=== PATIENT | male | born 1950 | race Caucasian/White ===

== ENCOUNTER → 2016-09-30 | Outpatient (CLI) | payer OTHER ==
[~2016-09-30] MED LIST: ASPI-461 PO; CALC500C3 PO; CHOL100027 PO; CHOL20007 PO; CLOP1TAB5 PO; FRS/40 PO; GADOXETATE DISODIUM IV PRN; INSDGIPEN SC; INSU75IN2 SC; LISI-461 PO; LISI-729 PO; NTRGSL/4 SL; NTRGSL/4 UT; NVLGI/PEN SC; PRAV20TA PO; PRED10TA PO; PROP80CA7 PO; SPIR25TA89 PO
--- NOTE | 2016-09-30 10:51 | DIAGNOSTIC IMAGING REPORT ---
MRI LIVER COMBO CLINICAL HISTORY: Autoimmune hepatitis, cirrhosis. Colon cancer screening. TECHNIQUE: Imaging was performed prior to and following IV contrast injection. (10 cc intravenous Eovist) COMPARISON STUDY: No previous studies for comparison. FINDINGS: The liver serosal surface appears nodular, consistent with history of cirrhosis. No hepatic masses are visualized. There are perisplenic varices. There is mild splenomegaly (12 cm). This is likely secondary to portal hypertension. There are multiple gallstones present. There is no ductal dilatation. Multiple subcentimeter T2 bright pancreatic lesions are visualized consistent with multiple IPMNs. There is no pancreatic ductal dilatation. 12 month follow-up is recommended. There is no evidence of abdominal aortic dilatation. There are multiple bilateral renal cysts. The largest on the right measures 7.2 cm. The largest in the left measures 5.5 cm. No adrenal masses are visualized. There are no pathologically enlarged upper abdominal lymph nodes. IMPRESSION: 1. Cirrhotic liver morphology 2. No hepatic masses 3. Mild splenomegaly and perisplenic varices 4. Bilateral renal cysts 5. Cholelithiasis 6. Multiple subcentimeter pancreatic cystic lesions, the largest of which measures 6 mm. 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 12 month follow-up is recommended. Electronically signed by: Elgin Caballero M.D. 09/30/2016 10:49 AM Dictated Date/Time: 09/30/2016 10:27 AM
== END | disposition home or self-care (01) ==
LOC: C.MRI 08:46
PROVIDERS: ATTEND Internal Medicine Gastroenterology
DX: Z12.11 Encounter for screening for malignant neoplasm of colon (principal); K75.4 Autoimmune hepatitis; K74.60 Unspecified cirrhosis of liver; R16.1 Splenomegaly, not elsewhere classified; I86.8 Varicose veins of other specified sites; N28.1 Cyst of kidney, acquired; K86.2 Cyst of pancreas

== ENCOUNTER → 2016-10-09 | Day surgery (SDC) | payer OTHER ==
[2016-09-30 13:49] VITALS: Ht 175.3 cm; Wt 84.1 kg
[~2016-10-09] VITALS: Ht 175.3 cm; Wt 84.1 kg
[~2016-10-09] MED LIST changes: -CHOL100027 PO; -CLOP1TAB5 PO; -GADOXETATE DISODIUM IV PRN; -INSU75IN2 SC; +LIDOCAINE HCL 2% 2 ML VIAL (20MG/ML) ONE; -LISI-729 PO; -NTRGSL/4 SL; +PROPOFOL IV EMULSION 10 MG/ML 20 ML VIAL IV ONE; +SODIUM CHLORIDE 0.9% 500ML 500 ML IV ONE
--- NOTE | 2016-10-09 13:41 | Endo History and Physical ---
History & Physical Date of Service: Oct 09, 2016. Chief Complaint: Referring Physician: History of Present Illness AIH; for variceal screening and colon screening Past Surgical History Hx Cardiac Surgery: Yes (HEART CATH, STENT X1) Hx Internal Defibrillator: No Hx Pacemaker: No Hx Abdominal Surgery: No Hx of Implantable Prosthesis: No Hx Post-Op Nausea and Vomiting: No Hx Cancer Surgery: No Hx Thoracic Surgery: No Hx Orthopedic: Yes (RT ANKLE TUMOR REMOVAL (BENIGN)) Hx Urinary Tract Surgery: No Family History None Social History Smoking Status: Current Some Day Smoker Hx Substance Use: No Hx Alcohol Use: No Allergies Coded Allergies: No Known Allergies (Verified , 10/09/16) Current Medications Reported Home Medications Medications Dose Route/Sig Max Daily Dose Days Date Category Dose Instructions Nitrostat (Nitroglycerin) 0.4 Mg Tab 0.4 Mg UT PRN PRN 09/30/16 Reported Vitamin D3 (Cholecalciferol) 2,000 Unit Tab 1 Tab PO QAM 09/30/16 Reported Tums (Calcium Carbonate) 500 Mg Chew 2 Tabs PO QAM 09/30/16 Reported Aspirin 81 Mg Tab 1 Tab PO QAM 09/30/16 Reported Lantus Solostar (Insulin Glargine) 100 Unit/Ml Inj 27 Units SC HS 09/30/16 Reported Novolog Flexpen (Insulin Aspart) 100 Units/Ml Inj Units SC UD 09/30/16 Reported 17 UNITS AM 20 UNITS LUNCH 29 UNITS SUPPER Lasix (Furosemide) 40 Mg Tab 40 Mg PO QAM 09/30/16 Reported Aldactone (Spironolactone) 25 Mg Tab 25 Mg PO QAM 09/30/16 Reported Pravachol (Pravastatin Sodium) 20 Mg Tab 20 Mg PO QAM 09/30/16 Reported Zestril (Lisinopril) 10 Mg Tab 10 Mg PO QAM 09/30/16 Reported Inderal La (Propranolol Hcl) 80 Mg Cap 80 Mg PO QAM 11/26/12 Reported Prednisone 10 Mg Tab 10 Mg PO QAM 07/15/10 Reported Vital Signs Weight (Kilograms): 84.09 Height (Feet): 5 Height (Inches): 9 Date Time Temp Pulse Resp B/P Pulse Ox O2 Delivery O2 Flow Rate FiO2 10/09/16 13:33 36.9 54 16 178/73 99 Room Air Physical Exam AAO x3 Nl s1s2 Lungs CTA Abd soft NT/ND + BS - CCe Assessment and Plan EGd/colon today
--- NOTE | 2016-10-09 14:43 | GI REPORT ---
Procedure Date: 10/09/2016 1:44 PM Procedure: Upper GI endoscopy Indications: Esophageal varices, Follow-up of esophageal varices, Abnormal CT of the GI tract Medicines: Propofol per Anesthesia Complications: No immediate complications. Estimated blood loss: None. Estimated Blood Loss: Estimated blood loss: none. Procedure: Pre-Anesthesia Assessment: - Prior to the procedure, a History and Physical was performed, and patient medications and allergies were reviewed. The patient's tolerance of previous anesthesia was also reviewed. The risks and benefits of the procedure and the sedation options and risks were discussed with the patient. All questions were answered, and informed consent was obtained. Prior Anticoagulants: The patient has taken no previous anticoagulant or antiplatelet agents. ASA Grade Assessment: III - A patient with severe systemic disease. After reviewing the risks and benefits, the patient was deemed in satisfactory condition to undergo the procedure. After obtaining informed consent, the endoscope was passed under direct vision. Throughout the procedure, the patient's blood pressure, pulse, and oxygen saturations were monitored continuously. The scope was introduced through the mouth, and advanced to the third part of duodenum. The upper GI endoscopy was accomplished without difficulty. The patient tolerated the procedure well. Findings: Grade I varices were found in the lower third of the esophagus. They were 3 mm in largest diameter. The entire examined stomach was normal. The examined duodenum was normal. The cardia and gastric fundus were normal on retroflexion. Impression: - Grade I esophageal varices. - Normal stomach. - Normal examined duodenum. - No specimens collected. Recommendation: - Discharge patient to home (ambulatory). - Resume previous diet. - Return to GI clinic as previously scheduled. - Perform a colonoscopy today. MD Frank Iraheta MD 10/09/2016 2:43:35 PM This report has been signed electronically. Note Initiated On: 10/09/2016 1:44 PM I attest to the content of the Intraoperative Record and orders documented therein, exceptions below
--- NOTE | 2016-10-09 14:58 | Discharge Instructions ---
Endoscopy Patient Instructions Date / Procedure(s) Performed Oct 09, 2016. Colonoscopy, EGD Allergy Information Coded Allergies: No Known Allergies (Verified , 10/09/16) Discharge Date / Findings Oct 09, 2016. mild esophageal varices colon polyp Medication Instructions Stopped Medication(s): Patient was told not to take his aldactone, lasix, and insulin. Patient did not take anything at all this am. Restart Stopped Medication(s): Reported Home Medications Medications Dose Route/Sig Max Daily Dose Days Date Category Dose Instructions Nitrostat (Nitroglycerin) 0.4 Mg Tab 0.4 Mg UT PRN PRN 09/30/16 Reported Vitamin D3 (Cholecalciferol) 2,000 Unit Tab 1 Tab PO QAM 09/30/16 Reported Tums (Calcium Carbonate) 500 Mg Chew 2 Tabs PO QAM 09/30/16 Reported Aspirin 81 Mg Tab 1 Tab PO QAM 09/30/16 Reported Lantus Solostar (Insulin Glargine) 100 Unit/Ml Inj 27 Units SC HS 09/30/16 Reported Novolog Flexpen (Insulin Aspart) 100 Units/Ml Inj Units SC UD 09/30/16 Reported 17 UNITS AM 20 UNITS LUNCH 29 UNITS SUPPER Lasix (Furosemide) 40 Mg Tab 40 Mg PO QAM 09/30/16 Reported Aldactone (Spironolactone) 25 Mg Tab 25 Mg PO QAM 09/30/16 Reported Pravachol (Pravastatin Sodium) 20 Mg Tab 20 Mg PO QAM 09/30/16 Reported Zestril (Lisinopril) 10 Mg Tab 10 Mg PO QAM 09/30/16 Reported Inderal La (Propranolol Hcl) 80 Mg Cap 80 Mg PO QAM 11/26/12 Reported Prednisone 10 Mg Tab 10 Mg PO QAM 07/15/10 Reported Reported Home Medications Medications Dose Route/Sig Max Daily Dose Days Date Category Dose Instructions Nitrostat (Nitroglycerin) 0.4 Mg Tab 0.4 Mg UT PRN PRN 09/30/16 Reported Vitamin D3 (Cholecalciferol) 2,000 Unit Tab 1 Tab PO QAM 09/30/16 Reported Tums (Calcium Carbonate) 500 Mg Chew 2 Tabs PO QAM 09/30/16 Reported Aspirin 81 Mg Tab 1 Tab PO QAM 09/30/16 Reported Lantus Solostar (Insulin Glargine) 100 Unit/Ml Inj 27 Units SC HS 09/30/16 Reported Novolog Flexpen (Insulin Aspart) 100 Units/Ml Inj Units SC UD 09/30/16 Reported 17 UNITS AM 20 UNITS LUNCH 29 UNITS SUPPER Lasix (Furosemide) 40 Mg Tab 40 Mg PO QAM 09/30/16 Reported Aldactone (Spironolactone) 25 Mg Tab 25 Mg PO QAM 09/30/16 Reported Pravachol (Pravastatin Sodium) 20 Mg Tab 20 Mg PO QAM 09/30/16 Reported Zestril (Lisinopril) 10 Mg Tab 10 Mg PO QAM 09/30/16 Reported Inderal La (Propranolol Hcl) 80 Mg Cap 80 Mg PO QAM 11/26/12 Reported Prednisone 10 Mg Tab 10 Mg PO QAM 07/15/10 Reported Provider Instructions Activity Restrictions - No exercising or heavy lifting for 24 hours. - Do not drink alcohol the day of the procedure. - Do not drive a car or operate machinery until the day after the procedure. - Do not make any important decisions or sign important papers in 24 hours after the procedure. Following Day: - Return to full activity which may include returning to work/school. Diet Start your diet with liquids and light foods (jello, soup, juice, toast). Then eat your usual diet if not nauseated. Treatment For Common After Affects For mild abdominal pain, bloating, or excessive gas: - Rest - Eat lightly - Lie on right side Follow-Up Information Follow-up with Dr. Dariel Moscoso as scheduled Anesthesia Information What You Should Know You have had a procedure that required some medicine to reduce anxiety and discomfort. This treatment is called moderate sedation. After receiving the treatment, you may be sleepy, but you will be able to breathe on your own. The effects of the treatment may last for several hours. Follow these instructions along with Activity/Diet recommendations noted above: * Do NOT do anything where dizziness or clumsiness would be dangerous. * Rest quietly at home today, then you can be up and about tomorrow. * Have a responsible person stay with you the rest of today. * You may have had an I.V. today. If so, you may take the dressing off later today. Recommendations Call your doctor if: * Trouble breathing * Continuous vomiting for more than 24 hours * Temperature above 101 degrees * Severe abdominal pain or bloating * Pain not relieved by pain medicine ordered * There is increased drainage or redness from any incision * A large amount of rectal bleeding greater than 2-3 tablespoons. (If you had a polyp/s removed or have hemorrhoids, a small amount of blood - from the rectum is to be expected.) * You have any unanswered questions or concerns. IN THE EVENT OF A SERIOUS EMERGENCY, GO TO THE NEAREST EMERGENCY ROOM Your discharge instructions were prepared by provider Frank Sanders. Patient Instructions Signature Page Carlos A Julien Patient (or Guardian) Signature/Date: I have read and understand the instructions given to me by my caregivers. Caregiver/RN/Doctor Signature/Date: The above-named patient and/or guardian has received patient instructions on this date. + Original Patient Signature Page (only) stays with chart. Please make copy for patient.
--- NOTE | 2016-10-09 15:02 | Anesthesiology Progress Note ---
Anesthesia Post Op Note Date & Time Oct 09, 2016 at 15:02 Vital Signs Pain Intensity: 0 Vital Signs Past 12 Hours Date Time Temp Pulse Resp B/P Pulse Ox O2 Delivery O2 Flow Rate FiO2 10/09/16 14:53 66 20 160/74 98 Room Air 10/09/16 14:38 77 20 109/67 98 Room Air 10/09/16 13:33 36.9 54 16 178/73 99 Room Air Notes Mental Status: alert / awake / arousable, participated in evaluation Pt Amnestic to Procedure: Yes Nausea / Vomiting: adequately controlled Pain: adequately controlled Airway Patency, RR, SpO2: stable & adequate BP & HR: stable & adequate Hydration State: stable & adequate Anesthetic Complications: no major complications apparent
[2016-10-09 15:08] VITALS: BP 159/70; PULSE 52; O2SAT 99
== END | disposition home or self-care (01) ==
LOC: C.GI 13:07
PROVIDERS: ATTEND Internal Medicine Gastroenterology
DX: Z12.11 Encounter for screening for malignant neoplasm of colon (principal); K62.0 Anal polyp; K64.8 Other hemorrhoids; I85.00 Esophageal varices without bleeding; R93.3 Abnormal findings on diagnostic imaging of other parts of digestive tract; E11.9 Type 2 diabetes mellitus without complications; I25.2 Old myocardial infarction; I25.10 Atherosclerotic heart disease of native coronary artery without angina pectoris; I10 Essential (primary) hypertension; F17.200 Nicotine dependence, unspecified, uncomplicated; Z98.890 Other specified postprocedural states; Z79.4 Long term (current) use of insulin; Z68.27 Body mass index [BMI] 27.0-27.9, adult

== ENCOUNTER → 2016-10-14 | Outpatient (CLI) | payer OTHER ==
[~2016-10-14] MED LIST changes: -LIDOCAINE HCL 2% 2 ML VIAL (20MG/ML) ONE; -PROPOFOL IV EMULSION 10 MG/ML 20 ML VIAL IV ONE; -SODIUM CHLORIDE 0.9% 500ML 500 ML IV ONE
[2016-10-14 10:13] LABS: HEMATOCRIT 27.8 % (42-52); MEAN CELL VOLUME 88.5 fL (80-100); MEAN CORPUSCULAR HEMOGLOBIN 31.2 pg (25-34); MEAN CORPUSCULAR HGB CONC 35.3 g/dl (32-36); RED BLOOD COUNT 3.14 M/uL (4.7-6.1); WHITE BLOOD COUNT 7.83 K/uL (4.8-10.8)
[2016-10-14 10:16] LABS: MANUAL MICROSCOPIC REQUIRED? NO; REVIEW REQ? NO; URINE APPEARANCE CLEAR (CLEAR); URINE BILIRUBIN NEG (NEG); URINE COLOR YELLOW; URINE NITRITE NEG (NEG); URINE SPECIFIC GRAVITY 1.016 (1.000-1.030); UROBILINOGEN NEG (NEG); ZZUR CULT IF INDIC CLEAN CATCH NO
[2016-10-14 10:35] LABS: URINE TOTAL PROTEIN 148.9 mg/dl (0-11.9)
[2016-10-14 10:40] LABS: BASO % 0.5 %; BASO ABS # 0.04 K/uL (0-0.2); BLOOD UREA NITROGEN 34 mg/dl (7-18); BUN/CREATININE RATIO 21.5 (10-20); CALCIUM 8.1 mg/dl (8.5-10.1); CARBON DIOXIDE 25 mmol/L (21-32); CHLORIDE 113 mmol/L (98-107); COMPLETE YES; EOS % 3.6 %; GLUCOSE 114 mg/dl (70-99); IG% 0.4 %; LYMPH % 21.8 %; LYMPH ABS # 1.71 K/uL (1.2-3.4); MAGNESIUM 2.3 mg/dl (1.8-2.4); MEAN PLATELET VOLUME 9.9 fL (7.4-10.4); MONO % 10.3 %; NEUT % 63.4 %; PHOSPHORUS 3.9 mg/dl (2.5-4.9); PLATELET COUNT 92 K/uL (130-400); POTASSIUM 4.4 mmol/L (3.5-5.1); SODIUM 147 mmol/L (136-145)
[2016-10-14 10:48] LABS: URINE PROTIEN/CREAT RATIO 1.2 (0-0.2)
--- NOTE | 2017-01-05 07:53 | CODING QUERY MEDICAL NECESSITY ---
SUPPORTING DIAGNOSIS NEEDED Dr. Dwyer, A supporting diagnosis is required for the test/procedure performed on this patient in order for us to be reimbursed by the patient's insurance. Please provide a supporting diagnosis for the following test/procedure listed below next to the test name along with your signature. *If there is no additional diagnosis for this patient that would support the following test/procedure please document that below next to the test/procedure. Test(s)/Procedure(s) that require a supporting diagnosis: * ([id number]) VITAMIN D ASSAY DIAGNOSIS: DATE OF SERVICE: 10/14/16 Provider Signature: Date: Thank you Maynor Carmichael [facility] Information Management Once completed, please kindly fax back to [phone] For questions please call [phone]
== END | disposition home or self-care (01) ==
LOC: C.LAB1850 09:28
PROVIDERS: ATTEND Internal Medicine Nephrology
DX: N18.2 Chronic kidney disease, stage 2 (mild) (principal); D64.9 Anemia, unspecified; E55.9 Vitamin D deficiency, unspecified

== ENCOUNTER → 2016-11-18 | Outpatient (CLI) | payer OTHER ==
--- NOTE | 2016-11-18 14:34 | DIAGNOSTIC IMAGING REPORT ---
TESTICULAR ULTRASOUND HISTORY: Testicular pain Q55.29 Testicular [id number] COMPARISON: None. FINDINGS: Right testis: Maximum linear dimension 4.2 cm. Normal vascular calcification Left testis: 4.6 cm maximum dimension. Normal vascular flow. Left-sided hydrocele. IMPRESSION: Left-sided hydrocele. Normal testis. Electronically signed by: Darin Rios M.D. 11/18/2016 2:32 PM Dictated Date/Time: 11/18/2016 2:31 PM
== END | disposition home or self-care (01) ==
LOC: C.ULTR 13:51
PROVIDERS: ATTEND Internal Medicine
DX: Q55.29 Other congenital malformations of testis and scrotum (principal)

== ENCOUNTER → 2016-12-12 | Outpatient (CLI) | payer OTHER ==
[2016-12-12 10:10] LABS: HEMATOCRIT 27.5 % (42-52); MEAN CELL VOLUME 89.9 fL (80-100); MEAN CORPUSCULAR HGB CONC 34.5 g/dl (32-36); RED BLOOD COUNT 3.06 M/uL (4.7-6.1); WHITE BLOOD COUNT 7.59 K/uL (4.8-10.8)
[2016-12-12 10:20] LABS: URINE APPEARANCE CLEAR (CLEAR); URINE BILIRUBIN NEG (NEG); URINE COLOR YELLOW; URINE NITRITE NEG (NEG); URINE SPECIFIC GRAVITY 1.016 (1.000-1.030); UROBILINOGEN NEG (NEG); ZZUR CULT IF INDIC CLEAN CATCH NO
[2016-12-12 10:26] LABS: MANUAL MICROSCOPIC REQUIRED? NO; REVIEW REQ? NO
[2016-12-12 10:33] LABS: BASO % 0.7 %; BASO ABS # 0.05 K/uL (0-0.2); COMPLETE YES; IG% 0.5 %; LYMPH % 23.3 %; LYMPH ABS # 1.77 K/uL (1.2-3.4); MEAN PLATELET VOLUME 10.6 fL (7.4-10.4); MONO % 11.3 %; NEUT % 60.2 %; PLATELET COUNT 92 K/uL (130-400); PLT ESTIMATE DECREASED
[2016-12-12 10:51] LABS: BLOOD UREA NITROGEN 56 mg/dl (7-18); BUN/CREATININE RATIO 31.3 (10-20); CALCIUM 8.1 mg/dl (8.5-10.1); CARBON DIOXIDE 26 mmol/L (21-32); CHLORIDE 115 mmol/L (98-107); GLUCOSE 138 mg/dl (70-99); MAGNESIUM 2.8 mg/dl (1.8-2.4); POTASSIUM 4.8 mmol/L (3.5-5.1); SODIUM 145 mmol/L (136-145)
[2016-12-12 10:57] LABS: FERRITIN 579.7 ng/ml (8.0-388.0); PHOSPHORUS 3.7 mg/dl (2.5-4.9); TOTAL IRON BINDING CAPACITY 227 mcg/dl (250-450)
[2016-12-12 11:11] LABS: URINE TOTAL PROTEIN 85.2 mg/dl (0-11.9)
[2016-12-16 06:26] LABS: ALBUMIN 3.1 G/DL (3.8-4.8); ALBUMIN % 78.26 %; ALPHA-2-GLOBULIN % 4.81 %; BETA GLOBULIN % 8.08 %; CREATININE UR 89 MG/DL (20-370); GAMMA GLOBULIN % 7.95 %; TOTAL PROTEIN 5.7 G/DL (6.2-8.3)
== END | disposition home or self-care (01) ==
LOC: C.LAB1850 09:15
PROVIDERS: ATTEND Internal Medicine Nephrology
DX: N18.2 Chronic kidney disease, stage 2 (mild) (principal)

== ENCOUNTER → 2017-02-24 | Outpatient (CLI) | payer OTHER ==
[2017-02-24 12:12] LABS: HEMATOCRIT 26.3 % (42-52); MEAN CELL VOLUME 92.9 fL (80-100); MEAN CORPUSCULAR HEMOGLOBIN 32.2 pg (25-34); MEAN CORPUSCULAR HGB CONC 34.6 g/dl (32-36); RED BLOOD COUNT 2.83 M/uL (4.7-6.1); WHITE BLOOD COUNT 6.97 K/uL (4.8-10.8)
[2017-02-24 12:19] LABS: BASO % 0.4 %; BASO ABS # 0.03 K/uL (0-0.2); EOS % 2.6 %; IG% 0.9 %; LYMPH % 23.5 %; LYMPH ABS # 1.64 K/uL (1.2-3.4); MEAN PLATELET VOLUME 10.2 fL (7.4-10.4); MONO % 10.2 %; NEUT % 62.4 %; PLATELET COUNT 91 K/uL (130-400)
[2017-02-24 12:27] LABS: INR 1.2 (0.9-1.1); PROTHROMBIN TIME (PATIENT) 12.7 SECONDS (9.0-12.0)
[2017-02-24 12:29] LABS: URINE APPEARANCE CLEAR (CLEAR); URINE BILIRUBIN NEG (NEG); URINE COLOR YELLOW; URINE EPITHELIAL CELL AUTO 0-5 /lpf (0-5); URINE NITRITE NEG (NEG); UROBILINOGEN NEG (NEG); ZZUR CULT IF INDIC CLEAN CATCH NO
[2017-02-24 12:38] LABS: ESTIMATED AVERAGE GLUCOSE 117 mg/dl; HA1C FLAG Normal (Normal)
[2017-02-24 12:40] LABS: MANUAL MICROSCOPIC REQUIRED? NO; REVIEW REQ? NO
[2017-02-24 12:45] LABS: URINE PROTIEN/CREAT RATIO 0.5 (0-0.2); URINE TOTAL PROTEIN 44.6 mg/dl (0-11.9)
[2017-02-24 13:13] LABS: COMPLETE YES; HYPERSEGMENTED POLYS 1+
[2017-02-24 14:20] LABS: ALT/SGPT 25 U/L (12-78); AST/SGOT 11 U/L (15-37); BLOOD UREA NITROGEN 59 mg/dl (7-18); BUN/CREATININE RATIO 26.6 (10-20); CALCIUM 9.3 mg/dl (8.5-10.1); CARBON DIOXIDE 22 mmol/L (21-32); CHLORIDE 112 mmol/L (98-107); CHOLESTEROL 126 mg/dl (0-200); GLUCOSE 118 mg/dl (70-99); MAGNESIUM 2.3 mg/dl (1.8-2.4); PHOSPHORUS 4.3 mg/dl (2.5-4.9); POTASSIUM 5.1 mmol/L (3.5-5.1); SODIUM 141 mmol/L (136-145); TRIGLYCERIDES 119 mg/dl (0-150); VERY LOW DENSITY LIPOPROT CALC 24 mg/dl
[2017-02-24 14:30] LABS: ALB/GLOB RATIO 0.9 (0.9-2); ALKALINE PHOSPHATASE 29 U/L (45-117); CHOLESTEROL/HDL RATIO 3.3; FERRITIN 494.6 ng/ml (8.0-388.0); HDL CHOLESTEROL 38 mg/dl; LDL CHOLESTEROL CALCULATED 64 mg/dl; TOTAL IRON BINDING CAPACITY 233 mcg/dl (250-450)
[2017-02-25 16:22] LABS: GAMMA GLOBULIN 0.9 G/DL (0.8-1.7); TOTAL PROTEIN 5.6 G/DL (6.2-8.3)
== END | disposition home or self-care (01) ==
LOC: C.LAB1850 09:41
PROVIDERS: ATTEND Internal Medicine Nephrology
DX: K74.60 Unspecified cirrhosis of liver (principal); E78.5 Hyperlipidemia, unspecified; I85.00 Esophageal varices without bleeding; M35.9 Systemic involvement of connective tissue, unspecified; D64.9 Anemia, unspecified; K75.4 Autoimmune hepatitis; N18.2 Chronic kidney disease, stage 2 (mild); E11.9 Type 2 diabetes mellitus without complications; N40.0 Benign prostatic hyperplasia without lower urinary tract symptoms

== ENCOUNTER → 2017-03-18 | Outpatient (CLI) | payer OTHER ==
[2017-03-20 14:02] LABS: FREE KAPPA 52.7 MG/L (3.3-19.4); FREE KAPPA/LAMBDA RATIO 2.15 (0.26-1.65); FREE LAMBDA 24.5 MG/L (5.7-26.3)
[2017-03-23 11:30] LABS: ALBUMIN % 73.92 %; ALPHA-2-GLOBULIN % 5.55 %; BETA GLOBULIN % 8.56 %; CREATININE UR 96 MG/DL (20-370); GAMMA GLOBULIN % 8.31 %
== END | disposition home or self-care (01) ==
LOC: C.LAB1850 12:47
PROVIDERS: ATTEND Internal Medicine Nephrology
DX: R80.9 Proteinuria, unspecified (principal); D89.2 Hypergammaglobulinemia, unspecified

== ENCOUNTER → 2017-03-27 | Outpatient (CLI) | payer OTHER ==
[2017-03-27 12:53] LABS: BLOOD UREA NITROGEN 50 mg/dl (7-18); BUN/CREATININE RATIO 31.5 (10-20); CALCIUM 8.7 mg/dl (8.5-10.1); CARBON DIOXIDE 23 mmol/L (21-32); CHLORIDE 116 mmol/L (98-107); GLUCOSE 95 mg/dl (70-99); MAGNESIUM 2.8 mg/dl (1.8-2.4); PHOSPHORUS 3.5 mg/dl (2.5-4.9); POTASSIUM 5.2 mmol/L (3.5-5.1); SODIUM 146 mmol/L (136-145)
== END | disposition home or self-care (01) ==
LOC: C.LAB1850 09:43
PROVIDERS: ATTEND Internal Medicine Nephrology
DX: N28.9 Disorder of kidney and ureter, unspecified (principal)

== ENCOUNTER → 2017-04-07 | Outpatient (CLI) | payer OTHER ==
[~2017-04-07] MED LIST changes: +GADAVIST IV PRN
--- NOTE | 2017-04-07 11:50 | DIAGNOSTIC IMAGING REPORT ---
MRI ABDOMEN COMBO CLINICAL HISTORY: AUTOIMMUNE HEPATITIS PANCREAS ASSESS PANCREATIC CYST. TECHNIQUE: Imaging was performed prior to and following IV contrast injection. (8 cc intravenous Gadavist) COMPARISON STUDY: Liver MRI 09/30/2016. FINDINGS: The liver serosal surface appears nodular, consistent with history of cirrhosis. No hepatic masses are visualized. There are perisplenic varices. The spleen remains top normal in size (12 cm). There are multiple gallstones present. There is no ductal dilatation. Multiple subcentimeter T2 bright pancreatic lesions are visualized consistent with multiple IPMNs. The largest in the body of the pancreas measures 6 mm. No enhancing lesions identified. There is no pancreatic ductal dilatation. 12 month follow-up is recommended. There is no evidence of abdominal aortic dilatation. There are multiple bilateral renal cysts. The largest on the right measures 7.2 cm. The largest in the left measures 5.5 cm. There is a 1.8 cm T1 hyperintense, T2 intermediate intensity nonenhancing lesion within the interpolar region of the left kidney. Therefore, this is consistent with a proteinaceous/hemorrhagic cyst. No adrenal masses are visualized. There are no pathologically enlarged upper abdominal lymph nodes. IMPRESSION: 1. Cirrhotic liver morphology 2. No hepatic masses 3. The spleen remains top normal in size measuring 12 cm. 4. Bilateral renal cysts, unchanged. 5. Cholelithiasis 6. Multiple subcentimeter pancreatic cystic lesions, the largest of which measures 6 mm. 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 Electronically signed by: Raffi Payne M.D. 04/07/2017 11:49 AM Dictated Date/Time: 04/07/2017 11:39 AM
== END | disposition home or self-care (01) ==
LOC: C.MRI 09:34
PROVIDERS: ATTEND Internal Medicine Gastroenterology
DX: K75.4 Autoimmune hepatitis (principal); N28.1 Cyst of kidney, acquired; K80.20 Calculus of gallbladder without cholecystitis without obstruction; K86.9 Disease of pancreas, unspecified

== ENCOUNTER → 2017-04-29 | Outpatient (CLI) | payer OTHER ==
[~2017-04-29] MED LIST changes: -GADAVIST IV PRN
[2017-04-29 10:33] LABS: BLOOD UREA NITROGEN 50 mg/dl (7-18); BUN/CREATININE RATIO 26.5 (10-20); CALCIUM 8.9 mg/dl (8.5-10.1); CARBON DIOXIDE 26 mmol/L (21-32); CHLORIDE 111 mmol/L (98-107); GLUCOSE 86 mg/dl (70-99); PHOSPHORUS 4.4 mg/dl (2.5-4.9); POTASSIUM 4.2 mmol/L (3.5-5.1); SODIUM 144 mmol/L (136-145)
== END | disposition home or self-care (01) ==
LOC: C.LAB1850 09:23
PROVIDERS: ATTEND Internal Medicine Nephrology
DX: N28.9 Disorder of kidney and ureter, unspecified (principal)

== ENCOUNTER → 2017-07-10 | Outpatient (CLI) | payer OTHER ==
[2017-07-10 10:57] LABS: BLOOD UREA NITROGEN 42 mg/dl (7-18); BUN/CREATININE RATIO 24.2 (10-20); CALCIUM 8.1 mg/dl (8.5-10.1); CARBON DIOXIDE 23 mmol/L (21-32); CHLORIDE 113 mmol/L (98-107); CREATININE 1.75 mg/dl (0.60-1.40); GLUCOSE 94 mg/dl (70-99); PHOSPHORUS 3.5 mg/dl (2.5-4.9); POTASSIUM 4.2 mmol/L (3.5-5.1); SODIUM 144 mmol/L (136-145)
[2017-07-10 11:26] LABS: ESTIMATED AVERAGE GLUCOSE 114 mg/dl; HA1C FLAG Normal (Normal)
== END | disposition home or self-care (01) ==
LOC: C.LAB1850 09:22
PROVIDERS: ATTEND Physician Assistant
DX: E11.9 Type 2 diabetes mellitus without complications (principal); N28.9 Disorder of kidney and ureter, unspecified

== ENCOUNTER → 2017-07-30 | Outpatient (CLI) | payer OTHER ==
[2017-07-30 12:18] LABS: BLOOD UREA NITROGEN 51 mg/dl (7-18); BUN/CREATININE RATIO 28.8 (10-20); CALCIUM 8.3 mg/dl (8.5-10.1); CARBON DIOXIDE 23 mmol/L (21-32); CHLORIDE 112 mmol/L (98-107); CREATININE 1.76 mg/dl (0.60-1.40); GLUCOSE 144 mg/dl (70-99); MAGNESIUM 2.6 mg/dl (1.8-2.4); PHOSPHORUS 3.4 mg/dl (2.5-4.9); POTASSIUM 4.7 mmol/L (3.5-5.1); SODIUM 143 mmol/L (136-145)
== END | disposition home or self-care (01) ==
LOC: C.LAB1850 10:15
PROVIDERS: ATTEND Internal Medicine Nephrology
DX: N28.9 Disorder of kidney and ureter, unspecified (principal)

== ENCOUNTER → 2017-09-10 | Outpatient (CLI) | payer OTHER ==
[2017-09-10 12:22] LABS: BASO % 0.5 %; BASO ABS # 0.04 K/uL (0-0.2); EOS % 3.5 %; EOS ABS # 0.28 K/uL (0-0.5); HEMATOCRIT 26.5 % (42-52); HEMOGLOBIN 8.9 g/dL (14.0-18.0); IG# 0.04 K/uL (0.00-0.02); LYMPH % 16.6 %; LYMPH ABS # 1.34 K/uL (1.2-3.4); MEAN CORPUSCULAR HEMOGLOBIN 30.9 pg (25-34); MEAN CORPUSCULAR HGB CONC 33.6 g/dl (32-36); MEAN PLATELET VOLUME 10.5 fL (7.4-10.4); MONO % 10.7 %; MONO ABS # 0.86 K/uL (0.11-0.59); NEUT % 68.2 %; NEUT ABS # 5.51 K/uL (1.4-6.5); PLATELET COUNT 105 K/uL (130-400); RED CELL DISTRIBUTION WIDTH CV 14.1 % (11.5-14.5); RED CELL DISTRIBUTION WIDTH SD 46.5 fL (36.4-46.3); WHITE BLOOD COUNT 8.07 K/uL (4.8-10.8)
[2017-09-10 12:38] LABS: INR 1.3 (0.9-1.1); PTT PATIENT 27.5 SECONDS (21.0-31.0)
[2017-09-10 13:03] LABS: BLOOD UREA NITROGEN 54 mg/dl (7-18); CALCIUM 8.4 mg/dl (8.5-10.1); CARBON DIOXIDE 24 mmol/L (21-32); CREATININE 1.88 mg/dl (0.60-1.40); GLUCOSE 118 mg/dl (70-99); POTASSIUM 4.6 mmol/L (3.5-5.1); SODIUM 143 mmol/L (136-145)
== END | disposition home or self-care (01) ==
LOC: C.LAB1850 11:27
PROVIDERS: ATTEND Physician Assistant Medical
DX: I20.8 Other forms of angina pectoris (principal)

== ENCOUNTER → 2017-10-06 | Day surgery (SDC) | payer OTHER ==
[~2017-10-06] VITALS: Ht 175.3 cm; Wt 84.0 kg
[~2017-10-06] MED LIST changes: +ASPIRIN 81 MG CHEW ONE; +FENTANYL CITRATE INJ 50 MCG/1 ML 2 ML VIAL ONE; +HEPARIN SOD (PORCINE) 1000 UNIT/ML 10 ML VIAL ONE; +HMLI7525 SC; +ISOS30TA3 PO; +MIDAZOLAM HCL 1 MG/ML 2ML VIAL ONE; +NITROGLYCERIN/D5W 100MCG/ML 20ML SYR ONE; +NiCARDipine HCL INJ 2.5 MG/ML 10 ML AMP ONE
[2017-10-06 07:19] VITALS: BP 168/80; PULSE 97; TEMP 36.8; O2SAT 95; Ht 175.3 cm; Wt 84.0 kg
--- NOTE | 2017-10-06 08:40 | History & Physical Bridge Note ---
H&P Re-Evaluation Bridge Note: I have examined the patient, reviewed the History & Physical and in the interval since the performance of the History & Physical I have noted the following changes of clinical significance: No changes noted
--- NOTE | 2017-10-06 08:40 | Pre Sedation Assessment ---
Pre Sedation Assessment General Date of Sedation: Oct 06, 2017. Vital Signs Past 12 Hours Date Time Temp Pulse Resp B/P (MAP) Pulse Ox O2 Delivery O2 Flow Rate FiO2 10/06/17 07:19 36.8 97 20 168/80 (109) 95 Room Air Review Cardiovascular: regular rate, rhythm, no edema Lungs: chest non-tender, lungs clear Pre-Sedation Airway Assessment Smoking Status: Never Smoker Hx of Sleep Apnea: No Hx of difficult intubation: No Short Thick Neck: No Thyro-mental Distance: > 3 Finger Breadths Oral Cavity: WNL Mallampati Classification: Class III ASA Classification: Class III NPO Status Date of Last Intake of Fluids: Oct 05, 2017 Date of Last Intake of Solids: Oct 05, 2017 Procedure Planning Contraindications for Sedation: None Current Medications Reviewed: Yes Notes The planned sedation has been discussed with the patient. Informed Consent was obtained. I have identified the patient, determined the appropriateness of sedation and have assessed the patient immediately prior to the procedure. All medicine(s) and interventions are by my order.
--- NOTE | 2017-10-06 09:28 | Post Sedation Assessment ---
Post Sedation Assessment General Date of Sedation Oct 06, 2017. Vital Signs: Vital Signs Past 12 Hours Date Time Temp Pulse Resp B/P (MAP) Pulse Ox O2 Delivery O2 Flow Rate FiO2 10/06/17 09:15 68 16 155/80 (105) 98 Room Air 10/06/17 07:19 36.8 97 20 168/80 (109) 95 Room Air Post Procedure Recovery Score Activity: (2) Moves 4 extremities * Respiration: (2) Deep breath/cough Circulation: (2) +/-20% PreAnes Value Consciousness: (2) Fully Awake Oxygen Saturation: (2) > 92% On Room Air Post Anesthesia Score: 10 Discharge Sedation Level of Care: Fast Track Phase II Post Sedation Plan On clinical assessment, the patient appears to have tolerated the sedation without complications. Patient is recovering as anticipated. Patient will continue to be monitored by nursing and may be discharged when sedation discharge criteria are met per below protocol. Upon Completions of procedure and additional 15 minutes continue every 5 minute vital signs and the P.A.R. score; then discharge to a Phase I or Fast Track to Phase II per the following guidelines: * Discharge Patient to appropriate Phase II area if PAR is 8 or greater or return to pre- procedure baseline. The post - procedure orders will be as directed. * If PAR score is less than 8 or not return to pre-procedure baseline then patient will follow Phase I monitoring till PAR is reached for Phase II. The Phase I may be done in procedure room or may call to secure a Phase I area. * If naloxone or flumazenil are used for reversal, hold in Phase I for an additional 60 -120 minutes before discharge to Phase II. Please call the Sedation Physician to re-evaluate and complete post-note for discharge to Phase II area. Do NOT discharge from procedure sedation or Phase 1 until post- sedation evaluation note is complete by procedure /sedation MD Sedation Discharge Instructions to be given to the patient at discharge to home.
--- NOTE | 2017-10-06 09:44 | Cardiac Catheterization ---
Procedure Note Procedure Date Oct 06, 2017. Pre-Procedure Diagnosis Angina AUC Score 7 Post-Procedure Diagnosis Severe CAD, Normal Intracardiac Pressures Procedure(s) Performed Coronary Angiography, Left Heart Cath Data Integrity Consultant Seamus Cylinder Press Operator(s) Bobbyt Estimated Blood Loss 10 Medication(s) Fentanyl, Heparin, Nitroglycerin, Versed, Lidocaine 1% Summary of Findings Indication: Angina, known coronary artery disease with prior stent to diagonal Access: 6Fr slender right radial artery Catheters: Parkman Findings: LM - Luminal irregularities LAD - Moderately calcified, 50% focal mid stenosis; diffuse 80-90% distal disease; 2nd diagonal with patent proximal stent with 40% in-stent restenosis. Circumflex - 30-40% ostial stenosis, mid, distal and moderate caliber L-PLB with luminal irregularities; Very small OM2, OM3 with 95% ostial lesions. RCA - Large, calcified, dominant, 50% proximal stenosis, mid to distal luminal irregularities. 70% stenosis in small R-PLB2 LVEDP - 15 Arterial Closure: TR band Summary: 1. Multi-vessel coronary artery disease - Severe distal and small vessel coronary artery disease - Distal LAD with diffuse 80-90% disease - 95% ostial stenosis very small OM2, OM3 - 70% small R-PLB2 - Moderate nonobstructive disease - 50% proximal RCA - 50% mid LAD - 40% ostial circumflex 2. Normal intracardiac filling pressure Recommendations: - No high risk lesions identified. As patient having minimal symptoms on 1 antianginal, with risk factors for bleeding recommend optimizing medical management first - If were to develop refractory life-limiting symptoms, can consider multiple stents to diffuse distal LAD disease +/- FFR assessment of moderate disease. - Continued ASCVD risk factor modification - Follow-up with Cardiology in 3-4 weeks for titration of antianginal therapy. Hemodynamics Rest Ao: 142/54/94 Final Ao: 137/55/88 LV: 138/15 Recommendations Medical therapy and/or Counseling Radiation Exposure (mGy) 803 Contrast (mls) 70 Visi Fluids (cc crystalloids) 7 NSS Drains none Anesthesia moderate Procedural Complication(s) None Disposition Medical Doctor Nuclear Medicine Holding/Recovery ACC Data Cardiac Status Clinical evaluation leading to the procedure CAD Presntation: Stable angina Anginal Classification: CCS II Heart Failure: No, NYHA Class: CCS I Cardiogenic Shock w/in 24Hrs: No Cardiac Arrest w/in 24Hrs: No Imaging studies past 6 months: No Stress studies past 6 months: No Closure Device Percutaneous Entry Location: Radial Closure Device: Radial Band Recommendations: Medical therapy and/or Counseling Intraprocedure Events Significant Dissection: No Perforation: No
--- NOTE | 2017-10-06 12:26 | Discharge Instructions ---
Discharge Instructions Procedure Procedure Date: Oct 06, 2017. Reason for Visit: Cad *Dr Way*. Discharge Discharge Date: Oct 06, 2017. Discharge Diagnosis: Coronary artery disease, Stable Angina Last Recorded Wt (Kilograms): 84 Anesthesia Post Anesthesia Instructions: If you have had General Anesthesia or IV Sedation: * Do not drive today. * Resume driving when surgeon permits. * Do not make important decisions or sign legal documents today. * Call surgeon for: 1. Temperature elevations greater than 101 degrees F. 2. Uncontrollable pain. 3. Excessive bleeding. 4. Persistent nausea and vomiting. 5. Medication intolerance (nausea, vomiting or rash). * For nausea and vomiting use only clear liquids such as: tea, soda, bouillon until nausea subsides, then gradually increase diet as tolerated. * If you have any concerns or questions, call your surgeon's office. If physician is unavailable and it is an emergency, call 911 or go to the nearest emergency room. Instructions Activity Recommendations: limitations as noted below Recommended Home Diet: resume previous diet Allergies: Coded Allergies: No Known Allergies (Verified , 10/09/16) Follow Up Additional Instructions: ACTIVITY RECOMMENDATIONS: Excess manipulation of the wrist should be avoided for the next 24-48 hours. * No lifting over 2 pounds (approximately a 1/2 gallon of milk) with the utilized arm for 24 hours. * No strenuous activity such as bowling or tennis for 3 days. * Keep the site of the procedure covered with a bandage for 24 hours. *You may shower the day after the procedure. Do not take a tub bath or submerge the puncture site in water for the next 3 days. *Do not operate any motorized equipment for 3 days. SPECIAL CARE INSTRUCTIONS: The site may be slightly bruised and sore following your procedure. Should any of the following occur, contact the Dr. who performed your procedure. 1. Redness/inflammation, swelling, chills, or fever, or colored drainage at procedure site within 3-7 days after your procedure. 2. Coldness, discoloration, ongoing numbness, severe pain, or swelling. Expect mild tingling of hand and tenderness at the puncture site for up to three days. If this persists beyond three days, or other symptoms develop, notify the Dr. who performed your procedure. BLEEDING: If the procedure site on your wrist begins to bleed, do not panic 1. Place 1 or 2 fingers firmly just slightly above the insertion site to stop the bleeding. You may be able to feel your pulse as you hold pressure. 2. Lift your finger after 5 minutes to see if the bleeding has stopped. 3. Once the bleeding has stopped, gently wipe the wrist area clean with a bandage. * If the bleeding from your wrist does not stop after 10 minutes, or if there is a large amount of bleeding or spurting, call 911 (do not drive yourself to the hospital). SKIN IRRITATION: * You may experience some redness and/or swelling in the area where radiation was administered. If any skin irritation occurs, please contact your family physician. FOLLOW UP VISIT: Keep any scheduled doctor appointments. Follow-up with: Dr. Way' office in 3-4 weeks. Fernando Kilgore Recommendations: Call your doctor if: * Temperature above 101 degrees * Pain not relieved by pain medicine ordered * There is increased drainage or redness from any incision * You have any unanswered questions or concerns. Your Doctors Instructions noted above were prepared by provider Wei Way. Patient Signature Section: Patient Instructions Signature Page Carlos A Julien Patient (or Guardian) Signature/Date: I have read and understand the instructions given to me by my caregivers. Caregiver/RN/Doctor Signature/Date: The above-named patient and/or guardian has received patient instructions on this date. + Original Patient Signature Page (only) stays with chart. Please make copy for patient.
[2017-10-06 12:30] VITALS: BP 144/62; PULSE 64; O2SAT 95
== END | disposition home or self-care (01) ==
LOC: C.CATH 07:07
PROVIDERS: ATTEND Internal Medicine Interventional Cardiology
DX: I25.119 Atherosclerotic heart disease of native coronary artery with unspecified angina pectoris (principal)

== ENCOUNTER → 2017-10-28 | Outpatient (CLI) | payer OTHER ==
[~2017-10-28] MED LIST changes: -ASPIRIN 81 MG CHEW ONE; -FENTANYL CITRATE INJ 50 MCG/1 ML 2 ML VIAL ONE; -HEPARIN SOD (PORCINE) 1000 UNIT/ML 10 ML VIAL ONE; -MIDAZOLAM HCL 1 MG/ML 2ML VIAL ONE; -NITROGLYCERIN/D5W 100MCG/ML 20ML SYR ONE; -NiCARDipine HCL INJ 2.5 MG/ML 10 ML AMP ONE; -SPIR25TA89 PO
[2017-10-28 10:37] LABS: HEMOGLOBIN 8.2 g/dL (14.0-18.0); MEAN CELL VOLUME 90.6 fL (80-100); MEAN CORPUSCULAR HEMOGLOBIN 30.9 pg (25-34); MEAN CORPUSCULAR HGB CONC 34.2 g/dl (32-36); RED CELL DISTRIBUTION WIDTH CV 14.5 % (11.5-14.5); RED CELL DISTRIBUTION WIDTH SD 47.7 fL (36.4-46.3)
[2017-10-28 10:52] LABS: MEAN PLATELET VOLUME 10.2 fL (7.4-10.4); PLATELET COUNT 94 K/uL (130-400)
[2017-10-28 11:01] LABS: BASO % 0.6 %; BASO ABS # 0.04 K/uL (0-0.2); EOS % 3.4 %; EOS ABS # 0.23 K/uL (0-0.5); IG# 0.02 K/uL (0.00-0.02); LYMPH % 22.8 %; LYMPH ABS # 1.53 K/uL (1.2-3.4); MONO % 10.7 %; MONO ABS # 0.72 K/uL (0.11-0.59); NEUT % 62.2 %; NEUT ABS # 4.16 K/uL (1.4-6.5)
[2017-10-28 11:03] LABS: CALCIUM 8.7 mg/dl (8.5-10.1)
[2017-10-28 11:11] LABS: ALBUMIN 2.8 gm/dl (3.4-5.0); TOTAL PROTEIN 5.9 gm/dl (6.4-8.2)
== END | disposition home or self-care (01) ==
LOC: C.LAB1850 09:36
PROVIDERS: ATTEND Internal Medicine Nephrology
DX: N18.3 Chronic kidney disease, stage 3 (moderate) (principal); K75.4 Autoimmune hepatitis; K74.60 Unspecified cirrhosis of liver; M85.80 Other specified disorders of bone density and structure, unspecified site

== ENCOUNTER → 2017-10-29 | Outpatient (CLI) | payer OTHER | END | disposition home or self-care (01) | LOC: C.MAMM 12:30 | PROVIDERS: ATTEND Internal Medicine Endocrinology, Diabetes & Metabolism | DX: M85.852 Other specified disorders of bone density and structure, left thigh (principal); M85.851 Other specified disorders of bone density and structure, right thigh; Z79.52 Long term (current) use of systemic steroids ==

== ENCOUNTER → 2017-11-23 | Outpatient (CLI) | payer OTHER ==
[~2017-11-23] MED LIST changes: -ISOS30TA3 PO
[2017-11-23 09:32] LABS: BASO % 0.4 %; BASO ABS # 0.04 K/uL (0-0.2); EOS % 3.2 %; EOS ABS # 0.29 K/uL (0-0.5); HEMATOCRIT 26.3 % (42-52); HEMOGLOBIN 9.1 g/dL (14.0-18.0); IG# 0.04 K/uL (0.00-0.02); LYMPH % 18.2 %; LYMPH ABS # 1.64 K/uL (1.2-3.4); MEAN CELL VOLUME 89.5 fL (80-100); MEAN CORPUSCULAR HGB CONC 34.6 g/dl (32-36); MEAN PLATELET VOLUME 10.7 fL (7.4-10.4); MONO % 10.6 %; MONO ABS # 0.96 K/uL (0.11-0.59); NEUT % 67.2 %; NEUT ABS # 6.06 K/uL (1.4-6.5); PLATELET COUNT 120 K/uL (130-400); RED CELL DISTRIBUTION WIDTH CV 14.1 % (11.5-14.5); WHITE BLOOD COUNT 9.03 K/uL (4.8-10.8)
[2017-11-23 09:58] LABS: HEMOGLOBIN A1C 5.9 % (4.5-5.6)
[2017-11-23 10:01] LABS: ALBUMIN 2.9 gm/dl (3.4-5.0); ALKALINE PHOSPHATASE 35 U/L (45-117); AST/SGOT 15 U/L (15-37); BLOOD UREA NITROGEN 56 mg/dl (7-18); CALCIUM 8.7 mg/dl (8.5-10.1); CARBON DIOXIDE 27 mmol/L (21-32); CREATININE 2.16 mg/dl (0.60-1.40); GLUCOSE 197 mg/dl (70-99); PHOSPHORUS 3.6 mg/dl (2.5-4.9); SODIUM 140 mmol/L (136-145); TOTAL PROTEIN 6.2 gm/dl (6.4-8.2)
[2017-11-23 10:04] LABS: ALT/SGPT 23 U/L (12-78)
== END | disposition home or self-care (01) ==
LOC: C.LAB1850 08:20
PROVIDERS: ATTEND Internal Medicine Nephrology
DX: N18.3 Chronic kidney disease, stage 3 (moderate) (principal); E11.21 Type 2 diabetes mellitus with diabetic nephropathy; D64.9 Anemia, unspecified

== ENCOUNTER → 2018-03-25 | Outpatient (CLI) | payer OTHER ==
[~2018-03-25] MED LIST changes: +PROP80CA29 PO; -PROP80CA7 PO
[2018-03-25 12:08] LABS: HEMATOCRIT 24.9 % (42-52); HEMOGLOBIN 8.3 g/dL (14.0-18.0); MEAN CELL VOLUME 93.6 fL (80-100); MEAN CORPUSCULAR HEMOGLOBIN 31.2 pg (25-34); MEAN CORPUSCULAR HGB CONC 33.3 g/dl (32-36); RED CELL DISTRIBUTION WIDTH CV 14.2 % (11.5-14.5); RED CELL DISTRIBUTION WIDTH SD 48.3 fL (36.4-46.3); WHITE BLOOD COUNT 7.95 K/uL (4.8-10.8)
[2018-03-25 12:23] LABS: ALBUMIN 2.8 gm/dl (3.4-5.0); ALKALINE PHOSPHATASE 38 U/L (45-117); ALT/SGPT 27 U/L (12-78); AST/SGOT 19 U/L (15-37); BLOOD UREA NITROGEN 57 mg/dl (7-18); CALCIUM 8.8 mg/dl (8.5-10.1); CARBON DIOXIDE 28 mmol/L (21-32); CREATININE 2.06 mg/dl (0.60-1.40); GLUCOSE 58 mg/dl (70-99); PHOSPHORUS 4.2 mg/dl (2.5-4.9); POTASSIUM 4.2 mmol/L (3.5-5.1); SODIUM 144 mmol/L (136-145)
[2018-03-25 12:27] LABS: HEMOGLOBIN A1C 5.5 % (4.5-5.6)
[2018-03-25 12:40] LABS: MEAN PLATELET VOLUME 10.3 fL (7.4-10.4); PLATELET COUNT 89 K/uL (130-400)
== END | disposition home or self-care (01) ==
LOC: C.LAB1850 09:44
PROVIDERS: ATTEND Internal Medicine Nephrology
DX: N18.3 Chronic kidney disease, stage 3 (moderate) (principal); E55.9 Vitamin D deficiency, unspecified; M85.80 Other specified disorders of bone density and structure, unspecified site; E11.65 Type 2 diabetes mellitus with hyperglycemia; K75.4 Autoimmune hepatitis

== ENCOUNTER 2020-01-25 02:58 | Inpatient (IN) ==
[2020-01-25 03:33] LABS: Basophils # (auto) 0.01 K/uL (0-0.2); Basophils % (auto) 0.1 %; Eosinophils # (auto) 0.07 K/uL (0-0.5); Eosinophils % (auto) 0.9 %; Hematocrit (blood only) 30.1 % (42-52); Hemoglobin 10.2 g/dL (14.0-18.0); Immature Granulocytes # (auto) 0.03 K/uL (0.00-0.02); Immature Granulocytes % (auto) 0.4 %; Lymphocytes # (auto) 0.67 K/uL (1.2-3.4); Lymphocytes % (auto) 8.2 %; Mean Corpuscular Hemoglobin 31.3 pg (25-34); Mean Corpuscular Hgb Conc 33.9 g/dL (32-36); Mean Corpuscular Volume 92.3 fL (80-100); Mean Platelet Volume 10.5 fL (7.4-10.4); Monocytes # (auto) 1.28 K/uL (0.11-0.59); Monocytes % (auto) 15.6 %; Neutrophils # (auto) 6.16 K/uL (1.4-6.5); Neutrophils % (auto) 74.8 %; Platelet Count 101 K/uL (130-400); RDW Coefficient of Variation 16.4 % (11.5-14.5); RDW Standard Deviation 54.8 fL (36.4-46.3); Red Blood Count 3.26 M/uL (4.7-6.1); White Blood Count 8.22 K/uL (4.8-10.8)
--- NOTE | 2020-01-25 03:52 | Emergency Department Note ---
Impression & Plan Hypercalcemia, Hypoglycemia, Hypothermia ED Provider Note NAME: JALIL ORTEGA AGE: 69 SEX: M ARRIVES VIA: Ambulance INFORMANT: Patient ED PROVIDER(S): Kiara Mccormack DO CHIEF COMPLAINT: Hypoglycemia PLAN: Disposition: The patient will be admitted to the hospital by the [facility] hospitalist service Condition: Fair MEDICAL DECISION MAKING: This is a 69-year-old male patient with a history of diabetes who presents the emergency department after falling from bed with an episode of hypoglycemia. Ac cording to EMS, the patient had been feeling weak throughout the day and had some episodes of liquid stool. The family had noticed increased tremors. The patient's family had found him on the floor in a confused state. EMS noted that his blood sugar was 42. An IV lock was initiated and he received D10. Blood sugar elevated to 129. The patient was found to be hypothermic here in the emergency department and a bear hugger was applied. He was found to be significantly hypercalcemic which would account for some of the EKG changes that were noted and possibly the tremors that were noted by the family. Triage Nursing notes reviewed and agree them. Additional history obtained from EMS Prior medical records reviewed Vital Signs: reviewed and remarkable for no significant abnormalities Differential diagnosis: Hypoglycemia, insulin overdose, dehydration, viral illness, hypothermia, hypercalcemia, hypokalemia ER treatment provided: IV normal saline hydration Bear hugger therapy Diagnostics interpreted by me: ECG: Sinus bradycardia at a rate of 43. There is j wave noted concerning for hypothermia or hypercalcemia Cardiac Monitoring: Sinus bradycardia at a rate of 47 with obvious J wave Laboratory studies: See below Imaging studies: Chest x-ray: Moderate rotation with no obvious pulmonary opacities or infiltrates as per my interpretation HPI: 69/M arrives for evaluation of hypoglycemia. This is a 69-year-old male patient who presents to the emergency department by EMS after an episode of hypoglycemia. The patient was found on the floor by his minimally responsive with a BSG of 42. EMS was called and they gave the patient D10. The patient explains that he had been asleep and woke up feeling nauseated. He was reaching for a flowerpot so that he could vomit and fell from the bed. ROS: See above HPI for pertinent positives & negatives. A total of 10 systems reviewed and were otherwise negative. PAST MEDICAL HISTORY:See Below PAST SURGICAL HISTORY:See Below FAMILY HISTORY:See Below SOCIAL HISTORY:See Below HOME MEDICATIONS:See Below ALLERGIES:See Below VITALS:See Below PHYSICAL EXAMINATION: [HEENT: Head - normocephalic and atraumatic Pupils are equal, round, and reactive to light. Extraocular eye muscles are intact, and sclera are anicteric. Nose - moist nasal mucosa without discharge. Mouth - moist buccal mucosa. Oropharynx is nonerythematous and there is no tonsillar exudate or edema noted. Neck: Supple; no JVD, nuchal rigidity, cervical lymphadenopathy, or auscultated bruits. Heart: Regular rate and rhythm. There is a normal S1 and S2 with no murmurs, clicks, or gallops appreciated. Lungs: Clear to auscultation bilaterally with no wheezes, rales, or rhonchi. Abdomen: Soft, completely nontender, protuberant with good bowel sounds. There are no palpable pulsatile masses or hepatosplenomegaly. There is no guarding, rigidity, or rebound noted. Extremities: No evidence of cyanosis, clubbing, or edema. There are easily palpable peripheral pulses. Skin: Pale, warm and dry with good turgor and no rashes. ED COURSE: Times/Reassessments: 0305: The patient was evaluated in room A2. A complete history and physical was performed. Previous electronic medical records were reviewed. An order was placed for continuous cardiac monitoring. The patient was in a sinus bradycardia at a rate of 47. A BSG was obtained and was found to be 129. A twelve-lead EKG was obtained. The patient was somewhat hypotensive at times and was bolused with normal saline solution. 0400: The patient was reevaluated at this time. A bear hugger had been applied. Patient's blood pressure remains somewhat low. The patient's nurse was inadvertently stuck with a needle and therefore he became a source patient for a needlestick work-up. We did perform rapid HIV testing and hepatitis testing on this patient because of the staff needlestick. I discussed the case with Dr. Morton and he will evaluate the patient for further management. Kiara Mccormack DO Past Med/Surg History Medical History (Updated 01/25/20 @ 06:55 by Kiara Mccormack DO) Anemia (Chronic) Aortic valve sclerosis (Acute) Autoimmune hepatitis (Chronic) Background diabetic retinopathy associated with type 2 diabetes mellitus (Acute) BPH (benign prostatic hyperplasia) (Acute) Cancer (Inactive) BCC (FOREHEAD) Chronic back pain (Chronic) STANDING AND WALKING, PAIN MANAGEMENT Chronic kidney disease, stage 3 (Acute) Cirrhosis (Chronic) 1/4 OF LIVER Coronary artery disease (Chronic) Diabetic nephropathy associated with type 2 diabetes mellitus (Acute) Diabetic peripheral neuropathy associated with type 2 diabetes mellitus (Acute) Dysesthesia (Acute) Dyslipidemia (Acute) Esophageal varices (Chronic) NEVER BANDED R/T AUTOIMMUNNE HEPATITIS Hyperparathyroidism (Acute) IDDM (insulin dependent diabetes mellitus) (Chronic) TYPE 2 Kidney stones (Inactive) NO SURGERY [facility] current use of systemic steroids (Acute) Lumbar back pain with radiculopathy affecting left lower extremity (Chronic) Myocardial Infarction (Resolved 10/2012) OCTOBER 2012 Denies having any angina symptoms or having to use NTG since stent placement Osteopenia (Acute) Portal hypertension (Chronic) Spinal stenosis (Chronic) LUMBAR Vitamin D deficiency (Inactive) Surgical History (Updated 12/23/19 @ 10:50 by Nola Islas MA) History of ankle surgery History of cardiac cath (Resolved) X1 STENT (2012) History of colonoscopy (Resolved) History of esophagogastroduodenoscopy (EGD) (Resolved) Hx of heart artery stent (Resolved) Status post angioplasty (Inactive) Family History (Updated 12/23/19 @ 10:51 by Nola Islas MA) Mother Family history of diabetes mellitus Myocardial infarction Spleen cancer Hypertension Father Myocardial infarction Grandfather (Paternal) Myocardial infarction Brother Melanoma Denies family history of Colon cancer Ovarian cancer Prostate cancer Breast cancer Social History (Updated 12/23/19 @ 10:52 by Nola Islas MA) Preferred Language: Samoan Communication Ability: Effective Visual Impairment: No Limitations Paid Intern Required: No Beliefs That Will Affect Care: None marital status: Current Living Situation: Spouse and Family current occupational status: retired Feels Safe at Home: Yes Smoking Status: Former smoker Tobacco Type: pipe ; Second Hand Exposure: Yes ( A CHILD) ; Hx Alcohol Use: No Hx Substance Use: No Seatbelt Use: always Allergies Allergies Allergy/AdvReac Type Severity Reaction Status Date / Time No Known Drug Allergies Allergy Unknown Verified 01/25/20 03:58 Home Meds Home Medications Medication Instructions Recorded Confirmed epoetin jose l 2,000 unit/mL 1 unit SUBCUT Q21D PRN ml 10/26/18 01/25/20 injection solution nitroglycerin 0.4 mg sublingual 0.4 mg SL Q5M PRN 10/26/18 01/25/20 tablet blood sugar diagnostic #10 ea 03/25/19 11/01/19 lancets 33 gauge #100 ea 03/25/19 11/01/19 cholecalciferol (vitamin D3) 25 1,000 units PO DAILY 04/05/19 01/25/20 mcg (1,000 unit) tablet calcium carbonate 200 mg calcium 500 mg PO DAILY tab 07/12/19 01/25/20 (500 mg) chewable tablet insulin lispro protamine-lispro 105 units SQ .COMPLEX ml 11/01/19 01/25/20 100 unit/mL (50-50) subcutaneous pen Previous Rx's Medication Instructions Recorded lisinopril 10 mg tablet 10 mg PO QAM #90 tab 02/15/19 prednisone 10 mg tablet 10 mg PO QAM #90 tab 02/15/19 pen needle, diabetic 31 gauge x #300 ea 04/15/1911/13" pravastatin 20 mg tablet 20 mg PO DAILY #90 tab 06/29/19 furosemide 40 mg tablet 40 mg PO .COMPLEX #270 tab 08/25/19 propranolol 80 mg tablet 80 mg PO QAM #90 tab 10/21/19 calcitriol 0.5 mcg capsule 0.5 mcg PO DAILY #90 cap 11/15/19 Contour Next Meter #1 ea NS 12/09/19 Contour Next Test Strips #400 ea NS 12/09/19 Results & Data (ED) Vital Signs Vital Signs - 24 hr 01/25/20 03:13 01/25/20 03:29 01/25/20 03:30 Temperature 35.2 C L Temperature Source Rectal Pulse Rate 47 L 48 L Pulse Rate from SpO2 Sensor 47 L Respiratory Rate 16 16 Respiratory Depth Normal Blood Pressure 106/60 94/53 L Blood Pressure Mean 75 58 Pulse Oximetry 94 91 93 Oxygen Delivery Method Room Air Room Air Sepsis Recent Fever Within 48 Hours No Sepsis Action Taken by Nursing No Action Required 01/25/20 04:00 01/25/20 04:30 01/25/20 05:00 Temperature Temperature Source Pulse Rate 52 L 41 L 50 L Pulse Rate from SpO2 Sensor 51 L 43 L 49 L Respiratory Rate 16 11 L 12 Respiratory Depth Blood Pressure 94/56 L 90/53 L 104/62 Blood Pressure Mean 62 63 74 Pulse Oximetry 94 95 99 Oxygen Delivery Method Sepsis Recent Fever Within 48 Hours Sepsis Action Taken by Nursing Laboratory Data Result diagrams: 01/25/20 03:15 01/25/20 03:15 Lab Results 01/25/20 01/25/20 01/25/20 Range/Units 03:02 03:15 03:15 WBC 8.22 (4.8-10.8) K/uL RBC 3.26 L (4.7-6.1) M/uL Hgb 10.2 L (14.0-18.0) g/dL Hct 30.1 L (42-52) % MCV 92.3 (80-100) fL MCH 31.3 (25-34) pg MCHC 33.9 (32-36) g/dL RDW Std Deviation 54.8 H (36.4-46.3) fL RDW Coeff of Sony 16.4 H (11.5-14.5) % Plt Count 101 L (130-400) K/uL MPV 10.5 H (7.4-10.4) fL Immature Gran % (Auto) 0.4 % Neut % (Auto) 74.8 % Lymph % (Auto) 8.2 % Simpson % (Auto) 15.6 % Eos % (Auto) 0.9 % Baso % (Auto) 0.1 % Immature Gran # (Auto) 0.03 H (0.00-0.02) K/uL Neut # (Auto) 6.16 (1.4-6.5) K/uL Lymph # (Auto) 0.67 L (1.2-3.4) K/uL Simpson # (Auto) 1.28 H (0.11-0.59) K/uL Eos # (Auto) 0.07 (0-0.5) K/uL Baso # (Auto) 0.01 (0-0.2) K/uL Sodium 141 (136-145) mmol/L Potassium 4.7 (3.5-5.1) mmol/L Chloride 110 H (98-107) mmol/L Carbon Dioxide 24 (21-32) mmol/L Anion Gap 7.0 (3-11) BUN 97 H (7-18) mg/dl Creatinine 3.44 H (0.6-1.4) mg/dl Est Cr Clr Drug Dosing 19.3 ml/min Est GFR ( Amer) 19.8 Est GFR (Non-Af Amer) 17.0 BUN/Creatinine Ratio 28.3 H (10-20) Glucose 117 H (70-99) mg/dl POC Glucose 129 H (70-99) mg/dl Calcium 13.5 H* (8.5-10.1) mg/dl Ionized Calcium (1.12-1.32) mmol/L Magnesium 2.6 H (1.8-2.4) mg/dl Total Bilirubin 1.3 H (0.2-1) mg/dl AST 20 (15-37) U/L ALT 25 (12-78) U/L Alkaline Phosphatase 39 L (45-117) U/L Troponin I 0.027 (0-0.045) ng/ml Total Protein 6.2 L (6.4-8.2) gm/dl Albumin 3.0 L (3.4-5.0) gm/dl Globulin 3.2 (2.5-4.0) gm/dl Albumin/Globulin Ratio 0.9 (0.9-2) TSH 0.962 (0.300-4.500) uIu/ml Hep Bs Antigen (Neg) Hep Bs Antibody Hep Bs Antibody, Quant (>or=10mIU/mL Immune) mIU/mL Hepatitis C Antibody (Neg) HIV 1&2 Ab/P24 Ag 4thGn (Neg) 01/25/20 01/25/20 01/25/20 Range/Units 03:15 03:15 04:35 WBC (4.8-10.8) K/uL RBC (4.7-6.1) M/uL Hgb (14.0-18.0) g/dL Hct (42-52) % MCV (80-100) fL MCH (25-34) pg MCHC (32-36) g/dL RDW Std Deviation (36.4-46.3) fL RDW Coeff of Sony (11.5-14.5) % Plt Count (130-400) K/uL MPV (7.4-10.4) fL Immature Gran % (Auto) % Neut % (Auto) % Lymph % (Auto) % Simpson % (Auto) % Eos % (Auto) % Baso % (Auto) % Immature Gran # (Auto) (0.00-0.02) K/uL Neut # (Auto) (1.4-6.5) K/uL Lymph # (Auto) (1.2-3.4) K/uL Simpson # (Auto) (0.11-0.59) K/uL Eos # (Auto) (0-0.5) K/uL Baso # (Auto) (0-0.2) K/uL Sodium (136-145) mmol/L Potassium (3.5-5.1) mmol/L Chloride (98-107) mmol/L Carbon Dioxide (21-32) mmol/L Anion Gap (3-11) BUN (7-18) mg/dl Creatinine (0.6-1.4) mg/dl Est Cr Clr Drug Dosing ml/min Est GFR ( Amer) Est GFR (Non-Af Amer) BUN/Creatinine Ratio (10-20) Glucose (70-99) mg/dl POC Glucose 88 (70-99) mg/dl Calcium (8.5-10.1) mg/dl Ionized Calcium (1.12-1.32) mmol/L Magnesium (1.8-2.4) mg/dl Total Bilirubin (0.2-1) mg/dl AST (15-37) U/L ALT (12-78) U/L Alkaline Phosphatase (45-117) U/L Troponin I (0-0.045) ng/ml Total Protein (6.4-8.2) gm/dl Albumin (3.4-5.0) gm/dl Globulin (2.5-4.0) gm/dl Albumin/Globulin Ratio (0.9-2) TSH (0.300-4.500) uIu/ml Hep Bs Antigen Neg (Neg) Hep Bs Antibody Immune Hep Bs Antibody, Quant > 1000.00 (>or=10mIU/mL Immune) mIU/mL Hepatitis C Antibody Neg (Neg) HIV 1&2 Ab/P24 Ag 4thGn Neg (Neg) 01/25/20 Range/Units 04:49 WBC (4.8-10.8) K/uL RBC (4.7-6.1) M/uL Hgb (14.0-18.0) g/dL Hct (42-52) % MCV (80-100) fL MCH (25-34) pg MCHC (32-36) g/dL RDW Std Deviation (36.4-46.3) fL RDW Coeff of Sony (11.5-14.5) % Plt Count (130-400) K/uL MPV (7.4-10.4) fL Immature Gran % (Auto) % Neut % (Auto) % Lymph % (Auto) % Simpson % (Auto) % Eos % (Auto) % Baso % (Auto) % Immature Gran # (Auto) (0.00-0.02) K/uL Neut # (Auto) (1.4-6.5) K/uL Lymph # (Auto) (1.2-3.4) K/uL Simpson # (Auto) (0.11-0.59) K/uL Eos # (Auto) (0-0.5) K/uL Baso # (Auto) (0-0.2) K/uL Sodium (136-145) mmol/L Potassium (3.5-5.1) mmol/L Chloride (98-107) mmol/L Carbon Dioxide (21-32) mmol/L Anion Gap (3-11) BUN (7-18) mg/dl Creatinine (0.6-1.4) mg/dl Est Cr Clr Drug Dosing ml/min Est GFR ( Amer) Est GFR (Non-Af Amer) BUN/Creatinine Ratio (10-20) Glucose (70-99) mg/dl POC Glucose (70-99) mg/dl Calcium (8.5-10.1) mg/dl Ionized Calcium 1.96 H* (1.12-1.32) mmol/L Magnesium (1.8-2.4) mg/dl Total Bilirubin (0.2-1) mg/dl AST (15-37) U/L ALT (12-78) U/L Alkaline Phosphatase (45-117) U/L Troponin I (0-0.045) ng/ml Total Protein (6.4-8.2) gm/dl Albumin (3.4-5.0) gm/dl Globulin (2.5-4.0) gm/dl Albumin/Globulin Ratio (0.9-2) TSH (0.300-4.500) uIu/ml Hep Bs Antigen (Neg) Hep Bs Antibody Hep Bs Antibody, Quant (>or=10mIU/mL Immune) mIU/mL Hepatitis C Antibody (Neg) HIV 1&2 Ab/P24 Ag 4thGn (Neg) Administered Medications Dextrose/Sodium Chloride (D5w And Nss) 1,000 mls @ 125 mls/hr IV .Q8H TENA Stop: 01/25/20 21:44 Last Admin: 01/25/20 06:05 Dose: 125 mls/hr Documented by: [id number] Discontinued Medications Sodium Chloride (Nss) 500 mls @ 999 mls/hr IV .Q31M ONE Stop: 01/25/20 04:40 Last Infusion: 01/25/20 05:11 Dose: 0 mls/hr Documented by: [id number] Admin: 01/25/20 04:25 Dose: 999 mls/hr Documented by: [id number] Sodium Chloride (Nss) 500 mls @ 125 mls/hr IV .Q4H TENA Stop: 02/24/20 04:14 Last Infusion: 01/25/20 06:06 Dose: 0 mls/hr Documented by: [id number] Admin: 01/25/20 04:25 Dose: 125 mls/hr Documented by: [id number] Pamidronate Disodium 60 mg/ (Sodium Chloride) 1,020 mls @ 0 mls/hr IV .Q0M STA Stop: 01/25/20 05:29 Last Admin: 01/25/20 06:05 Dose: 250 mls/hr Documented by: [id number] Discharge Plan Visit Data Chief Complaint: Hypoglycemia Stated Complaint: HYPOGLYCEMIA/ILL Other Complaint: Illness ED Provider: Kiara Mccormack Discharge Problem: Hypercalcemia, Hypoglycemia, Hypothermia Discharge Instructions Interventions: ED Discharge Assessment Last Done: 01/25/20 06:20 Discharge Problem: Hypothermia Qualifiers: Encounter type: initial encounter Qualified Code(s): T68.XXXA - Hypothermia, initial encounter
[2020-01-25 03:56] LABS: Albumin Globulin Ratio 0.9 (0.9-2); BUN Creatinine Ratio 28.3 (10-20); Bilirubin,Total 1.3 mg/dl (0.2-1); Calcium 13.5 mg/dl (8.5-10.1); Creatinine Clr Calc Pharmacy 19.3 ml/min; Est GFR (African American) 19.8; Globulin 3.2 gm/dl (2.5-4.0); Magnesium 2.6 mg/dl (1.8-2.4); Potassium 4.7 mmol/L (3.5-5.1); Thyroid Stimulating Hormone 0.962 uIu/ml (0.300-4.500); Total Protein 6.2 gm/dl (6.4-8.2); Troponin I 0.027 ng/ml (0-0.045)
[2020-01-25] MEDS ORDERED: SODIUM CHLORIDE 0.9% 500 ML IV ONE (04:10)
[2020-01-25] MEDS ORDERED: SODIUM CHLORIDE 0.9% 500 ML IV SCH (04:15)
[2020-01-25] MEDS ORDERED: PAMIDRONATE DISODIUM 60 MG in SODIUM CHLORIDE 0.9% 1000ML 1,000 ML IV STA (05:28)
[2020-01-25] MEDS ORDERED: PHARMACY GLYCEMIC MGMT CONSULT STA (05:28)
--- NOTE | 2020-01-25 05:30 | History & Physical Report ---
Date of Service January 25, 2020 Assessment & Plan (1) Hypercalcemia: Patient is a 69 year old male with PMHx DM2, Autoimmune hepatitis, Hyperparathyroidism, CKD stage III, HLD, CAD, VA s/p stent 2012, who presents with chief complaint of hypoglycemia, found to have hypercalcemia 13.5. Hypercalcemia -Likely secondary to patients hx of hyperparathyroidism -Pamidronate 60mg IV DM2 with Hypoglycemia -Patient received D10 from EMS -Hypoglycemia improved upon arrival to ED to 117 -Patient still having slight dips of hypoglycemia, will add dextrose to fluids -D5W NSS 125ml/hr -Glycemic Consult Bradycardia -J waves noted on EKG, likely secondary to hypercalcemia in addition to hypothermia -Admit to telemetry -hold BB Hypothermia -Thaddeus hugger to increase body temperature APOLLO on chronic CKD Stage III -Cr 3.44 -Fluid hydration w/ D5w NSS 125ml/hr -Hold Lisinopril and Lasix Dyslipidemia -Continue home pravastatin Autoimmune Hepatitis -Continue Prednisone 10mg qAM Dispo: PCU/Telemetry FEN: DM2 Diet, D52 NSS 125ml/hr DVT: None ordered Code: Full (2) Hypoglycemia: (3) Hyperparathyroidism: (4) Chronic kidney disease, stage 3: (5) Dyslipidemia: (6) Coronary artery disease: (7) Autoimmune hepatitis: (8) IDDM (insulin dependent diabetes mellitus): (9) Hypothermia: History of Present Illness Chief Complaint: Hypoglycemia Primary Care Provider: Dariel Moscoso MD Patient is a 69 year old male with PMHx DM2, Autoimmune hepatitis, H yperparathyroidism, CKD stage III, HLD, CAD, VA s/p stent 2012, who presents with chief complaint of hypoglycemia. Patient notes that he was feeling nauseous around 1AM when he attempted to grab a vase beside his bed in order to vomit. Upon reaching, however, patient notes that he "slid out of bed" and feels he passed out as the next thing he remembers is his and her son helping him back into bed prior to EMS arriving. He was found to be hypoglycemic with BSG 42 and was given D10. Patient notes that he had fallen on his buttocks earlier in the day as well, but that it was secondary to missing a step and not because he was feeling dizzy or near-syncopal. Currently patient notes that he still has some dizziness if he moves too quickly, some SIDDIQUI, and generalized weakness. He also noted having diarrhea earlier in the day. He denies any chest pain, SOB, headache, abdominal pain, nausea. Allergies Allergy/AdvReac Type Severity Reaction Status Date / Time No Known Drug Allergies Allergy Unknown Verified 01/25/20 03:58 Home Medications Home Medications Medication Instructions Recorded Confirmed Type epoetin jose l 2,000 unit/mL 1 unit SUBCUT Q21D PRN ml 10/26/18 01/25/20 History injection solution nitroglycerin 0.4 mg sublingual 0.4 mg SL Q5M PRN 10/26/18 01/25/20 History tablet lisinopril 10 mg tablet 10 mg PO QAM #90 tab 02/15/19 01/25/20 Rx prednisone 10 mg tablet 10 mg PO QAM #90 tab 02/15/19 01/25/20 Rx blood sugar diagnostic #10 ea 03/25/19 11/01/19 History lancets 33 gauge #100 ea 03/25/19 11/01/19 History cholecalciferol (vitamin D3) 25 1,000 units PO DAILY 04/05/19 01/25/20 History mcg (1,000 unit) tablet pen needle, diabetic 31 gauge x #300 ea 04/15/19 01/25/20 Rx 3/" pravastatin 20 mg tablet 20 mg PO DAILY #90 tab 06/29/19 01/25/20 Rx calcium carbonate 200 mg calcium 500 mg PO DAILY tab 07/12/19 01/25/20 History (500 mg) chewable tablet furosemide 40 mg tablet 40 mg PO .COMPLEX #270 tab 08/25/19 01/25/20 Rx propranolol 80 mg tablet 80 mg PO QAM #90 tab 10/21/19 01/25/20 Rx insulin lispro protamine-lispro 105 units SQ .COMPLEX ml 11/01/19 01/25/20 History 100 unit/mL (50-50) subcutaneous pen calcitriol 0.5 mcg capsule 0.5 mcg PO DAILY #90 cap 11/15/19 01/25/20 Rx Contour Next Meter #1 ea NS 12/09/19 Rx Contour Next Test Strips #400 ea NS 12/09/19 Rx Past Med/Surg History Medical History (Updated 01/25/20 @ 14:28 by Matt Trevino MD) Anemia (Chronic) Aortic valve sclerosis (Acute) Autoimmune hepatitis (Chronic) Background diabetic retinopathy associated with type 2 diabetes mellitus (Acute) BPH (benign prostatic hyperplasia) (Acute) Cancer (Inactive) BCC (FOREHEAD) Chronic back pain (Chronic) STANDING AND WALKING, PAIN MANAGEMENT Chronic kidney disease, stage 3 (Acute) Cirrhosis (Chronic) 1/4 OF LIVER Coronary artery disease (Chronic) Diabetic nephropathy associated with type 2 diabetes mellitus (Acute) Diabetic peripheral neuropathy associated with type 2 diabetes mellitus (Acute) Dysesthesia (Acute) Dyslipidemia (Acute) Esophageal varices (Chronic) NEVER BANDED R/T AUTOIMMUNNE HEPATITIS Hyperparathyroidism (Acute) IDDM (insulin dependent diabetes mellitus) (Chronic) TYPE 2 Kidney stones (Inactive) 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 terminal 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 current use of systemic steroids (Acute) Lumbar back pain with radiculopathy affecting left lower extremity (Chronic) Myocardial Infarction (Resolved 10/2012) OCTOBER 2012 Denies having any angina symptoms or having to use NTG since stent placement Osteopenia (Acute) Portal hypertension (Chronic) Spinal stenosis (Chronic) LUMBAR Vitamin D deficiency (Inactive) Surgical History (Updated 12/23/19 @ 10:50 by Nola Islas MA) History of ankle surgery History of cardiac cath (Resolved) X1 STENT (2013) History of colonoscopy (Resolved) History of esophagogastroduodenoscopy (EGD) (Resolved) Hx of heart artery stent (Resolved) Status post angioplasty (Inactive) Family History (Updated 12/23/19 @ 10:51 by Nola Islas MA) Mother Family history of diabetes mellitus Myocardial infarction Spleen cancer Hypertension Father Myocardial infarction Grandfather (Paternal) Myocardial infarction Brother Melanoma Denies family history of Colon cancer Ovarian cancer Prostate cancer Breast cancer Social History (Updated 12/23/19 @ 10:52 by Nola Islas MA) Preferred Language: [place] Communication Ability: Effective Visual Impairment: No Limitations Rag Sorter Required: No Beliefs That Will Affect Care: None marital status: Current Living Situation: Spouse current occupational status: retired Feels Safe at Home: Yes Smoking Status: Current every day smoker Tobacco Type: pipe ; Second Hand Exposure: No ; Hx Alcohol Use: No Hx Substance Use: No Seatbelt Use: always Review of Systems Constitutional: + fatigue and + weakness; no fever and no chills Eyes: no worsening vision Ear, Nose, Mouth, Throat: + dizziness Respiratory: + dyspnea on exertion; no cough and no dyspnea Cardiovascular: + dyspnea on exertion; no chest pain, no chest pain with activity, no radiating jaw, neck or arm pain, no dyspnea and no palpitations Gastrointestinal: + diarrhea/loose stools; no abdominal pain, no nausea, no vomiting and no constipation Genitourinary: no dysuria Musculoskeletal: + back pain Integumentary: no rash Neurologic: + falls Physical Exam Constitutional: well developed, well nourished and cooperative; no acute distress Eyes: PERRL, conjunctivae normal, anicteric sclerae ENMT: external ear and nose normal, oropharynx normal Neck: trachea midline, no thyromegaly Respiratory: normal respiratory effort, lungs clear to auscultation Cardiovascular: Rate/Rhythm: + bradycardic Heart Sounds: no murmur Vessels: no JVD Gastrointestinal (Abdomen): normal bowel sounds, soft, nontender, no hepatosplenomegaly Musculoskeletal: no cyanosis or clubbing, extremities motor strength 5/5 Skin: no rashes, warm and dry Neurologic: PERRL, EOMI, accommodation nl, no face palsy, no dysarthria Psychiatric: A+Ox3, euthymic affect Results & Data Results & Data ([facility]) Vital Signs (Past 12 Hours) Vital Signs Temp Pulse Resp BP Pulse Ox 01/25/20 05:00 50 L 12 104/62 99 01/25/20 04:30 41 L 11 L 90/53 L 95 01/25/20 04:00 52 L 16 94/56 L 94 01/25/20 03:30 48 L 16 94/53 L 93 01/25/20 03:29 91 01/25/20 03:13 35.2 C L 47 L 16 106/60 94 Supervising Physician Co-Signing Physician Notes Attending addendum: I have physically seen this patient, have supervised the medical residents activities, and agree with the H&P unless as otherwise noted. Assessment and Plan: Hypercalcemia/history of hyperparathyroidism- Calcium level 13.5 upon admission. Give pamidronate 60 mg IV x1 now. IV fluids. Diabetes mellitus with hypoglycemia upon admission- Blood sugar reported to be in the mid 40s. Place on D5 NSS at 125 mL's per hour Bradycardia- J waves on EKG Correct hypercalcemia with IV pamidronate and IV fluids. Hypothermia to be corrected with bear hugger. Remainder of orders and notations as noted PG Care Time/CCT Total # of Minutes Spent Total Time Spent with Patient: Total time spent is greater than 50% in coordination of care (as documented) at patient's floor/unit and/or counseling patient: Coding Level of Care Code 40568 Initial Inpt Care Lvl 3 Diagnoses Hypercalcemia E83.52 Hypoglycemia E16.2 Hyperparathyroidism E21.3 Chronic kidney disease, stage 3 N18.3 Dyslipidemia E78.5 Coronary artery disease I25.10 Autoimmune hepatitis K75.4 IDDM (insulin dependent diabetes mellitus) E11.9; Z79.4 Hypothermia T68.XXXA Resident Activity Tracking Resident Involvement: Resident Care Provided Care Provided: Adult Hospital Medicine
[2020-01-25] MEDS: D5W AND NSS 1,000 ML IV SCH ×2 (06:05→13:45)
[2020-01-25] MEDS ORDERED: SODIUM CHLORIDE 0.9% 1000ML 1,000 ML IV SCH (06:46)
[2020-01-25] MEDS ORDERED: GLUCOSE 10 TABS/TUBE PO PRN (06:46)
[2020-01-25] MEDS ORDERED: DEXTROSE 50% 50 ML SYRINGE IV PRN (06:46)
[2020-01-25] MEDS ORDERED: CARBOHYDRATES FOR HYPOGLYCEMIA PO PRN (06:46)
[2020-01-25] MEDS ORDERED: NITROGLYCERIN SL 0.4 MG/TAB TAB SL PRN (06:46)
[2020-01-25] MEDS ORDERED: GLUCOSE 40% GEL 15 GM TUBE PO PRN (06:46)
[2020-01-25] MEDS ORDERED: [UNRECOGNIZED DRUG - OTHER] SQ SCH (06:46)
[2020-01-25] MEDS ORDERED: GLUCAGON FOR INJ 1 MG VIAL SQ PRN (06:46)
--- NOTE | 2020-01-25 07:26 | XRay Report ---
XR chest 1V portable CLINICAL HISTORY: weakness dyspnea COMPARISON STUDY: 11/26/2012 FINDINGS: Moderate cardiomegaly. Diaphragms are smooth. Lungs are considered generally clear. Subtle interstitial prominence left lung base. IMPRESSION: 1. Mild/moderate cardiac enlargement. 2. Subtle interstitial prominence left lung base. ACT 112: Negative or not required by law. The above report was generated using voice recognition software. It may contain grammatical, syntax or spelling errors. Electronically signed by: Darin Rios M.D. 01/25/2020 7:25 AM
[2020-01-25] MEDS ORDERED: PNEUMOCOCCAL ADMINISTRATION CHARGE ONE (07:32)
[2020-01-25] MEDS ORDERED: PNEUMOCOCCAL POLYSACCHARIDES 25 MCG/0.5 ML VIAL/SYR IM ONE (07:32)
[2020-01-25] MEDS ORDERED: CHOLECALCIFEROL 1,000 UNITS 25 MCG TAB PO SCH (09:00)
[2020-01-25] MEDS ORDERED: CALCITRIOL 0.25 MCG CAPSULE PO SCH (09:00)
[2020-01-25] MEDS ORDERED: FUROSEMIDE 40 MG TAB PO SCH ×2 (09:00→17:00)
[2020-01-25] MEDS ORDERED: lisinopriL 10 MG TAB PO SCH (09:00)
[2020-01-25 09:23] LABS: Appearance Urine Clear (Clear); Bacteria Urine Automated Negative (Negative); Bilirubin Urine Negative (Negative); Blood Urine Trace (Negative); Color Urine Yellow; Glucose Urine UA Trace (Negative); Ketones Urine Negative (Negative); Leukocyte Esterase Urine Negative (Negative); Nitrite Urine Negative (Negative); Protein Urine 1+ (Negative); RBC Urine Automated 0-4 /hpf (0-4); Specific Gravity Urine 1.013 (1.000-1.030); Urobilinogen Urine Negative (Negative); WBC Urine Automated 0 /hpf (0-5)
[2020-01-25] MEDS: predniSONE 10 MG TABLET PO SCH (09:32)
[2020-01-25] MEDS: PRAVASTATIN SOD 20 MG TAB PO SCH (09:32)
[2020-01-25] MEDS ORDERED: PHARMACY GLYCEMIC MGMT CONSULT PRN (10:59)
[2020-01-25] MEDS: INSULIN ASPART 100 UNITS/ML 3 ML PEN SC SCH ×3 (12:47→21:20)
--- NOTE | 2020-01-25 14:24 | Hospitalist Progress Note ---
Date of Service January 25, 2020 Assessment & Plan (1) Hypercalcemia: Likely from medications (calcium, calcitriol, and vitamin D). - Holding all of those medications - IV fluids - PTH & vitamin D pending - Trend (2) Hypoglycemia: Due to insulin. Patient uses large doses of insulin (50 units BID or even 50 units in the AM and 60+ with dinner). Blood sugars swing widely from 80 to >500 per patient. - Holding home insulin 50-50 - Diabetic pharmacist following (3) Myocardial Infarction: Prior CAD. No chest pain. - Continue home ACEi, statin - Hold beta-trea for some initial bradycardia - Hold Lasix for kidney injury (4) Autoimmune hepatitis: With cirrhosis. - Continue prednisone (5) Chronic kidney disease, stage 3: Baseline Cr ~2.3 - 2.6. - Acute kidney injury on CKD -> Cr up to 3.65 on admission. Down slightly after IV fluids (6) DVT prophylaxis: SCDs - Low DVT risk per admission calculator Admission and Anticipated Discharge Date Admission Date: January 25, 2020 Subjective Feels great today. No abdominal pain. Feels well. No pain. He has a good appetite. Reports no fevers/chills, chest pain, shortness of breath, abdominal pain, nausea, or vomiting. Physical Exam Constitutional: WD/WN, vitals as above Eyes: EOM intact bilaterally; no conjunctival abnormality ENMT: external ear and nose normal, oropharynx normal Neck: trachea midline, no thyromegaly normal visual inspection Respiratory: normal respiratory effort, lungs clear to auscultation no respiratory distress Cardiovascular: RRR, no murmur, no edema Gastrointestinal (Abdomen): Inspection/Auscultation: abdomen normal to inspection; abdomen not distended Musculoskeletal: no cyanosis or clubbing, extremities motor strength 5/5 Skin: no rashes, warm and dry Neurologic: moves all extremities and awake Psychiatric: Orientation: alert, oriented to person and cooperative Results & Data Results & Data ([facility]) Vital Signs (Past 12 Hours) Vital Signs Temp Pulse Pulse Pulse Resp BP BP 01/25/20 11:56 36.5 C 65 20 131/68 01/25/20 07:56 59 L 01/25/20 06:48 36.4 C L 100 H 20 149/76 H 01/25/20 06:41 36.3 C L 59 L 18 149/76 H 01/25/20 06:00 47 L 12 103/55 L 01/25/20 05:40 34.7 C L 01/25/20 05:31 51 L 16 118/60 01/25/20 05:00 50 L 12 104/62 01/25/20 04:30 41 L 11 L 90/53 L 01/25/20 04:00 52 L 16 94/56 L 01/25/20 03:30 48 L 16 94/53 L 01/25/20 03:29 01/25/20 03:13 35.2 C L 47 L 16 106/60 Pulse Ox 01/25/20 11:56 100 01/25/20 07:56 01/25/20 06:48 95 01/25/20 06:41 95 01/25/20 06:00 96 01/25/20 05:40 01/25/20 05:31 99 01/25/20 05:00 99 01/25/20 04:30 95 01/25/20 04:00 94 01/25/20 03:30 93 01/25/20 03:29 91 01/25/20 03:13 94 PG Care Time/CCT Total # of Minutes Spent Total Time Spent with Patient: Total time spent is greater than 50% in coordination of care (as documented) at patient's floor/unit and/or counseling patient: Coding Level of Care Code 89130 Subseq Hosp Care Lvl 3 Diagnoses Hypercalcemia E83.52 Hypoglycemia E16.2 Myocardial Infarction I21.9 Autoimmune hepatitis K75.4 Chronic kidney disease, stage 3 N18.3 DVT prophylaxis Z29.9
--- NOTE | 2020-01-25 14:24 | Electrocardiogram Report ---
Test Reason : Blood Pressure : / mmHG Vent. Rate : 043 BPM Atrial Rate : 043 BPM P-R Int : 198 ms QRS Dur : 146 ms QT Int : 400 ms P-R-T Axes : 074 057 123 degrees QTc Int : 338 ms Marked sinus bradycardia with occasional Premature atrial complexes Non-specific intra-ventricular conduction block Abnormal ECG When compared with ECG of 30-NOV-2012 06:22, Significant changes have occurred Confirmed by Dariel Hobbs ([id number]) on 01/25/2020 2:24:03 PM Referred By: REFERRED SELF Confirmed By:Dariel Hobbs
--- NOTE | 2020-01-25 14:53 | Pharmacy Report ---
Glycemic Control Consultation - Date of Service January 25, 2020 - Scope Scope: Glycemic Pharmacist consulted for glycemic control and to write orders per [facility] inpatient glycemic control protocol. - Objective Weight: 73.2 kg Accuchecks BSG (last 24hrs): 01/25/20 01/25/20 01/25/20 03:02 03:15 04:35 Glucose 117 H POC Glucose 129 H 88 01/25/20 01/25/20 01/25/20 05:33 06:24 07:23 Glucose POC Glucose 70 80 133 H 01/25/20 01/25/20 12:35 12:35 Glucose POC Glucose 338 H* 384 H* Laboratory Data (last 24hrs): 01/25/20 03:15 Potassium 4.7 Carbon Dioxide 24 Anion Gap 7.0 Creatinine 3.44 H Est Cr Clr Drug Dosing 19.3 - Recent Pertinent Medications Outpatient Anti-diabetic Regimen: * Humalog Mix 50/50 - 50 units SQ with breakfast and dinner * A1c = 6.9% on 11/14/2019 Risk Factors for Insulin Resistance: * Steroids: Prednisone 10 mg PO Daily * IVF: D5NS @ 125 mL/hr * Diet: T2DM - Assessment & Plan Assessment & Plan: ASSESSMENT: * 69 yo M admitted secondary to a hypoglycemic event at home * Patient was feeling nauseous around 1 AM and when he went to get out of bed he believes he passed out. Upon EMS arrival, patient's BSG was 42 mg/dL and he was given D10. Also reports another fall earlier in that day but it wasn't related to dizziness. * Given patient's age and comorbidities, would recommend a goal A1c < 8%. Patient is on Prednisone 10 mg daily chronically for autoimmune hepatitis. * Upon admission, patient's BSG was 129 mg/dL but then dropped again to [id number]. At this time, patient was started on D5NS at 125 mL/hr. * Started patient on Novolog with very loose parameters to prevent hypoglycemia. Lunchtime BSG was taken in the middle of a meal and read 338 with a repeat of 384 mg/dL. Instructed RN to cover for carbs only with this meal and recheck BSG in 2 hours. Fluids were also changed to LR at 80 mL/hr at this time. * Will start patient on a weight based Lantus scale based on weight and stress of 1, 2 and 3 for the time being given his hypoglycemia. Will also increase CF/CR if 2 hour repeat BSG is elevated. * Repeat BSG 312 mg/dL this afternoon. Will give 20 units of Lantus now and add scale for this evening. Will tighten CF/CR to 30/10. PLAN FOR INPATIENT GLYCEMIC CONTROL: * Basal insulin * Lantus 20 units x 1 this afternoon * Lantus per scale SQ HS * 0 units for BSG < 140 mg/dL * 5 units for BSG 140-180 mg/dL * 10 units for BSG > 180 mg/dL * Bolus insulin * NovoLog per scale ACHS or Q6hrs while NPO * Goal Range: Low 120 mg/dL - High 160 mg/dL * Correction Factor: 30 mg/dL/unit * Nutritional / Prandial insulin per carb ratio of 1 unit per 10 grams CHO consumed * Please note that the plan above was derived based on current level of insulin resistance and hospital stress. These recommendations are appropriate for inpatient admission only. Plan of care upon discharge will need to be reassessed to avoid potential outpatient hypo/hyperglycemia. Thank you.
[2020-01-25 15:03] LABS: BUN Creatinine Ratio 30.7 (10-20); Calcium 11.8 mg/dl (8.5-10.1); Est GFR (African American) 23.1; Potassium 4.5 mmol/L (3.5-5.1)
[2020-01-25 15:15] LABS: Beta-Hydroxybutyrate 0.89 mg/dl (0.2-2.81)
[2020-01-25] MEDS ORDERED: INSULIN GLARGINE SOLOSTAR 100 UNITS/ML 3 ML PEN SC ONE (15:30)
[2020-01-25] MEDS: LACTATED RINGER'S 1,000 ML IV SCH (16:06)
[2020-01-25] MEDS ORDERED: HYDROCORTISONE ACETATE 25 MG SUPP PR PRN (16:58)
[2020-01-25] MEDS ORDERED: COUGH DROP (SUGAR FREE) LOZ 24 LOZ/1 BOX BUCCAL PRN (17:01)
[2020-01-25] MEDS ORDERED: INSULIN GLARGINE SOLOSTAR 100 UNITS/ML 3 ML PEN SC SCH (21:00)
[2020-01-26] MEDS: INSULIN ASPART 100 UNITS/ML 3 ML PEN SC SCH ×4 (00:07→12:39)
--- NOTE | 2020-01-26 01:34 | Billing Data ---
Date of Service January 26, 2020 Coding Level of Care Code 41125 Initial Inpt Care Lvl 3
[2020-01-26] MEDS: LACTATED RINGER'S 1,000 ML IV SCH (04:07)
[2020-01-26 07:01] LABS: Hematocrit (blood only) 23.3 % (42-52); Hemoglobin 7.7 g/dL (14.0-18.0); RDW Coefficient of Variation 16.5 % (11.5-14.5); RDW Standard Deviation 56.9 fL (36.4-46.3); Red Blood Count 2.48 M/uL (4.7-6.1)
[2020-01-26 07:34] LABS: Albumin Level 2.2 gm/dl (3.4-5.0); Calcium 11.5 mg/dl (8.5-10.1); Creatinine Clr Calc Pharmacy 24.4 ml/min; Est GFR (African American) 26.2; Est GFR (Non-African American) 22.6; Magnesium 2.1 mg/dl (1.8-2.4); Potassium 4.3 mmol/L (3.5-5.1)
[2020-01-26 07:40] LABS: Basophils # (auto) 0.02 K/uL (0-0.2); Basophils % (auto) 0.4 %; Eosinophils # (auto) 0.17 K/uL (0-0.5); Eosinophils % (auto) 3.5 %; Immature Granulocytes # (auto) 0.02 K/uL (0.00-0.02); Immature Granulocytes % (auto) 0.4 %; Lymphocytes # (auto) 0.98 K/uL (1.2-3.4); Lymphocytes % (auto) 20.4 %; Monocytes # (auto) 0.62 K/uL (0.11-0.59); Monocytes % (auto) 12.9 %; Neutrophils # (auto) 2.99 K/uL (1.4-6.5); Neutrophils % (auto) 62.4 %; Ovalocytes 1+; Platelet Count 65 K/uL (130-400); Platelet Estimate Decreased (Normal)
[2020-01-26 07:42] LABS: Bilirubin,Total 0.8 mg/dl (0.2-1); Globulin 2.2 gm/dl (2.5-4.0); Phosphorus 3.5 mg/dl (2.5-4.9); Total Protein 4.4 gm/dl (6.4-8.2)
[2020-01-26] MEDS: predniSONE 10 MG TABLET PO SCH (08:11)
[2020-01-26] MEDS: PRAVASTATIN SOD 20 MG TAB PO SCH (08:11)
[2020-01-26 12:29] LABS: Hematocrit (blood only) 23.6 % (42-52); Hemoglobin 8.1 g/dL (14.0-18.0); Mean Corpuscular Hemoglobin 32.3 pg (25-34); RDW Coefficient of Variation 16.5 % (11.5-14.5); Red Blood Count 2.51 M/uL (4.7-6.1); White Blood Count 4.88 K/uL (4.8-10.8)
[2020-01-26 12:42] LABS: Basophils # (auto) 0.02 K/uL (0-0.2); Basophils % (auto) 0.4 %; Eosinophils # (auto) 0.13 K/uL (0-0.5); Eosinophils % (auto) 2.7 %; Immature Granulocytes # (auto) 0.01 K/uL (0.00-0.02); Immature Granulocytes % (auto) 0.2 %; Lymphocytes # (auto) 0.53 K/uL (1.2-3.4); Lymphocytes % (auto) 10.9 %; Mean Corpuscular Hgb Conc 34.3 g/dL (32-36); Mean Platelet Volume 9.4 fL (7.4-10.4); Monocytes # (auto) 0.49 K/uL (0.11-0.59); Neutrophils % (auto) 75.8 %; Platelet Count 57 K/uL (130-400)
--- NOTE | 2020-01-26 13:00 | Pharmacy Report ---
Pharmacy Glycemic Short Note 2 - Date of Service January 26, 2020 - Glycemic Short BSG Results (Last 24 hours): 01/25/20 01/25/20 01/25/20 13:46 15:09 15:09 Glucose 330 H* POC Glucose 312 H* 327 H* 01/25/20 01/25/20 01/26/20 16:42 20:11 00:00 Glucose POC Glucose 259 H 265 H 264 H 01/26/20 01/26/20 01/26/20 04:05 06:17 07:09 Glucose 99 POC Glucose 143 H 97 01/26/20 11:28 Glucose POC Glucose 147 H OUTPATIENT ANTIDIABETIC REGIMEN: Humalog Mix 50/50 - 50 units SQ with breakfast and dinner * A1c = 6.9% on 11/14/2019 ASSESSMENT: * Patient received total 49 units of insulin yesterday: 30 units of basal and 19 units of bolus. * Fasting and post-prandial BSGs are good this morning. * He continues on Prednisone 10 mg daily. * Will order Lantus on a scale at HS today. PLAN FOR INPATIENT GLYCEMIC CONTROL: * Hold outpatient oral diabetes medications * Basal insulin * Lantus HS on scale as follows: - 0 units for BSG less than 120 mg/dl - 15 units for BSG 120-180 mg/dl - 20 units for BSG above 180 mg/dl * Bolus insulin * NovoLog per scale ACHS or Q6hrs while NPO * Goal Range: Low 120 mg/dL - High 160 mg/dL * Correction Factor: 30 mg/dL/unit * Nutritional / Prandial insulin per carb ratio of 1 unit per 10 grams CHO consumed PLAN FOR DISCHARGE: * HbA1c = 6.9% * Patient follows with outpatient Endocrinology. * On discharge, recommend continue Humalog mix 50/50 but reduce the dose by 50% to start off (25 units with breakfast and dinner) with close follow up by outpatient Forensic Dna Analyst.
--- NOTE | 2020-01-26 17:30 | Discharge Summary ---
Date of Service January 26, 2020 Admission HPI Per Admitting Provider Patient is a 69 year old male with PMHx DM2, Autoimmune hepatitis, Hyperparathyroidism, CKD stage III, HLD, CAD, AR s/p stent 2012, who presents with chief complaint of hypoglycemia. Patient notes that he was feeling nauseous around 1AM when he attempted to grab a vase beside his bed in order to vomit. Upon reaching, however, patient notes that he "slid out of bed" and feels he passed out as the next thing he remembers is his and her son helping him back into bed prior to EMS arriving. He was found to be hypoglycemic with BSG 42 and was given D10. Patient notes that he had fallen on his buttocks earlier in the day as well, but that it was secondary to missing a step and not because he was feeling dizzy or near-syncopal. Currently patient notes that he still has some dizziness if he moves too quickly, some SIDDIQUI, and generalized weakness. He also noted having diarrhea earlier in the day. He denies any chest pain, SOB, headache, abdominal pain, nausea. Principal Diagnosis Hypoglycemia Hypercalcemia Anemia Thrombocytopenia Discharge Exam Constitutional WD/WN, vitals as above Eyes EOM intact bilaterally; no conjunctival abnormality ENMT external ear and nose normal, oropharynx normal Neck trachea midline, no thyromegaly normal visual inspection Respiratory normal respiratory effort, lungs clear to auscultation no respiratory distress Cardiovascular RRR, no murmur, no edema Gastrointestinal (Abdomen) Inspection/Auscultation: abdomen normal to inspection; abdomen not distended Musculoskeletal no cyanosis or clubbing, extremities motor strength 5/5 Skin no rashes, warm and dry Neurologic moves all extremities and awake Psychiatric Orientation: alert, oriented to person and cooperative Discharge Data Allergies Allergy/AdvReac Type Severity Reaction Status Date / Time No Known Drug Allergies Allergy Unknown Verified 01/25/20 03:58 Consultations 01/25/20 04:37 ED Decision to Admit Stat Hospital Course (1) Anemia: Baseline hgb is 9.5-10. - On 01/25, he had an acute drop to 7.7. He had had some bright red blood per rectum yesterday that was ascribed to hemorrhoids and an anal fissure. Denied other hematochezia. He did note an episode of darker stool ~1 week ago, but none recently. - Repeat in the afternoon revealed hgb of 8.1, so stable. My biggest concern is a GI bleed. 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 Hgb was stable on repeat, and vital signs remained stable. I asked him to see a GI doctor in the hospital, but he declined this. He also declined a visual exam of his anus to see if there was ongoing bleeding. I did counsellors him that I would like him to stay in the hospital another night for further work-up. He declined this, saying he felt "great" and wanted to go home. I did tell him he risked further bleeding or even . I do think he was capable of making his own medical decisions. He was not encephalopathic (no slurring of speech, no delayed responses). He has good recall of his health care and was able to give reasons for wanting to go home (mainly cost). I also spoke with his about my concerns on the phone, but she was amenable to him going home also. He will follow up with his PCP, GI, and endocrinology. (2) Hypercalcemia: Likely from medications (calcium, calcitriol, and vitamin D). - PTH was 30 (low-normal) -> Would think this should be more suppressed in the setting of hypercalcemia. 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 - Vitamin D was 30 as well; low. - Stopped all 3 medications on discharge. On discharge, calcium was down to 11.5; corrected to 12.9. Still high, but improving. Will need close follow up with Dr. Dwyer for adjustment as needed. (3) Hypoglycemia: Due to insulin. Patient uses large doses of insulin (50 units BID or even 50 units in the AM and 60+ with dinner). Blood sugars swing widely from 80 to >500 per patient. - Diabetic pharmacist following: - Recommended lowering insulin to at most 40 units BID which I counseled the patient. Alerted Anson Ryan of patient's discharge who will see him in the clinic this week. (4) Myocardial Infarction: Prior CAD. No chest pain. - Continue home ACEi, statin - Held beta-trae for some initial bradycardia - Held Lasix for kidney injury - Restarted both on discharge. (5) Autoimmune hepatitis: With cirrhosis. - Continue prednisone (6) Chronic kidney disease, stage 3: Baseline Cr ~2.3 - 2.6. - Acute kidney injury on CKD -> Cr up to 3.65 on admission. Down to 2.7 on discharge. (7) DVT prophylaxis: SCDs - Low DVT risk per admission calculator Total Time Total Time Spent Total Time Spent (In Minutes): 40 Total Time Includes: Examination of the Patient, Discharge Planning, Medication Reconciliation and Communication With Other Providers Discharge Plan Discharge Items Patient Disposition: Home - Self-Care Reason For Visit: HYPOGLYCEMIA, HYPERCALCEMIA Discharge Diagnosis: Low blood sugar and high calcium Activity: Resume your previous activity Non-emergency contact: Primary Care Provider and [employer] Call non-emergency contact if: your symptoms worsen and your temperature is above 101 Follow-up/Referrals: Dariel Moscoso MD [Primary Care Provider] - Seng Maza MD [Physician] - (Please see the Endocrinology Office this week or early next week to follow up on your insulin regimen.) Freddy Heller [Physician] - (Please see Dr. Heller or any other GI provider as soon as you are able to check out your hemoglobin level.) Diet: Carb Consistent or DM2 and Heart Healthy Addtl Attending Provider Instructions: You were admitted to the hospital after a fall at home. We found several issues and have tried our best to improve them. 1) Your blood sugar was low. It sounds like your sugars go up and down at home (lows in the 80s and highs over 400). We are lowering your insulin slightly to try to prevent the lows which can be fatal. We would like you to move from 50 units and 50 units (what you said you were on) to 40 units in the morning and 40 units in the evening. Please call Dr. Godwin & Anson Ryan's office with your sugars by this Thursday. 2) Your calcium was high coming to the hospital. This was likely caused by your medications. We are stopping 3 medications for you and recommend holding them until your calcium is rechecked by your doctors. 3) Your red blood cells and platelets dropped significantly the day of discharge. I am worried about possible GI bleeding; however, after a lengthy discussion, you did not want to see a GI doctor in the hospital. I do believe this is of great importance that you get this done as soon as possible. You have varices from your liver issues, and these can potentially bleed and be life threatening. Of the 3, the third issue is of the greatest danger in the short-term. I really would like you to see Dr. Moscoso and a GI doctor as soon as you are able. Please come back to the hospital with any further bleeding, any lightheadedness, any dizziness, or other concerning symptoms. Pending Studies at Discharge: No Stand-Alone Forms: My [facility], Smoking Cessation Medications and DC Order Prescriptions: Continued epoetin jose l [Procrit] 2,000 unit/mL solution 1 unit subcut Q21D PRN (Reason: ANEMIA) RF: 0 nitroglycerin [Nitrostat] 0.4 mg tablet, sublingual 0.4 mg SL Q5M PRN (Reason: Chest Pain) RF: 0 lisinopril 10 mg tablet 10 mg PO QAM Qty: 90 RF: 3 prednisone 10 mg tablet 10 mg PO QAM Qty: 90 RF: 3 (DME) pen needle, diabetic [BD Ultra-Fine Mini Pen Needle] 31 gauge x 3/16" needle See Dose Instructions .ROUTE .MEDSUPPLY Qty: 300 RF: 3 pravastatin [Pravachol] 20 mg tablet 20 mg PO DAILY Qty: 90 RF: 3 furosemide 40 mg tablet 40 mg PO .COMPLEX Qty: 270 RF: 3 propranolol 80 mg tablet 80 mg PO QAM Qty: 90 RF: 3 (DME) blood sugar diagnostic [Contour Next Test Strips] Strip See Rx Instructions .ROUTE .MEDSUPPLY Qty: 400 RF: 3 (DME) blood-glucose meter [Contour Next Meter] Misc See Rx Instructions .ROUTE .MEDSUPPLY Qty: 1 RF: 0 (DME) lancets [OneTouch Delica Plus Lancet] 33 gauge misc See Dose Instructions .ROUTE .MEDSUPPLY Qty: 100 RF: 0 (DME) OneTouch Ultra Blue Test Strip strip See Dose Instructions .ROUTE .MEDSUPPLY Qty: 10 RF: 0 Humalog Mix 50-50 KwikPen 100 unit/mL (50-50) insulin pen 105 units SQ .COMPLEX RF: 0 Discontinued calcitriol 0.5 mcg capsule 0.5 mcg PO DAILY Qty: 90 RF: 3 cholecalciferol (vitamin D3) 1,000 unit (25 mcg) tablet 1,000 units PO DAILY RF: 0 calcium carbonate [Tums] 200 mg calcium (500 mg) tablet,chewable 500 mg PO DAILY RF: 0 Discharge Orders: Discharge Order (Routine); Ordered 01/26/20 Ordered By: Matt Trevino Admission Data Admit Date/Time: 01/25/20 05:28 Attending Provider: Matt Trevino Admit Provider: Milton Nair Primary Care Provider: Dariel Moscoso Other Providers: Matt Trevino Other DC Date/Time DO NOT enter until pt leaves facility: 01/26/20 17:35 Coding Level of Care Code D/C Day Management >30 mins Diagnoses Anemia D64.9 Hypercalcemia E83.52 Hypoglycemia E16.2 Myocardial Infarction I21.9 Autoimmune hepatitis K75.4 Chronic kidney disease, stage 3 N18.3 DVT prophylaxis Z29.9
[2020-01-26] MEDS ORDERED: INSULIN GLARGINE SOLOSTAR 100 UNITS/ML 3 ML PEN SC SCH (21:00)
== END 2020-01-26 17:35 | disposition home or self-care (01) | DRG 641 ==
LOC: ED 02:58 → SUATTDRO 05:28 → 2S 05:28

== ENCOUNTER 2021-05-02 02:03 | Inpatient (IN) ==
[2021-05-02 03:09] LABS: Hematocrit (blood only) 31.4 % (42-52); Hemoglobin 10.4 g/dL (14.0-18.0); Red Blood Count 3.36 M/uL (4.7-6.1); White Blood Count 7.96 K/uL (4.8-10.8)
[2021-05-02 03:10] LABS: Basophils # (auto) 0.03 K/uL (0-0.2); Basophils % (auto) 0.4 %; Eosinophils # (auto) 0.06 K/uL (0-0.5); Eosinophils % (auto) 0.8 %; Immature Granulocytes # (auto) 0.03 K/uL (0.00-0.02); Immature Granulocytes % (auto) 0.4 %; Lymphocytes # (auto) 1.07 K/uL (1.2-3.4); Lymphocytes % (auto) 13.4 %; Mean Corpuscular Hgb Conc 33.1 g/dL (32-36); Mean Corpuscular Volume 93.5 fL (80-100); Mean Platelet Volume 11.2 fL (7.4-10.4); Monocytes % (auto) 11.3 %; Neutrophils # (auto) 5.87 K/uL (1.4-6.5); Neutrophils % (auto) 73.7 %; Platelet Count 111 K/uL (130-400); RDW Coefficient of Variation 15.6 % (11.5-14.5); RDW Standard Deviation 53.9 fL (36.4-46.3)
[2021-05-02 03:14] LABS: Alanine Aminotransferase 27 U/L (12-78); Albumin Globulin Ratio 0.9 (0.9-2); Albumin Level 2.9 gm/dl (3.4-5.0); Alkaline Phosphatase 56 U/L (45-117); Aspartate Aminotransferase 22 U/L (15-37); BUN Creatinine Ratio 37.6 (10-20); Bilirubin,Total 1.2 mg/dl (0.2-1); Blood Urea Nitrogen 80 mg/dl (7-18); Calcium 9.6 mg/dl (8.5-10.1); Carbon Dioxide 25 mmol/L (21-32); Chloride 111 mmol/L (98-107); Est GFR (African American) 34.8 ml/min; Globulin 3.4 gm/dl (2.5-4.0); Glucose 297 mg/dl (70-99); Magnesium 2.1 mg/dl (1.8-2.4); NT Pro B Type Natriuretic Pept 6697 pg/ml (0-900); Potassium 4.1 mmol/L (3.5-5.1); Sodium 142 mmol/L (136-145); Thyroid Stimulating Hormone 0.959 uIu/ml (0.300-4.500); Total Protein 6.3 gm/dl (6.4-8.2)
[2021-05-02 03:15] LABS: Troponin I 0.183 ng/ml (0-0.045)
--- NOTE | 2021-05-02 03:52 | Emergency Department Note ---
History of Present Illness General Chief complaint: Chest Pain Stated complaint: CHEST PAIN Time Seen by Provider: 05/02/21 02:59 Source: patient Mode of arrival: EMS Limitations: no limitations History of Present Illness Provider complaint: chest pain Onset (ago): day(s) Location: chest Radiation: non-radiation Current Pain Intensity: 2 Quality: + dull Relieved By: + none Exacerbated By: + movement Associated symptoms: + denies other symptoms Treatments prior to arrival: none This is a 71-year-old male presents emergency department complaining of chest pain. Patient describes it as a pressure or heaviness to the central and left- sided chest. States pressure is nonradiating. He states he first felt the pressure earlier around bedtime between 1030 and 11 PM last night and took one of his nitro tablets. He states pain did improve and he laid down, however upon getting back up later, the pain worsened so he took another nitro and due to concern called 911. Patient states he does have a history of a prior ND back in 2012 and has 1 stent. Patient states he does not follow with cardiology routinely. Patient does not use any antiplatelet or anticoagulation therapy, although states he has been told that his blood is thin due to a prior history of autoimmune hepatitis. Patient does take prednisone daily for this. Patient denies any recent cough or URI symptoms. Patient states he had had some episodes of heaviness several days ago, however then was symptom-free over the last 2 days until recurred tonight. He states in the prior days he had noticed the pain with movement and exertion. He denies any accompanying shortness of breath, nausea, sweating, lightheaded/dizziness. No recent change in bowel or bladder function. No recent change in medications. He states he does follow with Dr. Dwyer, nephrology regarding his kidney problems and lower extremity swelling. He feels the swelling is unchanged tonight. Pt seen during a time of high acuity and national emergency pandemic while wearing PPE. Home Medications Medication Instructions Recorded Confirmed Type nitroglycerin 0.4 mg sublingual 0.4 mg SL Q5M PRN 10/26/18 05/02/21 History tablet (Nitrostat) pen needle, diabetic 31 gauge x #300 ea 04/15/19 04/15/21 Rx 3/16" (BD Ultra-Fine Mini Pen Needle) Contour Next Meter (blood-glucose #1 ea NS 12/09/19 04/15/21 Rx meter) glucagon HCl 1 mg solution for 1 mg SQ Q20M PRN #3 ea 02/14/20 05/02/21 Rx injection (Glucagon (HCl) Emergency Kit) ferrous sulfate 325 mg (65 mg 325 mg PO DAILY 03/30/20 05/02/21 History iron) tablet epoetin jose l 2,000 unit/mL 4,000 units SUBCUT Q21D PRN ml 04/10/20 05/02/21 History injection solution (Procrit) cholecalciferol (vitamin D3) 50 50 mcg PO DAILY #90 cap 08/14/20 05/02/21 Rx mcg (2,000 unit) capsule insulin NPH isoph U-100 human 100 See Rx Instructions SUBCUT 01/17/21 05/02/21 Rx unit/mL (3 mL) subcutaneous pen .COMPLEX #4 box (Novolin N Flexpen) Contour Next Test Strips (blood #400 ea NS 02/20/21 04/15/21 Rx sugar diagnostic) prednisone 10 mg tablet 10 mg PO QAM #90 tab 03/14/21 05/02/21 Rx propranolol 80 mg tablet 80 mg PO QAM #90 tab 03/14/21 05/02/21 Rx insulin aspart U-100 100 unit/mL See Rx Instructions SUBCUT 03/29/21 05/02/21 Rx (3 mL) subcutaneous pen (Novolog .COMPLEX #15 ml Flexpen U-100 Insulin aspart) lancets (Microlet Lancet) #400 ea 03/29/21 04/15/21 Rx calcitriol 0.25 mcg capsule 0.25 mcg PO .COMPLEX #10 cap 04/15/21 05/02/21 Rx furosemide 40 mg tablet 80 mg PO BID #360 tab 04/15/21 05/02/21 Rx pravastatin 20 mg tablet 20 mg PO DAILY 05/02/21 05/02/21 History Allergies Allergy/AdvReac Type Severity Reaction Status Date / Time No Known Allergies Allergy Verified 05/02/21 03:01 Past Med/Surg History Medical History (Updated 05/03/21 @ 06:45 by Damaris Ray DO) Anemia Aortic valve sclerosis Autoimmune hepatitis Background diabetic retinopathy associated with type 2 diabetes mellitus BPH (benign prostatic hyperplasia) Cancer BCC (FOREHEAD) Chronic back pain STANDING AND WALKING, PAIN MANAGEMENT Chronic kidney disease, stage 3 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 Coronary artery disease Diabetic nephropathy associated with type 2 diabetes mellitus Diabetic peripheral neuropathy associated with type 2 diabetes mellitus Dysesthesia Dyslipidemia Esophageal varices NEVER BANDED R/T AUTOIMMUNNE HEPATITIS Hyperparathyroidism IDDM (insulin dependent diabetes mellitus) TYPE 2 Kidney stones NO SURGERY FPC current use of systemic steroids Lumbar back pain with radiculopathy affecting left lower extremity Myocardial Infarction (10/2012) OCTOBER 2012 Denies having any angina symptoms or having to use NTG since stent placement Osteopenia Portal hypertension Spinal stenosis LUMBAR Vitamin D deficiency Surgical History History of ankle surgery History of cardiac cath X1 STENT (2012) History of colonoscopy History of esophagogastroduodenoscopy (EGD) Hx of heart artery stent Status post angioplasty Family History Mother Family history of diabetes mellitus Myocardial infarction Spleen cancer Hypertension Father Myocardial infarction Grandfather (Paternal) Myocardial infarction Brother Melanoma Denies family history of Colon cancer Ovarian cancer Prostate cancer Breast cancer Social History Smoking Status: Current some day smoker Tobacco Type: Pipe Second Hand Exposure: No; Do You Dip or Chew Tobacco: No; Tobacco Cessation Education Requested by Patient: No Hx Alcohol Use: No Hx Substance Use: No Preferred Language: Frisian Communication Ability: Effective Visual Impairment: No Limitations Hearing Ability: Normal 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: No Beliefs That Will Affect Care: None marital status: Current Living Situation: Spouse current occupational status: retired Other Information That Helps Us Care for You: No Feels Safe at Home: Yes Safety Concerns: Feels Safe At This Time Seatbelt Use: always Assistive Devices: Glasses Review of Systems A total of 10 systems reviewed and were otherwise negative All systems reviewed & are unremarkable except as noted in HPI & below Physical Exam Vital Signs Vital Signs - 24 hr 05/02/21 04:20 05/02/21 06:37 Pulse Rate [Left] 71 66 Respiratory Rate 14 16 Respiratory Effort / Characteristics Non-Labored Respiratory Depth Normal Blood Pressure [Left Arm] 159/72 H 157/80 H Blood Pressure Mean [Left Arm] 101 105 Pulse Oximetry 93 93 Oxygen Delivery Method Room Air Room Air GENERAL: alert, well appearing, well nourished, no distress, non-toxic EYE EXAM: normal conjunctiva, PERRL and EOM's grossly intact OROPHARYNX: no exudate, no erythema, lips, buccal mucosa, and tongue normal and mucous membranes are moist NECK: supple, no nuchal rigidity, no adenopathy, non-tender LUNGS: Clear to auscultation. Normal chest wall mechanics, no w/r/r HEART: no murmurs, S1 normal and S2 normal, no reproducible chest pain ABDOMEN: abdomen soft, non-tender, normo-active bowel sounds, no masses, no rebound or guarding. BACK: Back is symmetrical on inspection and there is no deformity, no midline tenderness, no CVA tenderness. SKIN: no rashes and no bruising UPPER EXTREMITIES: upper extremities are grossly normal. FROM, nml pulses b/l. LOWER EXTREMITIES: 3+ b/l pitting edema. FROM, nml pulses b/l. NEURO EXAM: Normal sensorium, cranial nerves II-XII grossly intact, normal speech, no gross weakness of arms, no gross weakness of legs. Gross sensation intact. Course Administered Medications Aspirin (Aspirin 81 Mg Ectab) 81 mg PO QAM [facility] Stop: 06/01/21 08:59 Last Admin: 05/02/21 09:53 Dose: 81 mg Documented by: [id number] Ferrous Sulfate (Ferrous Sulfate 325 Mg Tab) 325 mg PO DAILY [facility] Stop: 06/01/21 08:59 Last Admin: 05/02/21 09:53 Dose: 325 mg Documented by: [id number] Methylprednisolone 100 mg/ (Syringe) 1.6 mls @ 1.5 mls/min IV Q8H [facility] Stop: 06/01/21 13:59 Last Admin: 05/03/21 04:52 Dose: 1.5 mls/min Documented by: [id number] Admin: 05/02/21 20:54 Dose: 1.5 mls/min Documented by: [id number] Admin: 05/02/21 14:16 Dose: 1.5 mls/min Documented by: [id number] Heparin Sodium/Dextrose (Heparin Sodium/Dextrose) 25,000 units in 500 mls @ 26 mls/hr IV .[id number] [facility]; Protocol Stop: 06/01/21 18:44 Last Admin: 05/03/21 01:29 Dose: 1,300 units/hr, 26 mls/hr Documented by: [id number] Cosigned by: [id number] Sodium Chloride (Nss 1000ml) 1,000 mls @ 80 mls/hr IV .[id number] [facility] Stop: 05/03/21 07:29 Last Admin: 05/02/21 19:13 Dose: 80 mls/hr Documented by: [id number] Insulin Aspart (Insulin Aspart 100 Units/Ml 3 Ml Pen) 0 units SC ACHS [facility]; Protocol Stop: 06/01/21 08:34 Last Admin: 05/02/21 20:57 Dose: 4 units Documented by: [id number] Cosigned by: [id number] Admin: 05/02/21 17:47 Dose: Not Given Documented by: [id number] Cosigned by: [id number] Admin: 05/02/21 12:21 Dose: 12 units Documented by: [id number] Cosigned by: [id number] Admin: 05/02/21 09:53 Dose: 10 units Documented by: [id number] Cosigned by: [id number] Insulin Aspart (Insulin Aspart 100 Units/Ml 3 Ml Pen) 0 units SC 0000,0400 [facility]; Protocol Stop: 06/02/21 00:00 Last Admin: 05/03/21 04:31 Dose: 1 units Documented by: [id number] Cosigned by: [id number] Admin: 05/03/21 00:25 Dose: Not Given Documented by: [id number] Cosigned by: [id number] Insulin Human NPH (Insulin Human Nph) [facility] [place] Stop: 06/01/21 08:39 Last Admin: 05/02/21 18:19 Dose: Not Given Documented by: [id number] Admin: 05/02/21 09:53 Dose: 40 units Documented by: [id number] Cosigned by: [id number] Miscellaneous (Carbohydrates For Hypoglycemia ) 15 - 30 gm PO UD PRN PRN Reason: Hypoglycemia Protocol Stop: 06/01/21 07:57 Last Admin: 05/02/21 17:52 Dose: 30 gm Documented by: [id number] Admin: 05/02/21 17:30 Dose: 30 gm Documented by: [id number] Propranolol HCl (Propranolol Hcl 80 Mg Tab) 80 [facility] [place] [place]: 06/01/21 08:59 Last Admin: 05/02/21 09:52 Dose: 80 mg Documented by: [id number] Discontinued Medications Clopidogrel Bisulfate (Clopidogrel Bisulfate 75 Mg Tab) 75 mg PO NOW ONE Stop: 05/02/21 09:47 Last Admin: 05/02/21 10:28 Dose: 75 mg Documented by: [id number] Fentanyl Citrate (Fentanyl Citrate 100 Mcg/2 Ml Vial) Confirm Administered Dose 100 mcg .ROUTE .STK-MED ONE Stop: 05/02/21 16:06 Last Increment: 05/02/21 17:14 Dose: 25 mcg Documented by: [id number] Furosemide (Furosemide 40 Mg/4 Ml Vial) 40 mg IV NOW STA Stop: 05/02/21 05:25 Last Admin: 05/02/21 05:35 Dose: 40 mg Documented by: [id number] Heparin Sodium (Porcine) (Heparin Sod 5,000 Unit/0.5 Ml Vial) 5,000 units SQ Q12 [facility] Stop: 06/01/21 08:59 Last Admin: 05/02/21 09:53 Dose: 5,000 units Documented by: [id number] Heparin Sodium (Porcine) (Heparin (Porcine) 1000 Unit/Ml 10 Ml (Insemination Worker Use Only)) Confirm Administered Dose 10,000 units .ROUTE .STK-MED ONE Stop: 05/02/21 16:05 Last Admin: 05/02/21 17:14 Dose: 10,000 units Documented by: [id number] Heparin Sodium/Dextrose (Heparin Iv Adult Wt-Based Standard *No* Bolus Protocol) 1 ea IV Q1H [facility]; Protocol Stop: 06/01/21 18:19 Last Admin: 05/02/21 18:37 Dose: 1 ea Documented by: [id number] Heparin Sodium/Dextrose (Heparin 40244 Unit/500 Ml D5w) Confirm Administered Dose 25,000 units IV .STK-MED ONE Stop: 05/02/21 18:58 Last Admin: 05/02/21 20:53 Dose: Not Given Documented by: [id number] Insulin Human NPH (Insulin Human Nph) 15 units SC NOW ONE; Protocol Stop: 05/02/21 21:31 Last Admin: 05/02/21 21:37 Dose: 15 units Documented by: [id number] Cosigned by: [id number] Isosorbide Mononitrate (Isosorbide [place] Extended Rel 30 Mg Tabcr) 30 mg PO NOW ONE Stop: 05/02/21 19:01 Last Admin: 05/02/21 20:54 Dose: 30 mg Documented by: [id number] Lisinopril (Lisinopril 10 Mg Tab) 10 mg PO QAM [facility] Stop: 06/01/21 08:59 Last Admin: 05/02/21 09:52 Dose: Not Given Documented by: [id number] Methylprednisolone (Methylprednisolone 125 Mg/2 Ml Vial) 100 mg IV Q8H [facility] Stop: 05/04/21 05:29 Last Admin: 05/02/21 05:35 Dose: 100 mg Documented by: [id number] Midazolam HCl (Midazolam Hcl 1 Mg/Ml 2ml Vial) Confirm Administered Dose 2 mg .ROUTE .STK-MED ONE Stop: 05/02/21 16:05 Last Admin: 05/02/21 17:14 Dose: 1 mg Documented by: [id number] Nicardipine HCl (Nicardipine Hcl Inj 2.5 Mg/Ml 10 Ml Amp) Confirm Administered Dose 25 mg .ROUTE .STK-MED [facility] Stop: 05/02/21 15:51 Last Admin: 05/02/21 16:13 Dose: 25 mg Documented by: [id number] Nitroglycerin/Dextrose (Nitroglycerin/D5w 100mcg/Ml 20ml Syr) Confirm Administered Dose 2,000 mcg .ROUTE .STK-MED ONE Stop: 05/02/21 15:51 Last Admin: 05/02/21 16:13 Dose: 2,000 mcg Documented by: [id number] Pravastatin Sodium (Pravastatin Sod 20 Mg Tab) 20 mg PO DAILY [facility] Stop: 06/01/21 08:59 Last Admin: 05/02/21 09:53 Dose: 20 mg Documented by: [id number] Medical Decision Making Differential Diagnosis Differential diagnoses includes but is not limited to acute coronary syndrome, myocardial infarction, pericarditis, pulmonary embolus, aortic dissection, pneumonia, pneumothorax, musculoskeletal, shingles, esophageal. Medical Records Attestation: I reviewed the patient's medical records. Home Medications Current Medication List: was personally reviewed by me Laboratory Data Attestation: I reviewed the patient's lab results. Result diagrams: 05/02/21 01:20 05/02/21 01:20 Lab Results 05/02/21 05/02/21 05/02/21 Range/Units 01:20 01:20 01:20 WBC 7.96 (4.8-10.8) K/uL RBC 3.36 L (4.7-6.1) M/uL Hgb 10.4 L (14.0-18.0) g/dL Hct 31.4 L (42-52) % MCV 93.5 (80-100) fL MCH 31.0 (25-34) pg MCHC 33.1 (32-36) g/dL RDW Std Deviation 53.9 H (36.4-46.3) fL RDW Coeff of Sony 15.6 H (11.5-14.5) % Plt Count 111 L (130-400) K/uL MPV 11.2 H (7.4-10.4) fL Immature Gran % (Auto) 0.4 % Neut % (Auto) 73.7 % Lymph % (Auto) 13.4 % [place] % (Auto) 11.3 % Eos % (Auto) 0.8 % Baso % (Auto) 0.4 % Neut # (Auto) 5.87 (1.4-6.5) K/uL Lymph # (Auto) 1.07 L (1.2-3.4) K/uL [place] # (Auto) 0.90 H (0.11-0.59) K/uL Eos # (Auto) 0.06 (0-0.5) K/uL Baso # (Auto) 0.03 (0-0.2) K/uL Immature Gran # (Auto) 0.03 H (0.00-0.02) K/uL PT 13.5 H (9.0-12.0) Seconds INR 1.4 H (0.9-1.1) Sodium 142 (136-145) mmol/L Potassium 4.1 (3.5-5.1) mmol/L Chloride 111 H (98-107) mmol/L Carbon Dioxide 25 (21-32) mmol/L Anion Gap 6.0 (3-11) BUN 80 H (7-18) mg/dl Creatinine 2.13 H (0.6-1.4) mg/dl Est Cr Clr Drug Dosing Not Reportable Est GFR ( Amer) 34.8 ml/min Est GFR (Non-Af Amer) 30.0 ml/min BUN/Creatinine Ratio 37.6 H (10-20) Glucose 297 H (70-99) mg/dl Calcium 9.6 (8.5-10.1) mg/dl Magnesium 2.1 (1.8-2.4) mg/dl Total Bilirubin 1.2 H (0.2-1) mg/dl AST 22 (15-37) U/L ALT 27 (12-78) U/L Alkaline Phosphatase 56 (45-117) U/L Troponin I 0.183 H* (0-0.045) ng/ml NT-Pro-B Natriuret Pep 6697 H (0-900) pg/ml Total Protein 6.3 L (6.4-8.2) gm/dl Albumin 2.9 L (3.4-5.0) gm/dl Globulin 3.4 (2.5-4.0) gm/dl Albumin/Globulin Ratio 0.9 (0.9-2) TSH 0.959 (0.300-4.500) uIu/ml COVID-19 Eval Order SARS-CoV-2 (PCR) (Negative) 05/02/21 05/02/21 Range/Units 04:16 04:16 WBC (4.8-10.8) K/uL RBC (4.7-6.1) M/uL Hgb (14.0-18.0) g/dL Hct (42-52) % MCV (80-100) fL MCH (25-34) pg MCHC (32-36) g/dL RDW Std Deviation (36.4-46.3) fL RDW Coeff of Sony (11.5-14.5) % Plt Count (130-400) K/uL MPV (7.4-10.4) fL Immature Gran % (Auto) % Neut % (Auto) % Lymph % (Auto) % [place] % (Auto) % Eos % (Auto) % Baso % (Auto) % Neut # (Auto) (1.4-6.5) K/uL Lymph # (Auto) (1.2-3.4) K/uL [place] # (Auto) (0.11-0.59) K/uL Eos # (Auto) (0-0.5) K/uL Baso # (Auto) (0-0.2) K/uL Immature Gran # (Auto) (0.00-0.02) K/uL PT (9.0-12.0) Seconds INR (0.9-1.1) Sodium (136-145) mmol/L Potassium (3.5-5.1) mmol/L Chloride (98-107) mmol/L Carbon Dioxide (21-32) mmol/L Anion Gap (3-11) BUN (7-18) mg/dl Creatinine (0.6-1.4) mg/dl Est Cr Clr Drug Dosing Est GFR ( Amer) ml/min Est GFR (Non-Af Amer) ml/min BUN/Creatinine Ratio (10-20) Glucose (70-99) mg/dl Calcium (8.5-10.1) mg/dl Magnesium (1.8-2.4) mg/dl Total Bilirubin (0.2-1) mg/dl AST (15-37) U/L ALT (12-78) U/L Alkaline Phosphatase (45-117) U/L Troponin I (0-0.045) ng/ml NT-Pro-B Natriuret Pep (0-900) pg/ml Total Protein (6.4-8.2) gm/dl Albumin (3.4-5.0) gm/dl Globulin (2.5-4.0) gm/dl Albumin/Globulin Ratio (0.9-2) TSH (0.300-4.500) uIu/ml COVID-19 Eval Order Covid19 at [facility] SARS-CoV-2 (PCR) NEGATIVE (Negative) Imaging Data My Impression: X-ray: I interpreted the following studies. Chest: A single view study of the chest was reviewed and was negative for focal infiltrate, effusion, pulmonary edema, or wide mediastinum. CM noted. ECG Data Attestation: I personally reviewed and interpreted this ECG as follows: Indication: + chest pain Rate (beats per minute): 73 Rhythm: + normal sinus ECG Intervals/blocks: + Normal QRS and + Normal QT ECG [place]: + Normal ECG ST segments: + ST depression (V4-6) Comparison ECG Date: from (01/25/2020) Change: no significant change MDM Narrative This is a 71-year-old male presents emergency department complaining of chest pain similar to prior episode which resulted in ND in 2012. Patient seen and evaluated emergency room, EKG abnormal but no significant change compared to prior. Labs sent and showed an elevated troponin. Patient does have history of chronic kidney disease which appears stable compared to prior, however no prior history of chronically elevated troponins. H&H stable patient does have a history of anemia. 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 Patient had taken aspirin and nitro at home, additional Nitropaste was applied here and patient was pain-free and subsequent recheck. Due to significant risk, prior history, and elevated troponin this evening in the setting of complaints of chest pain, case discussed with hospitalist for additional evaluation and management. Patient made aware of all results, verbalized understanding, and was in agreement with plan. An order was placed for continuous cardiac monitoring. The monitor shows a rate of _60_ with _normal sinus__ rhythm. Impression & Plan Chest pain, Anemia, Elevated troponin, Elevated brain natriuretic peptide (BNP) level, CKD (chronic kidney disease), Hyperglycemia Discharge Plan Visit Data Chief Complaint: Chest Pain Stated Complaint: CHEST PAIN ED Provider: Damaris Ray Discharge Problem: Chest pain, Anemia, Elevated troponin, Elevated brain natriuretic peptide (BNP) level, CKD (chronic kidney disease), Hyperglycemia Patient Disposition: Admitted As Inpatient Condition: Good Discharge Instructions Interventions: ED Discharge Assessment Last Done: 05/02/21 06:40 Discharge Problem: Chest pain Qualifiers: Chest pain type: unspecified Qualified Code(s): R07.9 - Chest pain, unspecified Anemia Qualifiers: Anemia type: unspecified type Qualified Code(s): D64.9 - Anemia, unspecified CKD (chronic kidney disease) Qualifiers: Chronic kidney disease stage: unspecified stage Qualified Code(s): N18.9 - Chronic kidney disease, unspecified
[2021-05-02 04:43] LABS: INR 1.4 (0.9-1.1); Prothrombin Time 13.5 Seconds (9.0-12.0)
--- NOTE | 2021-05-02 05:04 | History & Physical Report ---
Date of Service May 02, 2021 Assessment & Plan (1) Elevated troponin: Plan: Patient is a pleasant 71 mitra old male with PMHx Autoimmune Hepatitis with liver cirrhosis, portal vein hypertension, esophageal varices, CKD III, DM2, Hx NSTEMI with stent x1, BPH, who presents with 1 week history of worsening chest pain that significantly worsened overnight while at rest requiring 2 sublingual nitro to relieve. Elevated troponin -Patient with classical signs of chest pain and SOB -EKG with mild ST changes, though consistent with prior EKGs -Relieved by SL nitro x2 at home and nitro paste in the ED -Received 4 81mg ASA en-route, will continue 81mg QD -troponin elevated at 0.183, will repeat 6 hour trop and if continuing to rise consider starting heparin gtt -Repeat EKGs with pain -Lipid panel pending -Continue pravastatin - consider increasing to high dose pending results of lipid panel -Continue Lisinopril 10mg QD -Cardiology consulted for possible cath Shortness of Breath -With elevated BNP 6897, 2+ LE pitting edema, and crackles on lung exam concerning for CHF -Echo in AM -?cardiac ischemic event leading to current s/s of CHF -Hold home lasix -Will give 40mg IV lasix now to for diuresis Autoimmune Hepatitis and Liver Cirrhosis -MELD score 18 points with 3-4% 90 day mortality -Hold home prednisone -Stress dose steroids Methylprednisolone 100mg q8h x2 days -Continue home propranolol CKD III -Cr 2.13 on admission, Base ~2-2.5 -Monitor for worsening while diuresing DMII -SSI and basal bolus -Will consult pharmacy for assistance while stress dosing steroids Dispo: Med/Surg Telemetry for continued cardiac monitoring, possible cardiac cath FEN: NPO DVT: heparin sq, consider heparin gtt Code: Full (2) Arteriosclerotic cardiovascular disease (ASCVD): (3) History of non-ST elevation myocardial infarction (NSTEMI): (4) BPH (benign prostatic hyperplasia): (5) Chronic kidney disease, stage 3: (6) Dyslipidemia: (7) Portal hypertension: (8) Esophageal varices: (9) Cirrhosis: (10) Autoimmune hepatitis: History of Present Illness Chief Complaint: chest pain Primary Care Provider: Dariel Moscoso MD Patient is a pleasant 71 mitra old male with PMHx Autoimmune Hepatitis with liver cirrhosis, portal vein hypertension, esophageal varices, CKD III, DM2, Hx NSTEMI with stent x1, BPH, who presents with 1 week history of worsening chest pain that significantly worsened overnight while at rest requiring 2 sublingual nitro to relieve. Patient notes that for the past 1 week he has been noticing L sided chest pressure with exertion with associated SOB. He notes that last night around 8PM he was watching TV when he had sudden onset crushing L sided chest pain that felt similar to his previous heart attack in 2012 at which point he took 2 SL nitro and called 911. On arrival, EMS provided him with 4 81mg baby ASA to chew. In the ED patient was given an inch of nitro paste and is currently chest pain free. Patient notes that associated with his recent chest pain has been worsening SOB. He denies any nausea, diaphoresis, fever, chills, abdominal pain, diarrhea, hematuria, cough. He notes that he has not regularly taken ASA for over 1 year now as he was told to discontinue it "because my blood is thinner due to my liver disease." He cannot recall who he was told this by whether it was his PCP or his flitch hanger. He notes that he gilbert stake prednisone 10mg daily for his autoimmune hepatitis that has been ongoing since 1994. He was on the transplant list until 2014 when he was taken off as his symptoms had not progressed. Med Hx: Autoimmune Hepatitis with liver cirrhosis, portal vein hypertension, esophageal varices, CKD III, DM2, Hx NSTEMI with stent x1, BPH Surg Hx: Cardiac stent 2012, multiple EGD and Colonoscopies Soc Hx: Denies tobacco, alcohol, illicit drug use Allergies Allergy/AdvReac Type Severity Reaction Status Date / Time No Known Allergies Allergy Verified 05/02/21 03:01 Home Medications Medication Instructions Recorded Confirmed Type nitroglycerin 0.4 mg sublingual 0.4 mg SL Q5M PRN 10/26/18 05/02/21 History tablet (Nitrostat) pen needle, diabetic 31 gauge x #300 ea 04/15/19 04/15/21 Rx 11/13" (BD Ultra-Fine Mini Pen Needle) Contour Next Meter (blood-glucose #1 ea NS 12/09/19 04/15/21 Rx meter) glucagon HCl 1 mg solution for 1 mg SQ Q20M PRN #3 ea 02/14/20 05/02/21 Rx injection (Glucagon (HCl) Emergency Kit) ferrous sulfate 325 mg (65 mg 325 mg PO DAILY 03/30/20 05/02/21 History iron) tablet epoetin jose l 2,000 unit/mL 4,000 units SUBCUT Q21D PRN ml 04/10/20 05/02/21 History injection solution (Procrit) cholecalciferol (vitamin D3) 50 50 mcg PO DAILY #90 cap 08/14/20 05/02/21 Rx mcg (2,000 unit) capsule insulin NPH isoph U-100 human 100 See Rx Instructions SUBCUT 01/17/21 05/02/21 Rx unit/mL (3 mL) subcutaneous pen .COMPLEX #4 box (Novolin N Flexpen) Contour Next Test Strips (blood #400 ea NS 02/20/21 04/15/21 Rx sugar diagnostic) prednisone 10 mg tablet 10 mg PO QAM #90 tab 03/14/21 05/02/21 Rx propranolol 80 mg tablet 80 mg PO QAM #90 tab 03/14/21 05/02/21 Rx insulin aspart U-100 100 unit/mL See Rx Instructions SUBCUT 03/29/21 05/02/21 Rx (3 mL) subcutaneous pen (Novolog .COMPLEX #15 ml Flexpen U-100 Insulin aspart) lancets (Microlet Lancet) #400 ea 03/29/21 04/15/21 Rx calcitriol 0.25 mcg capsule 0.25 mcg PO .COMPLEX #10 cap 04/15/21 05/02/21 Rx furosemide 40 mg tablet 80 mg PO BID #360 tab 04/15/21 05/02/21 Rx pravastatin 20 mg tablet 20 mg PO DAILY 05/02/21 05/02/21 History Past Med/Surg History Medical History (Updated 05/02/21 @ 18:[address] MD) Anemia Aortic valve sclerosis Autoimmune hepatitis Background diabetic retinopathy associated with type 2 diabetes mellitus BPH (benign prostatic hyperplasia) Cancer BCC ([facility]) Chronic back pain STANDING AND WALKING, PAIN MANAGEMENT Chronic kidney disease, stage 3 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 Coronary artery disease Diabetic nephropathy associated with type 2 diabetes mellitus Diabetic peripheral neuropathy associated with type 2 diabetes mellitus Dysesthesia Dyslipidemia Esophageal varices NEVER BANDED R/T AUTOIMMUNNE HEPATITIS Hyperparathyroidism IDDM (insulin dependent diabetes mellitus) TYPE 2 Kidney stones 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 current use of systemic steroids Lumbar back pain with radiculopathy affecting left lower extremity Myocardial Infarction (10/2012) OCTOBER 2012 Denies having any angina symptoms or having to use NTG since stent placement Osteopenia Portal hypertension Spinal stenosis LUMBAR Vitamin D deficiency Surgical History History of ankle surgery History of cardiac cath X1 STENT (2012) History of colonoscopy History of esophagogastroduodenoscopy (EGD) Hx of heart artery stent Status post angioplasty Family History Mother Family history of diabetes mellitus Myocardial infarction Spleen cancer Hypertension Father Myocardial infarction Grandfather (Paternal) Myocardial infarction Brother Melanoma Denies family history of Colon cancer Ovarian cancer Prostate cancer Breast cancer Social History Smoking Status: Current some day smoker Tobacco Type: Pipe Second Hand Exposure: No; Do You Dip or Chew Tobacco: No; Tobacco Cessation Education Requested by Patient: No Hx Alcohol Use: No Hx Substance Use: No Preferred Language: Mauritanian Communication Ability: Effective Visual Impairment: No Limitations Hearing Ability: Normal 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: No Beliefs That Will Affect Care: None marital status: Current Living Situation: Spouse current occupational status: retired Other Information That Helps Us Care for You: No Feels Safe at Home: Yes Safety Concerns: Feels Safe At This Time Seatbelt Use: always Assistive Devices: Cane and Walker Review of Systems Review of Systems: All systems reviewed & are unremarkable except as noted in Subjective Physical Exam Constitutional: well developed, well nourished and cooperative; no acute distress Eyes: PERRL, conjunctivae normal, anicteric sclerae ENMT: external ear and nose normal, oropharynx normal Neck: trachea midline, no thyromegaly Respiratory: normal respiratory effort; no cough Auscultation: + crackles (b/l at bases ) and + rales; + lungs not clear to auscultation, no diminished lung sounds and no wheezes Cardiovascular: Rate/Rhythm: regular rate and regular rhythm Heart Sounds: normal S1 and normal S2; no murmur and no cardiac rub Vessels: no JVD Extremities: + edema (2+ pitting edema to the knee ); no calf tenderness Gastrointestinal (Abdomen): Inspection/Auscultation: abdomen normal to inspection and normal bowel sounds; abdomen not distended Percussion/Palpation: abdomen soft; abdomen nontender, no guarding and abdomen not rigid Musculoskeletal: no cyanosis or clubbing, extremities motor strength 5/5 Head/Neck/Chest: normocephalic and head atraumatic Skin: no rashes, warm and dry Psychiatric: A+Ox3, euthymic affect Results & Data Results & Data ([place]) Vital Signs (Past 12 Hours) Vital Signs Pulse Resp BP Pulse Ox 05/02/21 04:20 71 14 159/72 H 93 Supervising Physician Co-Signing Physician Notes Attending addendum: I have physically seen this patient, have supervised the medical residents activities, and agree with the H&P unless as otherwise noted. Assessment and Plan: Elevated troponin/CAD/hypertension/history of IL- The patient will be admitted to telemetry for serial cardiac enzymes, serial EKG's, cardiac rhythm monitoring and a 2-D echocardiogram with Dopplers. Troponin 0.183 upon admission Asymptomatic at this time Continue aspirin 81 mg daily, propranolol 80 mg daily Hold oral furosemide 80 mg twice daily, and placed on furosemide 40 mg IV twice daily Consult cardiology Diabetes mellitus- Placed on Accu-Cheks before meals and at bedtime NovoLog coverage per scale Pharmacy has been consulted Autoimmune hepatitis/liver cirrhosis- Meld score [address] on stress dose hydrocortisone 100 mg IV every 8 hours Remaining orders and notations as noted Resident Activity Tracking Resident Involvement: Resident Care Provided Care Provided: Adult Hospital Medicine
[2021-05-02] MEDS ORDERED: FUROSEMIDE 40 MG/4 ML VIAL IV STA (05:24)
[2021-05-02] MEDS ORDERED: methylPREDNISolone 125 MG/2 ML VIAL IV SCH (05:30)
[2021-05-02] MEDS ORDERED: DEXTROSE 50% 50 ML SYRINGE IV PRN (07:58)
[2021-05-02] MEDS ORDERED: GLUCOSE 40% GEL 15 GM TUBE PO PRN (07:58)
[2021-05-02] MEDS ORDERED: NITROGLYCERIN SL 0.4 MG/TAB TAB SL PRN ×2 (07:58→17:38)
[2021-05-02] MEDS ORDERED: GLUCOSE 10 TABS/TUBE PO PRN (07:58)
[2021-05-02] MEDS ORDERED: PHARMACY GLYCEMIC MGMT CONSULT PRN (07:58)
[2021-05-02] MEDS ORDERED: GLUCAGON FOR INJ 1 MG VIAL SQ PRN (07:58)
--- NOTE | 2021-05-02 08:08 | XRay Report ---
SINGLE VIEW CHEST CLINICAL HISTORY: Dyspnea. FINDINGS: 2 AP, portable, upright chest radiographs are compared to study dated 01/25/2020. The heart is enlarged noting atherosclerotic calcification of the thoracic aorta. There is mild pulmonary vascu lar congestion. Emphysema and chronic interstitial thickening is similar to previous. Scarring/atelec tasis is noted at the lung bases. No superimposed airspace consolidation or large pleural effusion is identified. No pneumothorax is seen. The skeletal structures are osteopenic. The bony thorax is cameron sly intact. IMPRESSION: 1. Cardiomegaly with mild pulmonary vascular congestion. 2. Emphysema. 3. No airspace consolidation or large pleural effusion is identified. ACT 112: Negative or not required by law. Electronically signed by: Roscoe Kamara M.D. 05/02/2021 8:07 AM
[2021-05-02] MEDS ORDERED: HEPARIN SOD 5,000 UNIT/0.5 ML VIAL SQ SCH (09:00)
[2021-05-02] MEDS ORDERED: lisinopril 10 MG TAB PO SCH (09:00)
[2021-05-02] MEDS ORDERED: PRAVASTATIN SOD 20 MG TAB PO SCH (09:00)
--- NOTE | 2021-05-02 09:04 | Pharmacy Report ---
Pharmacy Glycemic Short Note 2 - Date of Service May 02, 2021 - Glycemic Short BSG Results (Last 24 hours): 05/02/21 01:20 Glucose 297 H OUTPATIENT ANTIDIABETIC REGIMEN: * Novolin-N 28 units with breakfast, 17 units with dinner, up to 60 units/day * Novolog 18 units with breakfast, 26 units with dinner * A1c 6.8% 03/19/21 ASSESSMENT: * 71 year old male admitted for elevated troponin, SOB, started on high dose steroids, IV Methylprednisolone 100mg Q8H * Type 2 diabetic, well controlled on basal bolus insulin at home, will use same insulins as at home and stress doses for steroids * Titrate doses to goal BSG and back down as steroids taper PLAN FOR INPATIENT GLYCEMIC CONTROL: * Basal insulin * NPH 40 units SQ BID with meals * Bolus insulin * NovoLog per scale ACHS or Q6hrs while NPO * Goal Range: Low 110 mg/dL - High 140 mg/dL * Correction Factor: 10 mg/dL/unit * Nutritional / Prandial insulin per carb ratio of 1 unit per 3 grams CHO consumed PLAN FOR DISCHARGE: * to be determined
[2021-05-02 09:23] LABS: Troponin I 9.32 ng/ml (0-0.045)
[2021-05-02] MEDS ORDERED: CLOPIDOGREL BISULFATE 75 MG TAB PO ONE (09:46)
[2021-05-02] MEDS ORDERED: MoRPHine SULFATE 2 MG/ML CARP IV PRN (09:51)
[2021-05-02] MEDS: PROPRANOLOL HCL 80 MG TAB PO SCH (09:52)
[2021-05-02] MEDS: FERROUS SULFATE 325 MG TAB PO SCH (09:53)
[2021-05-02] MEDS: INSULIN HUMAN NPH SC SCH ×2 (09:53→18:19)
[2021-05-02] MEDS: INSULIN ASPART 100 UNITS/ML 3 ML PEN SC SCH ×4 (09:53→20:57)
[2021-05-02] MEDS: ASPIRIN 81 MG ECTAB PO SCH (09:53)
[2021-05-02] MEDS ORDERED: PATIENT'S HEIGHT AND/OR WEIGHT NEEDED SCH (10:00)
[2021-05-02] MEDS ORDERED: Nursing to Pharmacy Communication SCH (10:45)
--- NOTE | 2021-05-02 12:49 | XCELERA ---
[id number] [id number]
--- NOTE | 2021-05-02 13:14 | Internal Med Progress Note ---
Date of Service May 02, 2021 Assessment & Plan (1) NSTEMI (non-ST elevated myocardial infarction): Plan: Carlos A Julien is a 71 year old man who was admitted for chest pain, found to have NSTEMI. (1) NSTEMI - troponin I 0.183 on admission increased to 9.329 -- 15.100 - EKG with mild ST changes, though consistent with prior EKGs - taken to cath today, showed severe multivessel disease (Heavily calcified 80% left main extending into ostial LAD/circumflex, 60% mid LAD, severe diffuse distal LAD disease up to 95%, 60% proximal circumflex, 50 to 60% proximal RCA, 70% calcified mid RCA with acute thrombus) - Echo with LVEF 55-60% with akinetic apical segments, mild mitral regurgitation, more prominent apical wall motion compared with prior study on 11/30/12 - lipid panel at goal - continue continue 81 ms ASA QD, plavix 75mg, Propanolol 80 PO QAM, Lisinopril 10 mg PO QAM, Lipitor 80 mg PO QAM - after discussing with Dr. Way, discussed transfer to [facility] [place] possible [facility]. [facility] provider (Dr. Crain) is reviewing imaging and cath report, if they feel intervention can be done, Mr. Julien will pursue transfer. If no intervention is recommended, continue with medical management. - if chest pain reoccurs while at our facility, recommend start heparin drip (2) Elevated troponin I - secondary to NSTEMI, as above - troponin I 0.183 on admission, increased to 9.329 in the AM and 15.100 in the PM - trend trop until peak (3) SOB - resolved - associated LE pitting edema, elevated BNP 6897, crackles on lungs, suggest CHF exacerbation vs. associated chest pain, elevated troponin suggest secondary to NJ - Chest XRAY suggests mild pulmonary vascular congestion and emphysema (4) L arm pain - likely secondary to NJ - pt improved from pain to mild tingles - continue to monitor (5) Emphysema on chest XRay - consider spirometry test if respiratory symptoms persist/worsen (6) Autoimmune hepatitis - MELD score 18 - hold home prednisone - continue on IV methyprednisolone 100 mg (7) CKD III - Cr 2.13 on admission - continue 40mg IV lasix for diuresis - Monitor for worsening (8) DMII - glucose on admission 297 - hold home insulin - continue Insulin Aspart and Insulin Human Nph Dispo: PCU FEN: NPO DVT: heparin sq Code: Full Admission and Anticipated Discharge Date Admission Date: May 02, 2021 Supervising Physician Co-Signing Physician Notes I personally examined the patient and verified all santillan points of history and exam, discussed case, and agree with decision making with Tawanda ENGLE. Seen post cath. Discussed with Dr. Way. Patient without any further angina. Considering options. Discussed possible plans for care. Vitals noted, in general he is pleasant no distress. HEENT normocephalic atraumatic mucous membranes moist. Breathing unlabored no accessory muscle use good effort. Skin shows no rashes no pallor or icterus. Neuro without focal deficits. NSTEMI, HFpEFappears to be stabilizing. For now med managementnitrates, beta- trae, and aspirin/Plavix, cannot use SANDY/ARB due to CKD, statin. CKD 3IV fluids due to dye load, given HFpEFsigned out to night cover age/discussed with patient to watch for any signs of volume overload. Basic metabolic panel in the morning. Greatly appreciate cardiology input. Otherwise as above. Subjective Patient was seen at bedside this morning. No acute events overnight. Patient states he feels much better -- "totally normal, like I could go home". He still feels tingles in his left arm, but it is better than earlier when it hurt really badly. He does not have chest pain, SOB, dyspnea, cough, or abdominal pain. Review of Systems Constitutional: (-) weight change, fever, chills, night sweats, fatigue, malaise Eyes: (-) eye pain, swelling, vision Respiratory: (-) cough, dyspnea, wheezing Cardiovascular: Additional Comments: (+) Edema (-) chest pain, SOB, orthopnea, claudication Gastrointestinal: (+) urinary frequency (-) hematuria, urgency, hesitency Musculoskeletal: (-) arthralgia, myalgias Neurologic: (+) pins and needle in L arm (-) Psychiatric: (-) anxiety, depression, insomnia Physical Exam Eyes: Conjunctiva is clear. Sclera nonicteric. Respiratory: Crackles in mid-lower lobes bilaterally. Cardiovascular: 2/6 crescendo decrescendo systolic murmur. Normal rate and rhythm. Pitting edema up to mid calf. Mild hepatojugular reflex. No JVD was appreciated. Gastrointestinal (Abdomen): No palpation or rebound tenderness. No guarding. Normal bowel sounds. Skin: Ecchymoses from knuckle to elbow bilaterally. Stasis dermatitis bilateral lower legs. Neurologic: Numbness on lateral aspect of L proximal upper limb. CN II-XII intact. Reflexes intact. Muscle strength L hand 3/4; otherwise, muscle strength 5/5 bilaterally. Results & Data ([facility]) Vital Signs (Past 12 Hours) Vital Signs Temp Pulse Pulse Resp BP BP Pulse Ox 05/02/21 11:42 36.5 C 57 L 18 176/77 H 97 05/02/21 09:30 36.6 C 64 18 177/97 H 96 05/02/21 09:28 63 05/02/21 06:37 66 16 157/80 H 93 05/02/21 04:20 71 14 159/72 H 93
[2021-05-02] MEDS: methylPREDNISolone 100 MG in SYRINGE 0 ML IV SCH ×2 (14:16→20:54)
[2021-05-02] MEDS ORDERED: niCARdipine HCL INJ 2.5 MG/ML 10 ML AMP ONE (15:50)
[2021-05-02] MEDS ORDERED: NITROGLYCERIN/D5W 100MCG/ML 20ML SYR ONE (15:50)
[2021-05-02] MEDS ORDERED: MIDAZOLAM HCL 1 MG/ML 2ML VIAL ONE (16:04)
[2021-05-02] MEDS ORDERED: HEPARIN (PORCINE) 1000 UNIT/ML 10 ML (CATH LAB USE ONLY) ONE (16:04)
[2021-05-02] MEDS ORDERED: fentaNYL citrate 100 MCG/2 ML VIAL ONE (16:05)
--- NOTE | 2021-05-02 17:21 | Post Anesthesia Assessment ---
Date of Service May 02, 2021 Post Sedation Assessment Vital Signs Temp Pulse Pulse Resp BP BP Pulse Ox 05/02/21 15:15 61 16 178/81 H 99 05/02/21 14:54 51 L 05/02/21 11:42 97.7 F 57 L 18 176/77 H 97 05/02/21 09:30 97.9 F 64 18 177/97 H 96 05/02/21 09:28 63 05/02/21 06:37 66 16 157/80 H 93 05/02/21 04:20 71 14 159/72 H 93 Recovery Score Activity: Moves 4 extremities Respiration: Deep Breath/Cough Circulation: +/-20% PreAnes Value Consciousness: Fully Awake Oxygen Saturation: O2 needed for >90% Discharge Sedation Level of Care: Fast Track Phase II Post Sedation Plan On clinical assessment, the patient appears to have tolerated the sedation without complications. Patient is recovering as anticipated. Patient will continue to be monitored by nursing and may be discharged when sedation discharge criteria are met per below protocol. Upon Completions of procedure up to 15 minutes continue every 5 minute vital signs and the P.A.R. score; then discharge to a Phase I or Fast Track to Phase II per the following guidelines: * Discharge Patient to appropriate Phase II area if PAR is 8 or greater or return to pre- procedure baseline. The post - procedure orders will be as directed. * If PAR score is less than 8 or not return to pre-procedure baseline then patient will follow Phase I monitoring till PAR is reached for Phase II. The Phase I may be done in procedure room or may call to secure a Phase I area. * If naloxone or flumazenil are used for reversal, hold in Phase I for continued monitoring from when last reversal dose was given for a minimum of 60 minutes or longer pending the nurse and/or physician discretion of patient condition before discharge to Phase II. Please call the Sedation Physician to re-evaluate and complete post-note for discharge to Phase II area. Do NOT discharge from procedure sedation or Phase 1 until post- sedation evaluation note is complete by procedure /sedation MD Sedation Discharge Instructions to be given to the patient at discharge to home.
--- NOTE | 2021-05-02 17:21 | Pre Anesthesia Assessment ---
Date of Service May 02, 2021 Pre Sedation Assessment Vital Signs Temp Pulse Pulse Resp BP BP Pulse Ox 05/02/21 15:15 61 16 178/81 H 99 05/02/21 14:54 51 L 05/02/21 11:42 97.7 F 57 L 18 176/77 H 97 05/02/21 09:30 97.9 F 64 18 177/97 H 96 05/02/21 09:28 63 05/02/21 06:37 66 16 157/80 H 93 05/02/21 04:20 71 14 159/72 H 93 Cardiovascular RRR, no murmur, no edema Respiratory normal respiratory effort, lungs clear to auscultation Pre-Sedation Airway Assessment Smoking Status: Current some day smoker Hx Sleep Apnea: No Hx Difficult Intubation: No Short, Thick Neck: No Thyromental Distance: > or= 3.5 Finger Breadths Oral Cavity: + WNL Mallampati Class: IV ASA: ASA3 NPO Status Date of Last Intake of Fluids: 05/01/21 Time of Last Intake of Fluids: 19:30 Date of Last Intake of Solid Food: 05/01/21 Time of Last Intake of Solid Foods: 19:30 Procedure Planning Contraindications for Sedation: none Current Medications Reviewed: Yes Notes The planned sedation has been discussed with the patient. Informed Consent was obtained. I have identified the patient, determined the appropriateness of sedation and have assessed the patient immediately prior to the procedure. All medicine(s) and interventions are by my order.
[2021-05-02] MEDS: CARBOHYDRATES FOR HYPOGLYCEMIA PO PRN ×2 (17:30→17:52)
[2021-05-02] MEDS ORDERED: NON-FORMULARY MEDICATION (Glucagon Hcl [Glucagon (Hcl) Emergency Kit] 1 mg recon soln) SQ PRN (17:38)
[2021-05-02] MEDS ORDERED: EPOETIN ALFA 2000 UNIT/ML SQ PRN (17:38)
[2021-05-02] MEDS ORDERED: INSULIN ASPART 100 UNITS/ML 3 ML PEN SQ SCH (17:38)
[2021-05-02] MEDS ORDERED: NON-FORMULARY MEDICATION (Insulin Nph Isoph U-100 Human [Novolin N Flexpen] 100 unit/mL (3 SQ SCH (17:38)
--- NOTE | 2021-05-02 17:58 | Cardiac Catheterization ---
[facility] Data: Skin Care Instructor Cardiac Status Clinical evaluation leading to the procedure CAD Presenation: Non STEMI Anginal Classification: CCS IV Heart Failure: No Cardiogenic Shock within 24 Hours: No Cardiac Arrest within 24 Hours: No Imaging Studies Past 6 Months: Yes Stress Studies Past 6 Months: No Diagnostic Physicians Name: Vitaly Way MD Closure Device Percutaneous Entry Location: Radial Closure Device: Radial Band Recommendations: Medical Therapy and/or Counseling, PCI without planned CABG and CABG Intraprocedure Events Significant Disection: No Perforation: No Cardiac Cath Procedure Full Procedure Date May 02, 2021 Pre-Procedure Diagnosis Pre-Procedure Diagnosis: Non STEMI AUC Score AUC Score: 8 Post-Procedure Diagnosis Post-Procedure Diagnosis: Severe CAD and Normal Intracardiac Pressures Procedure(s) Performed Procedure(s) Performed: Coronary Angiography, Left Heart Cath and IVUS Lip And Gate Builder Vitaly Way MD Parking Garage Manager(s) James Estimated Blood Loss Estimated Blood Loss: 10 Medication(s) Medication(s): Fentanyl, Heparin, Lidocaine 1%, Nicardipine, Nitroglycerin and Versed Summary of Findings Indication: High risk NSTEMI. History of coronary artery disease with prior PCI to diagonal and known severe distal LAD disease. Access: 6 Fr right radial Catheters: [place], JR4 guide Findings: LM -heavily calcified, 80% distal stenosis extending into ostial LAD/circumflex LAD -heavily calcified, 60% mid segment stenosis, distal LAD with diffuse up to 95% disease. Medium D2 50% ostial patent proximal stent with mild ISR. Circumflex -calcified, medium caliber, 60% proximal, mild diffuse mid segment disease. Left PLB without significant disease RCA -dominant, large caliber, calcified, LUPILLO-3 flow. 50 to 60% proximal RCA, 70% mid RCA with acute thrombus. Mild disease distal RCA/R-PAV. Small PDA, PLB's with luminal irregularities. LVEDP -9 Further evaluation of mid RCA with IVUS. RCA cannulated with JR4 guide. BMW crossed across mid RCA lesion. Crowder IVUS catheter placed to mid RCA. Evidence of thrombus on heavily calcified circumferential disease unable to pass catheter across mid RCA stenosis and procedure aborted. Arterial Closure: TR band Summary: 1. Severe multivessel coronary artery disease -Heavily calcified 80% left main extending into ostial LAD/circumflex 60% mid LAD, severe diffuse distal LAD disease up to 95% 60% proximal circumflex 50 to 60% proximal RCA, 70% calcified mid RCA with acute thrombus 2. Normal intracardiac filling pressure Recommendations: Referral to tertiary center for consideration of high risk revascularization options. Hemodynamics Rest Ao:: 122/73/97 Final Ao: 161/69/105 LV: 9 Recommendations Recommendations: Medical Therapy and/or Counseling, PCI without planned CABG and CABG Specimens Specimens: None Radiation Exposure (mGy) 975 Contrast (mls) 35 Fluids (cc crystalloids) Fluids (cc crystalloids): 63 Drains Drains: None Anesthesia Moderate [id number] Procedural Complication(s) None Disposition PCU I attest to the content of the Intraoperative Record and any orders documented therein. Any exceptions are noted below. [facility] Card Cath Procedure Codes Cardiac Catheterization Procedure 1: Cardiovascular Cath Procedures: 29230 Coronaries and LHC (+/-LV) Therapeutic Services & Ancillary Proc Procedure 1: Cardiovascular Tx and Anc Procedures: 37877 IV Ultrasound (Coronary or Graft) Moderate Sedation Procedure 1: Sedation/Anesthesia: 42011 Mod Sedation by the same physician;Init15 Min Child Age 5 & Up Procedure 2: Sedation/Anesthesia: 92935 Mod Sedation by the same physician; Ea [id number] Minutes PG Care Time/CCT Total # of Minutes Spent Total Time Spent with Patient: Total time spent is greater than 50% in coordination of care (as documented) at patient's floor/unit and/or counseling patient:
[2021-05-02] MEDS ORDERED: Heparin IV Adult Wt-Based Standard *NO* Bolus Protocol IV SCH (18:20)
--- NOTE | 2021-05-02 18:20 | Cardiology Consultation ---
Date of Consultation May 02, 2021 Assessment & Plan (1) NSTEMI (non-ST elevated myocardial infarction): 2. History of chronic CAD post prior PCI to [place] 3. Type 2 diabetes 4. Cirrhosis/autoimmune hepatitis on chronic prednisone 5. Stage IV CKD 6. Stable mild anemia/thrombocytopenia Presentation consistent with high risk NSTEMI. Multiple comorbidities complicating cardiac catheterization and possible PCI but favor early invasive evaluation. Discussed risk, benefits, alternatives and is willing to proceed. Plan for cardiac catheterization via right radial artery later this afternoon. In the interim continue aspirin, statin, heparin infusion. Further recommendations pending findings. History of Present Illness Attending Physician: Milton Nair MD History of Present Illness Mr. Julien is a 71-year-old man seen on the telemetry unit for further management of NSTEMI. Patient has a history of coronary artery disease post PCI to [place] in 2012. Last cardiac catheterization in 2017 at which time found to have severe distal LAD disease which was managed medically. Last echo with preserved LV function and apical wall motion abnormality. Other medical issues include autoimmune hepatitis with cirrhosis on chronic prednisone. Previously evaluated for transplant. Off transplant list since 2014 due to stable hepatic function. Type 2 diabetes complicated by stage IV CKD, baseline creatinine around 2.2. Patient endorses mild exertional symptoms for the last month or so. Over the last several days has had several episodes of rest chest pain with tingling radiating down his left arm. The night of admission symptoms lasting for more than an hour. Symptoms reminiscent of what he had at the time of his diagonal OR. ECG without dynamic ST changes. Troponin initially 0.18, next 9.3, next 15.1. Has remained chest pain-free and stable overnight. Repeat echocardiogram today showed preserved LV function with more prominent apical LAD wall motion normality. No significant valvular dysfunction. Allergies Allergy/AdvReac Type Severity Reaction Status Date / Time No Known Allergies Allergy Verified 05/02/21 03:01 Home Medications Medication Instructions Recorded Confirmed Type nitroglycerin 0.4 mg sublingual 0.4 mg SL Q5M PRN 10/26/18 05/02/21 History tablet (Nitrostat) pen needle, diabetic 31 gauge x #300 ea 04/15/19 04/15/21 Rx 3/16" (BD Ultra-Fine Mini Pen Needle) Contour Next Meter (blood-glucose #1 ea NS 12/09/19 04/15/21 Rx meter) glucagon HCl 1 mg solution for 1 mg SQ Q20M PRN #3 ea 02/14/20 05/02/21 Rx injection (Glucagon (HCl) Emergency Kit) ferrous sulfate 325 mg (65 mg 325 mg PO DAILY 03/30/20 05/02/21 History iron) tablet epoetin jose l 2,000 unit/mL 4,000 units SUBCUT Q21D PRN ml 04/10/20 05/02/21 History injection solution (Procrit) cholecalciferol (vitamin D3) 50 50 mcg PO DAILY #90 cap 08/14/20 05/02/21 Rx mcg (2,000 unit) capsule insulin NPH isoph U-100 human 100 See Rx Instructions SUBCUT 01/17/21 05/02/21 Rx unit/mL (3 mL) subcutaneous pen .COMPLEX #4 box (Novolin N Flexpen) Contour Next Test Strips (blood #400 ea NS 02/20/21 04/15/21 Rx sugar diagnostic) prednisone 10 mg tablet 10 mg PO QAM #90 tab 03/14/21 05/02/21 Rx propranolol 80 mg tablet 80 mg PO QAM #90 tab 03/14/21 05/02/21 Rx insulin aspart U-100 100 unit/mL See Rx Instructions SUBCUT 03/29/21 05/02/21 Rx (3 mL) subcutaneous pen (Novolog .COMPLEX #15 ml Flexpen U-100 Insulin aspart) lancets (Microlet Lancet) #400 ea 03/29/21 04/15/21 Rx calcitriol 0.25 mcg capsule 0.25 mcg PO .COMPLEX #10 cap 04/15/21 05/02/21 Rx furosemide 40 mg tablet 80 mg PO BID #360 tab 04/15/21 05/02/21 Rx pravastatin 20 mg tablet 20 mg PO DAILY 05/02/21 05/02/21 History Patient History Medical History (Updated 05/02/21 @ 18:[address] MD) Anemia Aortic valve sclerosis Autoimmune hepatitis Background diabetic retinopathy associated with type 2 diabetes mellitus BPH (benign prostatic hyperplasia) Cancer BCC ([facility]) Chronic back pain STANDING AND WALKING, PAIN MANAGEMENT Chronic kidney disease, stage 3 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 Coronary artery disease Diabetic nephropathy associated with type 2 diabetes mellitus Diabetic peripheral neuropathy associated with type 2 diabetes mellitus Dysesthesia Dyslipidemia Esophageal varices NEVER BANDED R/T AUTOIMMUNNE HEPATITIS Hyperparathyroidism IDDM (insulin dependent diabetes mellitus) TYPE 2 Kidney stones NO SURGERY longterm current use of systemic steroids Lumbar back pain with radiculopathy affecting left lower extremity Myocardial Infarction (10/2012) OCTOBER 2012 Denies having any angina symptoms or having to use NTG since stent placement Osteopenia Portal hypertension Spinal stenosis LUMBAR Vitamin D deficiency Surgical History History of ankle surgery History of cardiac cath X1 STENT (2012) History of colonoscopy History of esophagogastroduodenoscopy (EGD) Hx of heart artery stent Status post angioplasty Family History Mother Family history of diabetes mellitus Myocardial infarction Spleen cancer Hypertension Father Myocardial infarction Grandfather (Paternal) Myocardial infarction Brother Melanoma Denies family history of Colon cancer Ovarian cancer Prostate cancer Breast cancer Social History Smoking Status: Current some day smoker Tobacco Type: Pipe Second Hand Exposure: No; Do You Dip or Chew Tobacco: No; Tobacco Cessation Education Requested by Patient: No Hx Alcohol Use: No Hx Substance Use: No Preferred Language: Tongan Communication Ability: Effective Visual Impairment: No Limitations Hearing Ability: Normal Audience Coordinator Required: No Beliefs That Will Affect Care: None marital status: Current Living Situation: Spouse current occupational status: retired Other Information That Helps Us Care for You: No Feels Safe at Home: Yes Safety Concerns: Feels Safe At This Time Seatbelt Use: always Assistive Devices: Cane and Walker Review of Systems Review of Systems: All systems reviewed & are unremarkable except as noted in HPI & below Physical Exam Physical Exam: General: Comfortable HEENT: Sclerae anicteric, Mask in place Lungs: Clear to auscultation bilaterally, no crackles or wheezes Cardiac: Regular rate and rhythm, 2 out of 6 systolic ejection murmur right upper sternal border Vascular: 2+ radial, DP pulses. Abdomen: Soft, nontender Extremities: Well perfused, 1-2 lower extremity edema with chronic venous stasis changes Neuro: Nonfocal Skin: Diffuse ecchymosis Psych: Alert orient x3, normal affect and mood Results & Data ([facility]) Vital Signs (Past 12 Hours) Vital Signs Temp Pulse Pulse Resp BP BP Pulse Ox 05/02/21 15:15 61 16 178/81 H 99 05/02/21 14:54 51 L 05/02/21 11:42 97.7 F 57 L 18 176/77 H 97 05/02/21 09:30 97.9 F 64 18 177/97 H 96 05/02/21 09:28 63 05/02/21 06:37 66 16 157/80 H 93 PG Care Time/CCT Total # of Minutes Spent Total Time Spent with Patient: Total time spent is greater than 50% in coordination of care (as documented) at patient's floor/unit and/or counseling patient: Coding Level of Care Code 25219 Initial Inpt Care Lvl 3 Diagnoses NSTEMI (non-ST elevated myocardial infarction) I21.4
[2021-05-02] MEDS ORDERED: HEPARIN 25000 UNIT/500 ML D5W IV ONE (18:57)
[2021-05-02] MEDS ORDERED: ISOSORBIDE MONO EXTENDED REL 30 MG TABCR PO ONE (19:00)
[2021-05-02] MEDS ORDERED: SODIUM CHLORIDE 0.9% 1000ML 1,000 ML IV SCH (19:00)
--- NOTE | 2021-05-02 19:17 | Billing Data ---
Date of Service May 02, 2021 Coding Level of Care Code 05086 Initial Inpt Care Lvl 3
[2021-05-02 19:57] LABS: Partial Thromboplastin Ratio > 5.3
[2021-05-02 19:58] LABS: Partial Thromboplastin Time > 139.0 Seconds (21.0-31.0)
[2021-05-02 21:13] LABS: Partial Thromboplastin Ratio > 5.3
[2021-05-02 21:14] LABS: Partial Thromboplastin Time > 139.0 Seconds (21.0-31.0)
[2021-05-02] MEDS ORDERED: INSULIN HUMAN NPH SC ONE (21:30)
[2021-05-02 22:08] LABS: Partial Thromboplastin Ratio > 5.3
[2021-05-02 22:09] LABS: Partial Thromboplastin Time > 139.0 Seconds (21.0-31.0)
[2021-05-02 23:05] LABS: Partial Thromboplastin Ratio 4.9
[2021-05-02 23:17] LABS: Partial Thromboplastin Time 129.9 Seconds (21.0-31.0)
[2021-05-02 23:56] LABS: Partial Thromboplastin Ratio 3.1
[2021-05-03 00:03] LABS: Partial Thromboplastin Time 82.7 Seconds (21.0-31.0)
[2021-05-03] MEDS: INSULIN ASPART 100 UNITS/ML 3 ML PEN SC SCH ×6 (00:25→21:04)
[2021-05-03 00:58] LABS: Partial Thromboplastin Ratio 2.4
[2021-05-03 01:08] LABS: Partial Thromboplastin Time 62.8 Seconds (21.0-31.0)
[2021-05-03] MEDS: HEPARIN SODIUM/DEXTROSE 25,000 UNITS/500 ML BAG IV SCH (01:29)
[2021-05-03] MEDS: methylPREDNISolone 100 MG in SYRINGE 0 ML IV SCH ×3 (04:52→21:05)
--- NOTE | 2021-05-03 06:01 | Electrocardiogram Report ---
Test Reason : Blood Pressure : / mmHG Vent. Rate : 073 BPM Atrial Rate : 073 BPM P-R Int : 198 ms QRS Dur : 110 ms QT Int : 410 ms P-R-T Axes : 041 040 079 degrees QTc Int : 451 ms Normal sinus rhythm Incomplete left bundle block ST depression, consider subendocardial injury Abnormal ECG When compared with ECG of 25-JAN-2020 03:14, Premature atrial complexes are no longer Present Vent. rate has increased BY 30 BPM Incomplete left bundle block has replaced Non-specific intra-ventricular conduction block Confirmed by Yannick Osborne ([id number]) on 05/03/2021 6:00:51 AM Referred By: REFERRED SELF Confirmed By:Yannick Osborne
[2021-05-03] MEDS: CLOPIDOGREL BISULFATE 75 MG TAB PO SCH (07:58)
[2021-05-03] MEDS: CHOLECALCIFEROL 1,000 UNITS 25 MCG TAB PO SCH (07:59)
[2021-05-03] MEDS: PROPRANOLOL HCL 80 MG TAB PO SCH (07:59)
[2021-05-03] MEDS: CALCITRIOL 0.25 MCG CAPSULE PO SCH (07:59)
[2021-05-03] MEDS: FERROUS SULFATE 325 MG TAB PO SCH (07:59)
[2021-05-03] MEDS: ATORVASTATIN 40 MG TAB PO SCH (07:59)
[2021-05-03] MEDS: ASPIRIN 81 MG ECTAB PO SCH (07:59)
[2021-05-03] MEDS ORDERED: INSULIN HUMAN NPH SC STA (08:33)
[2021-05-03 08:41] LABS: Estimated Average Glucose 120 mg/dl; Hemoglobin A1C 5.8 % (4.5-5.6)
[2021-05-03 09:34] LABS: Partial Thromboplastin Ratio > 5.3
[2021-05-03 09:38] LABS: Partial Thromboplastin Time > 139.0 Seconds (21.0-31.0)
[2021-05-03] MEDS: ISOSORBIDE MONO EXTENDED REL 30 MG TABCR PO SCH (09:42)
--- NOTE | 2021-05-03 10:19 | Hospitalist Progress Note ---
Date of Service May 03, 2021 Assessment & Plan (1) NSTEMI (non-ST elevated myocardial infarction): Plan: Carlos A Julien is a 71 year-old male who present with chest pain, found to be STEMI associated with multivessel calcification, as appreciated on cath. (1) NSTEMI - troponin I 0.183 on admission, peaked to 15.11, now 11.500. - continue 81 ms ASA QD, plavix 75mg, Propanolol 80 PO QAM, Lisinopril 10 mg PO QAM, Lipitor 80 mg PO QAM. - continue nitroglycerin as needed for chest pain. - cardiology (Dr. Way) started IV Heparin last night; APTT at goal (62.8). - [facility] [place] on if they feel intervention can be done is still pending . - otherwise, will continue medical management. - monitor for angina, SOB, and n/v, - if no symptoms tomorrow upon ambulation, consider discharge. (2) Autoimmune hepatitis - IV solumedrol in substitution for home prednisone therapy. - complicates bleeding risk for CABG as he has a baseline bleeding risk due to hepatic disease. (3) Elevated troponin I - secondary to NSTEMI as above. - troponin I 0.183 on admission, increased to 9.320 in the AM, peaked to 15.11 in the PM, decreased to 11.500 by EOD. - if chest pain reoccurs, repeat trop. (4) DMII - continue insulin regiment as recommended by pharmacy (5) CKDIII - monitor Admission and Anticipated Discharge Date Admission Date: May 02, 2021 Supervising Physician Co-Signing Physician Notes I personally examined the patient and verified all santillan points of history and exam, discussed case, and agree with decision making with Tawanda Ramirez MS2. no chest pain, hasn't been moving much though. wonders about if rae can do any interventions, but we also have an extensive discussion on meds and lifestyle, collateral circulation, etc. answered all questions to the best of my ability. also has not been vaccinated for covid - had questions, worried about being rushed, worried about side effects - extensive discussion about this as well. Vitals noted, in general he is pleasant no distress. HEENT normocephalic atraumatic mucous membranes moist. Breathing unlabored no accessory muscle use good effort. Skin shows no rashes no pallor or icterus. Neuro without focal deficits. NSTEMI, acute HFpEF now resolved. For now med managementnitrates, beta- trae, and aspirin/Plavix, cannot use SANDY/ARB due to CKD, statin. increase activity. for cardiac rehab CKD 3check BMP immunocompromised status - extensive discussion on covid vax, answered all questions, explained vaccine development and approval process, strongly recd he get it - he is now more in favor Greatly appreciate cardiology input. Otherwise as above. time in ~220, time out ~315p ~50+ mins face to face Subjective No acute events overnight. Pt was seen at bedside today. He had a mild cough and a sinus headache. He otherwise had no new/other symptoms -- notably no chest pain, SOB, abdominal pain. Pt was made aware of possibility of CABG vs medical management. At this time, he is more inclined to continue the medical management due to having been told in the past that he should avoid having surgery because of his hypocoagulable state secondary to his autoimmune hepatitis. We are still waiting Rae to give us their input -- will have another discussion with pt about options and his is aware of this. Pt has no other complaints at this time. Physical Exam Respiratory: Mild crackles in lower lobes -- improved compared to yesterday. Cardiovascular: Crescendo-decrescendo systolic murmur 3/6, Normal Rate & Rhythm. LE pitting edema; R improved, L unchanged compared to yesterday. Normal radial and pedal pulses. Gastrointestinal (Abdomen): Tenderness to deep palpation in ULQ and LLQ. Neurologic: CN II-XII intact. Reflex intact. Results & Data Results & Data ([facility]) Vital Signs (Past 12 Hours) Vital Signs Temp Pulse Pulse Resp BP Pulse Ox 05/03/21 08:07 65 16 145/73 H 98 05/03/21 07:54 36.6 C 05/03/21 03:19 36.3 C L 62 12 136/67 98 05/02/21 23:00 36.6 C 56 L 18 142/65 H 99
[2021-05-03 11:50] LABS: Partial Thromboplastin Ratio > 5.3
[2021-05-03 11:51] LABS: Partial Thromboplastin Time > 139.0 Seconds (21.0-31.0)
[2021-05-03 13:26] LABS: Partial Thromboplastin Ratio > 5.3
[2021-05-03 13:34] LABS: Partial Thromboplastin Time > 139.0 Seconds (21.0-31.0)
[2021-05-03 15:02] LABS: Partial Thromboplastin Ratio 3.6
[2021-05-03 15:18] LABS: Partial Thromboplastin Time 94.8 Seconds (21.0-31.0)
--- NOTE | 2021-05-03 15:23 | Pharmacy Report ---
Pharmacy Glycemic Short Note 2 - Date of Service May 03, 2021 - Glycemic Short BSG Results (Last 24 hours): 05/02/21 05/02/21 05/02/21 17:33 17:35 17:42 POC Glucose 40 L* 42 L* 42 L* 05/02/21 05/02/21 05/02/21 17:44 18:04 20:55 POC Glucose 41 L* 77 207 H 05/03/21 05/03/21 05/03/21 00:21 04:28 07:07 POC Glucose 133 H 145 H 149 H 05/03/21 11:14 POC Glucose 240 H OUTPATIENT ANTIDIABETIC REGIMEN: * Novolin-N 28 units with breakfast, 17 units with dinner, up to 60 units/day * Novolog 18 units with breakfast, 26 units with dinner * A1c 6.8% 03/19/21 ASSESSMENT: 05/03: * Patient unfortunately did have a low with dinner yesterday, likely due to NPO status. As a result received on 15 units at night rather than 40 units. Will resume planned regimen of 40 units BIDM with a slightly looser Novolog scale. Patient is eating, however intake is on the lower side. Patient remains on IV SM 100 q8 05/02 * 71 year old male admitted for elevated troponin, SOB, started on high dose steroids, IV Methylprednisolone 100mg Q8H * Type 2 diabetic, well controlled on basal bolus insulin at home, will use same insulins as at home and stress doses for steroids * Titrate doses to goal BSG and back down as steroids taper PLAN FOR INPATIENT GLYCEMIC CONTROL: * Basal insulin * NPH 40 units SQ BID with meals * Bolus insulin * NovoLog per scale ACHS or Q6hrs while NPO and overnight checks * Goal Range: Low 110 mg/dL - High 140 mg/dL * Correction Factor: 12 mg/dL/unit * Nutritional / Prandial insulin per carb ratio of 1 unit per 4 grams CHO consumed PLAN FOR DISCHARGE: * to be determined
--- NOTE | 2021-05-03 17:03 | Billing Data ---
Date of Service May 03, 2021 Coding Level of Care Code 81284 Prolonged Care (int'l)
--- NOTE | 2021-05-03 17:03 | Billing Data ---
Date of Service May 03, 2021 Coding Level of Care Code 68436 Subseq Hosp Care Lvl 3
[2021-05-03] MEDS: INSULIN HUMAN NPH SC SCH (17:12)
[2021-05-03 17:54] LABS: BUN Creatinine Ratio 37.1 (10-20); Calcium 8.6 mg/dl (8.5-10.1); Creatinine Clr Calc Pharmacy 25.3 ml/min; Est GFR (Non-African American) 24.1 ml/min; Potassium 4.2 mmol/L (3.5-5.1)
--- NOTE | 2021-05-03 18:30 | Cardiology Progress Note ---
Date of Service May 03, 2021 Assessment & Plan (1) NSTEMI (non-ST elevated myocardial infarction): (2) Coronary artery disease: (3) Dyslipidemia: (4) CKD (chronic kidney disease): Plan: ASSESSMENT/PLAN: 1. NSTEMI: Severe multivessel CAD including left main disease. Patient was wishing to stay hospitalized here rather than transferred to [facility] [place] [place] for CT surgery or high-risk PCI evaluation. Dr. Way has coordinated images being sent to [facility] [place] [place] and awaiting word to see if he is a candidate for revascularization given his diffuse multivessel CAD and other comorbidities (CKD, cirrhosis/autoimmune hepatitis). Continue aspirin 81 mg daily. Continue Plavix 75 mg daily for 1 year. Continue beta-trae and high-intensity statin therapy. Continue nitrate therapy. Not on SANDY-inhibitor due to CKD. Continue heparin drip for a total of 48 hours. 2. CAD: Multivessel CAD as above. Continue medical therapy. Heart rate was mostly 50s yesterday but above 60 today. Could consider further titrating beta- trae for aggressive medical therapy with underlying CAD. Continue other medications as above. 3. Dyslipidemia: Continue high-intensity statin therapy. 4. CKD: Continue to monitor renal function. 5. Disposition: Patient care communicated with Dr. Milan of the primary hospitalist service via telephone. Dr. Donohue will be covering cardiology call for the next several days. Patient care and plan were discussed with him and he will continue to follow along. Admission and Anticipated Discharge Date Admission Date: May 02, 2021 Subjective Patient was seen earlier this afternoon. He has not had any further chest discomfort. He denies shortness of breath, syncope, near-syncope, palpitations, or bleeding. He has not had any issues from his right radial cath site. He admits that he has not gotten out of bed today so is not sure how he would feel with exertion. Review of systems: As above. Physical Exam Physical Exam: Gen.: No acute distress. Alert and oriented. HEENT: Anicteric sclera. Neck: No JVD. Cardiac: Regular. Normal S1-S2. 1/6 systolic murmur. No rubs or gallops. Pulmonary: Clear to auscultation bilaterally without wheezes, rales, or rhonchi. Abdomen: Soft, nontender, nondistended, with normoactive bowel sounds. No bruits noted. Extremities: 2+ radial pulses bilaterally. Right radial cath site is clean, dry, and intact without erythema or discharge. 2+ posterior tibialis pulses bilaterally. Trace bilateral lower extremity edema. No cyanosis. Psychiatric: Affect appears appropriate. Results & Data ([facility]) Vital Signs (Past 12 Hours) Vital Signs Temp Pulse Pulse Pulse Resp BP BP 05/03/21 16:00 37 C 100 H 18 144/64 H 05/03/21 13:24 63 14 139/75 05/03/21 08:07 65 16 145/73 H 05/03/21 08:00 62 05/03/21 07:54 36.6 C Pulse Ox 05/03/21 16:00 05/03/21 13:24 97 05/03/21 08:07 98 05/03/21 08:00 05/03/21 07:54 Intake & Output 05/01/21 05/02/21 05/03/21 05/04/21 06:59 06:59 06:59 06:59 Intake Total 1498.433 / 1498.433 Output Total 1150 / 1150 200 / 200 Balance -1150 / -1150 1298.433 / 1298.433 Weight 169 lb 12.095 oz Laboratory Results Laboratory Results - last 24 hr 05/02/21 05/02/21 05/02/21 19:17 20:28 20:55 APTT > 139.0 H* > 139.0 H* PTT Ratio > 5.3 > 5.3 Sodium Potassium Chloride Carbon Dioxide Anion Gap BUN Creatinine Est Cr Clr Drug Dosing Est GFR ( Amer) Est GFR (Non-Af Amer) BUN/Creatinine Ratio Glucose POC Glucose 207 H Estimat Average Glucose Hemoglobin A1c Calcium Troponin I 05/02/21 05/02/21 05/02/21 21:29 21:29 22:26 APTT > 139.0 H* 129.9 H* PTT Ratio > 5.3 4.9 Sodium Potassium Chloride Carbon Dioxide Anion Gap BUN Creatinine Est Cr Clr Drug Dosing Est GFR ( Amer) Est GFR (Non-Af Amer) BUN/Creatinine Ratio Glucose POC Glucose Estimat Average Glucose Hemoglobin A1c Calcium Troponin I 11.500 H* 05/02/21 05/03/21 05/03/21 23:26 00:21 00:24 APTT 82.7 H* 62.8 H* PTT Ratio 3.1 2.4 Sodium Potassium Chloride Carbon Dioxide Anion Gap BUN Creatinine Est Cr Clr Drug Dosing Est GFR ( Amer) Est GFR (Non-Af Amer) BUN/Creatinine Ratio Glucose POC Glucose 133 H Estimat Average Glucose Hemoglobin A1c Calcium Troponin I 05/03/21 05/03/21 05/03/21 04:28 07:07 07:32 APTT PTT Ratio Sodium Potassium Chloride Carbon Dioxide Anion Gap BUN Creatinine Est Cr Clr Drug Dosing Est GFR ( Amer) Est GFR (Non-Af Amer) BUN/Creatinine Ratio Glucose POC Glucose 145 H 149 H Estimat Average Glucose 120 Hemoglobin A1c 5.8 H Calcium Troponin I 05/03/21 05/03/21 05/03/21 07:32 08:36 11:14 APTT Cancelled > 139.0 H* PTT Ratio Cancelled > 5.3 Sodium Potassium Chloride Carbon Dioxide Anion Gap BUN Creatinine Est Cr Clr Drug Dosing Est GFR ( Amer) Est GFR (Non-Af Amer) BUN/Creatinine Ratio Glucose POC Glucose 240 H Estimat Average Glucose Hemoglobin A1c Calcium Troponin I 05/03/21 05/03/21 05/03/21 11:15 12:45 14:13 APTT > 139.0 H* > 139.0 H* 94.8 H* PTT Ratio > 5.3 > 5.3 3.6 Sodium Potassium Chloride Carbon Dioxide Anion Gap BUN Creatinine Est Cr Clr Drug Dosing Est GFR ( Amer) Est GFR (Non-Af Amer) BUN/Creatinine Ratio Glucose POC Glucose Estimat Average Glucose Hemoglobin A1c Calcium Troponin I 05/03/21 05/03/21 14:18 16:01 APTT PTT Ratio Sodium 141 Potassium 4.2 Chloride 111 H Carbon Dioxide 21 Anion Gap 10.0 BUN 95 H Creatinine 2.55 H D Est Cr Clr Drug Dosing 25.3 Est GFR ( Amer) 28.0 Est GFR (Non-Af Amer) 24.1 BUN/Creatinine Ratio 37.1 H Glucose 202 H POC Glucose 208 H Estimat Average Glucose Hemoglobin A1c Calcium 8.6 Troponin I Diagnostic Findings Telemetry personally reviewed: Sinus rhythm. No arrhythmia. Echo 05/02/2021: Normal LV size and systolic function. EF 55-60%. Akinetic apex. Mild MR. Cardiac catheterization 05/02/2021: 1. Severe multivessel coronary artery disease -Heavily calcified 80% left main extending into ostial LAD/circumflex 60% mid LAD, severe diffuse distal LAD disease up to 95% 60% proximal circumflex 50 to 60% proximal RCA, 70% calcified mid RCA with acute thrombus 2. Normal intracardiac filling pressure Medications Administered Current Inpatient Medications Aspirin (Aspirin 81 Mg Ectab) 81 mg PO QAM [facility] Stop: 06/01/21 08:59 Last Admin: 05/03/21 07:59 Dose: 81 mg Documented by: Atorvastatin Calcium ([facility]vastatin 40 Mg Tab) [facility] [place] Stop: 06/02/21 08:59 Last Admin: 05/03/21 07:59 Dose: 80 mg Documented by: Calcitriol (Calcitriol 0.25 Mcg Capsule) 0.25 mcg PO MoFr@0900 [facility] Stop: 06/02/21 08:59 Last Admin: 05/03/21 07:59 Dose: 0.25 mcg Documented by: Clopidogrel Bisulfate (Clopidogrel Bisulfate 75 Mg Tab) [facility] [place] Stop: 06/02/21 08:59 Last Admin: 05/03/21 07:58 Dose: 75 mg Documented by: Dextrose (Dextrose 50% 50 Ml Syringe) 25 - 50 ml IV UD PRN; Protocol PRN Reason: Hypoglycemia Protocol Stop: 06/01/21 07:57 Ferrous Sulfate (Ferrous Sulfate 325 Mg Tab) 325 mg PO DAILY [facility] Stop: 06/01/21 08:59 Last Admin: 05/03/21 07:59 Dose: 325 mg Documented by: Glucagon (Glucagon For Inj 1 Mg Vial) 1 mg SQ UD PRN; Protocol PRN Reason: Hypoglycemia Protocol Stop: 06/01/21 07:57 Glucose (Glucose 10 Tabs/Tube) 4 - 8 tabs PO UD PRN; Protocol PRN Reason: Hypoglycemia Protocol Stop: 06/01/21 07:57 Glucose (Glucose 40% Gel 15 Gm Tube) 15 - 30 gm PO UD PRN; Protocol PRN Reason: Hypoglycemia Protocol Stop: 06/01/21 07:57 Methylprednisolone 100 mg/ (Syringe) 1.6 mls @ 1.5 mls/min IV Q8H [facility] Stop: 06/01/21 13:59 Last Admin: 05/03/21 13:57 Dose: 1.5 mls/min Documented by: Heparin Sodium/Dextrose (Heparin Sodium/Dextrose) 25,000 units in 500 mls @ 19 mls/hr IV .Q24H [facility]; Protocol Stop: 06/01/21 18:44 Last Titration: 05/03/21 15:17 Dose: 950 units/hr, 19 mls/hr Documented by: Insulin Aspart (Insulin Aspart 100 Units/Ml 3 Ml Pen) 0 units SC ACHS [facility]; Pro tocol Stop: 06/01/21 08:34 Last Admin: 05/03/21 17:12 Dose: 24 units Documented by: Insulin Human NPH (Insulin Human Nph) 40 units SC BIDM [facility]; Protocol Stop: 06/02/21 16:59 Last Admin: 05/03/21 17:12 Dose: 40 units Documented by: Isosorbide Mononitrate (Isosorbide [place] Extended Rel 30 Mg Tabcr) 30 mg PO QAM [facility] Stop: 06/02/21 08:59 Last Admin: 05/03/21 09:42 Dose: 30 mg Documented by: Miscellaneous (Carbohydrates For Hypoglycemia ) 15 - 30 gm PO UD PRN PRN Reason: Hypoglycemia Protocol Stop: 06/01/21 07:57 Last Admin: 05/02/21 17:52 Dose: 30 gm Documented by: Miscellaneous Information (Pharmacy Glycemic Mgmt Consult) 1 ea N/A UD PRN; Protocol PRN Reason: Consult Stop: 06/01/21 07:57 Morphine Sulfate (Morphine Sulfate 2 Mg/Ml Carp) 1 mg IV Q4 PRN PRN Reason: Pain Stop: 05/16/21 09:50 Nitroglycerin (Nitroglycerin Sl 0.4 Mg/Tab Tab) 0.4 mg SL Q5M PRN PRN Reason: Chest Pain Stop: 06/01/21 17:37 Propranolol HCl (Propranolol Hcl 80 Mg Tab) 80 mg PO QAM [facility] Stop: 06/01/21 08:59 Last Admin: 05/03/21 07:59 Dose: 80 mg Documented by: Vitamin D (Cholecalciferol 1,000 Units 25 Mcg Tab) 2,000 units PO DAILY [facility] Stop: 06/02/21 08:59 Last Admin: 05/03/21 07:59 Dose: 2,000 units Documented by: PG Care Time/CCT Total # of Minutes Spent Total Time Spent with Patient: Total time spent is greater than 50% in coordination of care (as documented) at patient's floor/unit and/or counseling patient: Coding Level of Care Code 72885 Subseq Hosp Care Lvl 3 Diagnoses NSTEMI (non-ST elevated myocardial infarction) I21.4 Coronary artery disease I25.10 Dyslipidemia E78.5 CKD (chronic kidney disease) N18.9 Chronic kidney disease stage: unspecified stage (1) CKD (chronic kidney disease) Chronic kidney disease stage: unspecified stage Qualified Code(s): N18.9 - Chronic kidney disease, unspecified
[2021-05-03 22:05] LABS: Partial Thromboplastin Ratio > 5.3
[2021-05-03 22:52] LABS: Partial Thromboplastin Time > 139.0 Seconds (21.0-31.0)
[2021-05-04] MEDS: INSULIN ASPART 100 UNITS/ML 3 ML PEN SC SCH ×6 (00:10→21:09)
[2021-05-04 01:13] LABS: Partial Thromboplastin Ratio 2.7
[2021-05-04 01:14] LABS: Partial Thromboplastin Time 71.7 Seconds (21.0-31.0)
[2021-05-04 05:52] LABS: Hematocrit (blood only) 24.3 % (42-52); Hemoglobin 8.1 g/dL (14.0-18.0); Mean Corpuscular Hemoglobin 31.3 pg (25-34); Mean Corpuscular Hgb Conc 33.3 g/dL (32-36); Mean Corpuscular Volume 93.8 fL (80-100); RDW Coefficient of Variation 15.4 % (11.5-14.5); RDW Standard Deviation 52.1 fL (36.4-46.3); Red Blood Count 2.59 M/uL (4.7-6.1); White Blood Count 8.57 K/uL (4.8-10.8)
[2021-05-04] MEDS: CARBOHYDRATES FOR HYPOGLYCEMIA PO PRN (05:57)
[2021-05-04] MEDS: methylPREDNISolone 100 MG in SYRINGE 0 ML IV SCH (06:04)
[2021-05-04 06:06] LABS: Mean Platelet Volume 11.1 fL (7.4-10.4); Platelet Count 96 K/uL (130-400)
[2021-05-04 06:10] LABS: BUN Creatinine Ratio 40.4 (10-20); Calcium 8.1 mg/dl (8.5-10.1); Creatinine Clr Calc Pharmacy 24.7 ml/min; Est GFR (African American) 27.1 ml/min; Est GFR (Non-African American) 23.4 ml/min; Potassium 4.1 mmol/L (3.5-5.1)
[2021-05-04 06:21] LABS: Immature Granulocytes # (auto) 0.01 K/uL (0.00-0.02); Immature Granulocytes % (auto) 0.1 %; Lymphocytes # (auto) 0.46 K/uL (1.2-3.4); Lymphocytes % (auto) 5.4 %; Monocytes # (auto) 0.43 K/uL (0.11-0.59); Neutrophils # (auto) 7.67 K/uL (1.4-6.5); Neutrophils % (auto) 89.5 %; Tear Drop Cells 1+
[2021-05-04 07:58] LABS: Partial Thromboplastin Ratio 3.5
[2021-05-04 07:59] LABS: Partial Thromboplastin Time 91.7 Seconds (21.0-31.0)
[2021-05-04] MEDS: CHOLECALCIFEROL 1,000 UNITS 25 MCG TAB PO SCH (08:20)
[2021-05-04] MEDS: ASPIRIN 81 MG ECTAB PO SCH (08:20)
[2021-05-04] MEDS: PROPRANOLOL HCL 80 MG TAB PO SCH (08:21)
[2021-05-04] MEDS: ATORVASTATIN 40 MG TAB PO SCH (08:22)
[2021-05-04] MEDS: ISOSORBIDE MONO EXTENDED REL 30 MG TABCR PO SCH ×2 (08:22→20:14)
[2021-05-04] MEDS: FERROUS SULFATE 325 MG TAB PO SCH (08:22)
[2021-05-04] MEDS: CLOPIDOGREL BISULFATE 75 MG TAB PO SCH (08:23)
[2021-05-04] MEDS ORDERED: INSULIN HUMAN NPH SC SCH ×2 (08:30→16:30)
--- NOTE | 2021-05-04 08:43 | Hospitalist Progress Note ---
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 Patient states he does not want a CABG due to his high bleed risk, from an FM standpoint we agree that this patient would likely not recover well from a major operation due to his poor physical conditioning -currently medical management on aspirin, plavix, propanolol, lipitor, isosorbide mononitrate 2.) CAD Heavily calcified 80% left main extending into ostial LAD/circumflex 60% mid LAD, severe diffuse distal LAD disease up to 95% 60% proximal circumflex 50 to 60% proximal RCA, 70% calcified mid RCA with acute thrombus -management as stated above 3.) Autoimmune hepatitis -continue steroid management 4.) CKDIII -hold SANDY inhibitor 5.) DM2 -continue management with Novolog, Novolin 6.) Physical Deconditioning -Discussed with patient his physical deconditioning makes him a risk if he goes home directly as he is originally able to get off his bed by himself at home and now requires 2 nurses to assist. PT has been ordered. Advised patient to try to increase his activity in the hospital to avoid further deconditioning. Discussed possible need for rehab after hospitalization to recover physical conditioning. -patient states he understands there is a risk if he goes home in his current state, states his is at home to help occasionally, states he was able to move around by himself before hospitalization. Patient agreed to try PT tomorrow to evaluate his current status. FENa: heart healthy DM diet Code Status: full DVT PPX: heparin PT/OT: PT ordered will be seen tomorrow Case Management: [] Dispo: home Darlene Schumacher Do PGY 1, FCM (2) Coronary artery disease: (3) Autoimmune hepatitis: (4) Chronic kidney disease, stage 3: (5) IDDM (insulin dependent diabetes mellitus): (6) Physical deconditioning: Admission and Anticipated Discharge Date Admission Date: May 02, 2021 Supervising Physician Co-Signing Physician Notes I personally examined the patient and verified all santillan points of history and exam, discussed case, and agree with decision making withDr Schumacher. No chest pain getting out of bed, however nursing noted that it took 2 people to get him up. He notes he is very weak at home but not this week. That said, he still really wants to go home. discussed planning. Vitals noted, in general he is pleasant no distress. HEENT normocephalic atraumatic mucous membranes moist. Breathing unlabored no accessory muscle use good effort. Skin shows no rashes no pallor or icterus. Neuro without focal deficits. NSTEMI, acute HFpEF now resolved. For now med managementnitrates, beta- trae, and aspirin/Plavix, cannot use SANDY/ARB due to CKD, statin. increase activity. for cardiac rehab. reassuring that he's had no angina with activity, although he has had very little activity. CKD 3creatinine up a little from baseline after cast, did give 1 L of fluid, but given HFpEF, would hesitate to give more fluid, given that creatinine seems to have peaked. Will follow into tomorrow. immunocompromised status -05/03 had extensive discussion on covid vax, answered all questions, explained vaccine development and approval process, strongly recd he get it - he is now more in favor Weakness/deconditioningtrying to discussed realistic safety planning at home and ensuring he has enough support. This was a little bit difficult because he was having a hard time grasping the reality of being at home weaker than he is, he is aware that he is weaker than normal, but with relating how he gets around at home normally as his reassurance that he would be okay, oddly not able to connect his being weaker now with probably having a harder time functioning at home right now. May need to discuss with his . Greatly appreciate cardiology input. Otherwise as above. Subjective 71yo Male w/PMH autoimmune hepatitis,liver cirrhosis, CKD III, DM2, CHF here for chest pain secondary to NSTEMI. He was seen at bedside doing well, denies SOB chest pain palpitations dizziness, has some complaint of occasional chronic diarrhea in his pants when he can't reach the toilet in time. Patient states he has not gotten out of bed in 2 days and feels weaker than before, states at home he used a walker and electric scooter due to Hx b/l leg neuropathy, has occasional falls at home where he crawls up the stairs with his hands in order to right himself. Patient states usually helps at home but goes to work during the day, has assistive devices at home such as elevated beds and toilet seats to make moving around easier. Patient states he would like to be home by to attend a friend gathering, he states he has not gotten his COVID vaccination yet. Patient has expressed he does not want a CABG for his heart disease, he believes his risk of bleeding is high due to his chronic conditions. Patient states he does not smoke, drink alcohol, has well controlled lipids at home but has occasional spikes of 400 in his blood sugar, has a family history of heart disease father of [place] at 48. Patient required 2 nurses to assist movement from bed to chair. Review of Systems Review of Systems: Negative fever chills Negative headache dizziness Negative chest pain palpitations SOB Negative nausea vomitting diarrhea constipation Negative numbness tingling rash swelling Physical Exam Constitutional: well developed, cooperative and comfortable Respiratory: normal respiratory effort; no cough Auscultation: lungs clear to auscultation bilaterally Cardiovascular: Rate/Rhythm: regular rate and regular rhythm Heart Sounds: normal S1 and normal S2; no gallop, no murmur and no cardiac rub Musculoskeletal: Chronic bruising noted on b/l arms due to difficulty clotting, no swelling or rash noted on b/l LE Results & Data Results & Data ([facility]) Vital Signs (Past 12 Hours) Vital Signs Temp Pulse Pulse Resp BP Pulse Ox 05/04/21 07:36 37.9 C H 68 17 149/73 H 100 05/04/21 06:30 64 12 165/81 H 99 05/04/21 03:50 36.5 C 65 16 156/77 H 96 05/04/21 02:30 58 L 17 142/65 H 98 05/04/21 00:07 36.7 C 05/03/21 22:51 67 19 140/68 97 Laboratory Results 05/04/21 05/04/21 05/04/21 Range/Units 16:03 14:57 11:14 WBC (4.8-10.8) K/uL RBC (4.7-6.1) M/uL Hgb (14.0-18.0) g/dL Hct (42-52) % MCV (80-100) fL MCH (25-34) pg MCHC (32-36) g/dL RDW Std Deviation (36.4-46.3) fL RDW Coeff of Sony (11.5-14.5) % Plt Count (130-400) K/uL MPV (7.4-10.4) fL Immature Gran % (Auto) % Neut % (Auto) % Lymph % (Auto) % [place] % (Auto) % Eos % (Auto) % Baso % (Auto) % Neut # (Auto) (1.4-6.5) K/uL Lymph # (Auto) (1.2-3.4) K/uL [place] # (Auto) (0.11-0.59) K/uL Eos # (Auto) (0-0.5) K/uL Baso # (Auto) (0-0.2) K/uL Immature Gran # (Auto) (0.00-0.02) K/uL Hypersegmented Neuts Tear Drop Cells APTT 51.0 H* (21.0-31.0) Seconds PTT Ratio 1.9 Sodium (136-145) mmol/L Potassium (3.5-5.1) mmol/L Chloride (98-107) mmol/L Carbon Dioxide (21-32) mmol/L Anion Gap (3-11) BUN (7-18) mg/dl Creatinine (0.6-1.4) mg/dl Est Cr Clr Drug Dosing ml/min Est GFR ( Amer) ml/min Est GFR (Non-Af Amer) ml/min BUN/Creatinine Ratio (10-20) Glucose (70-99) mg/dl POC Glucose 125 H 188 H (70-99) mg/dl Calcium (8.5-10.1) mg/dl 05/04/21 05/04/21 05/04/21 Range/Units 08:20 07:17 06:11 WBC (4.8-10.8) K/uL RBC (4.7-6.1) M/uL Hgb (14.0-18.0) g/dL Hct (42-52) % MCV (80-100) fL MCH (25-34) pg MCHC (32-36) g/dL RDW Std Deviation (36.4-46.3) fL RDW Coeff of Sony (11.5-14.5) % Plt Count (130-400) K/uL MPV (7.4-10.4) fL Immature Gran % (Auto) % Neut % (Auto) % Lymph % (Auto) % [place] % (Auto) % Eos % (Auto) % Baso % (Auto) % Neut # (Auto) (1.4-6.5) K/uL Lymph # (Auto) (1.2-3.4) K/uL [place] # (Auto) (0.11-0.59) K/uL Eos # (Auto) (0-0.5) K/uL Baso # (Auto) (0-0.2) K/uL Immature Gran # (Auto) (0.00-0.02) K/uL Hypersegmented Neuts Tear Drop Cells APTT 91.7 H* (21.0-31.0) Seconds PTT Ratio 3.5 Sodium (136-145) mmol/L Potassium (3.5-5.1) mmol/L Chloride (98-107) mmol/L Carbon Dioxide (21-32) mmol/L Anion Gap (3-11) BUN (7-18) mg/dl Creatinine (0.6-1.4) mg/dl Est Cr Clr Drug Dosing ml/min Est GFR ( Amer) ml/min Est GFR (Non-Af Amer) ml/min BUN/Creatinine Ratio (10-20) Glucose (70-99) mg/dl POC Glucose 239 H 87 (70-99) mg/dl Calcium (8.5-10.1) mg/dl 05/04/21 05/04/21 05/04/21 Range/Units 05:44 05:34 05:34 WBC 8.57 (4.8-10.8) K/uL RBC 2.59 L (4.7-6.1) M/uL Hgb 8.1 L (14.0-18.0) g/dL Hct 24.3 L (42-52) % MCV 93.8 (80-100) fL MCH 31.3 (25-34) pg MCHC 33.3 (32-36) g/dL RDW Std Deviation 52.1 H (36.4-46.3) fL RDW Coeff of Sony 15.4 H (11.5-14.5) % Plt Count 96 L (130-400) K/uL MPV 11.1 H (7.4-10.4) fL Immature Gran % (Auto) 0.1 % Neut % (Auto) 89.5 % Lymph % (Auto) 5.4 % [place] % (Auto) 5.0 % Eos % (Auto) 0.0 % Baso % (Auto) 0.0 % Neut # (Auto) 7.67 H (1.4-6.5) K/uL Lymph # (Auto) 0.46 L (1.2-3.4) K/uL [place] # (Auto) 0.43 (0.11-0.59) K/uL Eos # (Auto) 0.00 (0-0.5) K/uL Baso # (Auto) 0.00 (0-0.2) K/uL Immature Gran # (Auto) 0.01 (0.00-0.02) K/uL Hypersegmented Neuts 1+ Tear Drop Cells 1+ APTT (21.0-31.0) Seconds PTT Ratio Sodium 145 (136-145) mmol/L Potassium 4.1 (3.5-5.1) mmol/L Chloride 114 H (98-107) mmol/L Carbon Dioxide 23 (21-32) mmol/L Anion Gap 8.0 (3-11) BUN 106 H (7-18) mg/dl Creatinine 2.62 H (0.6-1.4) mg/dl Est Cr Clr Drug Dosing 24.7 ml/min Est GFR ( Amer) 27.1 ml/min Est GFR (Non-Af Amer) 23.4 ml/min BUN/Creatinine Ratio 40.4 H (10-20) Glucose 47 L* (70-99) mg/dl POC Glucose 55 L* (70-99) mg/dl Calcium 8.1 L (8.5-10.1) mg/dl 05/04/21 05/04/21 05/03/21 Range/Units 03:48 00:41 23:58 WBC (4.8-10.8) K/uL RBC (4.7-6.1) M/uL Hgb (14.0-18.0) g/dL Hct (42-52) % MCV (80-100) fL MCH (25-34) pg MCHC (32-36) g/dL RDW Std Deviation (36.4-46.3) fL RDW Coeff of Sony (11.5-14.5) % Plt Count (130-400) K/uL MPV (7.4-10.4) fL Immature Gran % (Auto) % Neut % (Auto) % Lymph % (Auto) % [place] % (Auto) % Eos % (Auto) % Baso % (Auto) % Neut # (Auto) (1.4-6.5) K/uL Lymph # (Auto) (1.2-3.4) K/uL [place] # (Auto) (0.11-0.59) K/uL Eos # (Auto) (0-0.5) K/uL Baso # (Auto) (0-0.2) K/uL Immature Gran # (Auto) (0.00-0.02) K/uL Hypersegmented Neuts Tear Drop Cells APTT 71.7 H* (21.0-31.0) Seconds PTT Ratio 2.7 Sodium (136-145) mmol/L Potassium (3.5-5.1) mmol/L Chloride (98-107) mmol/L Carbon Dioxide (21-32) mmol/L Anion Gap (3-11) BUN (7-18) mg/dl Creatinine (0.6-1.4) mg/dl Est Cr Clr Drug Dosing ml/min Est GFR ( Amer) ml/min Est GFR (Non-Af Amer) ml/min BUN/Creatinine Ratio (10-20) Glucose (70-99) mg/dl POC Glucose 82 173 H (70-99) mg/dl Calcium (8.5-10.1) mg/dl 05/03/21 05/03/21 05/03/21 Range/Units 22:53 21:22 20:33 WBC (4.8-10.8) K/uL RBC (4.7-6.1) M/uL Hgb (14.0-18.0) g/dL Hct (42-52) % MCV (80-100) fL MCH (25-34) pg MCHC (32-36) g/dL RDW Std Deviation (36.4-46.3) fL RDW Coeff of Sony (11.5-14.5) % Plt Count (130-400) K/uL MPV (7.4-10.4) fL Immature Gran % (Auto) % Neut % (Auto) % Lymph % (Auto) % [place] % (Auto) % Eos % (Auto) % Baso % (Auto) % Neut # (Auto) (1.4-6.5) K/uL Lymph # (Auto) (1.2-3.4) K/uL [place] # (Auto) (0.11-0.59) K/uL Eos # (Auto) (0-0.5) K/uL Baso # (Auto) (0-0.2) K/uL Immature Gran # (Auto) (0.00-0.02) K/uL Hypersegmented Neuts Tear Drop Cells APTT > 139.0 H* (21.0-31.0) Seconds PTT Ratio > 5.3 Sodium (136-145) mmol/L Potassium (3.5-5.1) mmol/L Chloride (98-107) mmol/L Carbon Dioxide (21-32) mmol/L Anion Gap (3-11) BUN (7-18) mg/dl Creatinine (0.6-1.4) mg/dl Est Cr Clr Drug Dosing ml/min Est GFR ( Amer) ml/min Est GFR (Non-Af Amer) ml/min BUN/Creatinine Ratio (10-20) Glucose (70-99) mg/dl POC Glucose 214 H 292 H (70-99) mg/dl Calcium (8.5-10.1) mg/dl 05/03/21 Range/Units 14:18 WBC (4.8-10.8) K/uL RBC (4.7-6.1) M/uL Hgb (14.0-18.0) g/dL Hct (42-52) % MCV (80-100) fL MCH (25-34) pg MCHC (32-36) g/dL RDW Std Deviation (36.4-46.3) fL RDW Coeff of Sony (11.5-14.5) % Plt Count (130-400) K/uL MPV (7.4-10.4) fL Immature Gran % (Auto) % Neut % (Auto) % Lymph % (Auto) % [place] % (Auto) % Eos % (Auto) % Baso % (Auto) % Neut # (Auto) (1.4-6.5) K/uL Lymph # (Auto) (1.2-3.4) K/uL [place] # (Auto) (0.11-0.59) K/uL Eos # (Auto) (0-0.5) K/uL Baso # (Auto) (0-0.2) K/uL Immature Gran # (Auto) (0.00-0.02) K/uL Hypersegmented Neuts Tear Drop Cells APTT (21.0-31.0) Seconds PTT Ratio Sodium 141 (136-145) mmol/L Potassium 4.2 (3.5-5.1) mmol/L Chloride 111 H (98-107) mmol/L Carbon Dioxide 21 (21-32) mmol/L Anion Gap 10.0 (3-11) BUN 95 H (7-18) mg/dl Creatinine 2.55 H D (0.6-1.4) mg/dl Est Cr Clr Drug Dosing 25.3 ml/min Est GFR ( Amer) 28.0 ml/min Est GFR (Non-Af Amer) 24.1 ml/min BUN/Creatinine Ratio 37.1 H (10-20) Glucose 202 H (70-99) mg/dl POC Glucose (70-99) mg/dl Calcium 8.6 (8.5-10.1) mg/dl Diagnostic Findings Impressions Chest X-Ray 05/02/21 02:59 SINGLE VIEW CHEST CLINICAL HISTORY: Dyspnea. FINDINGS: 2 AP, portable, upright chest radiographs are compared to study dated 01/25/2020. The heart is enlarged noting atherosclerotic calcification of the thoracic aorta. There is mild pulmonary vascular congestion. Emphysema and chronic interstitial thickening is similar to previous. Scarring/atelectasis is noted at the lung bases. No superimposed airspace consolidation or large pleural effusion is identified. No pneumothorax is seen. The skeletal structures are osteopenic. The bony thorax is grossly intact. IMPRESSION: 1. Cardiomegaly with mild pulmonary vascular congestion. 2. Emphysema. 3. No airspace consolidation or large pleural effusion is identified. ACT 112: Negative or not required by law. Electronically signed by: Roscoe Kamara M.D. 05/02/2021 8:07 AM Medications Administered Current Inpatient Medications Aspirin (Aspirin 81 Mg Ectab) 81 mg PO QAM [facility] Stop: 06/01/21 08:59 Last Admin: 05/04/21 08:20 Dose: 81 mg Documented by: Atorvastatin Calcium (Atorvastatin 40 Mg Tab) 80 mg PO QAM [facility] Stop: 06/02/21 08:59 Last Admin: 05/04/21 08:22 Dose: 80 mg Documented by: Calcitriol (Calcitriol 0.25 Mcg Capsule) 0.25 mcg PO MoFr@0900 [facility] Stop: 06/02/21 08:59 Last Admin: 05/03/21 07:59 Dose: 0.25 mcg Documented by: Clopidogrel Bisulfate (Clopidogrel Bisulfate 75 Mg Tab) [facility] [place] Stop: 06/02/21 08:59 Last Admin: 05/04/21 08:23 Dose: 75 mg Documented by: Dextrose (Dextrose 50% 50 Ml Syringe) 25 - 50 ml IV UD PRN; Protocol PRN Reason: Hypoglycemia Protocol Stop: 06/01/21 07:57 Ferrous Sulfate (Ferrous Sulfate 325 Mg Tab) 325 mg PO DAILY [facility] Stop: 06/01/21 08:59 Last Admin: 05/04/21 08:22 Dose: 325 mg Documented by: Glucagon (Glucagon For Inj 1 Mg Vial) 1 mg SQ UD PRN; Protocol PRN Reason: Hypoglycemia Protocol Stop: 06/01/21 07:57 Glucose (Glucose 10 Tabs/Tube) 4 - 8 tabs PO UD PRN; Protocol PRN Reason: Hypoglycemia Protocol Stop: 06/01/21 07:57 Glucose (Glucose 40% Gel 15 Gm Tube) 15 - 30 gm PO UD PRN; Protocol PRN Reason: Hypoglycemia Protocol Stop: 06/01/21 07:57 Heparin Sodium/Dextrose (Heparin Sodium/Dextrose) 25,000 units in 500 mls @ 9 mls/hr IV .Q24H [facility]; Protocol Stop: 06/01/21 18:44 Last Titration: 05/04/21 09:11 Dose: 450 units/hr, 9 mls/hr Documented by: Insulin Aspart (Insulin Aspart 100 Units/Ml 3 Ml Pen) 0 units SC ACHS [facility]; Protocol Stop: 06/01/21 08:34 Last Admin: 05/04/21 11:38 Dose: 13 units Documented by: Insulin Human NPH (Insulin Human Nph) 17 units SC QDD TENA; Protocol Stop: 05/04/21 16:31 Isosorbide Mononitrate (Isosorbide [place] Extended Rel 30 Mg Tabcr) 30 mg PO BID [facility] Stop: 06/03/21 20:59 Miscellaneous (Carbohydrates For Hypoglycemia ) 15 - 30 gm PO UD PRN PRN Reason: Hypoglycemia Protocol Stop: 06/01/21 07:57 Last Admin: 05/04/21 05:57 Dose: 30 gm Documented by: Miscellaneous Information (Pharmacy Glycemic Mgmt Consult) 1 ea N/A UD PRN; Protocol PRN Reason: Consult Stop: 06/01/21 07:57 Morphine Sulfate (Morphine Sulfate 2 Mg/Ml Carp) 1 mg IV Q4 PRN PRN Reason: Pain Stop: 05/16/21 09:50 Nitroglycerin (Nitroglycerin Sl 0.4 Mg/Tab Tab) 0.4 mg SL Q5M PRN PRN Reason: Chest Pain Stop: 06/01/21 17:37 Prednisone (Prednisone 10 Mg Tablet) 10 mg PO DAILY TENA Stop: 06/03/21 08:59 Last Admin: 05/04/21 11:35 Dose: 10 mg Documented by: Propranolol HCl (Propranolol Hcl 80 Mg Tab) 80 mg PO QAM TENA Stop: 06/01/21 08:59 Last Admin: 05/04/21 08:21 Dose: 80 mg Documented by: Vitamin D (Cholecalciferol 1,000 Units 25 Mcg Tab) 2,000 units PO DAILY TENA Stop: 06/02/21 08:59 Last Admin: 05/04/21 08:20 Dose: 2,000 units Documented by: Resident Activity Tracking Resident Involvement: Resident Care Provided Care Provided: Adult Hospital Medicine
[2021-05-04] MEDS: predniSONE 10 MG TABLET PO SCH (11:35)
--- NOTE | 2021-05-04 13:52 | Pharmacy Report ---
Pharmacy Glycemic Short Note 2 - Date of Service May 04, 2021 - Glycemic Short BSG Results (Last 24 hours): 05/03/21 05/03/21 05/03/21 14:18 16:01 20:33 Glucose 202 H POC Glucose 208 H 292 H 05/03/21 05/03/21 05/04/21 22:53 23:58 03:48 Glucose POC Glucose 214 H 173 H 82 05/04/21 05/04/21 05/04/21 05:34 05:44 06:11 Glucose 47 L* POC Glucose 55 L* 87 05/04/21 05/04/21 08:20 11:14 Glucose POC Glucose 239 H 188 H OUTPATIENT ANTIDIABETIC REGIMEN: * Novolin-N 28 units with breakfast, 17 units with dinner, up to 60 units/day * Novolog 18 units with breakfast, 26 units with dinner * A1c 6.8% 03/19/21 ASSESSMENT: 05/04/21 * Patient's BSGs yesterday were [phone] mg/dL and overnight were 173-82 mg/dL. Patient did have a low this morning at 55 * Reduced AM NPH to 30 units which is closer to home dose. Solu-Medrol d/c'ed and home dose of prednisone 10 mg daily started. * Reduce PM NPH to home dose of 17 units. Loosen CF/CR since IV steroids cut. 05/03: * Patient unfortunately did have a low with dinner yesterday, likely due to NPO status. As a result received on 15 units at night rather than 40 units. Will resume planned regimen of 40 units BIDM with a slightly looser Novolog scale. Patient is eating, however intake is on the lower side. Patient remains on IV SM 100 q8 05/02 * 71 year old male admitted for elevated troponin, SOB, started on high dose steroids, IV Methylprednisolone 100mg Q8H * Type 2 diabetic, well controlled on basal bolus insulin at home, will use same insulins as at home and stress doses for steroids * Titrate doses to goal BSG and back down as steroids taper PLAN FOR INPATIENT GLYCEMIC CONTROL: * Basal insulin * NPH 30 units SQ qAM plus 17 units qPM * Bolus insulin * NovoLog per scale ACHS or Q6hrs while NPO and overnight checks * Goal Range: Low 110 mg/dL - High 140 mg/dL * Correction Factor: 15 mg/dL/unit * Nutritional / Prandial insulin per carb ratio of 1 unit per 5 grams CHO consumed PLAN FOR DISCHARGE: * HbA1C below goal range (currently is 6.8% and goal would be < 7%). * Okay to continue home regimen as long as patient does not have any hypoglycemia.
[2021-05-04 15:25] LABS: Partial Thromboplastin Ratio 1.9
--- NOTE | 2021-05-04 15:49 | Cardiology Progress Note ---
Date of Service May 04, 2021 Assessment & Plan (1) NSTEMI (non-ST elevated myocardial infarction): (2) Coronary artery disease: (3) Dyslipidemia: (4) CKD (chronic kidney disease): Plan: ASSESSMENT/PLAN: 1. NSTEMI: Severe multivessel CAD including left main disease. No recurrent symptoms. However, does have severe disease and has been affectively bedbound. Will continue heparin until this evening around 8:00 p.m.. At that point could be discontinued. He will continue on dual anti-platelet therapy, isosorbide mononitrate and beta blockade. This regimen could be intensified based on his symptoms. His mobility is significantly limited and hopefully with a low workload of activity he will not have recurrent angina. It is unclear if he is a candidate for any form of revascularization. Not only is his anatomy unfavorable in this regard, but he does have a slight coagulopathy and renal dysfunction. 2. CAD: Multivessel CAD as above. Continue medical therapy. Depending on the patient's clinical course we may need to make additional contacts at a tertiary care center to see if there are any options for revascularization. 3. Dyslipidemia: Continue high-intensity statin therapy. 4. CKD: Stable. Continue to monitor renal function. 5. Anemia: Hemoglobin down to 8.1 today. Given his recent myocardial infarction I think he is a good candidate for a blood transfusion. Admission and Anticipated Discharge Date Admission Date: May 02, 2021 Subjective This morning the patient stated that he had the beginnings" of his chest pains when moving around in bed. He did not actually have his symptoms of chest discomfort that prompted his admission. He has been bed-bound not up in a chair. He denies breathing difficulty. He had some bleeding at the left antecubital fossa from an IV that is now removed. No discomfort at the right wrist access site. Physical Exam Physical Exam: Gen.: No acute distress. Alert and oriented. HEENT: Anicteric sclera. Neck: No JVD. Cardiac: Regular. Normal S1-S2. I patient crescendo systolic murmur. Pulmonary: Clear to auscultation bilaterally without wheezes, rales, or rhonchi. Extremities: 2+ radial pulses bilaterally. Right radial cath site is clean, dry, and intact without erythema or discharge. 2+ posterior tibialis pulses bilaterally. Trace bilateral lower extremity edema. No cyanosis. Psychiatric: Affect appears appropriate. Skin: Multiple ecchymoses. Results & Data ([facility]) Vital Signs (Past 12 Hours) Vital Signs Temp Pulse Pulse Resp BP Pulse Ox 05/04/21 15:17 36.5 C 63 15 157/75 H 98 05/04/21 11:38 36.5 C 61 17 151/76 H 97 05/04/21 07:36 37.9 C H 68 17 149/73 H 100 05/04/21 06:30 64 12 165/81 H 99 05/04/21 03:50 36.5 C 65 16 156/77 H 96 Laboratory Results Abnormal Lab Results 05/03/21 05/03/21 05/03/21 14:18 16:01 20:33 WBC RBC Hgb Hct MCV MCH MCHC RDW Std Deviation RDW Coeff of Sony Plt Count MPV Immature Gran % (Auto) Neut % (Auto) Lymph % (Auto) [place] % (Auto) Eos % (Auto) Baso % (Auto) Neut # (Auto) Lymph # (Auto) [place] # (Auto) Eos # (Auto) Baso # (Auto) Immature Gran # (Auto) Hypersegmented Neuts Tear Drop Cells APTT PTT Ratio Sodium 141 Potassium 4.2 Chloride 111 H Carbon Dioxide 21 Anion Gap 10.0 BUN 95 H Creatinine 2.55 H D Est Cr Clr Drug Dosing 25.3 Est GFR ( Amer) 28.0 Est GFR (Non-Af Amer) 24.1 BUN/Creatinine Ratio 37.1 H Glucose 202 H POC Glucose 208 H 292 H Calcium 8.6 05/03/21 05/03/21 05/03/21 21:22 22:53 23:58 WBC RBC Hgb Hct MCV MCH MCHC RDW Std Deviation RDW Coeff of Sony Plt Count MPV Immature Gran % (Auto) Neut % (Auto) Lymph % (Auto) [place] % (Auto) Eos % (Auto) Baso % (Auto) Neut # (Auto) Lymph # (Auto) [place] # (Auto) Eos # (Auto) Baso # (Auto) Immature Gran # (Auto) Hypersegmented Neuts Tear Drop Cells APTT > 139.0 H* PTT Ratio > 5.3 Sodium Potassium Chloride Carbon Dioxide Anion Gap BUN Creatinine Est Cr Clr Drug Dosing Est GFR ( Amer) Est GFR (Non-Af Amer) BUN/Creatinine Ratio Glucose POC Glucose 214 H 173 H Calcium 05/04/21 05/04/21 05/04/21 00:41 03:48 05:34 WBC 8.57 RBC 2.59 L Hgb 8.1 L Hct 24.3 L MCV 93.8 MCH 31.3 MCHC 33.3 RDW Std Deviation 52.1 H RDW Coeff of Sony 15.4 H Plt Count 96 L MPV 11.1 H Immature Gran % (Auto) 0.1 Neut % (Auto) 89.5 Lymph % (Auto) 5.4 [place] % (Auto) 5.0 Eos % (Auto) 0.0 Baso % (Auto) 0.0 Neut # (Auto) 7.67 H Lymph # (Auto) 0.46 L [place] # (Auto) 0.43 Eos # (Auto) 0.00 Baso # (Auto) 0.00 Immature Gran # (Auto) 0.01 Hypersegmented Neuts 1+ Tear Drop Cells 1+ APTT 71.7 H* PTT Ratio 2.7 Sodium Potassium Chloride Carbon Dioxide Anion Gap BUN Creatinine Est Cr Clr Drug Dosing Est GFR ( Amer) Est GFR (Non-Af Amer) BUN/Creatinine Ratio Glucose POC Glucose 82 Calcium 05/04/21 05/04/21 05/04/21 05:34 05:44 06:11 WBC RBC Hgb Hct MCV MCH MCHC RDW Std Deviation RDW Coeff of [place]oy Plt Count MPV Immature Gran % (Auto) Neut % (Auto) Lymph % (Auto) [place] % (Auto) Eos % (Auto) Baso % (Auto) Neut # (Auto) Lymph # (Auto) [place] # (Auto) Eos # (Auto) Baso # (Auto) Immature Gran # (Auto) Hypersegmented Neuts Tear Drop Cells APTT PTT Ratio Sodium 145 Potassium 4.1 Chloride 114 H Carbon Dioxide 23 Anion Gap 8.0 BUN 106 H Creatinine 2.62 H Est Cr Clr Drug Dosing 24.7 Est GFR ( Amer) 27.1 Est GFR (Non-Af Amer) 23.4 BUN/Creatinine Ratio 40.4 H Glucose 47 L* POC Glucose 55 L* 87 Calcium 8.1 L 05/04/21 05/04/21 05/04/21 07:17 08:20 11:14 WBC RBC Hgb Hct MCV MCH MCHC RDW Std Deviation RDW Coeff of Sony Plt Count MPV Immature Gran % (Auto) Neut % (Auto) Lymph % (Auto) [place] % (Auto) Eos % (Auto) Baso % (Auto) Neut # (Auto) Lymph # (Auto) [place] # (Auto) Eos # (Auto) Baso # (Auto) Immature Gran # (Auto) Hypersegmented Neuts Tear Drop Cells APTT 91.7 H* PTT Ratio 3.5 Sodium Potassium Chloride Carbon Dioxide Anion Gap BUN Creatinine Est Cr Clr Drug Dosing Est GFR ( Amer) Est GFR (Non-Af Amer) BUN/Creatinine Ratio Glucose POC Glucose 239 H 188 H Calcium 05/04/21 14:57 WBC RBC Hgb Hct MCV MCH MCHC RDW Std Deviation RDW Coeff of Sony Plt Count MPV Immature Gran % (Auto) Neut % (Auto) Lymph % (Auto) [place] % (Auto) Eos % (Auto) Baso % (Auto) Neut # (Auto) Lymph # (Auto) [place] # (Auto) Eos # (Auto) Baso # (Auto) Immature Gran # (Auto) Hypersegmented Neuts Tear Drop Cells APTT 51.0 H* PTT Ratio 1.9 Sodium Potassium Chloride Carbon Dioxide Anion Gap BUN Creatinine Est Cr Clr Drug Dosing Est GFR ( Amer) Est GFR (Non-Af Amer) BUN/Creatinine Ratio Glucose POC Glucose Calcium PG Care Time/CCT Total # of Minutes Spent Total Time Spent with Patient: Total time spent is greater than 50% in coordination of care (as documented) at patient's floor/unit and/or counseling patient: Coding Level of Care Code 73265 Subseq Hosp Care Lvl 3 Diagnoses NSTEMI (non-ST elevated myocardial infarction) I21.4 Coronary artery disease I25.10 Dyslipidemia E78.5 CKD (chronic kidney disease) N18.9 Chronic kidney disease stage: unspecified stage (1) CKD (chronic kidney disease) Chronic kidney disease stage: unspecified stage Qualified Code(s): N18.9 - Chronic kidney disease, unspecified
--- NOTE | 2021-05-04 18:11 | Billing Data ---
Date of Service May 04, 2021 Coding Level of Care Code 71302 Subseq Hosp Care Lvl 3
[2021-05-04] MEDS: HEPARIN SODIUM/DEXTROSE 25,000 UNITS/500 ML BAG IV SCH ×2 (19:31→20:21)
[2021-05-04] MEDS: INSULIN HUMAN NPH SC SCH (19:32)
[2021-05-05 05:56] LABS: Hematocrit (blood only) 23.1 % (42-52); Hemoglobin 7.8 g/dL (14.0-18.0); Mean Corpuscular Hemoglobin 31.3 pg (25-34); Mean Corpuscular Hgb Conc 33.8 g/dL (32-36); Mean Corpuscular Volume 92.8 fL (80-100); RDW Coefficient of Variation 15.3 % (11.5-14.5); RDW Standard Deviation 52.6 fL (36.4-46.3); Red Blood Count 2.49 M/uL (4.7-6.1); White Blood Count 8.06 K/uL (4.8-10.8)
[2021-05-05 06:33] LABS: Mean Platelet Volume 10.8 fL (7.4-10.4); Platelet Count 84 K/uL (130-400)
[2021-05-05 06:44] LABS: BUN Creatinine Ratio 41.8 (10-20); Calcium 7.6 mg/dl (8.5-10.1); Creatinine Clr Calc Pharmacy 25.2 ml/min; Est GFR (African American) 25.3 ml/min; Est GFR (Non-African American) 21.8 ml/min; Potassium 4.2 mmol/L (3.5-5.1)
[2021-05-05 06:47] LABS: Immature Granulocytes # (auto) 0.03 K/uL (0.00-0.02); Immature Granulocytes % (auto) 0.4 %; Lymphocytes # (auto) 0.44 K/uL (1.2-3.4); Lymphocytes % (auto) 5.5 %; Monocytes # (auto) 0.93 K/uL (0.11-0.59); Monocytes % (auto) 11.5 %; Neutrophils # (auto) 6.66 K/uL (1.4-6.5); Neutrophils % (auto) 82.6 %; Ovalocytes 1+; Tear Drop Cells 1+
--- NOTE | 2021-05-05 07:30 | Hospitalist Progress Note ---
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 05/02 found severe multivessel CAD, recommended stop SANDY inhibitor continue medical management start heparin for 48hr - d/c'd this morning -[facility] contacted to see if patient was a candidate for revascularization, cardiology states limited options for intervention at this point -Patient states he does not want a CABG due to his high bleed risk, from an FM standpoint we agree that this patient would likely not recover well from a major operation due to his poor physical conditioning -currently medical management on aspirin, plavix, propanolol, lipitor, isosorbide mononitrate -patient had episode chest discomfort last night that resolved on its own, EKG showed ST depression in anterior leads T wave inversion inferior and anterolateral leads, repeat trops no dramatic spike, Hbg 7.8 -will continue to monitor 2.) Anemia -morning Hbg 7.8 -cardiology recommended blood transfusion in the face of angina, extensive CAD and recent NSTEMI, we ordered blood transfusion -monitor CBC 3.) CAD Heavily calcified 80% left main extending into ostial LAD/circumflex 60% mid LAD, severe diffuse distal LAD disease up to 95% 60% proximal circumflex 50 to 60% proximal RCA, 70% calcified mid RCA with acute thrombus -management as stated above 4.) Physical Deconditioning -05/04 Discussed with patient his physical deconditioning makes him a risk if he goes home directly as he is originally able to get off his bed by himself at home and now requires 2 nurses to assist. PT has been ordered. Advised patient to try to increase his activity in the hospital to avoid further deconditioning. Discussed possible need for rehab after hospitalization to recover physical conditioning. Patient states he understands there is a risk if he goes home in his current state, states his is at home to help occasionally, states he was able to move around by himself before hospitalization. Patient agreed to try PT tomorrow to evaluate his current status. -05/05 Patient did not do well on PT, recommended inpatient rehab, patient discussed need for inpt rehab with family and thinks it might be a good idea 5.) Autoimmune hepatitis -continue steroid management 6.) CKDIII -hold SANDY inhibitor 7.) DM2 -continue management with Novolog Novolin 8.) Constipation -patient states he hasn't had BM in 3 days, given 51mg miralax FENa: heart healthy DM diet Code Status: full DVT PPX: none PT/OT: PT ordered, recommend inpt rehab Case Management: [] Dispo: pending Darlene Schumacher Do PGY 1, FCM (2) Coronary artery disease: (3) Autoimmune hepatitis: (4) Chronic kidney disease, stage 3: (5) IDDM (insulin dependent diabetes mellitus): (6) Physical deconditioning: Admission and Anticipated Discharge Date Admission Date: May 02, 2021 Supervising Physician Co-Signing Physician Notes I personally examined the patient and verified all [place] points of history and exam, discussed case, and agree with decision making withDr Schumacehr. Still very weak, still requiring multiple people to assist. His children have talked to them, now he is more willing to go to rehab. Cardiology input appreciated. Patient does note that even though he was not able to get up and around on his own, even with his exertion of trying, he noted no angina. Vitals noted, in general he is pleasant no distress. HEENT normocephalic atraumatic mucous membranes moist. Breathing unlabored no accessory muscle use good effort. Skin shows no rashes no pallor or icterus. Neuro without focal deficits. NSTEMI, acute HFpEF now resolved. For now med managementnitrates, beta- trae, and aspirin/Plavix, cannot use SANDY/ARB due to CKD, statin. Fortunately showing no angina with activityand while his activity has been minimal, earlier his exertion seem high as he was trying to get up, sit seems somewhat reassuring as far as how he may do with med management. After he is home from physical rehab, would likely benefit from cardiac rehab. Cardiology recommended blood given his poor flow, as well as his anemia. This seems reasonablewe will transfuse and follow. For now, given he clinically appears euvolemic and his creatinine is still rising a little, we will refrain from preemptive Lasix, but have a low threshold to dose if he at all appears overloaded. CKD 3creatinine is up a little from baseline after cath, did give fluid, continued to observe, blood as recommended by cardiology for his coronary disease may also be helpful for his CKD. immunocompromised status -05/03 had extensive discussion on covid vax, answered all questions, explained vaccine development and approval process, strongly recd he get it - he is now more in favor, would recommend reminding patient of this at discharge. Weakness/deconditioningfor rehab Greatly appreciate cardiology input. Otherwise as above. Subjective 71yo Male w/PMH autoimmune hepatitis,liver cirrhosis, CKD III, DM2, CHF here for chest pain secondary to NSTEMI. Last night patient complained of chest discomfort that resolved on its own, EKG demonstrated ST depression anterior leads, T wave inversion in inferior and anterolateral leads, no elevated troponin. He was seen at bedside laying down.He states that he feels chest discomfort when moving to use his urinal. Patient is aware he is physically weaker than he was on admission, currently very concerned he will from [place] due to his family history mother and father both of [place], so he is afraid to move too much. Patient is nervous, aware there are limited options outside medical management to treat his arteries, began tearing up. Physical therapy stated concern for depression. Per nurse patient did not tolerate physical therapy well, patient discussed with family the necessity of inpatient rehab. Review of Systems Review of Systems: Positive chest discomfort Negative fever chills Negative headache dizziness Negative palpitations SOB Negative nausea vomitting diarrhea constipation Negative numbness tingling rash swelling Physical Exam Constitutional: well developed and cooperative Respiratory: normal respiratory effort; no cough Auscultation: lungs clear to auscultation bilaterally Cardiovascular: Rate/Rhythm: regular rate and regular rhythm Heart Sounds: normal S1 and normal S2; no gallop, no murmur and no cardiac rub Musculoskeletal: Chronic bruising noted on b/l arms due to difficulty clotting, no swelling or rash noted on b/l LE Results & Data Results & Data ([facility]) Vital Signs (Past 12 Hours) Vital Signs Temp Pulse Pulse Resp BP Pulse Ox 05/05/21 02:40 36.6 C 72 20 154/83 H 100 05/04/21 23:37 36.7 C 70 16 150/74 H 99 05/04/21 23:29 67 05/04/21 20:23 36.6 C 84 24 182/89 H 96 Laboratory Results 05/05/21 05/05/21 05/05/21 Range/Units 11:14 09:04 07:29 WBC (4.8-10.8) K/uL RBC (4.7-6.1) M/uL Hgb (14.0-18.0) g/dL Hct (42-52) % MCV (80-100) fL MCH (25-34) pg MCHC (32-36) g/dL RDW Std Deviation (36.4-46.3) fL RDW Coeff of Sony (11.5-14.5) % Plt Count (130-400) K/uL MPV (7.4-10.4) fL Immature Gran % (Auto) % Neut % (Auto) % Lymph % (Auto) % [place] % (Auto) % Eos % (Auto) % Baso % (Auto) % Neut # (Auto) (1.4-6.5) K/uL Lymph # (Auto) (1.2-3.4) K/uL [place] # (Auto) (0.11-0.59) K/uL Eos # (Auto) (0-0.5) K/uL Baso # (Auto) (0-0.2) K/uL Immature Gran # (Auto) (0.00-0.02) K/uL Tear Drop Cells Ovalocytes Sodium (136-145) mmol/L Potassium (3.5-5.1) mmol/L Chloride (98-107) mmol/L Carbon Dioxide (21-32) mmol/L Anion Gap (3-11) BUN (7-18) mg/dl Creatinine (0.6-1.4) mg/dl Est Cr Clr Drug Dosing ml/min Est GFR ( Amer) ml/min Est GFR (Non-Af Amer) ml/min BUN/Creatinine Ratio (10-20) Glucose (70-99) mg/dl POC Glucose 100 H 76 (70-99) mg/dl Calcium (8.5-10.1) mg/dl Troponin I 2.900 H* (0-0.045) ng/ml Blood Type Blood Type Recheck Antibody Screen Crossmatch 05/05/21 05/05/21 05/05/21 Range/Units 07:20 05:34 05:05 WBC (4.8-10.8) K/uL RBC (4.7-6.1) M/uL Hgb (14.0-18.0) g/dL Hct (42-52) % MCV (80-100) fL MCH (25-34) pg MCHC (32-36) g/dL RDW Std Deviation (36.4-46.3) fL RDW Coeff of Sony (11.5-14.5) % Plt Count (130-400) K/uL MPV (7.4-10.4) fL Immature Gran % (Auto) % Neut % (Auto) % Lymph % (Auto) % [place] % (Auto) % Eos % (Auto) % Baso % (Auto) % Neut # (Auto) (1.4-6.5) K/uL Lymph # (Auto) (1.2-3.4) K/uL [place] # (Auto) (0.11-0.59) K/uL Eos # (Auto) (0-0.5) K/uL Baso # (Auto) (0-0.2) K/uL Immature Gran # (Auto) (0.00-0.02) K/uL Tear Drop Cells Ovalocytes Sodium 143 (136-145) mmol/L Potassium 4.2 (3.5-5.1) mmol/L Chloride 112 H (98-107) mmol/L Carbon Dioxide 21 (21-32) mmol/L Anion Gap 10.0 (3-11) BUN 116 H (7-18) mg/dl Creatinine 2.77 H (0.6-1.4) mg/dl Est Cr Clr Drug Dosing 25.2 ml/min Est GFR ( Amer) 25.3 ml/min Est GFR (Non-Af Amer) 21.8 ml/min BUN/Creatinine Ratio 41.8 H (10-20) Glucose 68 L (70-99) mg/dl POC Glucose (70-99) mg/dl Calcium 7.6 L (8.5-10.1) mg/dl Troponin I (0-0.045) ng/ml Blood Type A Positive Blood Type Recheck A Positive Antibody Screen NEGATIVE Crossmatch See Detail 05/05/21 05/04/21 Range/Units 05:05 20:41 WBC 8.06 (4.8-10.8) K/uL RBC 2.49 L (4.7-6.1) M/uL Hgb 7.8 L (14.0-18.0) g/dL Hct 23.1 L (42-52) % MCV 92.8 (80-100) fL MCH 31.3 (25-34) pg MCHC 33.8 (32-36) g/dL RDW Std Deviation 52.6 H (36.4-46.3) fL RDW Coeff of Sony 15.3 H (11.5-14.5) % Plt Count 84 L (130-400) K/uL MPV 10.8 H (7.4-10.4) fL Immature Gran % (Auto) 0.4 % Neut % (Auto) 82.6 % Lymph % (Auto) 5.5 % [place] % (Auto) 11.5 % Eos % (Auto) 0.0 % Baso % (Auto) 0.0 % Neut # (Auto) 6.66 H (1.4-6.5) K/uL Lymph # (Auto) 0.44 L (1.2-3.4) K/uL [place] # (Auto) 0.93 H (0.11-0.59) K/uL Eos # (Auto) 0.00 (0-0.5) K/uL Baso # (Auto) 0.00 (0-0.2) K/uL Immature Gran # (Auto) 0.03 H (0.00-0.02) K/uL Tear Drop Cells 1+ Ovalocytes 1+ Sodium (136-145) mmol/L Potassium (3.5-5.1) mmol/L Chloride (98-107) mmol/L Carbon Dioxide (21-32) mmol/L Anion Gap (3-11) BUN (7-18) mg/dl Creatinine (0.6-1.4) mg/dl Est Cr Clr Drug Dosing ml/min Est GFR ( Amer) ml/min Est GFR (Non-Af Amer) ml/min BUN/Creatinine Ratio (10-20) Glucose (70-99) mg/dl POC Glucose 161 H (70-99) mg/dl Calcium (8.5-10.1) mg/dl Troponin I (0-0.045) ng/ml Blood Type Blood Type Recheck Antibody Screen Crossmatch Diagnostic Findings Impressions Chest X-Ray 05/02/21 02:59 SINGLE VIEW CHEST CLINICAL HISTORY: Dyspnea. FINDINGS: 2 AP, portable, upright chest radiographs are compared to study dated 01/25/2020. The heart is enlarged noting atherosclerotic calcification of the thoracic aorta. There is mild pulmonary vascular congestion. Emphysema and chronic interstitial thickening is similar to previous. Scarring/atelectasis is noted at the lung bases. No superimposed airspace consolidation or large pleural effusion is identified. No pneumothorax is seen. The skeletal structures are osteopenic. The bony thorax is grossly intact. IMPRESSION: 1. Cardiomegaly with mild pulmonary vascular congestion. 2. Emphysema. 3. No airspace consolidation or large pleural effusion is identified. ACT 112: Negative or not required by law. Electronically signed by: Roscoe Kamara M.D. 05/02/2021 8:07 AM Medications Administered Current Inpatient Medications Amlodipine Besylate (Amlodipine Besylate 5 Mg Tab) 2.5 mg PO BID [facility] Stop: 06/04/21 10:14 Last Admin: 05/05/21 11:41 Dose: 2.5 mg Documented by: Aspirin (Aspirin 81 Mg Ectab) 81 mg PO QAM [facility] Stop: 06/01/21 08:59 Last Admin: 05/05/21 07:51 Dose: 81 mg Documented by: Atorvastatin Calcium (Atorvastatin 40 Mg Tab) 80 mg PO QAM [facility] Stop: 06/02/21 08:59 Last Admin: 05/05/21 07:53 Dose: 80 mg Documented by: Calcitriol (Calcitriol 0.25 Mcg Capsule) 0.25 mcg PO MoFr@0900 [facility] Stop: 06/02/21 08:59 Last Admin: 05/03/21 07:59 Dose: 0.25 mcg Documented by: Clopidogrel Bisulfate (Clopidogrel Bisulfate 75 Mg Tab) 75 mg PO QAM [facility] Stop: 06/02/21 08:59 Last Admin: 05/05/21 07:52 Dose: 75 mg Documented by: Dextrose (Dextrose 50% 50 Ml Syringe) 25 - 50 ml IV UD PRN; Protocol PRN Reason: Hypoglycemia Protocol Stop: 06/01/21 07:57 Ferrous Sulfate (Ferrous Sulfate 325 Mg Tab) 325 mg PO DAILY TENA Stop: 06/01/21 08:59 Last Admin: 05/05/21 07:51 Dose: 325 mg Documented by: Glucagon (Glucagon For Inj 1 Mg Vial) 1 mg SQ UD PRN; Protocol PRN Reason: Hypoglycemia Protocol Stop: 06/01/21 07:57 Glucose (Glucose 10 Tabs/Tube) 4 - 8 tabs PO UD PRN; Protocol PRN Reason: Hypoglycemia Protocol Stop: 06/01/21 07:57 Glucose (Glucose 40% Gel 15 Gm Tube) 15 - 30 gm PO UD PRN; Protocol PRN Reason: Hypoglycemia Protocol Stop: 06/01/21 07:57 Sodium Chloride (Nss) 250 mls @ 15 mls/hr IV .[id number] PRN PRN Reason: For Transfusion Stop: 05/05/21 22:32 Insulin Aspart (Insulin Aspart 100 Units/Ml 3 Ml Pen) 0 units SC ACHS TENA; Protocol Stop: 06/01/21 08:34 Last Admin: 05/05/21 12:40 Dose: 4 units Documented by: Insulin Human NPH (Insulin Human Nph) 10 units SC QDD TENA Stop: 06/04/21 16:29 Insulin Human NPH (Insulin Human Nph) 20 units SC QDB TENA Stop: 06/05/21 07:29 Isosorbide Mononitrate (Isosorbide [place] Extended Rel 60 Mg Tabcr) 60 mg PO BID [facility] Stop: 06/04/21 20:59 Miscellaneous (Carbohydrates For Hypoglycemia ) 15 - 30 gm PO UD PRN PRN Reason: Hypoglycemia Protocol Stop: 06/01/21 07:57 Last Admin: 05/04/21 05:57 Dose: 30 gm Documented by: Miscellaneous Information (Pharmacy Glycemic Mgmt Consult) 1 ea N/A UD PRN; Protocol PRN Reason: Consult Stop: 06/01/21 07:57 Morphine Sulfate (Morphine Sulfate 2 Mg/Ml Carp) 1 mg IV Q4 PRN PRN Reason: Pain Stop: 05/16/21 09:50 Nitroglycerin (Nitroglycerin Sl 0.4 Mg/Tab Tab) 0.4 mg SL Q5M PRN PRN Reason: Chest Pain Stop: 06/01/21 17:37 Prednisone (Prednisone 10 Mg Tablet) 10 mg PO DAILY [facility] Stop: 06/03/21 08:59 Last Admin: 05/05/21 07:50 Dose: 10 mg Documented by: Propranolol HCl (Propranolol Hcl 80 Mg Tab) 80 mg PO QAM TENA Stop: 06/01/21 08:59 Last Admin: 05/05/21 07:50 Dose: 80 mg Documented by: Vitamin D (Cholecalciferol 1,000 Units 25 Mcg Tab) 2,000 units PO DAILY TENA Stop: 06/02/21 08:59 Last Admin: 05/05/21 07:52 Dose: 2,000 units Documented by: Resident Activity Tracking Resident Involvement: Resident Care Provided Care Provided: Adult Hospital Medicine
--- NOTE | 2021-05-05 07:31 | Electrocardiogram Report ---
Test Reason : Blood Pressure : / mmHG Vent. Rate : 075 BPM Atrial Rate : 075 BPM P-R Int : 198 ms QRS Dur : 100 ms QT Int : 388 ms P-R-T Axes : 044 044 208 degrees QTc Int : 433 ms Normal sinus rhythm Abnormal ECG When compared with ECG of 02-MAY-2021 02:22, ST now depressed in Anterior leads T wave inversion now evident in Inferior leads T wave inversion more evident in Anterolateral leads Confirmed by Vitaly Donohue ([id number]) on 05/05/2021 7:31:18 AM Referred By: REFERRED SELF Confirmed By:Luis Donohue
[2021-05-05] MEDS: INSULIN ASPART 100 UNITS/ML 3 ML PEN SC SCH ×5 (07:48→20:52)
[2021-05-05] MEDS: predniSONE 10 MG TABLET PO SCH (07:50)
[2021-05-05] MEDS: PROPRANOLOL HCL 80 MG TAB PO SCH (07:50)
[2021-05-05] MEDS: ISOSORBIDE MONO EXTENDED REL 30 MG TABCR PO SCH (07:51)
[2021-05-05] MEDS: ASPIRIN 81 MG ECTAB PO SCH (07:51)
[2021-05-05] MEDS: FERROUS SULFATE 325 MG TAB PO SCH (07:51)
[2021-05-05] MEDS: CHOLECALCIFEROL 1,000 UNITS 25 MCG TAB PO SCH (07:52)
[2021-05-05] MEDS: CLOPIDOGREL BISULFATE 75 MG TAB PO SCH (07:52)
[2021-05-05] MEDS: ATORVASTATIN 40 MG TAB PO SCH (07:53)
[2021-05-05] MEDS ORDERED: INSULIN HUMAN NPH SC ONE (08:30)
[2021-05-05] MEDS ORDERED: LACTATED RINGER'S 500 ML IV SCH (08:30)
--- NOTE | 2021-05-05 09:49 | Pharmacy Report ---
Pharmacy Glycemic Short Note 2 - Date of Service May 05, 2021 - Glycemic Short BSG Results (Last 24 hours): 05/04/21 05/04/21 05/04/21 11:14 16:03 20:41 Glucose POC Glucose 188 H 125 H 161 H 05/05/21 05/05/21 05:05 07:29 Glucose 68 L POC Glucose 76 OUTPATIENT ANTIDIABETIC REGIMEN: * Novolin-N 28 units with breakfast, 17 units with dinner, up to 60 units/day * Novolog 18 units with breakfast, 26 units with dinner * A1c 6.8% 03/19/21 ASSESSMENT: 05/05/21 * Patient's BSGs yesterday were [phone] mg/dL. Patient received 67 units of insulin with 47 units of basal and 20 units of bolus. Was basal heavy due to increase in NPH with steroids. * Solu-Medrol 100 mg IV q8 is now cut (last dose yesterday morning) and patient on home dose of 10 mg prednisone daily. * Patient's Fasting today was 76 mg/dL. * Decrease total daily dose of NPH by 30% to 30 units. Give 66% in morning and 33% in evening. * Loosened Novolog at dinner yesterday. Continue for now. CR may need to be tightened. 05/04/21 * Patient's BSGs yesterday were [phone] mg/dL and overnight were 173-82 mg/dL. Patient did have a low this morning at 55 * Reduced AM NPH to 30 units which is closer to home dose. Solu-Medrol d/c'ed and home dose of prednisone 10 mg daily started. * Reduce PM NPH to home dose of 17 units. Loosen CF/CR since IV steroids cut. 05/03: * Patient unfortunately did have a low with dinner yesterday, likely due to NPO status. As a result received on 15 units at night rather than 40 units. Will resume planned regimen of 40 units BIDM with a slightly looser Novolog scale. Patient is eating, however intake is on the lower side. Patient remains on IV SM 100 q8 05/02 * 71 year old male admitted for elevated troponin, SOB, started on high dose steroids, IV Methylprednisolone 100mg Q8H * Type 2 diabetic, well controlled on basal bolus insulin at home, will use same insulins as at home and stress doses for steroids * Titrate doses to goal BSG and back down as steroids taper PLAN FOR INPATIENT GLYCEMIC CONTROL: * Basal insulin * NPH 20 units SQ qAM plus 10 units qPM * Bolus insulin * NovoLog per scale ACHS or Q6hrs while NPO and overnight checks * Goal Range: Low 110 mg/dL - High 140 mg/dL * Correction Factor: 15 mg/dL/unit * Nutritional / Prandial insulin per carb ratio of 1 unit per 5 grams CHO consumed PLAN FOR DISCHARGE: * HbA1C below goal range (currently is 6.8% and goal would be < 7%). * Okay to continue home regimen as long as patient does not have any hypoglycemi a.
--- NOTE | 2021-05-05 10:07 | Cardiology Progress Note ---
Date of Service May 05, 2021 Assessment & Plan (1) NSTEMI (non-ST elevated myocardial infarction): (2) Coronary artery disease: (3) Dyslipidemia: (4) CKD (chronic kidney disease): Plan: ASSESSMENT/PLAN: 1. NSTEMI: Severe multivessel CAD including left main disease. Unclear if there are any options for intervention at this point. He continues to have some symptoms reminiscent of his presenting angina albeit very minor and mild. I will intensify his antianginal regimen. We will continue dual anti-platelet therapy. Heparin discontinued. 2. CAD: Multivessel CAD as above. Continue medical therapy. Depending on the patient's clinical course we may need to make additional contacts at a tertiary care center to see if there are any options for revascularization. 3. Dyslipidemia: Continue high-intensity statin therapy. 4. CKD: Renal function declined slightly in the past couple of days. Perhaps some gentle hydration would improve his kidney function. Unfortunately, this also puts him at high risk for complication with any percutaneous intervention. 5. Anemia: Hemoglobin down to 7.8 today. Given his recent myocardial infarction I think he is a good candidate for a blood transfusion. I mentioned this to the patient today. He was somewhat surprised that he could require a blood transfusion as he felt this was only for emergencies. However, given his severe coronary disease and anginal symptoms I think this would be a recom mended intervention. Admission and Anticipated Discharge Date Admission Date: May 02, 2021 Subjective This morning the patient did complain of some chest pressure in the left precordium with movements in bed. This symptom appeared to be very mild but was reminiscent of his symptoms leading up to admission. According to the nurse that was very difficult to get him up to a chair yesterday. He required 2 people to get him out of bed in 3 people to get him back in bed. The patient states that his legs are very weak in his arms are also weak. He is unable to transfer currently. He did not report breathing trouble. Review of Systems Review of Systems: Per HPI Physical Exam Physical Exam: Gen.: No acute distress. Alert and oriented. HEENT: Anicteric sclera. Neck: No JVD. Cardiac: Regular. Normal S1-S2. I patient crescendo systolic murmur. Pulmonary: Clear to auscultation bilaterally without wheezes, rales, or rhonchi. Chest: Pain not reproducible with palpation. Extremities: 2+ radial pulses bilaterally. Right radial cath site is clean, dry, and intact without erythema or discharge. 2+ posterior tibialis pulses bilaterally. Trace bilateral lower extremity edema. No cyanosis. Psychiatric: Affect appears appropriate. Skin: Multiple ecchymoses. Results & Data ([facility]) Vital Signs (Past 12 Hours) Vital Signs Temp Pulse Pulse Pulse Resp BP Pulse Ox 05/05/21 08:58 53 L 05/05/21 07:47 36.6 C 65 18 161/78 H 98 05/05/21 02:40 36.6 C 72 20 154/83 H 100 05/04/21 23:37 36.7 C 70 16 150/74 H 99 05/04/21 23:29 67 Laboratory Results Abnormal Lab Results 05/04/21 05/04/21 05/04/21 11:14 14:57 16:03 WBC RBC Hgb Hct MCV MCH MCHC RDW Std Deviation RDW Coeff of Sony Plt Count MPV Immature Gran % (Auto) Neut % (Auto) Lymph % (Auto) [place] % (Auto) Eos % (Auto) Baso % (Auto) Neut # (Auto) Lymph # (Auto) [place] # (Auto) Eos # (Auto) Baso # (Auto) Immature Gran # (Auto) Tear Drop Cells Ovalocytes APTT 51.0 H* PTT Ratio 1.9 Sodium Potassium Chloride Carbon Dioxide Anion Gap BUN Creatinine Est Cr Clr Drug Dosing Est GFR ( Amer) Est GFR (Non-Af Amer) BUN/Creatinine Ratio Glucose POC Glucose 188 H 125 H Calcium Troponin I Blood Type Antibody Screen 05/04/21 05/05/21 05/05/21 20:41 05:05 05:05 WBC 8.06 RBC 2.49 L Hgb 7.8 L Hct 23.1 L MCV 92.8 MCH 31.3 MCHC 33.8 RDW Std Deviation 52.6 H RDW Coeff of Sony 15.3 H Plt Count 84 L MPV 10.8 H Immature Gran % (Auto) 0.4 Neut % (Auto) 82.6 Lymph % (Auto) 5.5 [place] % (Auto) 11.5 Eos % (Auto) 0.0 Baso % (Auto) 0.0 Neut # (Auto) 6.66 H Lymph # (Auto) 0.44 L [place] # (Auto) 0.93 H Eos # (Auto) 0.00 Baso # (Auto) 0.00 Immature Gran # (Auto) 0.03 H Tear Drop Cells 1+ Ovalocytes 1+ APTT PTT Ratio Sodium 143 Potassium 4.2 Chloride 112 H Carbon Dioxide 21 Anion Gap 10.0 BUN 116 H Creatinine 2.77 H Est Cr Clr Drug Dosing 25.2 Est GFR ( Amer) 25.3 Est GFR (Non-Af Amer) 21.8 BUN/Creatinine Ratio 41.8 H Glucose 68 L POC Glucose 161 H Calcium 7.6 L Troponin I Blood Type Antibody Screen 05/05/21 05/05/21 05/05/21 07:20 07:29 09:04 WBC RBC Hgb Hct MCV MCH MCHC RDW Std Deviation RDW Coeff of Sony Plt Count MPV Immature Gran % (Auto) Neut % (Auto) Lymph % (Auto) [place] % (Auto) Eos % (Auto) Baso % (Auto) Neut # (Auto) Lymph # (Auto) [place] # (Auto) Eos # (Auto) Baso # (Auto) Immature Gran # (Auto) Tear Drop Cells Ovalocytes APTT PTT Ratio Sodium Potassium Chloride Carbon Dioxide Anion Gap BUN Creatinine Est Cr Clr Drug Dosing Est GFR ( Amer) Est GFR (Non-Af Amer) BUN/Creatinine Ratio Glucose POC Glucose 76 Calcium Troponin I 2.900 H* Blood Type A Positive Antibody Screen NEGATIVE PG Care Time/CCT Total # of Minutes Spent Total Time Spent with Patient: Total time spent is greater than 50% in coordi nation of care (as documented) at patient's floor/unit and/or counseling patient: Coding Level of Care Code 57351 Subseq Hosp Care Lvl 2 Diagnoses NSTEMI (non-ST elevated myocardial infarction) I21.4 Coronary artery disease I25.10 Dyslipidemia E78.5 CKD (chronic kidney disease) N18.9 Chronic kidney disease stage: unspecified stage (1) CKD (chronic kidney disease) Chronic kidney disease stage: unspecified stage Qualified Code(s): N18.9 - Chronic kidney disease, unspecified
[2021-05-05] MEDS: amLODIPine BESYLATE 5 MG TAB PO SCH ×2 (11:41→20:38)
[2021-05-05] MEDS ORDERED: SODIUM CHLORIDE 0.9% 250 ML IV PRN (12:31)
[2021-05-05] MEDS ORDERED: INSULIN HUMAN NPH SC SCH (16:30)
[2021-05-05] MEDS: POLYETHYLENE (MIRALAX) 17 GM PACK PO STA ×2 (16:30→17:35)
[2021-05-05] MEDS: CARBOHYDRATES FOR HYPOGLYCEMIA PO PRN (16:35)
--- NOTE | 2021-05-05 18:09 | Billing Data ---
Date of Service May 05, 2021 Coding Level of Care Code 04376 Subseq Hosp Care Lvl 3
[2021-05-05] MEDS: ISOSORBIDE MONO EXTENDED REL 60 MG TABCR PO SCH (20:39)
[2021-05-06 06:16] LABS: Hematocrit (blood only) 29.4 % (42-52); Mean Corpuscular Hemoglobin 30.7 pg (25-34); Mean Corpuscular Volume 90.2 fL (80-100); RDW Coefficient of Variation 16.6 % (11.5-14.5); RDW Standard Deviation 54.9 fL (36.4-46.3); Red Blood Count 3.26 M/uL (4.7-6.1); White Blood Count 7.66 K/uL (4.8-10.8)
[2021-05-06 06:26] LABS: INR 1.5 (0.9-1.1); Prothrombin Time 14.6 Seconds (9.0-12.0)
[2021-05-06 06:50] LABS: Mean Platelet Volume 10.5 fL (7.4-10.4); Platelet Count 65 K/uL (130-400)
[2021-05-06 07:02] LABS: BUN Creatinine Ratio 44.5 (10-20); Calcium 7.6 mg/dl (8.5-10.1); Est GFR (African American) 27.6 ml/min; Est GFR (Non-African American) 23.8 ml/min; Potassium 3.9 mmol/L (3.5-5.1)
[2021-05-06] MEDS ORDERED: INSULIN HUMAN NPH SC SCH (07:30)
[2021-05-06] MEDS: INSULIN ASPART 100 UNITS/ML 3 ML PEN SC SCH ×4 (08:15→20:06)
[2021-05-06] MEDS: predniSONE 10 MG TABLET PO SCH (08:17)
[2021-05-06] MEDS: PROPRANOLOL HCL 80 MG TAB PO SCH (08:17)
[2021-05-06] MEDS: ISOSORBIDE MONO EXTENDED REL 60 MG TABCR PO SCH ×2 (08:17→20:08)
[2021-05-06] MEDS: CALCITRIOL 0.25 MCG CAPSULE PO SCH (08:18)
[2021-05-06] MEDS: ASPIRIN 81 MG ECTAB PO SCH (08:18)
[2021-05-06] MEDS: FERROUS SULFATE 325 MG TAB PO SCH (08:18)
[2021-05-06] MEDS: CHOLECALCIFEROL 1,000 UNITS 25 MCG TAB PO SCH (08:18)
[2021-05-06] MEDS: ATORVASTATIN 40 MG TAB PO SCH (08:18)
[2021-05-06] MEDS: amLODIPine BESYLATE 5 MG TAB PO SCH ×2 (08:18→20:07)
[2021-05-06] MEDS: CLOPIDOGREL BISULFATE 75 MG TAB PO SCH (08:18)
--- NOTE | 2021-05-06 08:57 | Hospitalist Progress Note ---
Date of Service May 06, 2021 Assessment & Plan (1) NSTEMI (non-ST elevated myocardial infarction): Plan: 1.) NSTEMI with elevated Troponins -[facility] contacted regarding revascularization options. CABG not likely; will continue to manage medically * Norvasc 2.5 mg bid * Plavix 75 mg qAM * Propranolol 80 mg qAM * Imdur 60 mg bid * Lipitor 20 mg qAM 2.) Anemia -improving -received 2 units of blood yesterday; morning Hgb 10, up from 7.8 yesterday -Feosol 325 mg PO q daily -continue to trend CBC 3.) CAD Heavily calcified 80% left main extending into ostial LAD/circumflex 60% mid LAD, severe diffuse distal LAD disease up to 95% 60% proximal circumflex 50 to 60% proximal RCA, 70% calcified mid RCA with acute thrombus -see #1 4.) Physical Deconditioning -spoke w/ social work today; awaiting placement with inpatient rehab facility; already discussed w/ pt who is amenable -will f/u tomorrow 5.) Autoimmune hepatitis -continue steroid management 6.) CKDIII -hold SANDY inhibitor 7.) DM2 -continue management with Novolog, Novolin 8.) Constipation -resolved: per nurse, had large BM overnight -Miralax dc'd 05/05 (2) Coronary artery disease: (3) Autoimmune hepatitis: (4) Chronic kidney disease, stage 3: (5) IDDM (insulin dependent diabetes mellitus): (6) Physical deconditioning: Admission and Anticipated Discharge Date Admission Date: May 02, 2021 Supervising Physician Co-Signing Physician Notes I also saw the patient for santillan portions of the history and physical examination. I agree with impression plan as noted in the resident documentation. Patient has no new complaints today. He does complain of generalized weakness and is willing to go to inpatient rehabilitation with eventual goal of returning home. Exam 168/80, 64, 18, 36.8, 97% on room air Alert and oriented. No acute distress. HEENT unremarkable. Mucous membranes are pink and moist. Heart regular, 2/6 systolic ejection murmur heard best at the right sternal border. Lungs are clear, respirations are nonlabored. Data Hemoglobin 10, platelet count 65,000. This is down slightly from 84,000 yesterday. BUN 115, creatinine 2.58 Assessment and Plan NSTEMI, acute HFpEF now resolved Data severe multivessel, left main disease, thought to be nonoperable, medical management Continue nitrates, beta-trae, aspirin/Plavix, statin. SANDY inhibitor contraindicated due to CKD. Anemia Status post transfusion 2 units packed red blood cells yesterday Iron daily Monitor CBC Autoimmune hepatitis Thrombocytopenia, chronic and mild auto anticoagulation as a result Additional diagnoses per resident documentation Subjective 71yo Male w/PMH autoimmune hepatitis, liver cirrhosis, CKD III, DM2, CHF here for chest pain secondary to NSTEMI. Today, he was seen laying down at bedside. He denies SOB or chest pain at rest or with exertion. He does report general weakness when attempting to get out of bed (no weakness at rest) and a sinus headache. Otherwise he has no complaints. Review of Systems Review of Systems: All systems reviewed & are unremarkable except as noted in HPI & below Physical Exam Constitutional: WD/WN, vitals as above + physical limitations and comfortable Eyes: PERRL, conjunctivae normal, anicteric sclerae Respiratory: normal respiratory effort, lungs clear to auscultation Cardiovascular: Heart Sounds: + murmur (systolic, loudest on the right at 2nd ICS) Gastrointestinal (Abdomen): Inspection/Auscultation: + abdomen distended and normal bowel sounds Skin: + rash, + wound and + ecchymosis Neurologic: moves all extremities and awake Results & Data Results & Data ([facility]) Vital Signs (Past 12 Hours) Vital Signs Temp Pulse Pulse Pulse Resp BP BP 05/06/21 08:04 36.8 C 70 18 174/84 H 05/06/21 07:13 66 05/06/21 02:47 36.8 C 64 16 169/79 H 05/05/21 23:34 67 05/05/21 23:23 36.7 C 69 24 05/05/21 21:40 36.8 C 72 16 173/82 H 05/05/21 21:11 36.8 C 70 16 175/82 H BP Pulse Ox 05/06/21 08:04 97 05/06/21 07:13 05/06/21 02:47 96 05/05/21 23:34 05/05/21 23:23 164/77 H 97 05/05/21 21:40 71 L 05/05/21 21:11 95 Resident Activity Tracking Resident Involvement: Resident Care Provided Care Provided: Adult [facility] Medicine
--- NOTE | 2021-05-06 10:14 | Pharmacy Report ---
Pharmacy Glycemic Short Note 2 - Date of Service May 06, 2021 - Glycemic Short BSG Results (Last 24 hours): 05/05/21 05/05/21 05/05/21 11:14 16:17 16:17 Glucose POC Glucose 100 H 62 L* 58 L* 05/05/21 05/06/21 05/06/21 20:14 05:38 07:09 Glucose 67 L POC Glucose 168 H 79 OUTPATIENT ANTIDIABETIC REGIMEN: * Novolin-N 28 units with breakfast, 17 units with dinner, up to 60 units/day * Novolog 18 units with breakfast, 26 units with dinner * A1c 6.8% 03/19/21 ASSESSMENT: 05/06/21: * Carlos A received 26 units of insulin yesterday (20 units of basal and 6 units of bolus) * Majority of BSGs were below goal despite recent decrease in both basal and bolus insulin * Fasting BSG of 79 mg/dL is below goal. Will further decrease NPH today. RN requested NPH be held until lunch. * Post prandial BSGs are also on the lower end of goal. Correction factor and carb ratio were loosened last evening. Will continue this for now. 05/05/21 * Patient's BSGs yesterday were [phone] mg/dL. Patient received 67 units of insulin with 47 units of basal and 20 units of bolus. Was basal heavy due to increase in NPH with steroids. * Solu-Medrol 100 mg IV q8 is now cut (last dose yesterday morning) and patient on home dose of 10 mg prednisone daily. * Patient's Fasting today was 76 mg/dL. * Decrease total daily dose of NPH by 30% to 30 units. Give 66% in morning and 33% in evening. * Loosened Novolog at dinner yesterday. Continue for now. CR may need to be tightened. 05/04/21 * Patient's BSGs yesterday were [phone] mg/dL and overnight were 173-82 mg/dL. Patient did have a low this morning at 55 * Reduced AM NPH to 30 units which is closer to home dose. Solu-Medrol d/c'ed and home dose of prednisone 10 mg daily started. * Reduce PM NPH to home dose of 17 units. Loosen CF/CR since IV steroids cut. 05/03: * Patient unfortunately did have a low with dinner yesterday, likely due to NPO status. As a result received on 15 units at night rather than 40 units. Will resume planned regimen of 40 units BIDM with a slightly looser Novolog scale. Patient is eating, however intake is on the lower side. Patient remains on IV SM 100 q8 PLAN FOR INPATIENT GLYCEMIC CONTROL: * Basal insulin * NPH 10 units SQ with lunch * NPH 0-7 units SQ @ 1830 (7 units for BSG > 120 mg/dL) * Bolus insulin * NovoLog per scale ACHS or Q6hrs while NPO and overnight checks * Goal Range: Low 110 mg/dL - High 140 mg/dL * Correction Factor: 20 mg/dL/unit * Nutritional / Prandial insulin per carb ratio of 1 unit per 8 grams CHO consumed PLAN FOR DISCHARGE: * HbA1C below goal range (currently is 6.8% and goal would be < 7%). * Okay to continue home regimen as long as patient does not have any hypoglycemia.
[2021-05-06] MEDS ORDERED: INSULIN HUMAN NPH SC ONE ×2 (10:15→12:00)
--- NOTE | 2021-05-06 11:34 | Cardiology Progress Note ---
Date of Service May 06, 2021 Assessment & Plan (1) NSTEMI (non-ST elevated myocardial infarction): Plan: Severe multivessel/left main disease, apparently impending discussion with [facility] regarding potential revascularization options (if any), medical management in the interim. Fortunately, no angina overnight or today. Would continue to optimize hemodynamics, given persistent hypertension could increase amlodipine from 2.5 mg twice daily to 5 mg twice daily (but monitor for worsening lower extremity edema). Continue isosorbide mononitrate 60 mg daily. Continue propranolol at current dose, heart rate well controlled. Continue dual antiplatelet therapy. Off heparin but appears mildly auto anticoagulated (INR 1.5 today). (2) Coronary artery disease: Plan: As above. (3) CKD (chronic kidney disease): Plan: Renal function impaired but stable. (4) Anemia: Plan: Hemoglobin improved overnight. Admission and Anticipated Discharge Date Admission Date: May 02, 2021 Subjective Patient notes he slept poorly due to a headache and positional left shoulder discomfort, but he denies any recurrence of chest pain. He feels very weak and has a great deal of difficulty getting out of bed, it took multiple people to get him from bed to chair yesterday and he has been bedridden so far today. He denies any dyspnea, palpitations, lightheadedness, or any other symptoms currently. Just feels weak. Telemetry overnight showed sinus rhythm in the 60-70 bpm range. No dysrhythmias. Physical Exam Physical Exam: Patient lying flat, appears comfortable. Mildly hypertensive. Pulse 70 bpm and regular. Skin: Extensive ecchymoses both arms, no generalized lesions. HEENT: unremarkable. Neck: no JVD or carotid bruits. Lungs: clear. Cardiac: regular rhythm, 2/6 systolic ejection murmur right upper sternal border, intact aortic closure sound. No diastolic murmur. Abdomen: benign. Extremities: Trace pretibial edema, pulses intact. Neurologic: normal affect and conversation, nonfocal. Results & Data ([facility]) Laboratory Results Troponin yesterday had dropped to 2.9 (from peak of 15,1). Hemoglobin up to 10 (from 7.8 yesterday) INR today 1.5. Normal electrolytes, BUN 115, creatinine 2.58. PG Care Time/CCT Total # of Minutes Spent Total Time Spent with Patient: Total time spent is greater than 50% in coordination of care (as documented) at patient's floor/unit and/or counseling patient: Coding Level of Care Code 98187 Subseq Hosp Care Lvl 3 Diagnoses NSTEMI (non-ST elevated myocardial infarction) I21.4 Coronary artery disease I25.10 CKD (chronic kidney disease) N18.9 Chronic kidney disease stage: unspecified stage Anemia D64.9 Anemia type: unspecified type (1) CKD (chronic kidney disease) Chronic kidney disease stage: unspecified stage Qualified Code(s): N18.9 - Chronic kidney disease, unspecified (2) Anemia Anemia type: unspecified type Qualified Code(s): D64.9 - Anemia, unspecified
[2021-05-06] MEDS: INSULIN HUMAN NPH SC SCH (17:05)
[2021-05-07] MEDS ORDERED: INSULIN HUMAN NPH SC SCH ×2 (07:30→16:30)
[2021-05-07] MEDS: INSULIN ASPART 100 UNITS/ML 3 ML PEN SC SCH ×4 (08:12→20:08)
[2021-05-07] MEDS: CLOPIDOGREL BISULFATE 75 MG TAB PO SCH (08:19)
[2021-05-07] MEDS: FERROUS SULFATE 325 MG TAB PO SCH (08:19)
[2021-05-07] MEDS: PROPRANOLOL HCL 80 MG TAB PO SCH ×2 (08:19→20:06)
[2021-05-07] MEDS: ISOSORBIDE MONO EXTENDED REL 60 MG TABCR PO SCH ×2 (08:19→20:06)
[2021-05-07] MEDS: predniSONE 10 MG TABLET PO SCH (08:19)
[2021-05-07] MEDS: ATORVASTATIN 40 MG TAB PO SCH (08:20)
[2021-05-07] MEDS: ASPIRIN 81 MG ECTAB PO SCH (08:20)
[2021-05-07] MEDS: CHOLECALCIFEROL 1,000 UNITS 25 MCG TAB PO SCH (08:20)
[2021-05-07] MEDS: amLODIPine BESYLATE 5 MG TAB PO SCH ×2 (08:21→20:05)
[2021-05-07] MEDS: INSULIN HUMAN NPH SC SCH ×2 (08:22→16:52)
--- NOTE | 2021-05-07 12:59 | Cardiology Progress Note ---
Date of Service May 07, 2021 Assessment & Plan (1) NSTEMI (non-ST elevated myocardial infarction): Plan: 2. Multivessel coronary artery diseasesevere left main, LAD, mid RCA 3. Type 2 diabetes 4. Cirrhosis/autoimmune hepatitis on chronic prednisone 5. Stage IV CKD 6. Anemia/thrombocytopenia/coagulopathy Activity has been limited but has not had any recurrent chest pain over the last 24 hours+. Blood pressure still above goal. Renal function stable. Hemoglobin stable posttransfusion No signs of heart failure on exam. Patient unlikely to be a surgical candidate and would be extremely high risk for any complex PCI. Would continue to escalate antianginal therapy. Increase Imdur to 120 mg twice daily Increase propanolol to 80 mg twice daily Continue current amlodipine Continue aspirin, clopidogrel Trial of up out of bed today. Revisit interventional options only if recurrent anginal symptoms. Admission and Anticipated Discharge Date Admission Date: May 02, 2021 Subjective Denies any chest pain for the last 24 hours plus. Reports a "queasy feeling." Has not gotten out of bed in the last 24 hours. He is tearful today discussing his current situation. Telemetry reviewedno events. Review of Systems Review of Systems: All systems reviewed & are unremarkable except as noted in HPI & below Physical Exam Physical Exam: General: Comfortable HEENT: Sclerae anicteric, Mask in place Lungs: Clear to auscultation bilaterally, no crackles or wheezes Cardiac: Regular rate and rhythm, 2 out of 6 systolic ejection murmur right upper sternal border Vascular: 2+ radial, DP pulses. Abdomen: Soft, nontender Extremities: Well perfused, 1+ lower extremity edema with chronic venous stasis changes Neuro: Nonfocal Skin: Diffuse ecchymosis Psych: Alert orient x3, normal affect and mood Results & Data ([facility]) Vital Signs (Past 12 Hours) Vital Signs Temp Pulse Pulse Resp BP BP Pulse Ox 05/07/21 11:24 98.6 F 68 18 168/77 H 97 05/07/21 07:57 98.1 F 68 18 167/77 H 97 05/07/21 04:04 98.4 F 72 20 158/79 H 98 05/07/21 04:03 61 PG Care Time/CCT Total # of Minutes Spent Total Time Spent with Patient: Total time spent is greater than 50% in coordination of care (as documented) at patient's floor/unit and/or counseling patient: Coding Level of Care Code 02738 Subseq Hosp Care Lvl 3 Diagnoses NSTEMI (non-ST elevated myocardial infarction) I21.4
--- NOTE | 2021-05-07 17:30 | Hospitalist Progress Note ---
Date of Service May 07, 2021 Assessment & Plan (1) NSTEMI (non-ST elevated myocardial infarction): Plan: 1.) NSTEMI with elevated Troponins -[facility] [place] contacted again today regarding revascularization options. Status still under discussion at [facility]. Awaiting response about possible transfer for CABG -seen by cardiology today. Adjusted meds * Norvasc 2.5 mg bid * Plavix 75 mg qAM * Propranolol 80 mg qAM increased to 80 mg bid * Imdur 60 mg bid increased to 120 mg bid * Lipitor 20 mg qAM 2.) Anemia -improving -Feosol 325 mg PO q daily -cbc, bmp in am 3.) CAD Heavily calcified 80% left main extending into ostial LAD/circumflex 60% mid LAD, severe diffuse distal LAD disease up to 95% 60% proximal circumflex 50 to 60% proximal RCA, 70% calcified mid RCA with acute thrombus -see #1 4.) Physical Deconditioning -spoke w/ case management today; placement with inpatient rehab facility now pending PT/OT eval 5.) Autoimmune hepatitis -continue steroid management 6.) CKDIII -hold SANDY inhibitor 7.) DM2 -continue management with Novolog, Novolin 8.) Constipation -resolved: per nurse, had large BM overnight -Miralax dc'd 05/05 (2) Coronary artery disease: (3) Autoimmune hepatitis: (4) Chronic kidney disease, stage 3: (5) IDDM (insulin dependent diabetes mellitus): (6) Physical deconditioning: Admission and Anticipated Discharge Date Admission Date: May 02, 2021 Supervising Physician Co-Signing Physician Notes I also saw the patient for santillan portions of the history and physical examination. Patient has no new complaints today. He has not had any chest pain or shortness of breath or though his activity has been fairly limited during his hospitalization. Exam 163/79, 71, 18, 36.7, 97% on room air Alert and oriented. No acute distress. HEENT unremarkable. Mucous membranes are pink and moist. Heart regular, 2/6 systolic ejection murmur heard best at the right sternal border. Lungs are clear, respirations are nonlabored. Data Hemoglobin 10, platelet count 65,000. This is down slightly from 84,000 yesterday. BUN 115, creatinine 2.58 Assessment and Plan I agree with impression plan as noted in the resident documentation. NSTEMI, acute HFpEF now resolved Data severe multivessel, left main disease, thought to be nonoperable, medical management Continue nitrates, beta-trae, aspirin/Plavix, statin. Appreciate cardiology recommendations. SANDY inhibitor contraindicated due to CKD. Anemia Status post transfusion 2 units packed red blood cells 05/05 Monitior CBC Autoimmune hepatitis Thrombocytopenia, chronic and mild auto anticoagulation as a result Additional diagnoses per resident documentation Subjective Mr. Julien today is doing well. He denies any chest pain or SOB, which he last reported 48 hours ago. He mentioned he had a queasy feeling in his gut that soon resolved. Otherwise he has no subjective complaints. He was tearful when discussing his health issues and prognosis. Review of Systems Constitutional: as per Subjective / HPI Physical Exam Constitutional: cooperative and comfortable Respiratory: normal respiratory effort, lungs clear to auscultation Cardiovascular: Rate/Rhythm: regular rate and regular rhythm Heart Sounds: + murmur Skin: + rash and + ecchymosis Results & Data Results & Data ([facility]) Vital Signs (Past 12 Hours) Vital Signs Temp Pulse Pulse Resp BP BP Pulse Ox 05/07/21 16:20 71 05/07/21 15:40 36.7 C 62 18 163/79 H 97 05/07/21 11:24 37.0 C 68 18 168/77 H 97 05/07/21 07:57 36.7 C 68 18 167/77 H 97 Resident Activity Tracking Resident Involvement: Resident Care Provided Care Provided: Adult [facility] Medicine
[2021-05-08 06:39] LABS: Hemoglobin 9.8 g/dL (14.0-18.0); Mean Corpuscular Hemoglobin 30.2 pg (25-34); Mean Corpuscular Hgb Conc 33.8 g/dL (32-36); Mean Corpuscular Volume 89.5 fL (80-100); RDW Coefficient of Variation 15.7 % (11.5-14.5); RDW Standard Deviation 51.5 fL (36.4-46.3); Red Blood Count 3.24 M/uL (4.7-6.1)
[2021-05-08 06:46] LABS: Platelet Count 69 K/uL (130-400)
[2021-05-08 07:06] LABS: BUN Creatinine Ratio 49.8 (10-20); Calcium 7.1 mg/dl (8.5-10.1); Creatinine Clr Calc Pharmacy 30.3 ml/min; Est GFR (African American) 34.8 ml/min; Potassium 3.8 mmol/L (3.5-5.1)
[2021-05-08] MEDS: INSULIN HUMAN NPH SC SCH (08:55)
[2021-05-08] MEDS: INSULIN ASPART 100 UNITS/ML 3 ML PEN SC SCH ×4 (08:56→21:13)
[2021-05-08] MEDS: predniSONE 10 MG TABLET PO SCH (08:59)
[2021-05-08] MEDS: PROPRANOLOL HCL 80 MG TAB PO SCH ×2 (08:59→20:16)
[2021-05-08] MEDS: ISOSORBIDE MONO EXTENDED REL 60 MG TABCR PO SCH ×2 (08:59→20:15)
[2021-05-08] MEDS: CLOPIDOGREL BISULFATE 75 MG TAB PO SCH (09:00)
[2021-05-08] MEDS: CHOLECALCIFEROL 1,000 UNITS 25 MCG TAB PO SCH (09:00)
[2021-05-08] MEDS: FERROUS SULFATE 325 MG TAB PO SCH (09:00)
[2021-05-08] MEDS: ASPIRIN 81 MG ECTAB PO SCH (09:01)
[2021-05-08] MEDS: amLODIPine BESYLATE 5 MG TAB PO SCH ×2 (09:01→21:14)
[2021-05-08] MEDS: ATORVASTATIN 40 MG TAB PO SCH (09:01)
--- NOTE | 2021-05-08 09:43 | Hospitalist Progress Note ---
Date of Service May 08, 2021 Assessment & Plan (1) NSTEMI (non-ST elevated myocardial infarction): Plan: 1.) NSTEMI with elevated Troponins -[facility] [place] (Dr. Lambert) will see him in outpatient setting after his dispo [facility] -Adjusted meds * Norvasc 5 mg bid * Plavix 75 mg qAM * Propranolol 80 mg bid * Imdur 120 mg bid * Lipitor 80 mg qhs * restarted Lisinopril 10 mg qAM today -dispo to [facility] likely tomorrow 2.) Anemia -9.8 today, 10 yesterday -Feosol 325 mg PO q daily -cbc, bmp in am 3.) CAD Heavily calcified 80% left main extending into ostial LAD/circumflex 60% mid LAD, severe diffuse distal LAD disease up to 95% 60% proximal circumflex 50 to 60% proximal RCA, 70% calcified mid RCA with acute thrombus -see #1 4.) Physical Deconditioning -spoke w/ case management today; placement with inpatient rehab facility now pending PT/OT evaluation 5.) Autoimmune hepatitis -continue steroid management 6.) CKDIII -restarted SANDY inhibitor 7.) DM2 -continue management with NovoLog Novolin (2) Coronary artery disease: (3) Autoimmune hepatitis: (4) Chronic kidney disease, stage 3: (5) IDDM (insulin dependent diabetes mellitus): (6) Physical deconditioning: Admission and Anticipated Discharge Date Admission Date: May 02, 2021 Supervising Physician Co-Signing Physician Notes I also saw the patient for santillan portions of the history and physical examination. Patient has no new complaints today. He has not had any chest pain or shortness of breath or though his activity has been fairly limited during his hospitalization. Dr. Melgar was able to reach [facility] interventional cardiology today. They reviewed the films. They will set up an outpatient appointment with the patient for discussion regarding options. Exam 158/74, 63, 18, 36.6, 90% on room air Alert and oriented. No acute distress. HEENT unremarkable. Mucous membranes are pink and moist. Heart regular, 2/6 systolic ejection murmur heard best at the right sternal border. Lungs are clear, respirations are nonlabored. Data Hemoglobin 9.8, platelet count 69,000 Sodium 143, potassium 3.8, creatinine 2.13, BUN 106. Assessment and Plan I agree with impression plan as noted in the resident documentation. NSTEMI, acute HFpEF now resolved Data severe multivessel, left main disease, thought to be nonoperable, medical management. Will have outpatient evaluation at [facility] interventional cardiology. Continue nitrates, beta-trae, aspirin/Plavix, statin. Appreciate cardiology recommendations. His renal function is nearing his baseline; in review of his nephrology notes, he was maintained on lisinopril 10 mg daily with a creatinine around 2.2. Will resume home dose of lisinopril; this will have a nephro protective effect and he also provides some blood pressure benefit. Anemia Status post transfusion 2 units packed red blood cells 05/05 Monitior CBC Autoimmune hepatitis Thrombocytopenia, chronic and mild auto anticoagulation as a result Additional diagnoses per resident documentation Subjective Mr. Julien is resting comfortably in bed this morning. He remains without chest pain/pressure, SOB, nausea, headache or chills. He further denies any abdominal pain. Expressed desire to regain strength to ambulate on his own. Review of Systems Constitutional: as per Subjective / HPI Physical Exam Constitutional: WD/WN, vitals as above Respiratory: Auscultation: + crackles (mild; heard in lower lung agudelo bilaterally) Cardiovascular: Heart Sounds: + murmur (systolic; loudest at RUSB) Extremities: no calf tenderness and no pedal edema Results & Data Results & Data ([facility]) Vital Signs (Past 12 Hours) Vital Signs Temp Pulse Pulse Pulse Resp BP BP 05/08/21 07:36 36.5 C 72 18 174/82 H 05/08/21 03:01 36.7 C 61 16 154/75 H 05/08/21 02:35 59 L 05/07/21 22:42 36.7 C 61 18 155/72 H Pulse Ox 05/08/21 07:36 98 05/08/21 03:01 97 05/08/21 02:35 05/07/21 22:42 97 Resident Activity Tracking Resident Involvement: Resident Care Provided Care Provided: Adult Hospital Medicine
--- NOTE | 2021-05-08 12:22 | Cardiology Progress Note ---
Date of Service May 08, 2021 Assessment & Plan (1) NSTEMI (non-ST elevated myocardial infarction): Plan: 2. Multivessel coronary artery diseasesevere left main, LAD, mid RCA 3. Type 2 diabetes 4. Cirrhosis/autoimmune hepatitis on chronic prednisone 5. Stage IV CKD 6. Anemia/thrombocytopenia/coagulopathy Activity still limited but no recurrent chest pain Blood pressure still above goal. Renal function stable. Hemoglobin stable posttransfusion No signs of heart failure on exam. Patient unlikely to be a surgical candidate and would be extremely high risk for any complex PCI. Have asked [facility] interventional cardiology to comment if were to develop refractory symptoms in the future. For now continue antianginal therapy/blood pressure control. Renal function stable and would add back home lisinopril 10 mg daily Continue Imdur to 120 mg twice daily Continue propanolol to 80 mg twice daily Continue current amlodipine 5 mg twice daily Continue aspirin, clopidogrel Up out of bed today. If remains chest pain-free okay with discharge to home/rehab when other medical issues stable. Admission and Anticipated Discharge Date Admission Date: May 02, 2021 Subjective No recurrent chest pain yesterday. Activity still limited, only up to the side of the bed. No other new issues. Telemetry reviewedno events. Review of Systems Review of Systems: All systems reviewed & are unremarkable except as noted in HPI & below Physical Exam Physical Exam: General: Comfortable HEENT: Sclerae anicteric, Mask in place Lungs: Clear to auscultation bilaterally, no crackles or wheezes Cardiac: Regular rate and rhythm, 2 out of 6 systolic ejection murmur right upper sternal border Vascular: 2+ radial, DP pulses. Abdomen: Soft, nontender Extremities: Well perfused, 1+ lower extremity edema with chronic venous stasis changes Neuro: Nonfocal Skin: Diffuse ecchymosis Psych: Alert orient x3, normal affect and mood Results & Data ([facility]) Vital Signs (Past 12 Hours) Vital Signs Temp Pulse Pulse Pulse Pulse Resp BP 05/08/21 12:03 97.7 F 55 L 18 05/08/21 11:44 60 160/75 H 05/08/21 08:00 60 05/08/21 07:36 97.7 F 72 18 05/08/21 03:01 98.1 F 61 16 154/75 H 05/08/21 02:35 59 L BP Pulse Ox 05/08/21 12:03 163/79 H 99 05/08/21 11:44 05/08/21 08:00 05/08/21 07:36 174/82 H 98 05/08/21 03:01 97 05/08/21 02:35 PG Care Time/CCT Total # of Minutes Spent Total Time Spent with Patient: Total time spent is greater than 50% in coordination of care (as documented) at patient's floor/unit and/or counseling patient: Coding Level of Care Code 40279 Subseq Hosp Care Lvl 3 Diagnoses NSTEMI (non-ST elevated myocardial infarction) I21.4
[2021-05-08] MEDS ORDERED: INSULIN HUMAN NPH SC SCH (16:30)
[2021-05-09] MEDS: lisinopril 10 MG TAB PO SCH (08:34)
[2021-05-09] MEDS: amLODIPine BESYLATE 5 MG TAB PO SCH ×2 (08:34→21:35)
[2021-05-09] MEDS: INSULIN ASPART 100 UNITS/ML 3 ML PEN SC SCH ×4 (08:38→21:36)
[2021-05-09] MEDS: INSULIN HUMAN NPH SC SCH (08:39)
--- NOTE | 2021-05-09 09:36 | Pharmacy Report ---
Pharmacy Glycemic Short Note 2 - Date of Service May 09, 2021 - Glycemic Short BSG Results (Last 24 hours): 05/08/21 05/08/21 05/08/21 11:31 17:08 20:34 POC Glucose 165 H 193 H 180 H 05/09/21 08:11 POC Glucose 87 OUTPATIENT ANTIDIABETIC REGIMEN: * Novolin-N 28 units with breakfast, 17 units with dinner, up to 60 units/day * Novolog 18 units with breakfast, 26 units with dinner * A1c 6.8% 03/19/21 ASSESSMENT: 05/09 * Pt has received 34 units of insulin over the past 24hrs * 20 units of basal with NPH * 14 units of bolus with NovoLog * BSGs [phone] mg/dl * AM fasting BSG is below goal range for inpatient targets - will decrease PM dose of NPH * Post-prandial BSGs elevated- will tighten CHO ratio 05/06/21: * Carlos A received 26 units of insulin yesterday (20 units of basal and 6 units of bolus) * Majority of BSGs were below goal despite recent decrease in both basal and bolus insulin * Fasting BSG of 79 mg/dL is below goal. Will further decrease NPH today. RN requested NPH be held until lunch. * Post prandial BSGs are also on the lower end of goal. Correction factor and carb ratio were loosened last evening. Will continue this for now. 05/05/21 * Patient's BSGs yesterday were 03-309-391-161 mg/dL. Patient received 67 units of insulin with 47 units of basal and 20 units of bolus. Was basal heavy due to increase in NPH with steroids. * Solu-Medrol 100 mg IV q8 is now cut (last dose yesterday morning) and patient on home dose of 10 mg prednisone daily. * Patient's Fasting today was 76 mg/dL. * Decrease total daily dose of NPH by 30% to 30 units. Give 66% in morning and 33% in evening. * Loosened Novolog at dinner yesterday. Continue for now. CR may need to be tightened. 05/04/21 * Patient's BSGs yesterday were [phone] mg/dL and overnight were 173-82 mg/dL. Patient did have a low this morning at 55 * Reduced AM NPH to 30 units which is closer to home dose. Solu-Medrol d/c'ed and home dose of prednisone 10 mg daily started. * Reduce PM NPH to home dose of 17 units. Loosen CF/CR since IV steroids cut. 05/03: * Patient unfortunately did have a low with dinner yesterday, likely due to NPO status. As a result received on 15 units at night rather than 40 units. Will resume planned regimen of 40 units BIDM with a slightly looser Novolog scale. Patient is eating, however intake is on the lower side. Patient remains on IV SM 100 q8 PLAN FOR INPATIENT GLYCEMIC CONTROL: * Basal insulin * NPH 10 units SQ with breakfast and 7 units with dinner * Bolus insulin * NovoLog per scale ACHS or Q6hrs while NPO and overnight checks * Goal Range: Low 90 mg/dL - High 140 mg/dL * Correction Factor: 20 mg/dL/unit * Nutritional / Prandial insulin per carb ratio of 1 unit per 7 grams CHO consumed PLAN FOR DISCHARGE: * HbA1C below goal range (currently is 6.8% and goal would be < 7%). * Okay to continue home regimen as long as patient does not have any hypoglycemia.
[2021-05-09] MEDS: CHOLECALCIFEROL 1,000 UNITS 25 MCG TAB PO SCH (09:55)
[2021-05-09] MEDS: ASPIRIN 81 MG ECTAB PO SCH (09:55)
[2021-05-09] MEDS: ATORVASTATIN 40 MG TAB PO SCH (09:55)
[2021-05-09] MEDS: CLOPIDOGREL BISULFATE 75 MG TAB PO SCH (09:56)
[2021-05-09] MEDS: FERROUS SULFATE 325 MG TAB PO SCH (09:56)
[2021-05-09] MEDS: predniSONE 10 MG TABLET PO SCH (09:56)
[2021-05-09] MEDS: ISOSORBIDE MONO EXTENDED REL 60 MG TABCR PO SCH ×2 (09:56→21:35)
[2021-05-09] MEDS: PROPRANOLOL HCL 80 MG TAB PO SCH ×2 (09:56→21:36)
--- NOTE | 2021-05-09 13:31 | Hospitalist Progress Note ---
Date of Service May 09, 2021 Assessment & Plan (1) NSTEMI (non-ST elevated myocardial infarction): Plan: 1.) NSTEMI with elevated Troponins [place] [place] will see him in outpatient setting after his dispo to [facility]. -Adjusted meds * Norvasc 5 mg bid * Plavix 75 mg qAM * Propranolol 80 mg bid * Imdur 120 mg bid * Lipitor 80 mg qAM * Lisinopril 10 mg qAM today -awaiting dispo to [facility] 2.) Anemia -Feosol 325 mg PO q daily 3.) CAD Heavily calcified 80% left main extending into ostial LAD/circumflex 60% mid LAD, severe diffuse distal LAD disease up to 95% 60% proximal circumflex 50 to 60% proximal RCA, 70% calcified mid RCA with acute thrombus -see #1 4.) Physical Deconditioning -spoke w/ case management today; placement with inpatient rehab facility now pending PT/OT evaluation 5.) Autoimmune hepatitis -continue steroid management 6.) CKDIII -restarted SANDY inhibitor 7.) DM2 -continue management with NovoLog [place] (2) Coronary artery disease: (3) Autoimmune hepatitis: (4) Chronic kidney disease, stage 3: (5) IDDM (insulin dependent diabetes mellitus): (6) Physical deconditioning: Admission and Anticipated Discharge Date Admission Date: May 02, 2021 Supervising Physician Co-Signing Physician Notes I also saw the patient for santillan portions of the history and physical examination. Patient has no new complaints today. He does note intermittent loose stools, although this has been a chronic problem for "years." He has been moved off telemetry. He has been talking with his roommate for most of the day. Exam 115/60, 57, 18, 36.7, 94% on room air Alert and oriented. No acute distress. HEENT unremarkable. Mucous membranes are pink and moist. Heart regular, 2/6 systolic ejection murmur heard best at the right sternal border. Lungs are clear, respirations are nonlabored. Data No new data Assessment and Plan I agree with impression plan as noted in the resident documentation. NSTEMI, acute HFpEF now resolved Severe multivessel, left main disease, thought to be nonoperable, medical management. Will have outpatient evaluation at [facility]. Continue nitrates, beta-trae, aspirin/Plavix, statin. His renal function is nearing his baseline; in review of his nephrology notes, he was maintained on lisinopril 10 mg daily with a creatinine around 2.2. Resumed home dose of lisinopril. His blood pressure looks much better today. Awaiting approval for inpatient debilitation at [facility] Anemia Status post transfusion 2 units packed red blood cells 05/05 Monitior CBC Autoimmune hepatitis Thrombocytopenia, chronic and mild auto anticoagulation as a result Additional diagnoses per resident documentation Subjective No chest pain, or SOB, or nausea. Complained about not getting adequate sleep overnight. Otherwise no new issues Review of Systems Review of Systems: All systems reviewed & are unremarkable except as noted in HPI & below Physical Exam Constitutional: WD/WN, vitals as above Respiratory: normal respiratory effort, lungs clear to auscultation Cardiovascular: Heart Sounds: + murmur (systolic best heard at RUSB) Results & Data Results & Data ([facility]) Vital Signs (Past 12 Hours) Vital Signs Temp Pulse Resp BP Pulse Ox 05/09/21 07:30 36.6 C 67 16 159/76 H 98 Resident Activity Tracking Resident Involvement: Resident Care Provided Care Provided: Adult Hospital Medicine
[2021-05-09] MEDS ORDERED: INSULIN HUMAN NPH SC SCH (16:30)
[2021-05-10] MEDS: INSULIN ASPART 100 UNITS/ML 3 ML PEN SC SCH (09:08)
[2021-05-10] MEDS: amLODIPine BESYLATE 5 MG TAB PO SCH (09:19)
[2021-05-10] MEDS: ASPIRIN 81 MG ECTAB PO SCH (09:19)
[2021-05-10] MEDS: predniSONE 10 MG TABLET PO SCH (09:19)
[2021-05-10] MEDS: PROPRANOLOL HCL 80 MG TAB PO SCH (09:19)
[2021-05-10] MEDS: CLOPIDOGREL BISULFATE 75 MG TAB PO SCH (09:20)
[2021-05-10] MEDS: FERROUS SULFATE 325 MG TAB PO SCH (09:20)
[2021-05-10] MEDS: ISOSORBIDE MONO EXTENDED REL 60 MG TABCR PO SCH (09:20)
[2021-05-10] MEDS: lisinopril 10 MG TAB PO SCH (09:20)
[2021-05-10] MEDS: CHOLECALCIFEROL 1,000 UNITS 25 MCG TAB PO SCH (09:21)
[2021-05-10] MEDS: CALCITRIOL 0.25 MCG CAPSULE PO SCH (09:21)
[2021-05-10] MEDS: INSULIN HUMAN NPH SC SCH (09:21)
[2021-05-10] MEDS: ATORVASTATIN 40 MG TAB PO SCH (09:21)
--- NOTE | 2021-05-10 10:26 | Pharmacy Report ---
Pharmacy Glycemic Short Note 2 - Date of Service May 10, 2021 - Glycemic Short BSG Results (Last 24 hours): 05/09/21 05/09/21 05/09/21 11:59 17:10 20:36 POC Glucose 138 H 168 H 187 H 05/10/21 08:23 POC Glucose 98 OUTPATIENT ANTIDIABETIC REGIMEN: * Novolin-N 28 units with breakfast, 17 units with dinner, up to 60 units/day * Novolog 18 units with breakfast, 26 units with dinner * A1c 6.8% 03/19/21 ASSESSMENT: 05/10 * Pt has received 31 units of insulin over the past 24hrs * 17 units of basal with NPH * 14 units of bolus with NovoLog * BSGs all in range but HS BSG continues to remain elevated * Will tighten CR for dinner only to prevent HS hyperglycemia 05/09 * Pt has received 34 units of insulin over the past 24hrs * 20 units of basal with NPH * 14 units of bolus with NovoLog * BSGs 14-599-253-180-87 mg/dl * AM fasting BSG is below goal range for inpatient targets - will decrease PM dose of NPH * Post-prandial BSGs elevated- will tighten CHO ratio 05/06/21: * Carlos A received 26 units of insulin yesterday (20 units of basal and 6 units of bolus) * Majority of BSGs were below goal despite recent decrease in both basal and bolus insulin * Fasting BSG of 79 mg/dL is below goal. Will further decrease NPH today. RN requested NPH be held until lunch. * Post prandial BSGs are also on the lower end of goal. Correction factor and carb ratio were loosened last evening. Will continue this for now. 05/05/21 * Patient's BSGs yesterday were 24-609-190-161 mg/dL. Patient received 67 units of insulin with 47 units of basal and 20 units of bolus. Was basal heavy due to increase in NPH with steroids. * Solu-Medrol 100 mg IV q8 is now cut (last dose yesterday morning) and patient on home dose of 10 mg prednisone daily. * Patient's Fasting today was 76 mg/dL. * Decrease total daily dose of NPH by 30% to 30 units. Give 66% in morning and 33% in evening. * Loosened Novolog at dinner yesterday. Continue for now. CR may need to be tightened. 05/04/21 * Patient's BSGs yesterday were [phone] mg/dL and overnight were 173-82 mg/dL. Patient did have a low this morning at 55 * Reduced AM NPH to 30 units which is closer to home dose. Solu-Medrol d/c'ed and home dose of prednisone 10 mg daily started. * Reduce PM NPH to home dose of 17 units. Loosen CF/CR since IV steroids cut. 05/03: * Patient unfortunately did have a low with dinner yesterday, likely due to NPO status. As a result received on 15 units at night rather than 40 units. Will resume planned regimen of 40 units BIDM with a slightly looser Novolog scale. Patient is eating, however intake is on the lower side. Patient remains on IV SM 100 q8 PLAN FOR INPATIENT GLYCEMIC CONTROL: * Basal insulin * NPH 10 units SQ with breakfast and 7 units with dinner * Bolus insulin * NovoLog per scale ACHS or Q6hrs while NPO and overnight checks * Goal Range: Low 90 mg/dL - High 140 mg/dL * Correction Factor: 20 mg/dL/unit * Nutritional / Prandial insulin per carb ratio of 1 unit per 7 grams CHO consumed for breakfsat, lunch, and HS; CR = 6 for diner only PLAN FOR DISCHARGE: * HbA1C below goal range (currently is 6.8% and goal would be < 7%). * Okay to continue home regimen as long as patient does not have any hypoglycemia.
[2021-05-10] MEDS ORDERED: INSULIN HUMAN NPH SC SCH (11:30)
[2021-05-10] MEDS ORDERED: INSULIN ASPART 100 UNITS/ML 3 ML PEN SC SCH ×2 (11:30→16:30)
--- NOTE | 2021-05-10 13:48 | Hospitalist Progress Note ---
Date of Service May 10, 2021 Assessment & Plan Admission and Anticipated Discharge Date Admission Date: May 02, 2021 Results & Data Results & Data ([facility]) Vital Signs (Past 12 Hours) Vital Signs Temp Pulse Resp BP Pulse Ox 05/10/21 12:00 36.6 C 56 L 16 109/46 L 97 05/10/21 09:17 52 L 135/68 05/10/21 07:55 36.5 C 58 L 14 136/67 97
--- NOTE | 2021-05-10 17:03 | Discharge Summary ---
Date of Service May 10, 2021 Admission HPI Per Admitting Provider Patient is a pleasant 71 mitra old male with PMHx Autoimmune Hepatitis with liver cirrhosis, portal vein hypertension, esophageal varices, CKD III, DM2, Hx NSTEMI with stent x1, BPH, who presents with 1 week history of worsening chest pain that significantly worsened overnight while at rest requiring 2 sublingual nitro to relieve. Patient notes that for the past 1 week he has been noticing L sided chest pressure with exertion with associated SOB. He notes that last night around 8PM he was watching TV when he had sudden onset crushing L sided chest pain that felt similar to his previous heart attack in 2012 at which point he took 2 SL nitro and called 911. On arrival, EMS provided him with 4 81mg baby ASA to chew. In the ED patient was given an inch of nitro paste and is currently chest pain free. Patient notes that associated with his recent chest pain has been worsening SOB. He denies any nausea, diaphoresis, fever, chills, abdominal pain, diarrhea, hematuria, cough. 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 He notes that he gilbert stake prednisone 10mg daily for his autoimmune hepatitis that has been ongoing since 1994. He was on the transplant list until 2014 when he was taken off as his symptoms had not progressed. Med Hx: Autoimmune Hepatitis with liver cirrhosis, portal vein hypertension, esophageal varices, CKD III, DM2, Hx NSTEMI with stent x1, BPH Surg Hx: Cardiac stent 2012, multiple EGD and Colonoscopies Soc Hx: Denies tobacco, alcohol, illicit drug use Admission Exam Per Admitting Provider Constitutional: well developed, well nourished and cooperative; no acute distress Eyes: PERRL, conjunctivae normal, anicteric sclerae ENMT: external ear and nose normal, oropharynx normal Neck: trachea midline, no thyromegaly Respiratory: normal respiratory effort; no cough Auscultation: + crackles (b/l at bases ) and + rales; + lungs not clear to auscultation, no diminished lung sounds and no wheezes Cardiovascular: Rate/Rhythm: regular rate and regular rhythm Heart Sounds: normal S1 and normal S2; no murmur and no cardiac rub Vessels: no JVD Extremities: + edema (2+ pitting edema to the knee ); no calf tenderness Gastrointestinal (Abdomen): Inspection/Auscultation: abdomen normal to inspection and normal bowel sounds; abdomen not distended Percussion/Palpation: abdomen soft; abdomen nontender, no guarding and abdomen not rigid Musculoskeletal: no cyanosis or clubbing, extremities motor strength 5/5 Head/Neck/Chest: normocephalic and head atraumatic Skin: no rashes, warm and dry Psychiatric: A+Ox3, euthymic affect Principal Diagnosis NSTEMI Discharge Exam GENERAL: A&Ox3. NAD. HEENT: PERRL, EOMI. Moist mucous membranes. NECK: No JVD. No lymphadenopathy. CHEST/LUNGS: CTAB A/P. No crackles, wheezes, rales, rhonchi. HEART: RRR. No m/g/r. ABDOMEN: NT/ND, soft. BS+ x4 EXTREMITIES: No cyanosis, no clubbing, no edema SKIN: Warm and dry. No rashes or lesions. PSYCHIATRIC: Euthymic affect, no SI, no pressured speech, no hallucinations NEUROLOGIC: CN II-XII grossly intact. No FND. Discharge Data Allergies Allergy/AdvReac Type Severity Reaction Status Date / Time No Known Allergies Allergy Verified 05/02/21 03:01 Consultations 05/02/21 04:27 ED Decision to Admit Stat 05/02/21 07:58 Consult Cardiology Routine Procedures Performed Operation Date: 05/02/21 15:30 Actual Procedures p Cath, Left with Cors and Vent - Wei Way MD p IVUS Coronary Single Vessel - Wei Way MD s Cineradiography w/Routine Exam - Wei Way MD Ordered Studies 05/02/21 14:06 CL Cath Imgs for PACS use only Urgent 05/02/21 17:32 CL IVUS Coronary Single Vessel Routine Hospital Course (1) NSTEMI (non-ST elevated myocardial infarction): 1.) NSTEMI with elevated Troponins -To follow with Dr. Way ([facility]) as outpatient -Meds at [facility] as below: * Norvasc 5 mg bid * Plavix 75 mg qAM * Propranolol 80 mg bid * Imdur 120 mg bid * Lipitor 20 mg qAM * Lisinopril 10 mg qAM today 2.) Anemia -Feosol 325 mg PO q daily 3.) CAD Heavily calcified 80% left main extending into ostial LAD/circumflex 60% mid LAD, severe diffuse distal LAD disease up to 95% 60% proximal circumflex 50 to 60% proximal RCA, 70% calcified mid RCA with acute thrombus -Outpatient f/u as above as patient is not a surgical candidate, per Cardiology 4.) Physical Deconditioning -patient evaluatred by PT with recommendations of inpatient rehab -however, patient refusing inpt rehab placement - Will be discharged home with plans for home health PT despite PT & hospitalist team recommending inpatient rehab 5.) Autoimmune hepatitis -continue steroid management with prednisone 10mg daily 6.) CKDIII - restarted SANDY inhibitor as above 7.) DM2 -continue home regimen (2) Coronary artery disease: (3) Autoimmune hepatitis: (4) Chronic kidney disease, stage 3: (5) IDDM (insulin dependent diabetes mellitus): (6) Physical deconditioning: Total Time Total Time Spent Total Time Spent (In Minutes): see attending attestation Discharge Plan Discharge Items Patient Disposition: Home - Home Health Services Reason For Visit: CHEST PAIN R/O Discharge Diagnosis: NSTEMI Condition on Discharge: Good Activity: Per Instructions section Non-emergency contact: Primary Care Provider and Construction Electrician Call non-emergency contact if: you have any medication questions and your symptoms worsen Follow-up/Referrals: Dariel Moscoso MD [Primary Care Provider] - 05/17/21 9:[address] MD [Physician] - 05/23/21 11:00 am Diet: Carb Consistent or DM2 and Heart Healthy Addtl Attending Provider Instructions: You were admitted to the hospital for NSTEMI (a type of "heart attack"). You were treated with several medications, some of which you were already taking, and other new ones, which you will continue to take going forward. You were also evaluated by Cardiology, who suggested outpatient follow-up as well. You will return home per your preference, and receive Home Health physical therapy as you were deemed to need therapy for your daily functioning. We recommend inpatient rehabilitation, but we will help to set up your home PT. Please be careful to avoid falls at home. A discharge summary will be sent to your primary care physician to ensure continuity of care. Please bring this discharge summary with you to your next office appointment so that your provider can review it at that time. Follow-up appointments: Make a follow-up appointment with your PCP within the next week. It is very important that you follow up with them shortly after discharge from the hospital. Please follow up with Cardiology as an outpatient as well. Keep all your follow-up appointments as already scheduled. If you cannot make an appointment, notify your provider. Medications: Your medication list has been reviewed and reconciled upon discharge to ensure accuracy and continuity of care. An updated list of all your medications is included with your hospital discharge paperwork. Please review this list closely, and make note of any changes. Take your medications as instructed; do not skip a dose of your medicines. Make sure all of your doctors know every medicine you are taking (including doka-clo-xmxbmpy medicines, vitamins, and supplements). Call your primary care provider before taking any new medicines (including wrta-ezl-aqenjar medicines, vitamins, and supplements), because some of these may interact with your current medications, or may make your symptoms worse. Tell your primary care provider if you cannot afford your medications. CONTACT YOUR PRIMARY CARE PROVIDER if you experience any of the following: Chest pain, palpitations, shortness of breath Any other new concerning symptoms Difficulty following your treatment plan, or difficulty taking medications CALL 911 OR GO TO THE EMERGENCY DEPARTMENT if you experience any of the following: Sudden, severe abdominal pain or nausea/vomiting Severe chest pain, or chest pain that radiates (moves) to your jaw or arm Sudden, severe shortness of breath or difficulty breathing Thank you for allowing us to participate in your care. Pending Studies at Discharge: No Stand-Alone Forms: My [facility], Smoking Cessation Medications and DC Order Prescriptions: New clopidogrel 75 mg Tablet 75 mg PO QAM Qty: 30 RF: 0 amlodipine [Norvasc] 5 mg Tablet 5 mg PO BID Qty: 60 RF: 0 aspirin 81 mg Tablet,Delayed Release (Dr/Ec) 81 mg PO QAM Qty: 30 RF: 0 isosorbide mononitrate 60 mg Tablet Extended Release 24 Hr 120 mg PO BID Qty: 120 RF: 0 lisinopril 10 mg Tablet 10 mg PO QAM Qty: 30 RF: 0 propranolol 80 mg Capsule,Extended Release 24 Hr 80 mg PO BID Qty: 60 RF: 0 Continued nitroglycerin [Nitrostat] 0.4 mg tablet, sublingual 0.4 mg SL Q5M PRN (Reason: Chest Pain) RF: 0 (DME) pen needle, diabetic [BD Ultra-Fine Mini Pen Needle] 31 gauge x 3/16" needle See Dose Instructions .ROUTE .MEDSUPPLY Qty: 300 RF: 3 (DME) blood-glucose meter [Contour Next Meter] [facility] See Rx Instructions .ROUTE .MEDSUPPLY Qty: 1 RF: 0 Glucagon (HCl) Emergency Kit 1 mg recon soln 1 mg SQ Q20M PRN (Reason: hypoglycemia) Qty: 3 RF: 3 (DME) Contour Next Test Strips Strip See Rx Instructions .ROUTE .MEDSUPPLY Qty: 400 RF: 3 prednisone 10 mg tablet 10 mg PO QAM Qty: 90 RF: 3 (DME) lancets [Microlet Lancet] Misc See Rx Instructions .Route Qty: 400 RF: 3 insulin aspart U-100 [Novolog Flexpen U-100 Insulin] 100 unit/mL (3 mL) insulin pen See Rx Instructions subcut .COMPLEX Qty: 15 RF: 2 atorvastatin 80 mg tablet 80 mg PO QAM Qty: 90 RF: 3 ferrous sulfate 325 mg (65 mg iron) tablet 325 mg PO DAILY RF: 0 Novolin N Flexpen 100 unit/mL (3 mL) insulin pen See Rx Instructions subcut .COMPLEX Qty: 4 RF: 3 cholecalciferol (vitamin D3) 50 mcg (2,000 unit) capsule 50 mcg PO DAILY Qty: 90 RF: 3 calcitriol 0.25 mcg capsule 0.25 mcg PO .COMPLEX Qty: 10 RF: 3 furosemide 40 mg tablet 80 mg PO BID Qty: 360 RF: 3 Procrit 2,000 unit/mL solution 4,000 units subcut Q21D PRN (Reason: ANEMIA) RF: 0 Discontinued propranolol 80 mg tablet 80 mg PO QAM Qty: 90 RF: 3 pravastatin 20 mg Tablet 20 mg PO DAILY RF: 0 Discharge Orders: Discharge Order (Routine); Ordered 05/10/21 Ordered By: Torin Major/Other Patient Handouts: Diabetes and Heart Disease, Diabetes: Meal Planning Admission Data Admit Date/Time: 05/02/21 05:24 Attending Provider: Neetu Gambino Admit Provider: Momo Siegel Primary Care Provider: Dariel Moscoso Other Providers: Foster Milan ; [facility] ; Milton Nair ; Yannick Osborne Other Interventions: Discharge Summary Assessment (RN) Last Done: 05/10/21 16:49 Supervising Physician Co-Signing Physician Notes Patient seen and examined with PGY-2 Dr. Diggs. Agree with history, exam findings, assessment and plan of care as outlined. In brief, Mr. Julien is a 71 year old male with history of autoimmune hepatitis with cirrhosis, portal HTN, esophageal varices, CKD 3, DM2, prior NSTEMI admitted with worsening chest pain. Feels well. No complaints. He is frustrated with the wait for [facility] and no longer wants to go to rehab. He prefers to be discharged home with home health. He reports that he has made some modifications to his home in the past and his helps him with stairs. He does not feel that he would benefit from [facility] at this point as he has rehabbed by himself in the past. In fact, prior to his recent hospitalization, he was doing very well! He is very aware that he could have a fall and seriously injure himself returning to home too soon. He is very insistent that he will not go to [facility] even though it has been approved. 1. NSTEMI, acute HFpEF. Severe multivessel disease. Not a candidate for CABG. Will follow up with both Dr. Way and [facility] as an outpatient. Continue nitrates, beta trae, DAPT, and lipitor. 2. anemia. received 2 units of packed red blood cells. Can continue with iron, but would check with hepatology as an outpatient as excessive iron can deposit in the liver. Other issues were stable and home medications were continued. Dispo: discharge home today with home health. I personally spent 35 minutes discharge planning for this patient. Resident Activity Tracking Resident Involvement: Resident Care Provided Care Provided: Adult Hospital Medicine
--- NOTE | 2021-05-10 18:08 | Cardiology Progress Note ---
Date of Service May 10, 2021 Assessment & Plan (1) NSTEMI (non-ST elevated myocardial infarction): Plan: 2. Multivessel coronary artery diseasesevere left main, LAD, mid RCA 3. Type 2 diabetes 4. Cirrhosis/autoimmune hepatitis on chronic prednisone 5. Stage IV CKD 6. Anemia/thrombocytopenia/coagulopathy No recurrent angina over the last several days. Blood pressure better controlled. From a cardiac standpoint okay with discharge today. Continue current antihypertensives/anginal therapy on discharge Continue lisinopril 10 mg daily Continue Imdur to 120 mg twice daily Continue propanolol to 80 mg twice daily Continue current amlodipine 5 mg twice daily Continue aspirin, clopidogrel Follow-up with me in 2 weeks. If refractory angina in the future. Angiograms were sent to [facility] and reviewed by interventional cardiology. May have high risk interventional options. Admission and Anticipated Discharge Date Admission Date: May 02, 2021 Subjective Recurrent chest pain 4 days. States he is ready to go home. Review of Systems Review of Systems: All systems reviewed & are unremarkable except as noted in HPI & below Physical Exam Physical Exam: General: Comfortable HEENT: Sclerae anicteric, Mask in place Lungs: Clear to auscultation bilaterally, no crackles or wheezes Cardiac: Regular rate and rhythm, 2 out of 6 systolic ejection murmur right upper sternal border Vascular: 2+ radial, DP pulses. Abdomen: Soft, nontender Extremities: Well perfused, 1+ lower extremity edema with chronic venous stasis changes Neuro: Nonfocal Skin: Diffuse ecchymosis Psych: Alert orient x3, normal affect and mood Results & Data ([facility]) Vital Signs (Past 12 Hours) Vital Signs Temp Pulse Pulse Pulse Pulse Resp BP 05/10/21 16:49 97.9 F 72 62 58 L 57 L 18 136/69 05/10/21 15:53 97.9 F 58 L 18 05/10/21 12:00 97.9 F 56 L 16 05/10/21 09:17 52 L 05/10/21 07:55 97.7 F 58 L 14 BP Pulse Ox 05/10/21 16:49 144/69 H 96 05/10/21 15:53 144/69 H 96 05/10/21 12:00 109/46 L 97 05/10/21 09:17 135/68 05/10/21 07:55 136/67 97 PG Care Time/CCT Total # of Minutes Spent Total Time Spent with Patient: Total time spent is greater than 50% in coordination of care (as documented) at patient's floor/unit and/or counseling patient: Coding Level of Care Code 71025 Subseq Hosp Care Lvl 3 Diagnoses NSTEMI (non-ST elevated myocardial infarction) I21.4
== END 2021-05-10 18:34 | disposition home health service (06) | DRG 280 ==
LOC: ED 02:03 → 2N 05:24 → SUATTDRO 05:24 → 2N 06:40 → 1E 15:07 → 2S 05-04 18:13 → 3W 05-08 13:52

== ENCOUNTER 2021-08-21 19:53 | Inpatient (IN) ==
[2021-08-21] MEDS ORDERED: ONDANSETRON INJ 2 MG/ML 2 ML VIAL IV STA (19:57)
[2021-08-21] MEDS ORDERED: MoRPHine SULFATE 4 MG/ML 1 ML CARP\\VIAL IV STA (19:57)
--- NOTE | 2021-08-21 20:05 | Emergency Department Note ---
Impression & Plan Unstable angina, Chest pain, Abnormal EKG, Elevated troponin I level, Acute hyperglycemia ED Provider Note NAME: JALIL ORTEGA AGE: 71 SEX: M : 1950 ARRIVES VIA: Ambulance INFORMANT: Patient, EMS ED PROVIDER(S): Dariel Sanderson DO CHIEF COMPLAINT: Chest pain HPI: The patient is a 71-year-old male who has a history of autoimmune hepatitis as well as coronary artery disease. The patient presented to the emergency depa rtment by ambulance for an evaluation of chest pain. The patient noticed chest pain today while he was at rest. The patient states that he took his aspirin as well as nitroglycerin prior to arrival. He did have only minimal improvement of his chest pain. He has a history of coronary artery disease but unfortunately he does not have disease that is amenable to intervention. Because of his unde rlying renal and liver problems he is medically managed. The patient states normally his pain does not last this long. When the pain continued to persist he called 911. The patient's had some discomfort since approximately 5:00 today. He states the pain was not associated with exertion. He does note some shortness of breath. He denies having any new lower extremity swelling. He said no recent trauma. He denies having any coughing or exposure to COVID-19. The patient denies having any back pain. He denies having any abdominal pain or vomiting. He does note some nausea. ROS: See above HPI for pertinent positives & negatives. A total of 10 systems reviewed and were otherwise negative. PAST MEDICAL HISTORY: See Below PAST SURGICAL HISTORY: See Below FAMILY HISTORY: See Below SOCIAL HISTORY: See Below HOME MEDICATIONS: See Below ALLERGIES: See Below VITALS: See Below PHYSICAL EXAMINATION: GENERAL: Patient is awake alert in no acute distress patient is resting comfortably and showing no signs of anxiety EYES: The conjunctivae are clear. The pupils are round and reactive. EARS, NOSE, MOUTH AND THROAT: The nose is without any evidence of any deformity. Mucous membranes are moist. Tongue is midline. NECK: The neck is nontender and supple. RESPIRATORY: Diminished breath sounds are noted throughout. There is no tachypnea or conversational dyspnea. CARDIOVASCULAR: Regular rate and rhythm noted there no murmurs rubs or gallops normal S1 normal S2. GASTROINTESTINAL: The abdomen is soft. Abdomen is nontender. MUSCULOSKELETAL/EXTREMITIES: There is no evidence of gross deformity full range of motion is noted in the hips and shoulders. SKIN: Skin is warm and dry. There was chronic venous stasis changes throughout. NEUROLOGIC: Patient is awake alert and oriented x3 MEDICAL DECISION MAKING: The patient is a 71-year-old male who presented to emergency department for an evaluation of chest pain. The patient has a long history of coronary artery disease. Unfortunately patient is not a candidate for interventional therapy and is mostly medically managed. He appeared to to have worsening chest pain through the day and was using nitroglycerin without relief. The patient had an abnormal EKG which showed changes compared to his previous tracing that could be consistent with regional ischemia. He was treated with pain medication in the emergency department and then was started on a nitroglycerin drip. I discussed the patient's laboratory and radiographic studies with him. I also reviewed his most recent admission from May of this year. [facility] have agreed to evaluate the patient in the emergency department for further management and disposition. The patient's pain did improve while he was in the emergency department. The patient was also treated with a small fluid bolus as well as IV insulin for elevated blood sugar. Triage Nursing notes reviewed. Prior medical records reviewed Vital Signs: reviewed and remarkable for bradycardia. Differential diagnosis: Cardiac ischemia, aortic dissection, pulmonary embolism, pneumothorax, pneumonia, pericarditis, myocarditis, esophageal rupture, GERD, cholecystitis, p ancreatitis, musculoskeletal, as well as other pathologies. ER treatment provided: See below Diagnostics interpreted by me: ECG: EKG was obtained in the emergency department. My interpretation is sinus rhythm at 69 bpm. First-degree AV block was noted. Acute ST segment de pressions were noted in the inferior and low lateral leads. There was also LVH noted by voltage criteria. This was compared to a tracing from May 042020. The inferior ST changes are new compared to earlier tracing. Cardiac Monitoring: An order was placed for continuous cardiac monitoring. The monitor shows a rate of 58 bpm with sinus bradycardia. Laboratory studies: As stated above and show below. Imaging studies: See below Consultation(s): I discussed this case with Dr. Nair who [facility] ED COURSE: Procedures: none PDMP:reviewed and no issues Critical Care: I have personally spent greater than 35 minutes of critical care time in the direct management of this patient. This includes bedside care, interpretation of diagnostic studies, and testing, discussion with consultants, patient, and family members, and other required patient management activities. This 35 lon radha is in excess of all separately billable procedures. 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 Coronary artery disease Diabetic nephropathy associated with type 2 diabetes mellitus Diabetic peripheral neuropathy associated with type 2 diabetes mellitus Dysesthesia Dyslipidemia Elevated brain natriuretic peptide (BNP) level Elevated troponin Esophageal varices NEVER BANDED R/T AUTOIMMUNNE HEPATITIS History of non-ST elevation myocardial infarction (NSTEMI) Hyperglycemia Hyperparathyroidism IDDM (insulin dependent diabetes mellitus) TYPE 2 Kidney stones 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 Lumbar back pain with radiculopathy affecting left lower extremity Myocardial Infarction (10/2012) OCTOBER 2012 Denies having any angina symptoms or having to use NTG since stent placement Osteopenia Portal hypertension Spinal stenosis LUMBAR Vitamin D deficiency Surgical History History of ankle surgery History of cardiac cath X1 STENT (2012) History of colonoscopy History of esophagogastroduodenoscopy (EGD) Hx of heart artery stent Status post angioplasty Family History Mother Family history of diabetes mellitus Myocardial infarction Spleen cancer Hypertension Father Myocardial infarction Grandfather (Paternal) Myocardial infarction Brother Melanoma Denies family history of Colon cancer Ovarian cancer Prostate cancer Breast cancer Social History Smoking Status: Current some day smoker Tobacco Type: Pipe Second Hand Exposure: No; Hx Alcohol Use: No Hx Substance Use: No Preferred Language: Mohawk Communication Ability: Effective Visual Impairment: No Limitations Hearing Ability: Normal 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 Beliefs That Will Affect Care: None marital status: Current Living Situation: Spouse current occupational status: retired Feels Safe at Home: Yes Seatbelt Use: always Assistive Devices: Walker Allergies Allergies Allergy/AdvReac Type Severity Reaction Status Date / Time No Known Allergies Allergy Verified 08/21/21 21:42 Home Meds Home Medications Medication Instructions Recorded Confirmed ferrous sulfate 325 mg (65 mg 325 mg PO DAILY 03/30/20 08/21/21 iron) tablet epoetin jose l 2,000 unit/mL 4,000 units SUBCUT Q21D PRN ml 04/10/20 08/21/21 injection solution (Procrit) furosemide 40 mg tablet 40 mg PO .COMPLEX tab 06/11/21 08/21/21 Previous Rx's Medication Instructions Recorded pen needle, diabetic 31 gauge x #300 ea 04/15/1911/13" (BD Ultra-Fine Mini Pen Needle) Contour Next Meter (blood-glucose #1 ea NS 12/09/19 meter) cholecalciferol (vitamin D3) 50 50 mcg PO DAILY #90 cap 08/14/20 mcg (2,000 unit) capsule insulin NPH isoph U-100 human 100 See Rx Instructions SUBCUT 01/17/21 unit/mL (3 mL) subcutaneous pen .COMPLEX #4 box (Novolin N Flexpen) Contour Next Test Strips (blood #400 ea NS 02/20/21 sugar diagnostic) prednisone 10 mg tablet 10 mg PO QAM #90 tab 03/14/21 insulin aspart U-100 100 unit/mL See Rx Instructions SUBCUT 03/29/21 (3 mL) subcutaneous pen (Novolog .COMPLEX #15 ml Flexpen U-100 Insulin aspart) lancets (Microlet Lancet) #400 ea 03/29/21 calcitriol 0.25 mcg capsule 0.25 mcg PO .COMPLEX #10 cap 04/15/21 aspirin 81 mg tablet,delayed 81 mg PO QAM #30 tab 05/10/21 release propranolol 80 mg capsule,24 80 mg PO BID #60 cap 05/10/21 hr,extended release glucagon HCl 1 mg solution for 1 mg SQ Q20M PRN #3 ea 06/13/21 injection (Glucagon (HCl) Emergency Kit) amlodipine 10 mg tablet 10 mg PO DAILY #90 tab 07/29/21 isosorbide mononitrate 120 mg 180 mg PO BID #270 tab 07/29/21 tablet,extended release 24 hr atorvastatin 40 mg tablet 40 mg PO QAM #90 tab 08/05/21 clopidogrel 75 mg tablet 75 mg PO QAM #30 tab 08/06/21 pantoprazole 40 mg tablet,delayed 40 mg PO DAILY #90 tab 08/09/21 release (Protonix) sodium bicarbonate 650 mg tablet 1,300 mg PO BID #360 tab 08/09/21 nitroglycerin 0.4 mg sublingual 0.4 mg SL Q5M PRN #25 tab 08/21/21 tablet (Nitrostat) Results & Data (ED) Vital Signs Vital Signs - 24 hr 08/21/21 19:57 08/21/21 20:12 08/21/21 20:30 Temperature 36.6 C Temperature Source Oral Pulse Rate 73 66 Pulse Rate from SpO2 Sensor 66 Respiratory Rate 18 12 Blood Pressure 112/72 109/59 L Blood Pressure [Left Arm] Blood Pressure Mean 85 75 Blood Pressure Mean [Left Arm] Pulse Oximetry 100 96 100 Oxygen Delivery Method Room Air Room Air Oxygen Flow Rate 99 Sepsis Recent Fever Within 48 Hours No Sepsis New/Unexplained Change in Mental Status No Sepsis Action Taken by Nursing No Action Required 08/21/21 21:00 08/21/21 21:15 08/21/21 22:30 Temperature Temperature Source Pulse Rate 52 L 60 Pulse Rate from SpO2 Sensor 55 L 59 L Respiratory Rate 9 L 10 L Blood Pressure 82/49 L Blood Pressure [Left Arm] 104/59 L Blood Pressure Mean 60 Blood Pressure Mean [Left Arm] 74 Pulse Oximetry 97 95 Oxygen Delivery Method Oxygen Flow Rate Sepsis Recent Fever Within 48 Hours Sepsis New/Unexplained Change in Mental Status Sepsis Action Taken by Group Home Medications Current Medication List: was personally reviewed by me Laboratory Data Attestation: I reviewed the patient's lab results. Result diagrams: 08/21/21 20:26 08/21/21 20:26 Lab Results 08/21/21 08/21/21 08/21/21 Range/Units 20:11 20:26 20:26 WBC 8.04 (4.8-10.8) K/uL RBC 2.60 L (4.7-6.1) M/uL Hgb 8.1 L (14.0-18.0) g/dL Hct 24.6 L (42-52) % MCV 94.6 (80-100) fL MCH 31.2 (25-34) pg MCHC 32.9 (32-36) g/dL RDW Std Deviation 52.0 H (36.4-46.3) fL RDW Coeff of Sony 15.0 H (11.5-14.5) % Plt Count 99 L (130-400) K/uL MPV 10.6 H (7.4-10.4) fL Immature Gran % (Auto) 0.9 % Neut % (Auto) 85.4 % Lymph % (Auto) 5.0 % Hooker % (Auto) 8.6 % Eos % (Auto) 0.0 % Baso % (Auto) 0.1 % Neut # (Auto) 6.87 H (1.4-6.5) K/uL Lymph # (Auto) 0.40 L (1.2-3.4) K/uL Hooker # (Auto) 0.69 H (0.11-0.59) K/uL Eos # (Auto) 0.00 (0-0.5) K/uL Baso # (Auto) 0.01 (0-0.2) K/uL Immature Gran # (Auto) 0.07 H (0.00-0.02) K/uL Tear Drop Cells 1+ PT 13.8 H (9.0-12.0) Seconds INR 1.4 H (0.9-1.1) APTT 27.1 (21.0-31.0) Seconds PTT Ratio 1.0 Sodium (136-145) mmol/L Potassium (3.5-5.1) mmol/L Chloride (98-107) mmol/L Carbon Dioxide (21-32) mmol/L Anion Gap (3-11) BUN (7-18) mg/dl Creatinine (0.6-1.4) mg/dl Est Cr Clr Drug Dosing ml/min Est GFR ( Amer) ml/min Est GFR (Non-Af Amer) ml/min BUN/Creatinine Ratio (10-20) Glucose (70-99) mg/dl POC Glucose (70-99) mg/dl Calcium (8.5-10.1) mg/dl Total Bilirubin (0.2-1) mg/dl AST (15-37) U/L ALT (12-78) Alkaline Phosphatase (45-117) U/L Troponin I (0-0.045) ng/ml Total Protein (6.4-8.2) gm/dl Albumin (3.4-5.0) gm/dl Globulin (2.5-4.0) gm/dl Albumin/Globulin Ratio (0.9-2) Lipase (73-393) U/L Beta-Hydroxybutyric Acd (0.2-2.81) mg/dl SARS-CoV-2, RNA, NAAT NEGATIVE (NEGATIVE) 08/21/21 08/21/21 08/21/21 Range/Units 20:26 22:12 22:43 WBC (4.8-10.8) K/uL RBC (4.7-6.1) M/uL Hgb (14.0-18.0) g/dL Hct (42-52) % MCV (80-100) fL MCH (25-34) pg MCHC (32-36) g/dL RDW Std Deviation (36.4-46.3) fL RDW Coeff of Sony (11.5-14.5) % Plt Count (130-400) K/uL MPV (7.4-10.4) fL Immature Gran % (Auto) % Neut % (Auto) % Lymph % (Auto) % Hooker % (Auto) % Eos % (Auto) % Baso % (Auto) % Neut # (Auto) (1.4-6.5) K/uL Lymph # (Auto) (1.2-3.4) K/uL Hooker # (Auto) (0.11-0.59) K/uL Eos # (Auto) (0-0.5) K/uL Baso # (Auto) (0-0.2) K/uL Immature Gran # (Auto) (0.00-0.02) K/uL Tear Drop Cells PT (9.0-12.0) Seconds INR (0.9-1.1) APTT (21.0-31.0) Seconds PTT Ratio Sodium 137 (136-145) mmol/L Potassium 4.8 (3.5-5.1) mmol/L Chloride 105 (98-107) mmol/L Carbon Dioxide 20 L (21-32) mmol/L Anion Gap 12.0 H (3-11) BUN 117 H (7-18) mg/dl Creatinine 3.11 H (0.6-1.4) mg/dl Est Cr Clr Drug Dosing 20.8 ml/min Est GFR ( Amer) 22.0 ml/min Est GFR (Non-Af Amer) 19.0 ml/min BUN/Creatinine Ratio 37.6 H (10-20) Glucose 354 H* (70-99) mg/dl POC Glucose 262 H (70-99) mg/dl Calcium 8.4 L (8.5-10.1) mg/dl Total Bilirubin 2.2 H (0.2-1) mg/dl AST 43 H (15-37) U/L ALT 49 (12-78) Alkaline Phosphatase 55 (45-117) U/L Troponin I 0.709 H* 12.800 H* (0-0.045) ng/ml Total Protein 5.5 L (6.4-8.2) gm/dl Albumin 2.7 L (3.4-5.0) gm/dl Globulin 2.8 (2.5-4.0) gm/dl Albumin/Globulin Ratio 1.0 (0.9-2) Lipase 404 H (73-393) U/L Beta-Hydroxybutyric Acd 1.38 (0.2-2.81) mg/dl SARS-CoV-2, RNA, NAAT (NEGATIVE) Administered Medications Nitroglycerin/Dextrose (Nitroglycerin/D5w 100 Mcg/Ml) 250 mls @ 3 mls/hr IV .Q24H [facility]; Protocol Stop: 09/20/21 21:59 Last Admin: 08/21/21 22:05 Dose: 5 mcg/min, 3 mls/hr Documented by: [id number] Cosigned by: [id number] Discontinued Medications Sodium Chloride (Nss 1000ml) 500 mls @ 999 mls/hr IV .Q31M ONE Stop: 08/21/21 21:47 Last Infusion: 08/21/21 22:14 Dose: 0 mls/hr Documented by: [id number] Admin: 08/21/21 21:27 Dose: 999 mls/hr Documented by: [id number] Insulin Human Regular (Novolin-R Insulin Per Unit Charge) 5 units IV NOW STA Stop: 08/21/21 21:18 Last Admin: 08/21/21 21:27 Dose: 5 units Documented by: [id number] Cosigned by: [id number] Morphine Sulfate (Morphine Sulfate 4 Mg/Ml 1 Ml Carp\\Vial) 4 mg IV NOW STA Stop: 08/21/21 19:58 Last Admin: 08/21/21 20:33 Dose: 4 mg Documented by: [id number] Ondansetron HCl (Ondansetron Inj 2 Mg/Ml 2 Ml Vial) 4 mg IV NOW STA Stop: 08/21/21 19:58 Last Admin: 08/21/21 20:32 Dose: 4 mg Documented by: [id number] Imaging Data Radiologist's Impression: Chest X-Ray 08/21/21 19:57 XR chest 1V portable HISTORY: 71 years-old Male Chest Pain acute atypical chest pain COMPARISON: Chest radiograph 05/02/2021 TECHNIQUE: Portable AP view of the chest FINDINGS: Cardiac silhouette is enlarged. Emphysema. Pulmonary vascular congestion with interstitial coarsening. No pneumothorax or large pleural effusion. Coronary arterial stent suggested. The bones appear grossly intact. IMPRESSION: 1. Cardiomegaly with pulmonary vascular congestion. 2. Emphysema with unchanged interstitial coarsening. ACT 112: Negative or not required by law. The above report was generated using voice recognition software. It may contain grammatical, syntax or spelling errors. Electronically signed by: Joseluis Kang M.D. 08/21/2021 8:25 PM Discharge Plan Visit Data Chief Complaint: Chest Pain Stated Complaint: Chest Pain ED Provider: Dariel Sanderson Discharge Problem: Unstable angina, Chest pain, Abnormal EKG, Elevated troponin I level, Acute hyperglycemia Patient Disposition: Being Evaluated by Hospitalist Discharge Instructions Interventions: ED Discharge Assessment Last Done: 08/21/21 23:25
--- NOTE | 2021-08-21 20:26 | XRay Report ---
XR chest 1V portable HISTORY: 71 years-old Male Chest Pain acute atypical chest pain COMPARISON: Chest radiograph 05/02/2021 TECHNIQUE: Portable AP view of the chest FINDINGS: Cardiac silhouette is enlarged. Emphysema. Pulmonary vascular congestion with interstitial coarsening . No pneumothorax or large pleural effusion. Coronary arterial stent suggested. The bones appear cameron sly intact. IMPRESSION: 1. Cardiomegaly with pulmonary vascular congestion. 2. Emphysema with unchanged interstitial coarsening. ACT 112: Negative or not required by law. The above report was generated using voice recognition software. It may contain grammatical, syntax o r spelling errors. Electronically signed by: Joseluis Kang M.D. 08/21/2021 8:25 PM
[2021-08-21 20:38] LABS: Hematocrit (blood only) 24.6 % (42-52); Hemoglobin 8.1 g/dL (14.0-18.0); Mean Corpuscular Hemoglobin 31.2 pg (25-34); Mean Corpuscular Hgb Conc 32.9 g/dL (32-36); Mean Corpuscular Volume 94.6 fL (80-100); White Blood Count 8.04 K/uL (4.8-10.8)
[2021-08-21 20:48] LABS: INR 1.4 (0.9-1.1); Partial Thromboplastin Time 27.1 Seconds (21.0-31.0); Prothrombin Time 13.8 Seconds (9.0-12.0)
[2021-08-21 20:58] LABS: Basophils # (auto) 0.01 K/uL (0-0.2); Basophils % (auto) 0.1 %; Immature Granulocytes # (auto) 0.07 K/uL (0.00-0.02); Immature Granulocytes % (auto) 0.9 %; Mean Platelet Volume 10.6 fL (7.4-10.4); Monocytes # (auto) 0.69 K/uL (0.11-0.59); Monocytes % (auto) 8.6 %; Neutrophils # (auto) 6.87 K/uL (1.4-6.5); Neutrophils % (auto) 85.4 %; Platelet Count 99 K/uL (130-400); Tear Drop Cells 1+
[2021-08-21 21:13] LABS: Albumin Level 2.7 gm/dl (3.4-5.0); BUN Creatinine Ratio 37.6 (10-20); Calcium 8.4 mg/dl (8.5-10.1); Creatinine Clr Calc Pharmacy 20.8 ml/min; Globulin 2.8 gm/dl (2.5-4.0); Potassium 4.8 mmol/L (3.5-5.1); Total Protein 5.5 gm/dl (6.4-8.2); Troponin I 0.709 ng/ml (0-0.045)
[2021-08-21] MEDS ORDERED: NovoLIN-R INSULIN PER UNIT CHARGE IV STA (21:17)
[2021-08-21] MEDS ORDERED: SODIUM CHLORIDE 0.9% 1000ML 500 ML IV ONE (21:17)
[2021-08-21 21:24] LABS: Beta-Hydroxybutyrate 1.38 mg/dl (0.2-2.81)
[2021-08-21] MEDS ORDERED: STAT IV Infusion **Titration per Protocol STA (21:52)
[2021-08-21] MEDS ORDERED: NITROGLYCERIN/D5W 100MCG/ML 250 ML IV SCH (22:00)
[2021-08-21 22:06] LABS: Bilirubin,Total 2.2 mg/dl (0.2-1)
[2021-08-21] MEDS ORDERED: ICU PROTOCOL FOR HYPERGLYCEMIA PRN (22:46)
[2021-08-21] MEDS ORDERED: PHARMACY GLYCEMIC MGMT CONSULT PRN (22:46)
--- NOTE | 2021-08-21 23:12 | History & Physical Report ---
Date of Service August 21, 2021 Assessment & Plan (1) Acute coronary syndrome: (2) CKD (chronic kidney disease): (3) Uncontrolled type 2 diabetes mellitus: (4) Dyslipidemia: (5) Portal hypertension: (6) Anemia: (7) Esophageal varices: (8) Autoimmune hepatitis: Plan: 71 yo M Hx DM2 on insulin therapy, CAD, autoimmune hepatitis with portal HTN and esophageal varices, chronic anemia/thrombocytopenia, CKD with baseline creatinine ~3.0, HLD admitted for NSTEMI. NSTEMI, Hx CAD: History of severe multivessel disease. Cardiac cath 05/2021: Calcified 80% left main extending into the ostium of LAD/circumflex, 60% mid LAD, severe diffuse distal LAD up to 95%, 60% proximal circumflex, 55% proximal RCA, 70% calcified mid RCA with acute thrombus. Echo 05/2021: LVEF 55-60%, apical akinesis, mild MR. Troponin initially 0.7 -> 12; heparin gtt started by ICU team. Will continue to trend. Total of aspirin 324mg received while still in ER. Continue daily aspirin, Plavix, statin. Amlodipine and beta trae held due to hypotension. Continue nitro gtt at this time. Cardiology consulted and appreciate recommendations. CKD stage IV, hyperkalemia, chronic anemia: New baseline creatinine ~3.0. Creatinine on admission of 3.11. Has been and continues to be firm about not wanting to pursue dialysis should he have worsening of his renal function. Overall is a poor candidate for dialysis due to his multiple medical comorbidities, frailty and poor functional status. Would not be good candidate for peritoneal dialysis due to portal HTN and Hx ascites. Would not be a good candidate for AV fistula due to history of vascular disease, as well as chronic skin changes from daily prednisone therapy. Potassium of 5.2 on admission today. No peaked T waves. Small bolus NSS given. Continue sodium bicarbonate BID. Repeat BMP in AM. Follows with Dr. Dwyer. Nephrology consulted given complex situation with CKD IV and NSTEMI. Anemia, thrombocytopenia: Chronic, with baseline Hgb ~8-9, plts ~90. On admission with Hgb 8.1. Received 1u PRBCs in ICU given NSTEMI. Continue daily iron supplement. DM2, hyperglycemia: On presentation with BSG 354. Received 5u regular insulin. Continue SSI with ICU hyperglycemia protocol. Autoimmune hepatitis, portal HTN, esophageal varices: History of. On furosemide 80mg AM, 40mg PM. LFTs stable. Continue home prednisone daily. Code Status: FULL CODE FEN: Heart Healthy DM2 diet DVT ppx: Heparin gtt Dispo: ICU History of Present Illness Chief Complaint: chest pain Primary Care Provider: Dariel Moscoso MD 71 yo M Hx DM2 on insulin therapy, severe multivessel CAD, autoimmune hepatitis with portal HTN and esophageal varices, chronic anemia/thrombocytopenia, CKD stage IV, HLD presented to the ER via EMS for complaints of chest pain that started while sitting watching television around 5pm this evening. No associated symptoms, recent illness, fevers or chills, GI symptoms. Generally is fairly home-bound due to angina with activity. Today went to the doctor's office but no other activities today. In the ER patient was noted to have elevated troponin 0.7 with new EKG changes (ST depressions in leads). Due to ongoing pain despite nitro SL patient was placed on nitro gtt with significant improvement in his pain. Hospitalist service was consulted for admission and patient was transferred to the ICU. On my interview patient reports 3/10 sternal chest pain. He does not have other complaints. Of note, patient had NSTEMI in 05/2021 and had repeat cardiac catheterization which showed severe, heavily calcified left main disease and three-vessel disease. [place] [facility] felt not to be a surgical candidate due to his comorbidities. He has been evaluated by Palliative Care in the past and is fairly adamant about not wanting dialysis, but still desires to be a full code. Allergies Allergy/AdvReac Type Severity Reaction Status Date / Time No Known Allergies Allergy Verified 08/21/21 21:42 Home Medications Medication Instructions Recorded Confirmed Type pen needle, diabetic 31 gauge x #300 ea 04/15/19 07/30/21 Rx 3/16" (BD Ultra-Fine Mini Pen Needle) Contour Next Meter (blood-glucose #1 ea NS 12/09/19 07/30/21 Rx meter) ferrous sulfate 325 mg (65 mg 325 mg PO DAILY 03/30/20 08/21/21 History iron) tablet epoetin jose l 2,000 unit/mL 4,000 units SUBCUT Q21D PRN ml 04/10/20 08/21/21 History injection solution (Procrit) cholecalciferol (vitamin D3) 50 50 mcg PO DAILY #90 cap 08/14/20 08/21/21 Rx mcg (2,000 unit) capsule insulin NPH isoph U-100 human 100 See Rx Instructions SUBCUT 01/17/21 08/21/21 Rx unit/mL (3 mL) subcutaneous pen .COMPLEX #4 box (Novolin N Flexpen) Contour Next Test Strips (blood #400 ea NS 02/20/21 07/30/21 Rx sugar diagnostic) prednisone 10 mg tablet 10 mg PO QAM #90 tab 03/14/21 08/21/21 Rx insulin aspart U-100 100 unit/mL See Rx Instructions SUBCUT 03/29/21 08/21/21 Rx (3 mL) subcutaneous pen (Novolog .COMPLEX #15 ml Flexpen U-100 Insulin aspart) lancets (Microlet Lancet) #400 ea 03/29/21 07/30/21 Rx calcitriol 0.25 mcg capsule 0.25 mcg PO .COMPLEX #10 cap 04/15/21 08/21/21 Rx aspirin 81 mg tablet,delayed 81 mg PO QAM #30 tab 05/10/21 08/21/21 Rx release propranolol 80 mg capsule,24 80 mg PO BID #60 cap 05/10/21 08/21/21 Rx hr,extended release furosemide 40 mg tablet 40 mg PO .COMPLEX tab 06/11/21 08/21/21 History glucagon HCl 1 mg solution for 1 mg SQ Q20M PRN #3 ea 06/13/21 08/21/21 Rx injection (Glucagon (HCl) Emergency Kit) amlodipine 10 mg tablet 10 mg PO DAILY #90 tab 07/29/21 08/21/21 Rx isosorbide mononitrate 120 mg 180 mg PO BID #270 tab 07/29/21 08/21/21 Rx tablet,extended release 24 hr atorvastatin 40 mg tablet 40 mg PO QAM #90 tab 08/05/21 08/21/21 Rx clopidogrel 75 mg tablet 75 mg PO QAM #30 tab 08/06/21 08/21/21 Rx pantoprazole 40 mg tablet,delayed 40 mg PO DAILY #90 tab 08/09/21 08/21/21 Rx release (Protonix) sodium bicarbonate 650 mg tablet 1,300 mg PO BID #360 tab 08/09/21 08/21/21 Rx nitroglycerin 0.4 mg sublingual 0.4 mg SL Q5M PRN #25 tab 08/21/21 08/21/21 Rx tablet (Nitrostat) Past Med/Surg History Medical History (Updated 08/22/21 @ 10:23 by Roselyn Rosales MD) Anemia Anemia Aortic valve sclerosis Autoimmune hepatitis Background diabetic retinopathy associated with type 2 diabetes mellitus BPH (benign prostatic hyperplasia) Cancer BCC (FOREHEAD) Chest pain Chronic back pain STANDING AND WALKING, PAIN MANAGEMENT Chronic kidney disease, stage 3 Chronic kidney disease, stage 4 (severe) 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 Coronary artery disease Diabetic nephropathy associated with type 2 diabetes mellitus Diabetic peripheral neuropathy associated with type 2 diabetes mellitus Dysesthesia Dyslipidemia Elevated brain natriuretic peptide (BNP) level Elevated troponin Esophageal varices NEVER BANDED R/T AUTOIMMUNNE HEPATITIS History of non-ST elevation myocardial infarction (NSTEMI) Hyperglycemia Hyperparathyroidism IDDM (insulin dependent diabetes mellitus) TYPE 2 Kidney stones NO 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 Lumbar back pain with radiculopathy affecting left lower extremity Myocardial Infarction (10/2012) OCTOBER 2012 Denies having any angina symptoms or having to use NTG since stent placement Osteopenia Portal hypertension Spinal stenosis LUMBAR Vitamin D deficiency Surgical History History of ankle surgery History of cardiac cath X1 STENT (2012) History of colonoscopy History of esophagogastroduodenoscopy (EGD) Hx of heart artery stent Status post angioplasty Family History Mother Family history of diabetes mellitus Myocardial infarction Spleen cancer Hypertension Father Myocardial infarction Grandfather (Paternal) Myocardial infarction Brother Melanoma Denies family history of Colon cancer Ovarian cancer Prostate cancer Breast cancer Social History Smoking Status: Former smoker Tobacco Type: Pipe Second Hand Exposure: No; Hx Alcohol Use: No Hx Substance Use: No Preferred Language: Yakut Communication Ability: Effective Visual Impairment: No Limitations Hearing Ability: Normal Armature Tester Required: No Beliefs That Will Affect Care: None marital status: Current Living Situation: Spouse current occupational status: retired Feels Safe at Home: Yes Seatbelt Use: always Assistive Devices: Glasses Review of Systems Review of Systems: All systems reviewed & are unremarkable except as noted in HPI & below Constitutional: no fever, no chills and no malaise Respiratory: no cough and no dyspnea Cardiovascular: no chest pain, no palpitations and no edema Gastrointestinal: no abdominal pain, no constipation and no diarrhea/loose stools Physical Exam Constitutional: WD/WN, vitals as above Eyes: PERRL, conjunctivae normal, anicteric sclerae ENMT: external ear and nose normal, oropharynx normal Neck: normal visual inspection Respiratory: normal respiratory effort, lungs clear to auscultation Cardiovascular: RRR, no murmur, no edema Gastrointestinal (Abdomen): normal bowel sounds, soft, nontender, no hepatosplenomegaly Musculoskeletal: no cyanosis or clubbing, extremities motor strength 5/5 Skin: no rashes, warm and dry Neurologic: AAOx3, normal speech. PERRLA, EOMI, no nystagmus. Normal visual acuity bilaterally. Bilateral UE, LE, and face without sensory or motor deficits. DTRs normal. II- XII intact bilaterally. No pronator drift. No tremor. No ataxia. Psychiatric: A+Ox3, euthymic affect Results & Data Results & Data ([facility]) Vital Signs (Past 12 Hours) Vital Signs Temp Pulse Resp BP BP Pulse Ox 08/21/21 22:30 104/59 L 08/21/21 21:15 60 10 L 95 08/21/21 21:00 52 L 9 L 82/49 L 97 08/21/21 20:30 66 12 109/59 L 100 08/21/21 20:12 36.6 C 73 18 112/72 96 08/21/21 19:57 100 Code Status & VTE Plan VTE Prophylaxis Plan VTE Prophylaxis will be ordered: Yes Supervising Physician Co-Signing Physician Notes Attending addendum: I have physically seen this patient, have supervised the medical residents activities, and agree with the H&P unless as otherwise noted. Assessment and Plan: Acute coronary syndrome/CAD/non-STEMI/hypertension- The patient will be admitted to the ICU for serial cardiac enzymes, serial EKG's, cardiac rhythm monitoring and a 2-D echocardiogram with Dopplers, have been started on nitro drip in the ED Continue amlodipine, aspirin, clopidogrel, furosemide, isosorbide mononitrate and propranolol Consult ICU supercalender operator and team Remaining orders and notations as noted Resident Activity Tracking Resident Involvement: Resident Care Provided Care Provided: Adult [facility] Medicine (1) CKD (chronic kidney disease) Chronic kidney disease stage: unspecified stage Qualified Code(s): N18.9 - Chronic kidney disease, unspecified
[2021-08-21] MEDS ORDERED: ASPIRIN 81 MG ECTAB PO STA (23:33)
[2021-08-21] MEDS ORDERED: SODIUM CHLORIDE 0.9% 250 ML IV PRN ×2 (23:42→23:43)
[2021-08-21] MEDS ORDERED: HEPARIN SOD (PORCINE) 1000 UNIT/ML IV ONE (23:45)
[2021-08-21] MEDS ORDERED: Heparin IV Adult Wt-Based Standard WITH Bolus Protocol IV SCH (23:45)
[2021-08-22] MEDS ORDERED: POLYETHYLENE (MIRALAX) 17 GM PACK PO PRN (00:09)
[2021-08-22] MEDS ORDERED: ACETAMINOPHEN 325 MG TAB PO PRN (00:09)
[2021-08-22] MEDS ORDERED: ONDANSETRON INJ 2 MG/ML 2 ML VIAL IV PRN (00:09)
--- NOTE | 2021-08-22 00:19 | Critical Care Consultation ---
Date of Consultation August 22, 2021 Assessment & Plan (1) Acute coronary syndrome: Reason Critically Ill: 71-year-old male with complex past medical history presents to the ICU with chest pain, NSTEMI and EKG with inferior ST depression, and elevated troponin of 12. Currently on nitro and heparin drips. Neuro - [facility] ICU: Negative Cardiac - Acute coronary syndromepatient presented with chest pain, ST depression in inferior leads on EKG, and troponin elevation of 12 -Underwent cardiac catheterization in May and was referred to tertiary center for complex PCI due to severe multivessel disease, which was deferred by patient due to risks associated with procedure. -Per discussion patient would like to opt for medical management versus intervention. -Received aspirin in route per EMS -Continue nitro and heparin drips -Trend troponin for peak -Follow daily EKG -Continue aspirin, Plavix, statin, isosorbide mononitrate. Holding amlodipine, propanolol while on nitro drip. -Follow-up echo in a.m. -Cardiology consulted -Continuous monitoring on telemetry Respiratory - No history of pulmonary disease, currently maintaining oxygen saturation on room air without distress. Lungs clear to auscultation. GI - Autoimmune hepatitisLFTs stable, monitor for now. -Continue prednisone Continue PPI RENAL/LYTES - CKD stage IVcreatinine currently at baseline. No electrolyte abnormalities, anion gap 12 -Nephrology consulted -Continue sodium bicarb -Monitor routine BMPs -Avoid nephrotoxins renally adjust medication - Strict I's and O's ENDO - DM type IIlast hemoglobin A1c 5.8 -Continue with sliding scale, ICU hyperglycemic protocol HEME - Anemiahemoglobin 7.7, and patient following Dr. Ruffin and was scheduled for transfusion in 2 days. -We will give 1 unit RBCs and attempt to keep hemoglobin closer to 10. -Continue ferrous sulfate ID - No indication for infectious process at this time LINES/IV ACCESS - Peripheral IVs DVT PROPHYLAXIS - SCDs, heparin drip I have personally spent 50 minutes of critical care time in the direct managem ent of this patient. This is a life/limb threatening event. This includes time spent evaluating patient, direct bedside care, chart review, placing orders, interpretation of diagnostic studies, discussion with consultants, patient, and family members, as well as other required patient management activities. This time is exclusive of all separately billable procedures, and teaching time and separate from and in addition to any other critical care service time. Thank you for allowing us to participate in the care of this patient. Please refer to my attending physician's documentation for any further recommendations. 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 Patient was watching TV developed chest pain which was unresolved following nitroglycerin x2. He describes the pain as pressure which was similar to chest pain in May when he had a NSTEMI. At that time patient went for cardiac catheterization which was considered high risk for intervention and he was evaluated at [facility] for possible intervention. Due to high risk procedure and possible complications patient had deferred procedure for medical management. On arrival to the emergency department he was placed on nitro drip. He received aspirin in route per EMS. EKG showed ST depressions in inferior leads. Initial troponin 0.7 but repeat troponin elevated to 12 and he was started on heparin drip. Patient is also noted to be anemic and had an appointment on the to receive a transfusion. He is now receiving 1 unit RBCs as well for hemoglobin 7.7. Patient has been transferred to ICU for further management at this time. On arrival to the ICU patient states that he is still having mild chest pressure but is significantly proved from earlier. Repeat EKG shows improvement in ST elevation. He currently denies headache, dizziness, recent illness, congestion or fevers, shortness of breath, palpitations, abdominal pain. Patient does state that he has had intermittent nausea and vomiting and diarrhea over the past few months. He is also noted to have bilateral pedal edema in both lower extremities which he states is ongoing. I did speak with the patient in regards to management and CODE STATUS. At this time he would like to proceed with medical management with medications in favor of catheterization. He was recently seen by palliative care in July to discuss goals of care. His long-term prognosis remains very poor and he is aware of this, however he would like to remain full code for now. Allergies Allergy/AdvReac Type Severity Reaction Status Date / Time No Known Allergies Allergy Verified 08/21/21 21:42 Home Medications Medication Instructions Recorded Confirmed Type pen needle, diabetic 31 gauge x #300 ea 04/15/19 07/30/21 Rx 3/16" (BD Ultra-Fine Mini Pen Needle) Contour Next Meter (blood-glucose #1 ea NS 12/09/19 07/30/21 Rx meter) ferrous sulfate 325 mg (65 mg 325 mg PO DAILY 03/30/20 08/21/21 History iron) tablet epoetin jose l 2,000 unit/mL 4,000 units SUBCUT Q21D PRN ml 04/10/20 08/21/21 History injection solution (Procrit) cholecalciferol (vitamin D3) 50 50 mcg PO DAILY #90 cap 08/14/20 08/21/21 Rx mcg (2,000 unit) capsule insulin NPH isoph U-100 human 100 See Rx Instructions SUBCUT 01/17/21 08/21/21 Rx unit/mL (3 mL) subcutaneous pen .COMPLEX #4 box (Novolin N Flexpen) Contour Next Test Strips (blood #400 ea NS 02/20/21 07/30/21 Rx sugar diagnostic) prednisone 10 mg tablet 10 mg PO QAM #90 tab 03/14/21 08/21/21 Rx insulin aspart U-100 100 unit/mL See Rx Instructions SUBCUT 03/29/21 08/21/21 Rx (3 mL) subcutaneous pen (Novolog .COMPLEX #15 ml Flexpen U-100 Insulin aspart) lancets (Microlet Lancet) #400 ea 03/29/21 07/30/21 Rx calcitriol 0.25 mcg capsule 0.25 mcg PO .COMPLEX #10 cap 04/15/21 08/21/21 Rx aspirin 81 mg tablet,delayed 81 mg PO QAM #30 tab 05/10/21 08/21/21 Rx release propranolol 80 mg capsule,24 80 mg PO BID #60 cap 05/10/21 08/21/21 Rx hr,extended release furosemide 40 mg tablet 40 mg PO .COMPLEX tab 06/11/21 08/21/21 History glucagon HCl 1 mg solution for 1 mg SQ Q20M PRN #3 ea 06/13/21 08/21/21 Rx injection (Glucagon (HCl) Emergency Kit) amlodipine 10 mg tablet 10 mg PO DAILY #90 tab 07/29/21 08/21/21 Rx isosorbide mononitrate 120 mg 180 mg PO BID #270 tab 07/29/21 08/21/21 Rx tablet,extended release 24 hr atorvastatin 40 mg tablet 40 mg PO QAM #90 tab 08/05/21 08/21/21 Rx clopidogrel 75 mg tablet 75 mg PO QAM #30 tab 08/06/21 08/21/21 Rx pantoprazole 40 mg tablet,delayed 40 mg PO DAILY #90 tab 08/09/21 08/21/21 Rx release (Protonix) sodium bicarbonate 650 mg tablet 1,300 mg PO BID #360 tab 08/09/21 08/21/21 Rx nitroglycerin 0.4 mg sublingual 0.4 mg SL Q5M PRN #25 tab 08/21/21 08/21/21 Rx tablet (Nitrostat) Patient History Medical History (Updated 08/22/21 @ 01:09 by KHADRA Dougherty) Anemia Anemia Aortic valve sclerosis Autoimmune hepatitis Background diabetic retinopathy associated with type 2 diabetes mellitus BPH (benign prostatic hyperplasia) Cancer BCC (FOREHEAD) Chest pain Chronic back pain STANDING AND WALKING, PAIN MANAGEMENT Chronic kidney disease, stage 3 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 Coronary artery disease Diabetic nephropathy associated with type 2 diabetes mellitus Diabetic peripheral neuropathy associated with type 2 diabetes mellitus Dysesthesia Dyslipidemia Elevated brain natriuretic peptide (BNP) level Elevated troponin Esophageal varices NEVER BANDED R/T AUTOIMMUNNE HEPATITIS History of non-ST elevation myocardial infarction (NSTEMI) Hyperglycemia Hyperparathyroidism IDDM (insulin dependent diabetes mellitus) TYPE 2 Kidney stones NO SURGERY 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 Lumbar back pain with radiculopathy affecting left lower extremity Myocardial Infarction (10/2012) OCTOBER 2012 Denies having any angina symptoms or having to use NTG since stent placement Osteopenia Portal hypertension Spinal stenosis LUMBAR Vitamin D deficiency Surgical History History of ankle surgery History of cardiac cath X1 STENT (2012) History of colonoscopy History of esophagogastroduodenoscopy (EGD) Hx of heart artery stent Status post angioplasty Family History Mother Family history of diabetes mellitus Myocardial infarction Spleen cancer Hypertension Father Myocardial infarction Grandfather (Paternal) Myocardial infarction Brother Melanoma Denies family history of Colon cancer Ovarian cancer Prostate cancer Breast cancer Social History Smoking Status: Current some day smoker Tobacco Type: Pipe Second Hand Exposure: No; Hx Alcohol Use: No Hx Substance Use: No Preferred Language: Lao Communication Ability: Effective Visual Impairment: No Limitations Hearing Ability: Normal Bareback Rider Required: No Beliefs That Will Affect Care: None marital status: Current Living Situation: Spouse current occupational status: retired Feels Safe at Home: Yes Seatbelt Use: always Assistive Devices: Glasses Review of Systems Review of Systems: All systems reviewed & are unremarkable except as noted in HPI & below Physical Exam Constitutional: + thin, + frail appearing, cooperative and comfortable; no acute distress Eyes: PERRL, conjunctivae normal, anicteric sclerae ENMT: external ear and nose normal, oropharynx normal Neck: trachea midline, no thyromegaly Respiratory: normal respiratory effort, lungs clear to auscultation Cardiovascular: Rate/Rhythm: regular rate and regular rhythm Palpation: no thrill and no heave Vessels: no JVD Extremities: + edema (Bilateral pedal edema +3) Gastrointestinal (Abdomen): normal bowel sounds, soft, nontender, no hepatosplenomegaly Musculoskeletal: no cyanosis or clubbing, extremities motor strength 5/5 Neurologic: PERRL, EOMI, accommodation nl, no face palsy, no dysarthria Psychiatric: A+Ox3, euthymic affect Results & Data Results & Data ([facility]) Vital Signs (Past 12 Hours) Vital Signs Temp Pulse Resp BP BP Pulse Ox 08/21/21 23:35 58 L 18 104/61 97 08/21/21 23:00 59 L 18 103/48 L 97 08/21/21 22:30 104/59 L 08/21/21 21:15 60 10 L 95 08/21/21 21:00 52 L 9 L 82/49 L 97 08/21/21 20:30 66 12 109/59 L 100 08/21/21 20:12 36.6 C 73 18 112/72 96 08/21/21 19:57 100 Coding Level of Care Code Critical Care 1st 30-74 mins Diagnoses Acute coronary syndrome I24.9 Chest pain R07.9 Chest pain type: unspecified CKD (chronic kidney disease) N18.9 Chronic kidney disease stage: unspecified stage Generalized weakness R53.1 Elevated troponin I level R77.8 Abnormal EKG R94.31 Uncontrolled type 2 diabetes mellitus E11.65 Arteriosclerotic cardiovascular disease (ASCVD) I25.10 BPH (benign prostatic hyperplasia) N40.0 care home current use of systemic steroids Z79.52 Anemia D64.9 (1) Chest pain Chest pain type: unspecified Qualified Code(s): R07.9 - Chest pain, unspecified (2) CKD (chronic kidney disease) Chronic kidney disease stage: unspecified stage Qualified Code(s): N18.9 - Chronic kidney disease, unspecified
[2021-08-22] MEDS ORDERED: HEPARIN SOD (PORCINE) 1000 UNIT/ML IV ONE (00:45)
[2021-08-22] MEDS: HEPARIN SODIUM/DEXTROSE 25,000 UNITS/500 ML BAG IV SCH (00:58)
[2021-08-22] MEDS: ONDANSETRON INJ 2 MG/ML 2 ML VIAL IV PRN ×2 (01:15→07:40)
[2021-08-22 06:05] LABS: Hematocrit (blood only) 25.9 % (42-52); Hemoglobin 8.5 g/dL (14.0-18.0); Mean Corpuscular Hgb Conc 32.8 g/dL (32-36); Mean Corpuscular Volume 94.5 fL (80-100); Mean Platelet Volume 9.2 fL (7.4-10.4); Platelet Count 73 K/uL (130-400); RDW Coefficient of Variation 14.7 % (11.5-14.5); RDW Standard Deviation 50.7 fL (36.4-46.3); Red Blood Count 2.74 M/uL (4.7-6.1); White Blood Count 7.62 K/uL (4.8-10.8)
[2021-08-22 06:35] LABS: Albumin Level 2.5 gm/dl (3.4-5.0); BUN Creatinine Ratio 40.7 (10-20); Bilirubin Direct 0.3 mg/dl (0-0.2); Creatinine Clr Calc Pharmacy 23.4 ml/min; Est GFR (African American) 25.4 ml/min; Est GFR (Non-African American) 21.9 ml/min; Magnesium 2.1 mg/dl (1.8-2.4); Potassium 4.2 mmol/L (3.5-5.1)
[2021-08-22 06:41] LABS: Basophils # (auto) 0.01 K/uL (0-0.2); Basophils % (auto) 0.1 %; Eosinophils # (auto) 0.09 K/uL (0-0.5); Eosinophils % (auto) 1.2 %; Immature Granulocytes # (auto) 0.09 K/uL (0.00-0.02); Immature Granulocytes % (auto) 1.2 %; Lymphocytes # (auto) 0.86 K/uL (1.2-3.4); Lymphocytes % (auto) 11.3 %; Monocytes # (auto) 0.99 K/uL (0.11-0.59); Neutrophils # (auto) 5.58 K/uL (1.4-6.5); Neutrophils % (auto) 73.2 %; Tear Drop Cells 1+
[2021-08-22 07:00] LABS: Appearance Urine Clear (Clear); Bacteria Urine Automated Negative (Negative); Bilirubin Urine Negative (Negative); Blood Urine Negative (Negative); Color Urine Yellow; Glucose Urine UA 1+ (Negative); Ketones Urine Negative (Negative); Leukocyte Esterase Urine Negative (Negative); Nitrite Urine Negative (Negative); Protein Urine 1+ (Negative); RBC Urine Automated 0-4 /hpf (0-4); Specific Gravity Urine 1.011 (1.000-1.030); Urobilinogen Urine Negative (Negative)
[2021-08-22 07:12] LABS: Bilirubin,Total 2.3 mg/dl (0.2-1); Total Protein 5.1 gm/dl (6.4-8.2); Troponin I 80.4 ng/ml (0-0.045)
[2021-08-22] MEDS: INSULIN ASPART PER UNIT SC SCH ×4 (07:35→20:14)
[2021-08-22 07:36] LABS: Estimated Average Glucose 117 mg/dl; Hemoglobin A1C 5.7 % (4.5-5.6)
[2021-08-22 07:43] LABS: Partial Thromboplastin Ratio > 5.3
--- NOTE | 2021-08-22 07:44 | Hospitalist Progress Note ---
Date of Service August 22, 2021 Assessment & Plan (1) Acute coronary syndrome: Plan: 71yo Male here for chest pain shortness of breath 2/2 to NSTEMI. PMH autoimmune hepatitis with portal HTN and esophageal varices, chronic anemia/thrombocytopenia, severe multivessel CAD, CKD4, DM2, HFpEF. ()NSTEMI, Hx CAD: History of severe multivessel disease. Cardiac cath 05/2021: Calcified 80% left main extending into the ostium of LAD/circumflex, 60% mid LAD, severe diffuse distal LAD up to 95%, 60% proximal circumflex, 55% proximal RCA, 70% calcified mid RCA with acute thrombus. Echo 05/2021: LVEF 55-60%, apical akinesis, mild MR. Troponin initially 0.7 -> 80.4 downtrending; heparin gtt started by ICU team, aPPT elevated to 139 heparin held Total of aspirin 324mg received while still in ER. Continue daily aspirin, Plavix, statin. Amlodipine and beta trae held due to hypotension. will restart propanolol tomorrow Started nitrodrip, stopped 08/21 Cardiology consulted, recommend continue nitro drip, heparin 48hr, home propanolol, despite liver disease consider Ranexa. Continue ASA/plavix, statin. ordered Echo, later cancelled ()CKD stage IV, hyperkalemia, chronic anemia: New baseline creatinine ~3.0. Creatinine on admission of 3.11. Has been and continues to be firm about not wanting to pursue dialysis should he have worsening of his renal function. Overall is a poor candidate for dialysis due to his multiple medical comorbidities, frailty and poor functional status. Would not be good candidate for peritoneal dialysis due to portal HTN and Hx ascites. Would not be a good candidate for AV fistula due to history of vascular disease, as well as chronic skin changes from daily prednisone therapy. Potassium of 5.2 on admission today. No peaked T waves. Small bolus NSS given. Continue sodium bicarbonate BID. Repeat BMP in AM. Follows with Dr. Dwyer. Nephrology consulted given complex situation with CKD IV and NSTEMI, recommend conservative management, patient declines further intervention for CAD or dialysis ()Anemia, thrombocytopenia: Chronic, with baseline Hgb ~8-9, plts ~90. On admission with Hgb 8.1. Received 1u PRBCs in ICU given NSTEMI. Last Hbg 8.5 Continue daily iron supplement. ()DM2, hyperglycemia: On presentation with BSG 354. Received 5u regular insulin. Continue SSI with ICU hyperglycemia protocol. ()Autoimmune hepatitis, portal HTN, esophageal varices: History of. On furosemide 80mg AM, 40mg PM. LFTs stable. Continue home prednisone daily. ()Swallowing Difficulties Patient experiencing nausea vomitting cough not improved with zofran, protonix. Describes difficulty swallowing chicken at home and self induced vomiting to clear from esophagus. Discussed possible etiology, esophageal stricture v. cardiac complication, patient understands endoscopy is best option to evaluate for esophageal stricture but may not tolerate sedation well. Code Status: FULL CODE FEN: Heart Healthy DM2 diet DVT ppx: Heparin gtt Dispo: ICU (2) CKD (chronic kidney disease): (3) Uncontrolled type 2 diabetes mellitus: (4) Dyslipidemia: (5) Portal hypertension: (6) Anemia: (7) Esophageal varices: (8) Autoimmune hepatitis: Admission and Anticipated Discharge Date Admission Date: August 21, 2021 Supervising Physician Co-Signing Physician Notes Patient seen and examined, chart reviewed, case discussed with Dr. Schumacher and I agree with the assessment and plan as above except as otherwise noted Patient seen at bedside with . He reports he is fatigued and expressed some frustration over his medical illness and feels "stuck "between bad choices and bad heart disease. He notes that he is not having any chest pain, chest pressure, dyspnea, or other pain at time of bedside assessment. BP 100/59, rate regular, symmetrical chest rise, breathing unlabored on 2 L of nasal cannula. Reviewed case and cardiology recommendations with patient, he expresses an understanding of this. Reports that he would not want dialysis, and noticed that coronary intervention is extremely difficult and he is a poor candidate for this. He is comfortable with the plan for medical treatment of his coronary disease. Discussed CODE STATUS, and was involved in CPR. He reports he does not like the idea of having his ribs broken, but would at least tried "for a little while" if this was at the cost of his quality of life and understands that intubation is generally required if CPR is successful but will continue to think about this. ACS: Continue medical treatment, heparin x48 hours, aspirin, Plavix, statin, isosorbide. Amlodipine/atenolol held, can consider restarting if patient continues to do well. Has been weaned from nitro drip for approximately 30 minutes without pain. Troponin slightly downtrending at 80.1 this afternoon. CKD: Does not desire dialysis, medical management of renal disease and ACS as noted. Nephrology consulted, appreciate recommendations. Chronic anemia: Hemoglobin threshold 8.0 rather than 9.0, received 1 unit of blood. Currently stable at 8.5. Subjective 71yo Male here for chest pain shortness of breath 2/2 to NSTEMI. PMH autoimmune hepatitis, severe multivessel CAD, CKD4, DM2, HFpEF. Patient states he was sitting watching TV when his chest pain SOB occurred. His last hospitalization was this previous may with NSTEMI found to have severe multivessel CAD with catheterization, patient did not want dialysis, cardiac intervention was discussed and decided risk was too high, decided on medical management for his heart condition. Patient states he still does not want dialysis as it would take up too much time from his week, states if he gets a heart attack he would like CPR to be attempted, states if he still dies afterwards it would be the will of god. Patient states since his hospitalization in may he wakes at 7am when his goes to work, his assists him in getting dressed. He spends most of his time napping on the couch in front of the TV or on the internet, walks with a walker. Patient lives with his and her children. He states he has only gone outside for doctors visits. He has previously had hobbies writing for the newspaper and leading [employer] choir, however he has not been able to go outside to participate in those activities. He states he is often bored. Patient seen at bedside, calm cooperative, he is holding a vomit bag with some yellow emesis in it. Patient has some nausea, vomiting, and cough, states it does not feel like GERD. He has mild dyspnea on conversation. Patient states he has not informed his of his current condition and is unsure what to tell her. Later in day had further discussion with patient and . Discussed code status with patient, patient is discomforted with idea of broken ribs and intubation post CPR, at this timewants full code. Patient understands he is 'between a rock and a hard place, understands that without dialysis and cardiac procedures there are limited options to pursue for his cardiac condition, understands that his condition will gradually become worse. present, has questions regarding pat ient's nausea/vomiting/cough. Patient states he would like to be home for the holidays. Review of Systems Review of Systems: Positive nausea vomitting cough diarrhea Negative fever chills Negative headache dizziness Negative chest pain palpitations SOB Negative constipation, abd pain Negative numbness tingling rash Physical Exam Constitutional: average body habitus, + frail appearing and cooperative Respiratory: normal respiratory effort, lungs clear to auscultation Cardiovascular: RRR, no murmur, no edema Heart Sounds: normal S1 and normal S2 Gastrointestinal (Abdomen): normal bowel sounds, soft, nontender, no hepatosplenomegaly Skin: no rashes, warm and dry senile purapura present on b/l dorsal arms Psychiatric: A+Ox3, euthymic affect Results & Data Results & Data ([place]) Vital Signs (Past 12 Hours) Vital Signs Temp Pulse Pulse Resp BP BP Pulse Ox 08/22/21 06:00 57 L 12 107/55 L 92 08/22/21 05:00 57 L 12 104/56 L 93 08/22/21 04:46 36.5 C 55 L 12 98/54 L 94 08/22/21 03:58 36.5 C 57 L 12 105/53 L 93 08/22/21 02:58 56 L 12 98/50 L 94 08/22/21 02:28 36.6 C 70 17 102/55 L 08/22/21 02:13 36.6 C 56 L 12 101/54 L 94 08/22/21 01:50 36.4 C L 55 L 12 115/60 95 08/22/21 01:30 60 16 116/54 L 95 08/22/21 01:06 36.4 C L 65 13 110/62 100 08/22/21 00:09 08/22/21 00:00 70 16 100/60 97 08/21/21 23:35 58 L 18 104/61 97 08/21/21 23:00 59 L 18 103/48 L 97 08/21/21 22:30 104/59 L 08/21/21 21:15 60 10 L 95 08/21/21 21:00 52 L 9 L 82/49 L 97 08/21/21 20:30 66 12 109/59 L 100 08/21/21 20:12 36.6 C 73 18 112/72 96 08/21/21 19:57 100 Pulse Ox 08/22/21 06:00 08/22/21 05:00 08/22/21 04:46 08/22/21 03:58 08/22/21 02:58 08/22/21 02:28 08/22/21 02:13 08/22/21 01:50 08/22/21 01:30 08/22/21 01:06 08/22/21 00:09 97 08/22/21 00:00 08/21/21 23:35 08/21/21 23:00 08/21/21 22:30 08/21/21 21:15 08/21/21 21:00 08/21/21 20:30 08/21/21 20:12 08/21/21 19:57 Laboratory Results 08/22/21 08/22/21 08/22/21 Range/Units 15:16 14:57 14:57 WBC (4.8-10.8) K/uL RBC (4.7-6.1) M/uL Hgb (14.0-18.0) g/dL Hct (42-52) % MCV (80-100) fL MCH (25-34) pg MCHC (32-36) g/dL RDW Std Deviation (36.4-46.3) fL RDW Coeff of Sony (11.5-14.5) % Plt Count (130-400) K/uL MPV (7.4-10.4) fL Immature Gran % (Auto) % Neut % (Auto) % Lymph % (Auto) % [place] % (Auto) % Eos % (Auto) % Baso % (Auto) % Neut # (Auto) (1.4-6.5) K/uL Lymph # (Auto) (1.2-3.4) K/uL [place] # (Auto) (0.11-0.59) K/uL Eos # (Auto) (0-0.5) K/uL Baso # (Auto) (0-0.2) K/uL Immature Gran # (Auto) (0.00-0.02) K/uL Tear Drop Cells PT (9.0-12.0) Seconds INR (0.9-1.1) APTT 76.9 H* (21.0-31.0) Seconds PTT Ratio 2.9 Sodium (136-145) mmol/L Potassium (3.5-5.1) mmol/L Chloride (98-107) mmol/L Carbon Dioxide (21-32) mmol/L Anion Gap (3-11) BUN (7-18) mg/dl Creatinine (0.6-1.4) mg/dl Est Cr Clr Drug Dosing ml/min Est GFR ( Amer) ml/min Est GFR (Non-Af Amer) ml/min BUN/Creatinine Ratio (10-20) Glucose (70-99) mg/dl POC Glucose 85 (70-99) mg/dl Estimat Average Glucose mg/dl Hemoglobin A1c (4.5-5.6) % Calcium (8.5-10.1) mg/dl Phosphorus (2.5-4.9) mg/dl Magnesium (1.8-2.4) mg/dl Total Bilirubin (0.2-1) mg/dl Direct Bilirubin (0-0.2) mg/dl AST (15-37) U/L ALT (12-78) Alkaline Phosphatase (45-117) U/L Troponin I 80.100 H* (0-0.045) ng/ml Total Protein (6.4-8.2) gm/dl Albumin (3.4-5.0) gm/dl Globulin (2.5-4.0) gm/dl Albumin/Globulin Ratio (0.9-2) Lipase (73-393) U/L Beta-Hydroxybutyric Acd (0.2-2.81) mg/dl Urine Color Urine Appearance (Clear) Urine pH (4.5-7.5) Ur Specific [place] (1.000-1.030) Urine Protein (Negative) Urine Glucose (UA) (Negative) Urine Ketones (Negative) Urine Blood (Negative) Urine Nitrite (Negative) Urine Bilirubin (Negative) Urine Urobilinogen (Negative) Ur Leukocyte Esterase (Negative) Urine WBC (Auto) (0-5) /hpf Urine RBC (Auto) (0-4) /hpf U Hyaline Cast (Auto) (0-5) /lpf U Epithel Cells (Auto) (0-5) /lpf Urine Bacteria (Auto) (Negative) Nasal Screen MRSA (PCR) (Negative) Hepatitis C Ab Screen (Neg) SARS-CoV-2, RNA, NAAT (NEGATIVE) Blood Type Antibody Screen Crossmatch 08/22/21 08/22/21 08/22/21 Range/Units 11:44 11:31 09:17 WBC (4.8-10.8) K/uL RBC (4.7-6.1) M/uL Hgb (14.0-18.0) g/dL Hct (42-52) % MCV (80-100) fL MCH (25-34) pg MCHC (32-36) g/dL RDW Std Deviation (36.4-46.3) fL RDW Coeff of Sony (11.5-14.5) % Plt Count (130-400) K/uL MPV (7.4-10.4) fL Immature Gran % (Auto) % Neut % (Auto) % Lymph % (Auto) % [place] % (Auto) % Eos % (Auto) % Baso % (Auto) % Neut # (Auto) (1.4-6.5) K/uL Lymph # (Auto) (1.2-3.4) K/uL [place] # (Auto) (0.11-0.59) K/uL Eos # (Auto) (0-0.5) K/uL Baso # (Auto) (0-0.2) K/uL Immature Gran # (Auto) (0.00-0.02) K/uL Tear Drop Cells PT (9.0-12.0) Seconds INR (0.9-1.1) APTT > 139.0 H* > 139.0 H* (21.0-31.0) Seconds PTT Ratio > 5.3 > 5.3 Sodium (136-145) mmol/L Potassium (3.5-5.1) mmol/L Chloride (98-107) mmol/L Carbon Dioxide (21-32) mmol/L Anion Gap (3-11) BUN (7-18) mg/dl Creatinine (0.6-1.4) mg/dl Est Cr Clr Drug Dosing ml/min Est GFR ( Amer) ml/min Est GFR (Non-Af Amer) ml/min BUN/Creatinine Ratio (10-20) Glucose (70-99) mg/dl POC Glucose 121 H (70-99) mg/dl Estimat Average Glucose mg/dl Hemoglobin A1c (4.5-5.6) % Calcium (8.5-10.1) mg/dl Phosphorus (2.5-4.9) mg/dl Magnesium (1.8-2.4) mg/dl Total Bilirubin (0.2-1) mg/dl Direct Bilirubin (0-0.2) mg/dl AST (15-37) U/L ALT (12-78) Alkaline Phosphatase (45-117) U/L Troponin I (0-0.045) ng/ml Total Protein (6.4-8.2) gm/dl Albumin (3.4-5.0) gm/dl Globulin (2.5-4.0) gm/dl Albumin/Globulin Ratio (0.9-2) Lipase (73-393) U/L Beta-Hydroxybutyric Acd (0.2-2.81) mg/dl Urine Color Urine Appearance (Clear) Urine pH (4.5-7.5) Ur Specific [place] (1.000-1.030) Urine Protein (Negative) Urine Glucose (UA) (Negative) Urine Ketones (Negative) Urine Blood (Negative) Urine Nitrite (Negative) Urine Bilirubin (Negative) Urine Urobilinogen (Negative) Ur Leukocyte Esterase (Negative) Urine WBC (Auto) (0-5) /hpf Urine RBC (Auto) (0-4) /hpf U Hyaline Cast (Auto) (0-5) /lpf U Epithel Cells (Auto) (0-5) /lpf Urine Bacteria (Auto) (Negative) Nasal Screen MRSA (PCR) (Negative) Hepatitis C Ab Screen (Neg) SARS-CoV-2, RNA, NAAT (NEGATIVE) Blood Type Antibody Screen Crossmatch 08/22/21 08/22/21 08/22/21 Range/Units 07:23 06:54 05:53 WBC (4.8-10.8) K/uL RBC (4.7-6.1) M/uL Hgb (14.0-18.0) g/dL Hct (42-52) % MCV (80-100) fL MCH (25-34) pg MCHC (32-36) g/dL RDW Std Deviation (36.4-46.3) fL RDW Coeff of [employer] (11.5-14.5) % Plt Count (130-400) K/uL MPV (7.4-10.4) fL Immature Gran % (Auto) % Neut % (Auto) % Lymph % (Auto) % [place] % (Auto) % Eos % (Auto) % Baso % (Auto) % Neut # (Auto) (1.4-6.5) K/uL Lymph # (Auto) (1.2-3.4) K/uL [place] # (Auto) (0.11-0.59) K/uL Eos # (Auto) (0-0.5) K/uL Baso # (Auto) (0-0.2) K/uL Immature Gran # (Auto) (0.00-0.02) K/uL Tear Drop Cells PT (9.0-12.0) Seconds INR (0.9-1.1) APTT > 139.0 H* (21.0-31.0) Seconds PTT Ratio > 5.3 Sodium (136-145) mmol/L Potassium (3.5-5.1) mmol/L Chloride (98-107) mmol/L Carbon Dioxide (21-32) mmol/L Anion Gap (3-11) BUN (7-18) mg/dl Creatinine (0.6-1.4) mg/dl Est Cr Clr Drug Dosing ml/min Est GFR ( Amer) ml/min Est GFR (Non-Af Amer) ml/min BUN/Creatinine Ratio (10-20) Glucose (70-99) mg/dl POC Glucose 113 H (70-99) mg/dl Estimat Average Glucose 117 mg/dl Hemoglobin A1c 5.7 H (4.5-5.6) % Calcium (8.5-10.1) mg/dl Phosphorus (2.5-4.9) mg/dl Magnesium (1.8-2.4) mg/dl Total Bilirubin (0.2-1) mg/dl Direct Bilirubin (0-0.2) mg/dl AST (15-37) U/L ALT (12-78) Alkaline Phosphatase (45-117) U/L Troponin I (0-0.045) ng/ml Total Protein (6.4-8.2) gm/dl Albumin (3.4-5.0) gm/dl Globulin (2.5-4.0) gm/dl Albumin/Globulin Ratio (0.9-2) Lipase (73-393) U/L Beta-Hydroxybutyric Acd (0.2-2.81) mg/dl Urine Color Urine Appearance (Clear) Urine pH (4.5-7.5) Ur Specific [place] (1.000-1.030) Urine Protein (Negative) Urine Glucose (UA) (Negative) Urine Ketones (Negative) Urine Blood (Negative) Urine Nitrite (Negative) Urine Bilirubin (Negative) Urine Urobilinogen (Negative) Ur Leukocyte Esterase (Negative) Urine WBC (Auto) (0-5) /hpf Urine RBC (Auto) (0-4) /hpf U Hyaline Cast (Auto) (0-5) /lpf U Epithel Cells (Auto) (0-5) /lpf Urine Bacteria (Auto) (Negative) Nasal Screen MRSA (PCR) (Negative) Hepatitis C Ab Screen (Neg) SARS-CoV-2, RNA, NAAT (NEGATIVE) Blood Type Antibody Screen Crossmatch 08/22/21 08/22/21 08/22/21 Range/Units 05:53 05:53 05:53 WBC (4.8-10.8) K/uL RBC (4.7-6.1) M/uL Hgb (14.0-18.0) g/dL Hct (42-52) % MCV (80-100) fL MCH (25-34) pg MCHC (32-36) g/dL RDW Std Deviation (36.4-46.3) fL RDW Coeff of Sony (11.5-14.5) % Plt Count (130-400) K/uL MPV (7.4-10.4) fL Immature Gran % (Auto) % Neut % (Auto) % Lymph % (Auto) % [place] % (Auto) % Eos % (Auto) % Baso % (Auto) % Neut # (Auto) (1.4-6.5) K/uL Lymph # (Auto) (1.2-3.4) K/uL [place] # (Auto) (0.11-0.59) K/uL Eos # (Auto) (0-0.5) K/uL Baso # (Auto) (0-0.2) K/uL Immature Gran # (Auto) (0.00-0.02) K/uL Tear Drop Cells PT (9.0-12.0) Seconds INR (0.9-1.1) APTT Cancelled (21.0-31.0) Seconds PTT Ratio Cancelled Sodium 138 (136-145) mmol/L Potassium 4.2 (3.5-5.1) mmol/L Chloride 107 (98-107) mmol/L Carbon Dioxide 24 (21-32) mmol/L Anion Gap 7.0 (3-11) BUN 112 H (7-18) mg/dl Creatinine 2.76 H D (0.6-1.4) mg/dl Est Cr Clr Drug Dosing 23.4 ml/min Est GFR ( Amer) 25.4 ml/min Est GFR (Non-Af Amer) 21.9 ml/min BUN/Creatinine Ratio 40.7 H (10-20) Glucose 103 H (70-99) mg/dl POC Glucose (70-99) mg/dl Estimat Average Glucose mg/dl Hemoglobin A1c (4.5-5.6) % Calcium 8.0 L (8.5-10.1) mg/dl Phosphorus 4.0 (2.5-4.9) mg/dl Magnesium 2.1 (1.8-2.4) mg/dl Total Bilirubin 2.3 H (0.2-1) mg/dl Direct Bilirubin 0.3 H (0-0.2) mg/dl AST 226 H (15-37) U/L ALT 62 (12-78) Alkaline Phosphatase 49 (45-117) U/L Troponin I 80.400 H* (0-0.045) ng/ml Total Protein 5.1 L (6.4-8.2) gm/dl Albumin 2.5 L (3.4-5.0) gm/dl Globulin (2.5-4.0) gm/dl Albumin/Globulin Ratio (0.9-2) Lipase (73-393) U/L Beta-Hydroxybutyric Acd (0.2-2.81) mg/dl Urine Color Urine Appearance (Clear) Urine pH (4.5-7.5) Ur Specific [place] (1.000-1.030) Urine Protein (Negative) Urine Glucose (UA) (Negative) Urine Ketones (Negative) Urine Blood (Negative) Urine Nitrite (Negative) Urine Bilirubin (Negative) Urine Urobilinogen (Negative) Ur Leukocyte Esterase (Negative) Urine WBC (Auto) (0-5) /hpf Urine RBC (Auto) (0-4) /hpf U Hyaline Cast (Auto) (0-5) /lpf U Epithel Cells (Auto) (0-5) /lpf Urine Bacteria (Auto) (Negative) Nasal Screen MRSA (PCR) (Negative) Hepatitis C Ab Screen Neg (Neg) SARS-CoV-2, RNA, NAAT (NEGATIVE) Blood Type Antibody Screen Crossmatch 08/22/21 08/22/21 08/22/21 Range/Units 05:53 00:43 00:35 WBC 7.62 (4.8-10.8) K/uL RBC 2.74 L (4.7-6.1) M/uL Hgb 8.5 L (14.0-18.0) g/dL Hct 25.9 L (42-52) % MCV 94.5 (80-100) fL MCH 31.0 (25-34) pg MCHC 32.8 (32-36) g/dL RDW Std Deviation 50.7 H (36.4-46.3) fL RDW Coeff of Sony 14.7 H (11.5-14.5) % Plt Count 73 L (130-400) K/uL MPV 9.2 (7.4-10.4) fL Immature Gran % (Auto) 1.2 % Neut % (Auto) 73.2 % Lymph % (Auto) 11.3 % [place] % (Auto) 13.0 % Eos % (Auto) 1.2 % Baso % (Auto) 0.1 % Neut # (Auto) 5.58 (1.4-6.5) K/uL Lymph # (Auto) 0.86 L (1.2-3.4) K/uL [place] # (Auto) 0.99 H (0.11-0.59) K/uL Eos # (Auto) 0.09 (0-0.5) K/uL Baso # (Auto) 0.01 (0-0.2) K/uL Immature Gran # (Auto) 0.09 H (0.00-0.02) K/uL Tear Drop Cells 1+ PT (9.0-12.0) Seconds INR (0.9-1.1) APTT (21.0-31.0) Seconds PTT Ratio Sodium (136-145) mmol/L Potassium (3.5-5.1) mmol/L Chloride (98-107) mmol/L Carbon Dioxide (21-32) mmol/L Anion Gap (3-11) BUN (7-18) mg/dl Creatinine (0.6-1.4) mg/dl Est Cr Clr Drug Dosing ml/min Est GFR ( Amer) ml/min Est GFR (Non-Af Amer) ml/min BUN/Creatinine Ratio (10-20) Glucose (70-99) mg/dl POC Glucose 110 H (70-99) mg/dl Estimat Average Glucose mg/dl Hemoglobin A1c (4.5-5.6) % Calcium (8.5-10.1) mg/dl Phosphorus (2.5-4.9) mg/dl Magnesium (1.8-2.4) mg/dl Total Bilirubin (0.2-1) mg/dl Direct Bilirubin (0-0.2) mg/dl AST (15-37) U/L ALT (12-78) Alkaline Phosphatase (45-117) U/L Troponin I (0-0.045) ng/ml Total Protein (6.4-8.2) gm/dl Albumin (3.4-5.0) gm/dl Globulin (2.5-4.0) gm/dl Albumin/Globulin Ratio (0.9-2) Lipase (73-393) U/L Beta-Hydroxybutyric Acd (0.2-2.81) mg/dl Urine Color Urine Appearance (Clear) Urine pH (4.5-7.5) Ur Specific [place] (1.000-1.030) Urine Protein (Negative) Urine Glucose (UA) (Negative) Urine Ketones (Negative) Urine Blood (Negative) Urine Nitrite (Negative) Urine Bilirubin (Negative) Urine Urobilinogen (Negative) Ur Leukocyte Esterase (Negative) Urine WBC (Auto) (0-5) /hpf Urine RBC (Auto) (0-4) /hpf U Hyaline Cast (Auto) (0-5) /lpf U Epithel Cells (Auto) (0-5) /lpf Urine Bacteria (Auto) (Negative) Nasal Screen MRSA (PCR) (Negative) Hepatitis C Ab Screen (Neg) SARS-CoV-2, RNA, NAAT (NEGATIVE) Blood Type A Positive Antibody Screen NEGATIVE Crossmatch See Detail 08/22/21 08/22/21 08/21/21 Range/Units 00:20 00:20 22:43 WBC (4.8-10.8) K/uL RBC (4.7-6.1) M/uL Hgb (14.0-18.0) g/dL Hct (42-52) % MCV (80-100) fL MCH (25-34) pg MCHC (32-36) g/dL RDW Std Deviation (36.4-46.3) fL RDW Coeff of Sony (11.5-14.5) % Plt Count (130-400) K/uL MPV (7.4-10.4) fL Immature Gran % (Auto) % Neut % (Auto) % Lymph % (Auto) % [place] % (Auto) % Eos % (Auto) % Baso % (Auto) % Neut # (Auto) (1.4-6.5) K/uL Lymph # (Auto) (1.2-3.4) K/uL [place] # (Auto) (0.11-0.59) K/uL Eos # (Auto) (0-0.5) K/uL Baso # (Auto) (0-0.2) K/uL Immature Gran # (Auto) (0.00-0.02) K/uL Tear Drop Cells PT (9.0-12.0) Seconds INR (0.9-1.1) APTT (21.0-31.0) Seconds PTT Ratio Sodium (136-145) mmol/L Potassium (3.5-5.1) mmol/L Chloride (98-107) mmol/L Carbon Dioxide (21-32) mmol/L Anion Gap (3-11) BUN (7-18) mg/dl Creatinine (0.6-1.4) mg/dl Est Cr Clr Drug Dosing ml/min Est GFR ( Amer) ml/min Est GFR (Non-Af Amer) ml/min BUN/Creatinine Ratio (10-20) Glucose (70-99) mg/dl POC Glucose (70-99) mg/dl Estimat Average Glucose mg/dl Hemoglobin A1c (4.5-5.6) % Calcium (8.5-10.1) mg/dl Phosphorus (2.5-4.9) mg/dl Magnesium (1.8-2.4) mg/dl Total Bilirubin (0.2-1) mg/dl Direct Bilirubin (0-0.2) mg/dl AST (15-37) U/L ALT (12-78) Alkaline Phosphatase (45-117) U/L Troponin I 12.800 H* (0-0.045) ng/ml Total Protein (6.4-8.2) gm/dl Albumin (3.4-5.0) gm/dl Globulin (2.5-4.0) gm/dl Albumin/Globulin Ratio (0.9-2) Lipase (73-393) U/L Beta-Hydroxybutyric Acd (0.2-2.81) mg/dl Urine Color Yellow Urine Appearance Clear (Clear) Urine pH 5.0 (4.5-7.5) Ur Specific [place] 1.011 (1.000-1.030) Urine Protein 1+ H (Negative) Urine Glucose (UA) 1+ H (Negative) Urine Ketones Negative (Negative) Urine Blood Negative (Negative) Urine Nitrite Negative (Negative) Urine Bilirubin Negative (Negative) Urine Urobilinogen Negative (Negative) Ur Leukocyte Esterase Negative (Negative) Urine WBC (Auto) 1-5 (0-5) /hpf Urine RBC (Auto) 0-4 (0-4) /hpf U Hyaline Cast (Auto) 1-5 (0-5) /lpf U Epithel Cells (Auto) 10-20 H (0-5) /lpf Urine Bacteria (Auto) Negative (Negative) Nasal Screen MRSA (PCR) Negative (Negative) Hepatitis C Ab Screen (Neg) SARS-CoV-2, RNA, NAAT (NEGATIVE) Blood Type Antibody Screen Crossmatch 08/21/21 08/21/21 08/21/21 Range/Units 22:12 20:26 20:26 WBC (4.8-10.8) K/uL RBC (4.7-6.1) M/uL Hgb (14.0-18.0) g/dL Hct (42-52) % MCV (80-100) fL MCH (25-34) pg MCHC (32-36) g/dL RDW Std Deviation (36.4-46.3) fL RDW Coeff of [employer] (11.5-14.5) % Plt Count (130-400) K/uL MPV (7.4-10.4) fL Immature Gran % (Auto) % Neut % (Auto) % Lymph % (Auto) % [place] % (Auto) % Eos % (Auto) % Baso % (Auto) % Neut # (Auto) (1.4-6.5) K/uL Lymph # (Auto) (1.2-3.4) K/uL [place] # (Auto) (0.11-0.59) K/uL Eos # (Auto) (0-0.5) K/uL Baso # (Auto) (0-0.2) K/uL Immature Gran # (Auto) (0.00-0.02) K/uL Tear Drop Cells PT 13.8 H (9.0-12.0) Seconds INR 1.4 H (0.9-1.1) APTT 27.1 (21.0-31.0) Seconds PTT Ratio 1.0 Sodium 137 (136-145) mmol/L Potassium 4.8 (3.5-5.1) mmol/L Chloride 105 (98-107) mmol/L Carbon Dioxide 20 L (21-32) mmol/L Anion Gap 12.0 H (3-11) BUN 117 H (7-18) mg/dl Creatinine 3.11 H (0.6-1.4) mg/dl Est Cr Clr Drug Dosing 20.8 ml/min Est GFR ( Amer) 22.0 ml/min Est GFR (Non-Af Amer) 19.0 ml/min BUN/Creatinine Ratio 37.6 H (10-20) Glucose 354 H* (70-99) mg/dl POC Glucose 262 H (70-99) mg/dl Estimat Average Glucose mg/dl Hemoglobin A1c (4.5-5.6) % Calcium 8.4 L (8.5-10.1) mg/dl Phosphorus (2.5-4.9) mg/dl Magnesium (1.8-2.4) mg/dl Total Bilirubin 2.2 H (0.2-1) mg/dl Direct Bilirubin (0-0.2) mg/dl AST 43 H (15-37) U/L ALT 49 (12-78) Alkaline Phosphatase 55 (45-117) U/L Troponin I 0.709 H* (0-0.045) ng/ml Total Protein 5.5 L (6.4-8.2) gm/dl Albumin 2.7 L (3.4-5.0) gm/dl Globulin 2.8 (2.5-4.0) gm/dl Albumin/Globulin Ratio 1.0 (0.9-2) Lipase 404 H (73-393) U/L Beta-Hydroxybutyric Acd 1.38 (0.2-2.81) mg/dl Urine Color Urine Appearance (Clear) Urine pH (4.5-7.5) Ur Specific [place] (1.000-1.030) Urine Protein (Negative) Urine Glucose (UA) (Negative) Urine Ketones (Negative) Urine Blood (Negative) Urine Nitrite (Negative) Urine Bilirubin (Negative) Urine Urobilinogen (Negative) Ur Leukocyte Esterase (Negative) Urine WBC (Auto) (0-5) /hpf Urine RBC (Auto) (0-4) /hpf U Hyaline Cast (Auto) (0-5) /lpf U Epithel Cells (Auto) (0-5) /lpf Urine Bacteria (Auto) (Negative) Nasal Screen MRSA (PCR) (Negative) Hepatitis C Ab Screen (Neg) SARS-CoV-2, RNA, NAAT (NEGATIVE) Blood Type Antibody Screen Crossmatch 08/21/21 08/21/21 Range/Units 20:26 20:11 WBC 8.04 (4.8-10.8) K/uL RBC 2.60 L (4.7-6.1) M/uL Hgb 8.1 L (14.0-18.0) g/dL Hct 24.6 L (42-52) % MCV 94.6 (80-100) fL MCH 31.2 (25-34) pg MCHC 32.9 (32-36) g/dL RDW Std Deviation 52.0 H (36.4-46.3) fL RDW Coeff of [employer] 15.0 H (11.5-14.5) % Plt Count 99 L (130-400) K/uL MPV 10.6 H (7.4-10.4) fL Immature Gran % (Auto) 0.9 % Neut % (Auto) 85.4 % Lymph % (Auto) 5.0 % [place] % (Auto) 8.6 % Eos % (Auto) 0.0 % Baso % (Auto) 0.1 % Neut # (Auto) 6.87 H (1.4-6.5) K/uL Lymph # (Auto) 0.40 L (1.2-3.4) K/uL [place] # (Auto) 0.69 H (0.11-0.59) K/uL Eos # (Auto) 0.00 (0-0.5) K/uL Baso # (Auto) 0.01 (0-0.2) K/uL Immature Gran # (Auto) 0.07 H (0.00-0.02) K/uL Tear Drop Cells 1+ PT (9.0-12.0) Seconds INR (0.9-1.1) APTT (21.0-31.0) Seconds PTT Ratio Sodium (136-145) mmol/L Potassium (3.5-5.1) mmol/L Chloride (98-107) mmol/L Carbon Dioxide (21-32) mmol/L Anion Gap (3-11) BUN (7-18) mg/dl Creatinine (0.6-1.4) mg/dl Est Cr Clr Drug Dosing ml/min Est GFR ( Amer) ml/min Est GFR (Non-Af Amer) ml/min BUN/Creatinine Ratio (10-20) Glucose (70-99) mg/dl POC Glucose (70-99) mg/dl Estimat Average Glucose mg/dl Hemoglobin A1c (4.5-5.6) % Calcium (8.5-10.1) mg/dl Phosphorus (2.5-4.9) mg/dl Magnesium (1.8-2.4) mg/dl Total Bilirubin (0.2-1) mg/dl Direct Bilirubin (0-0.2) mg/dl AST (15-37) U/L ALT (12-78) Alkaline Phosphatase (45-117) U/L Troponin I (0-0.045) ng/ml Total Protein (6.4-8.2) gm/dl Albumin (3.4-5.0) gm/dl Globulin (2.5-4.0) gm/dl Albumin/Globulin Ratio (0.9-2) Lipase (73-393) U/L Beta-Hydroxybutyric Acd (0.2-2.81) mg/dl Urine Color Urine Appearance (Clear) Urine pH (4.5-7.5) Ur Specific [place] (1.000-1.030) Urine Protein (Negative) Urine Glucose (UA) (Negative) Urine Ketones (Negative) Urine Blood (Negative) Urine Nitrite (Negative) Urine Bilirubin (Negative) Urine Urobilinogen (Negative) Ur Leukocyte Esterase (Negative) Urine WBC (Auto) (0-5) /hpf Urine RBC (Auto) (0-4) /hpf U Hyaline Cast (Auto) (0-5) /lpf U Epithel Cells (Auto) (0-5) /lpf Urine Bacteria (Auto) (Negative) Nasal Screen MRSA (PCR) (Negative) Hepatitis C Ab Screen (Neg) SARS-CoV-2, RNA, NAAT NEGATIVE (NEGATIVE) Blood Type Antibody Screen Crossmatch Diagnostic Findings Chest X-Ray 08/21/21 19:57 XR chest 1V portable HISTORY: 71 years-old Male Chest Pain acute atypical chest pain COMPARISON: Chest radiograph 05/02/2021 TECHNIQUE: Portable AP view of the chest FINDINGS: Cardiac silhouette is enlarged. Emphysema. Pulmonary vascular congestion with interstitial coarsening. No pneumothorax or large pleural effusion. Coronary arterial stent suggested. The bones appear grossly intact. IMPRESSION: 1. Cardiomegaly with pulmonary vascular congestion. 2. Emphysema with unchanged interstitial coarsening. ACT 112: Negative or not required by law. The above report was generated using voice recognition software. It may contain grammatical, syntax or spelling errors. Electronically signed by: Joseluis Kang M.D. 08/21/2021 8:25 PM Medications Administered Current Inpatient Medications Acetaminophen (Acetaminophen 325 Mg Tab) 650 mg PO Q4H PRN PRN Reason: Pain or Fever Stop: 09/21/21 00:08 Aspirin (Aspirin 81 Mg Ectab) [address] [facility] Stop: 09/21/21 08:59 Last Admin: 08/22/21 08:09 Dose: 81 mg Documented by: Atorvastatin Calcium (Atorvastatin 40 Mg Tab) 40 mg PO QAM [facility] Stop: 09/21/21 08:59 Last Admin: 08/22/21 08:09 Dose: 40 mg Documented by: Calcitriol (Calcitriol 0.25 Mcg Capsule) 0.25 mcg PO MoFr@0900 [facility] Stop: 09/22/21 08:59 Clopidogrel Bisulfate (Clopidogrel Bisulfate 75 Mg Tab) 75 mg PO QAM [facility] Stop: 09/21/21 08:59 Last Admin: 08/22/21 08:09 Dose: 75 mg Documented by: Ferrous Sulfate (Ferrous Sulfate 325 Mg Tab) 325 mg PO DAILY [facility] Stop: 09/21/21 08:59 Last Admin: 08/22/21 08:08 Dose: 325 mg Documented by: Nitroglycerin/Dextrose (Nitroglycerin/D5w 100 Mcg/Ml) 250 mls @ 0 mls/hr IV .Q0M [facility]; Protocol Stop: 09/20/21 21:59 Last Titration: 08/22/21 14:05 Dose: 0 mcg/min, 0 mls/hr Documented by: Heparin Sodium/Dextrose (Heparin Sodium/Dextrose) 25,000 units in 500 mls @ 18 mls/hr IV .Q24H [facility]; Protocol Stop: 09/20/21 23:44 Last Titration: 08/22/21 15:57 Dose: 900 units/hr, 18 mls/hr Documented by: Insulin Aspart (Insulin Aspart Per Unit) 0 units SC ACHS [facility]; Protocol Stop: 09/21/21 07:29 Last Admin: 08/22/21 11:46 Dose: Not Given Documented by: Insulin Aspart (Insulin Aspart Per Unit) 0 units SC TODAY@0200 ONE; Protocol Stop: 08/23/21 02:01 Insulin Human NPH (Insulin Human Nph) 0 units SC QDD [facility]; Protocol Stop: 08/22/21 19:00 Isosorbide Mononitrate (Isosorbide [place] Extended Rel 60 Mg Tabcr) 180 mg PO BID [facility] Stop: 09/21/21 09:29 Last Admin: 08/22/21 11:45 Dose: 180 mg Documented by: Miscellaneous Information (Pharmacy Glycemic Mgmt Consult) 1 ea N/A UD PRN PRN Reason: Consult Stop: 09/20/21 22:45 Morphine Sulfate (Morphine Sulfate 2 Mg/Ml Carp) 2 mg IV Q30M PRN PRN Reason: Chest Pain Stop: 09/05/21 00:08 Ondansetron HCl (Ondansetron Inj 2 Mg/Ml 2 Ml Vial) 4 mg IV Q6H PRN PRN Reason: Nausea And Vomiting Stop: 09/21/21 00:20 Last Admin: 12/23/21 07:40 Dose: 4 mg Documented by: Pantoprazole Sodium (Pantoprazole 40 Mg Tab) 40 mg PO DAILY [facility] Stop: 09/21/21 08:59 Last Admin: 08/22/21 08:09 Dose: 40 mg Documented by: Polyethylene Glycol (Polyethylene (Miralax) 17 Gm Pack) 17 gm PO DAILY PRN PRN Reason: Constipation Stop: 09/21/21 00:08 Prednisone (Prednisone 10 Mg Tablet) 10 mg PO QAM [facility] Stop: 09/21/21 08:59 Last Admin: 08/22/21 08:08 Dose: 10 mg Documented by: Sodium Bicarbonate (Sodium Bicarbonate 650 Mg Tab) 1,300 mg PO BID [facility] Stop: 09/21/21 08:59 Last Admin: 08/22/21 08:08 Dose: 1,300 mg Documented by: Resident Activity Tracking Resident Involvement: Resident Care Provided Care Provided: Adult Hospital Medicine (1) CKD (chronic kidney disease) Chronic kidney disease stage: unspecified stage Qualified Code(s): N18.9 - Chronic kidney disease, unspecified
[2021-08-22 07:46] LABS: Partial Thromboplastin Time > 139.0 Seconds (21.0-31.0)
[2021-08-22] MEDS ORDERED: INSULIN HUMAN NPH SC ONE (08:00)
[2021-08-22] MEDS: predniSONE 10 MG TABLET PO SCH (08:08)
[2021-08-22] MEDS: SODIUM BICARBONATE 650 MG TAB PO SCH ×2 (08:08→20:15)
[2021-08-22] MEDS: FERROUS SULFATE 325 MG TAB PO SCH (08:08)
[2021-08-22] MEDS: ASPIRIN 81 MG ECTAB PO SCH (08:09)
[2021-08-22] MEDS: ATORVASTATIN 40 MG TAB PO SCH (08:09)
[2021-08-22] MEDS: CLOPIDOGREL BISULFATE 75 MG TAB PO SCH (08:09)
[2021-08-22] MEDS: PANTOprazole 40 MG TAB PO SCH (08:09)
--- NOTE | 2021-08-22 09:56 | Cardiology Consultation ---
Date of Consultation August 22, 2021 Assessment & Plan (1) NSTEMI (non-ST elevated myocardial infarction): 2. Complex calcified multivessel CAD, post prior PCI to diagonal 3. Type 2 diabetes 4. Cirrhosis/autoimmune hepatitis on chronic prednisone, esophageal varices on propanolol 5. Stage IV CKD 6. Stable mild anemia/thrombocytopenia Long discussion today with Mr. Julien about his options. He has extremely calcified, complex coronary artery disease including left main disease. He is not a surgical candidate. PCI would require atherectomy and likely mechanical support. Has previously discussed procedure with [facility] interventional cardiology. With his comorbidities risk of procedure would be extremely high and would be at risk for downstream complications including renal failure/dialysis and bleeding on DAPT. Unfortunately though his medical management is essentially optimized and risk of another [place]/ without intervention also extremely high. Patient states that he was doing pretty well for the last several months and sounds like he would be content if he could get back to that place. He is going to think further about his options. For now would continue heparin infusion for least 48 hours, continue nitro drip. Continue home propanolol. Despite relative contraindication of liver disease I think reasonable to try Ranexa. Repeat echocardiogram Continue DAPT with aspirin, clopidogrel. Continue current statin. History of Present Illness Attending Physician: Abhijeet Rowan MD History of Present Illness Mr. Julien is a 71-year-old man seen in the ICU for further management of NSTEMI in the setting of known complex CAD. Medical issues include autoimmune hepatitis with cirrhosis on chronic prednisone. Previously evaluated for transplant. Off transplant list since 2014 due to stable hepatic function. Type 2 diabetes complicated by stage IV CKD, baseline creatinine around 2.2-2.7. Anemia requiring intermittent tr ansfusion. He is post PCI to [place] in 2012. Cardiac cath in 2018 found to have severe distal LAD disease which was managed medically. Was admitted to [facility] 05/2021 with NSTEMI with troponin peaking at 15. Repeat cardiac cath revealed severely calcified multivessel disease including 80% left main disease extending into ostial LAD/circumflex and heavily calcified mid RCA stenosis. EF 55 to 60% with akinetic apex, mild MR and echo. Manage medically during admission. Seen by [facility] cardiac surgery (Dr. Lambert) and interventional cardiology (Dr. Pete). PCI with atherectomy thought possible but extremely high risk. Patient opted for medical management initially. Has been doing reasonably well since that time on propranolol, amlodipine, Imdur. He is not terribly active, angina responding to several nitro with more extended walking. Yesterday developed recurrent chest pain at rest. Pain lasted about 2 hours. Similar to what he had in May. Initial ECG showed diffuse lateral ST depressions improved on subsequent ECGs. Troponin positive and has trended up to 80. Presently chest pain-free on heparin, nitro drip. Electrically stable. No additional chest pain. Creatinine stable at 2.7. Allergies Allergy/AdvReac Type Severity Reaction Status Date / Time No Known Allergies Allergy Verified 08/21/21 21:42 Home Medications Medication Instructions Recorded Confirmed Type pen needle, diabetic 31 gauge x #300 ea 04/15/19 07/30/21 Rx 3/16" (BD Ultra-Fine Mini Pen Needle) Contour Next Meter (blood-glucose #1 ea NS 12/09/19 07/30/21 Rx meter) ferrous sulfate 325 mg (65 mg 325 mg PO DAILY 03/30/20 08/21/21 History iron) tablet epoetin jose l 2,000 unit/mL 4,000 units SUBCUT Q21D PRN ml 04/10/20 08/21/21 History injection solution (Procrit) cholecalciferol (vitamin D3) 50 50 mcg PO DAILY #90 cap 08/14/20 08/21/21 Rx mcg (2,000 unit) capsule insulin NPH isoph U-100 human 100 See Rx Instructions SUBCUT 01/17/21 08/21/21 Rx unit/mL (3 mL) subcutaneous pen .COMPLEX #4 box (Novolin N Flexpen) Contour Next Test Strips (blood #400 ea NS 02/20/21 07/30/21 Rx sugar diagnostic) prednisone 10 mg tablet 10 mg PO QAM #90 tab 03/14/21 08/21/21 Rx insulin aspart U-100 100 unit/mL See Rx Instructions SUBCUT 03/29/21 08/21/21 Rx (3 mL) subcutaneous pen (Novolog .COMPLEX #15 ml Flexpen U-100 Insulin aspart) lancets (Microlet Lancet) #400 ea 03/29/21 07/30/21 Rx calcitriol 0.25 mcg capsule 0.25 mcg PO .COMPLEX #10 cap 04/15/21 08/21/21 Rx aspirin 81 mg tablet,delayed 81 mg PO QAM #30 tab 05/10/21 08/21/21 Rx release propranolol 80 mg capsule,24 80 mg PO BID #60 cap 05/10/21 08/21/21 Rx hr,extended release furosemide 40 mg tablet 40 mg PO .COMPLEX tab 06/11/21 08/21/21 History glucagon HCl 1 mg solution for 1 mg SQ Q20M PRN #3 ea 06/13/21 08/21/21 Rx injection (Glucagon (HCl) Emergency Kit) amlodipine 10 mg tablet 10 mg PO DAILY #90 tab 07/29/21 08/21/21 Rx isosorbide mononitrate 120 mg 180 mg PO BID #270 tab 07/29/21 08/21/21 Rx tablet,extended release 24 hr atorvastatin 40 mg tablet 40 mg PO QAM #90 tab 08/05/21 08/21/21 Rx clopidogrel 75 mg tablet 75 mg PO QAM #30 tab 08/06/21 08/21/21 Rx pantoprazole 40 mg tablet,delayed 40 mg PO DAILY #90 tab 08/09/21 08/21/21 Rx release (Protonix) sodium bicarbonate 650 mg tablet 1,300 mg PO BID #360 tab 08/09/21 08/21/21 Rx nitroglycerin 0.4 mg sublingual 0.4 mg SL Q5M PRN #25 tab 08/21/21 08/21/21 Rx tablet (Nitrostat) Patient History Medical History Anemia Anemia Aortic valve sclerosis Autoimmune hepatitis Background diabetic retinopathy associated with type 2 diabetes mellitus BPH (benign prostatic hyperplasia) Cancer BCC (FOREHEAD) Chest pain Chronic back pain STANDING AND WALKING, PAIN MANAGEMENT Chronic kidney disease, stage 3 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 Coronary artery disease Diabetic nephropathy associated with type 2 diabetes mellitus Diabetic peripheral neuropathy associated with type 2 diabetes mellitus Dysesthesia Dyslipidemia Elevated brain natriuretic peptide (BNP) level Elevated troponin Esophageal varices NEVER BANDED R/T AUTOIMMUNNE HEPATITIS History of non-ST elevation myocardial infarction (NSTEMI) Hyperglycemia Hyperparathyroidism IDDM (insulin dependent diabetes mellitus) TYPE 2 Kidney stones NO SURGERY assisted current use of systemic steroids Lumbar back pain with radiculopathy affecting left lower extremity Myocardial Infarction (10/2012) OCTOBER 2012 Denies having any angina symptoms or having to use NTG since stent placement Osteopenia Portal hypertension Spinal stenosis LUMBAR Vitamin D deficiency Surgical History History of ankle surgery History of cardiac cath X1 STENT (2012) History of colonoscopy History of esophagogastroduodenoscopy (EGD) Hx of heart artery stent Status post angioplasty Family History Mother Family history of diabetes mellitus Myocardial infarction Spleen cancer Hypertension Father Myocardial infarction Grandfather (Paternal) Myocardial infarction Brother Melanoma Denies family history of Colon cancer Ovarian cancer Prostate cancer Breast cancer Social History Smoking Status: Former smoker Tobacco Type: Pipe Second Hand Exposure: No; Do You Dip or Chew Tobacco: No; Tobacco Cessation Education Requested by Patient: No Hx Alcohol Use: No Hx Substance Use: No Preferred Language: [place] Communication Ability: Effective Visual Impairment: No Limitations Hearing Ability: Normal Medical Affairs Leader Required: No Beliefs That Will Affect Care: None marital status: Current Living Situation: Spouse current occupational status: retired Feels Safe at Home: Yes Safety Concerns: Feels Safe At This Time Seatbelt Use: always Assistive Devices: Glasses and Walker Review of Systems Review of Systems: All systems reviewed & are unremarkable except as noted in HPI & below Physical Exam Physical Exam: General:Uncomfortable, nauseous HEENT: Sclerae anicteric, Mask in place Lungs: Clear to auscultation bilaterally, no crackles or wheezes Cardiac: Regular rate and rhythm, 2 out of 6 systolic ejection murmur right upper sternal border Vascular: 2+ radial, DP pulses. Abdomen: Soft, nontender Extremities: Well perfused, 1+ lower extremity edema with chronic venous stasis changes Neuro: Nonfocal Skin: Diffuse ecchymosis Psych: Alert orient x3 Results & Data ([facility]) Vital Signs (Past 12 Hours) Vital Signs Temp Pulse Pulse Resp BP BP Pulse Ox 08/22/21 06:00 57 L 12 107/55 L 92 08/22/21 05:00 57 L 12 104/56 L 93 08/22/21 04:46 97.7 F 55 L 12 98/54 L 94 08/22/21 03:58 97.7 F 57 L 12 105/53 L 93 08/22/21 02:58 56 L 12 98/50 L 94 08/22/21 02:28 97.9 F 70 17 102/55 L 08/22/21 02:13 97.9 F 56 L 12 101/54 L 94 08/22/21 01:50 97.5 F L 55 L 12 115/60 95 08/22/21 01:30 60 16 116/54 L 95 08/22/21 01:06 97.5 F L 65 13 110/62 100 08/22/21 00:09 08/22/21 00:00 70 16 100/60 97 08/21/21 23:35 58 L 18 104/61 97 08/21/21 23:00 59 L 18 103/48 L 97 08/21/21 22:30 104/59 L Pulse Ox 08/22/21 06:00 08/22/21 05:00 08/22/21 04:46 08/22/21 03:58 08/22/21 02:58 08/22/21 02:28 08/22/21 02:13 08/22/21 01:50 08/22/21 01:30 08/22/21 01:06 08/22/21 00:09 97 08/22/21 00:00 08/21/21 23:35 08/21/21 23:00 08/21/21 22:30 PG Care Time/CCT Total # of Minutes Spent Total Time Spent with Patient: Total time spent is greater than 50% in coordination of care (as documented) at patient's floor/unit and/or counseling patient: Coding Level of Care Code 08250 Initial Inpt Care Lvl 3 Diagnoses NSTEMI (non-ST elevated myocardial infarction) I21.4
--- NOTE | 2021-08-22 10:04 | Nephrology Consultation ---
Date of Consultation August 22, 2021 Assessment & Plan (1) Chronic kidney disease, stage 4 (severe): (2) Acute coronary syndrome: (3) Hyperparathyroidism: 71-year-old gentlemen with stage IV CKD, baseline creatinine around 2.5, secondary to microvascular disease with history of significant atherosclerotic disease, coronary artery disease, hypertension diabetes. Admitted with non STEMI with history of multivessel coronary artery disease, poor candidate for intervention considering multiple comorbidity, advanced CKD and poor performance status. Chest pain almost resolved, continued on heparin drip. Blood pressure relatively low but asymptomatic. Slightly elevated creatinine from baseline however electrolyte remained acceptable. Volume status acceptable with chronic bilateral lower extremity edema. -- Plan to continue conservative management for NSTEMI -- continue to monitor renal function electrolyte -- overall he will be poor candidate for renal replacement therapy if renal function worse and or need any intervention for multivessel coronary artery disease. Overall with his significantly poor performance status, he is leaning towards conservative management without any intervention for coronary artery disease or dialysis in future. will follow. Thank you for allowing me to participate in your patient's care. It was a pleasure to see Forest History of Present Illness Reason for Consultation: Stage IV CKD, admitted with NSTEMI. Attending Physician: Abhijeet Rowan MD History of Present Illness Mr. Julien is a 71-year-old male with PMH of stage 4 CKD, autoimmune hepatitis, severe multivessel CAD, DM type II, CHF with preserved EF admitted with NSTEMI. Nephrology consult was requested for management of stage IV CKD in the setting of acute coronary event. EMR records were reviewed in detail during patient's visit. Forest presented to ER with complaints of chest pain at rest which was unresolved following nitroglycerin x2.He received aspirin in route per EMS. On arrival EKG showed ST depressions in inferior leads. Initial troponin 0.7 but repeat troponin elevated to 12 and last troponin was 80. He was started on heparin and nitro drip.Chest x-ray was unremarkable. Hemoglobin was 7.7 and he received 1 unit of PRBC. He had NSTEMI in May had cardiac catheterization showing multivessel disease ( 80% left main and 95% distal LAD. Vessels are heavily calcified), referred to [facility] [place] due to the high risk for any procedure. He is not a candidate for bypass because of heavily calcified vasculature.Due to high risk procedure and possible complications patient had deferred procedure for medical management. Stage IV CKD, b/l cr has been around 2.5 most likely secondary to microvascular disease. Considering multiple significant comorbidity and poor functional status, he would be a poor candidate for renal replacement therapy. Previously vascular access was discussed and considering significant atherosclerotic disease, may not be a candidate for AV fistula. PMH also significant for autoimmune hepatitis, cirrhosis with portal hypertension, type 2 diabetes. He currently denies headache, dizziness, recent illness, congestion or fevers, shortness of breath, palpitations, abdominal pain. Chest pain almost resolves however he has been having nausea and vomiting which he reports has been an ongoing issue for last several months. His functional status has been pretty poor with very limited activity. has bilateral chronic lower extremity edema, has been on diuretics which required frequent dose adjustment. Allergies Allergy/AdvReac Type Severity Reaction Status Date / Time No Known Allergies Allergy Verified 08/21/21 21:42 Home Medications Medication Instructions Recorded Confirmed Type pen needle, diabetic 31 gauge x #300 ea 04/15/19 07/30/21 Rx 3/16" (BD Ultra-Fine Mini Pen Needle) Contour Next Meter (blood-glucose #1 ea NS 12/09/19 07/30/21 Rx meter) ferrous sulfate 325 mg (65 mg 325 mg PO DAILY 03/30/20 08/21/21 History iron) tablet epoetin jose l 2,000 unit/mL 4,000 units SUBCUT Q21D PRN ml 04/10/20 08/21/21 History injection solution (Procrit) cholecalciferol (vitamin D3) 50 50 mcg PO DAILY #90 cap 08/14/20 08/21/21 Rx mcg (2,000 unit) capsule insulin NPH isoph U-100 human 100 See Rx Instructions SUBCUT 01/17/21 08/21/21 Rx unit/mL (3 mL) subcutaneous pen .COMPLEX #4 box (Novolin N Flexpen) Contour Next Test Strips (blood #400 ea NS 02/20/21 07/30/21 Rx sugar diagnostic) prednisone 10 mg tablet 10 mg PO QAM #90 tab 03/14/21 08/21/21 Rx insulin aspart U-100 100 unit/mL See Rx Instructions SUBCUT 03/29/21 08/21/21 Rx (3 mL) subcutaneous pen (Novolog .COMPLEX #15 ml Flexpen U-100 Insulin aspart) lancets (Microlet Lancet) #400 ea 03/29/21 07/30/21 Rx calcitriol 0.25 mcg capsule 0.25 mcg PO .COMPLEX #10 cap 04/15/21 08/21/21 Rx aspirin 81 mg tablet,delayed 81 mg PO QAM #30 tab 05/10/21 08/21/21 Rx release propranolol 80 mg capsule,24 80 mg PO BID #60 cap 05/10/21 08/21/21 Rx hr,extended release furosemide 40 mg tablet 40 mg PO .COMPLEX tab 06/11/21 08/21/21 History glucagon HCl 1 mg solution for 1 mg SQ Q20M PRN #3 ea 06/13/21 08/21/21 Rx injection (Glucagon (HCl) Emergency Kit) amlodipine 10 mg tablet 10 mg PO DAILY #90 tab 07/29/21 08/21/21 Rx isosorbide mononitrate 120 mg 180 mg PO BID #270 tab 07/29/21 08/21/21 Rx tablet,extended release 24 hr atorvastatin 40 mg tablet 40 mg PO QAM #90 tab 08/05/21 08/21/21 Rx clopidogrel 75 mg tablet 75 mg PO QAM #30 tab 08/06/21 08/21/21 Rx pantoprazole 40 mg tablet,delayed 40 mg PO DAILY #90 tab 08/09/21 08/21/21 Rx release (Protonix) sodium bicarbonate 650 mg tablet 1,300 mg PO BID #360 tab 08/09/21 08/21/21 Rx nitroglycerin 0.4 mg sublingual 0.4 mg SL Q5M PRN #25 tab 08/21/21 08/21/21 Rx tablet (Nitrostat) Patient History Medical History (Updated 08/22/21 @ 10:23 by Roselyn Rosales MD) Anemia Anemia Aortic valve sclerosis Autoimmune hepatitis Background diabetic retinopathy associated with type 2 diabetes mellitus BPH (benign prostatic hyperplasia) Cancer BCC (FOREHEAD) Chest pain Chronic back pain STANDING AND WALKING, PAIN MANAGEMENT Chronic kidney disease, stage 3 Chronic kidney disease, stage 4 (severe) 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 Coronary artery disease Diabetic nephropathy associated with type 2 diabetes mellitus Diabetic peripheral neuropathy associated with type 2 diabetes mellitus Dysesthesia Dyslipidemia Elevated brain natriuretic peptide (BNP) level Elevated troponin Esophageal varices NEVER BANDED R/T AUTOIMMUNNE HEPATITIS History of non-ST elevation myocardial infarction (NSTEMI) Hyperglycemia Hyperparathyroidism IDDM (insulin dependent diabetes mellitus) TYPE 2 Kidney stones NO SURGERY half-way current use of systemic steroids Lumbar back pain with radiculopathy affecting left lower extremity Myocardial Infarction (10/2012) OCTOBER 2012 Denies having any angina symptoms or having to use NTG since stent placement Osteopenia Portal hypertension Spinal stenosis LUMBAR Vitamin D deficiency Surgical History History of ankle surgery History of cardiac cath X1 STENT (2012) History of colonoscopy History of esophagogastroduodenoscopy (EGD) Hx of heart artery stent Status post angioplasty Family History Mother Family history of diabetes mellitus Myocardial infarction Spleen cancer Hypertension Father Myocardial infarction Grandfather (Paternal) Myocardial infarction Brother Melanoma Denies family history of Colon cancer Ovarian cancer Prostate cancer Breast cancer Social History Smoking Status: Former smoker Tobacco Type: Pipe Second Hand Exposure: No; Do You Dip or Chew Tobacco: No; Tobacco Cessation Education Requested by Patient: No Hx Alcohol Use: No Hx Substance Use: No Preferred Language: Persian Communication Ability: Effective Visual Impairment: No Limitations Hearing Ability: Normal Building Estimator Required: No Beliefs That Will Affect Care: None marital status: Current Living Situation: Spouse current occupational status: retired Feels Safe at Home: Yes Safety Concerns: Feels Safe At This Time Seatbelt Use: always Assistive Devices: Glasses and Walker Review of Systems Review of Systems: Detailed review of system was done and pertinent positives and negatives are mentioned in HPI. Physical Exam Constitutional: WD/WN, vitals as above + ill appearing; no acute distress pale Eyes: + anicteric sclerae ENMT: Ears: no hearing impairment Neck: normal visual inspection Respiratory: normal respiratory effort; no respiratory distress and no cough Auscultation: lungs clear to auscultation bilaterally Cardiovascular: Rate/Rhythm: regular rate and regular rhythm Heart Sounds: normal S1 and normal S2 Extremities: + edema Gastrointestinal (Abdomen): Inspection/Auscultation: abdomen normal to inspection and normal bowel sounds Percussion/Palpation: abdomen soft; abdomen nontender Musculoskeletal: Extremities: extremities normal to inspection Skin: no rashes Neurologic: no focal motor deficits and not confused Psychiatric: Orientation: alert and oriented x 3 Affect: euthymic affect Results & Data ([facility]) Vital Signs (Past 12 Hours) Vital Signs Temp Pulse Pulse Resp BP BP Pulse Ox 08/22/21 06:00 57 L 12 107/55 L 92 08/22/21 05:00 57 L 12 104/56 L 93 08/22/21 04:46 36.5 C 55 L 12 98/54 L 94 08/22/21 03:58 36.5 C 57 L 12 105/53 L 93 08/22/21 02:58 56 L 12 98/50 L 94 08/22/21 02:28 36.6 C 70 17 102/55 L 08/22/21 02:13 36.6 C 56 L 12 101/54 L 94 08/22/21 01:50 36.4 C L 55 L 12 115/60 95 08/22/21 01:30 60 16 116/54 L 95 08/22/21 01:06 36.4 C L 65 13 110/62 100 08/22/21 00:09 08/22/21 00:00 70 16 100/60 97 08/21/21 23:35 58 L 18 104/61 97 08/21/21 23:00 59 L 18 103/48 L 97 08/21/21 22:30 104/59 L Pulse Ox 08/22/21 06:00 08/22/21 05:00 08/22/21 04:46 08/22/21 03:58 08/22/21 02:58 08/22/21 02:28 08/22/21 02:13 08/22/21 01:50 08/22/21 01:30 08/22/21 01:06 08/22/21 00:09 97 08/22/21 00:00 08/21/21 23:35 08/21/21 23:00 08/21/21 22:30 PG Care Time/CCT Total # of Minutes Spent Total Time Spent with Patient: Total time spent is greater than 50% in coordination of care (as documented) at patient's floor/unit and/or counseling patient: Coding Level of Care Code 85045 Initial Inpt Care Lvl 3 Diagnoses Chronic kidney disease, stage 4 (severe) N18.4 Hyperparathyroidism E21.3 Acute coronary syndrome I24.9
[2021-08-22 10:06] LABS: Partial Thromboplastin Ratio > 5.3
[2021-08-22 10:07] LABS: Partial Thromboplastin Time > 139.0 Seconds (21.0-31.0)
--- NOTE | 2021-08-22 11:02 | Pharmacy Report ---
Pharmacy Glycemic Short Note 2 - Date of Service August 22, 2021 - Glycemic Short BSG Results (Last 24 hours): 08/21/21 08/21/21 08/22/21 20:26 22:12 00:43 Glucose 354 H* POC Glucose 262 H 110 H 08/22/21 08/22/21 05:53 07:23 Glucose 103 H POC Glucose 113 H OUTPATIENT ANTIDIABETIC REGIMEN: * On prednisone 10 mg daily at home * NPH * Prescribed: 28 units / 17 units with breakfast/dinner, respectively. * Takin units / 18 units with breakfast/dinner, respectively * Novolog * Prescribed: 18 units / 26 units with breakfast/dinner, respectively. * Takin units / 14 units with breakfast/dinner, respectively * Patient reports that if he takes the higher doses (prescribed), he has low BSG's (per med history documentation) * HbA1c 5.7% on 08/20/21 ASSESSMENT: * 71 yo M with T2DM admitted to ICU on 08/21 for NSTEMI, CKD. Home prednisone 10 mg daily has been continued. Ordered T2DM diet and is on two medications mixed in D5W (nitroglycerin and heparin). Patient remains ICU status. * Carlos A reduced his outpatient insulin regimen due to reportedly low BSG's and has an inpatient A1c of 5.7% (reflective of possible low BSG's as an outpatient consistent with patient report) * BSG's significantly elevated on admission (?stress response and/or reduced home dose of Novolog with dinner?) but trended down significantly overnight without much insulin administered as an inpatient * Will continue NPH BID to help with eventual transition back to outpatient regimen, but will weight more heavily in AM both 2nd prednisone in AM and to avoid overnight drops * Will initiate Novolog ACHS between weight-based moderate and severe stress estimate. Higher goal range 2nd ICU status and also reported outpatient hypoglycemia PLAN FOR INPATIENT GLYCEMIC CONTROL: * Basal insulin * NPH 22 units SQ x1 with breakfast then 5-15 units with dinner, depending on BSG * Bolus insulin * NovoLog per scale ACHS or Q6hrs while NPO * Goal Range: Low 120 mg/dL - High 160 mg/dL * Correction Factor: 30 mg/dL/unit * Nutritional / Prandial insulin per carb ratio of 1 unit per 9 grams CHO consumed PLAN FOR DISCHARGE: * tbd
[2021-08-22] MEDS: ISOSORBIDE MONO EXTENDED REL 60 MG TABCR PO SCH ×2 (11:45→20:16)
[2021-08-22 12:16] LABS: Partial Thromboplastin Ratio > 5.3
[2021-08-22 12:28] LABS: Partial Thromboplastin Time > 139.0 Seconds (21.0-31.0)
[2021-08-22 15:30] LABS: Partial Thromboplastin Ratio 2.9
[2021-08-22 15:52] LABS: Partial Thromboplastin Time 76.9 Seconds (21.0-31.0)
[2021-08-22] MEDS ORDERED: INSULIN HUMAN NPH SC SCH (16:30)
--- NOTE | 2021-08-22 16:31 | Billing Data ---
Date of Service August 22, 2021 Coding Level of Care Code 96009 Subseq Hosp Care Lvl 3
--- NOTE | 2021-08-22 18:42 | XCELERA ---
[id number]
[2021-08-22 23:38] LABS: Partial Thromboplastin Ratio > 5.3
[2021-08-22 23:40] LABS: Partial Thromboplastin Time > 139.0 Seconds (21.0-31.0)
[2021-08-23 01:33] LABS: Partial Thromboplastin Ratio > 5.3
[2021-08-23] MEDS ORDERED: INSULIN ASPART PER UNIT SC ONE (02:00)
[2021-08-23 02:05] LABS: Partial Thromboplastin Time > 139.0 Seconds (21.0-31.0)
[2021-08-23 02:59] LABS: Hematocrit (blood only) 24.8 % (42-52); Hemoglobin 8.4 g/dL (14.0-18.0); Mean Corpuscular Hemoglobin 31.2 pg (25-34); Mean Corpuscular Hgb Conc 33.9 g/dL (32-36); Mean Corpuscular Volume 92.2 fL (80-100); RDW Coefficient of Variation 15.3 % (11.5-14.5); Red Blood Count 2.69 M/uL (4.7-6.1); White Blood Count 8.73 K/uL (4.8-10.8)
[2021-08-23 03:08] LABS: Mean Platelet Volume 10.1 fL (7.4-10.4); Platelet Count 56 K/uL (130-400)
[2021-08-23 03:16] LABS: Eosinophils # (auto) 0.01 K/uL (0-0.5); Eosinophils % (auto) 0.1 %; Immature Granulocytes # (auto) 0.03 K/uL (0.00-0.02); Immature Granulocytes % (auto) 0.3 %; Lymphocytes # (auto) 0.47 K/uL (1.2-3.4); Lymphocytes % (auto) 5.4 %; Monocytes # (auto) 0.52 K/uL (0.11-0.59); Neutrophils % (auto) 88.2 %; Tear Drop Cells 1+
[2021-08-23 03:17] LABS: Albumin Level 2.3 gm/dl (3.4-5.0); BUN Creatinine Ratio 38.7 (10-20); Bilirubin Direct 0.4 mg/dl (0-0.2); Calcium 8.1 mg/dl (8.5-10.1); Creatinine Clr Calc Pharmacy 23.8 ml/min; Est GFR (Non-African American) 22.4 ml/min; Magnesium 1.9 mg/dl (1.8-2.4); Potassium 4.6 mmol/L (3.5-5.1)
[2021-08-23 03:19] LABS: Bilirubin,Total 2.3 mg/dl (0.2-1); Total Protein 4.6 gm/dl (6.4-8.2)
[2021-08-23 03:26] LABS: Partial Thromboplastin Ratio 3.7; Partial Thromboplastin Time 97.6 Seconds (21.0-31.0)
--- NOTE | 2021-08-23 07:24 | Electrocardiogram Report ---
Test Reason : Blood Pressure : / mmHG Vent. Rate : 069 BPM Atrial Rate : 069 BPM P-R Int : 230 ms QRS Dur : 112 ms QT Int : 392 ms P-R-T Axes : 101 -02 149 degrees QTc Int : 420 ms Sinus rhythm with 1st degree A-V block Left ventricular hypertrophy with repolarization abnormality Marked ST abnormality, possible anterior subendocardial injury Abnormal ECG When compared with ECG of 04-MAY-2021 20:37, MT interval has increased T wave inversion now evident in Lateral leads Confirmed by Yannick Osborne ([id number]) on 08/23/2021 7:24:39 AM Referred By: REFERRED SELF Confirmed By:Yannick Osborne
--- NOTE | 2021-08-23 07:44 | Electrocardiogram Report ---
Test Reason : Blood Pressure : / mmHG Vent. Rate : 057 BPM Atrial Rate : 057 BPM P-R Int : 234 ms QRS Dur : 118 ms QT Int : 442 ms P-R-T Axes : 040 035 127 degrees QTc Int : 430 ms Sinus bradycardia with 1st degree A-V block Abnormal ECG When compared with ECG of 21-AUG-2021 20:11, ST no longer depressed in Inferior leads T wave inversion less evident in Lateral leads Confirmed by Yannick Osborne ([id number]) on 08/23/2021 7:44:03 AM Referred By: REFERRED SELF Confirmed By:Yannick Osborne
[2021-08-23] MEDS: INSULIN ASPART PER UNIT SC SCH ×4 (08:00→22:02)
[2021-08-23] MEDS ORDERED: INSULIN HUMAN NPH SC ONE (08:00)
[2021-08-23] MEDS: ASPIRIN 81 MG ECTAB PO SCH (08:02)
[2021-08-23] MEDS: ATORVASTATIN 40 MG TAB PO SCH (08:02)
[2021-08-23] MEDS: predniSONE 10 MG TABLET PO SCH (08:03)
[2021-08-23] MEDS: PANTOprazole 40 MG TAB PO SCH (08:03)
[2021-08-23] MEDS: ISOSORBIDE MONO EXTENDED REL 60 MG TABCR PO SCH ×2 (08:03→21:10)
[2021-08-23] MEDS: CLOPIDOGREL BISULFATE 75 MG TAB PO SCH (08:03)
[2021-08-23] MEDS: FERROUS SULFATE 325 MG TAB PO SCH (08:03)
[2021-08-23] MEDS: SODIUM BICARBONATE 650 MG TAB PO SCH ×2 (08:03→21:10)
--- NOTE | 2021-08-23 08:10 | Electrocardiogram Report ---
Test Reason : Blood Pressure : / mmHG Vent. Rate : 057 BPM Atrial Rate : 057 BPM P-R Int : 224 ms QRS Dur : 100 ms QT Int : 438 ms P-R-T Axes : 064 043 140 degrees QTc Int : 426 ms Sinus bradycardia with sinus arrhythmia with 1st degree A-V block Nonspecific ST and T wave abnormality Abnormal ECG When compared with ECG of 22-AUG-2021 00:32, No significant change was found Confirmed by Yannick Osborne ([id number]) on 08/23/2021 8:10:26 AM Referred By: REFERRED SELF Confirmed By:Yannick Osborne
[2021-08-23] MEDS ORDERED: CALCITRIOL 0.25 MCG CAPSULE PO SCH (09:00)
[2021-08-23 10:03] LABS: Partial Thromboplastin Ratio > 5.3
[2021-08-23 10:08] LABS: Partial Thromboplastin Time > 139.0 Seconds (21.0-31.0)
[2021-08-23] MEDS: HEPARIN SODIUM/DEXTROSE 25,000 UNITS/500 ML BAG IV SCH (10:18)
--- NOTE | 2021-08-23 10:29 | Electrocardiogram Report ---
Test Reason : Blood Pressure : / mmHG Vent. Rate : 077 BPM Atrial Rate : 077 BPM P-R Int : 190 ms QRS Dur : 104 ms QT Int : 444 ms P-R-T Axes : 028 011 109 degrees QTc Int : 502 ms Normal sinus rhythm Nonspecific ST and T wave abnormality Prolonged QT Abnormal ECG When compared with ECG of 22-AUG-2021 05:41, (unconfirmed) NM interval has decreased ST no longer depressed in Anterior leads Nonspecific T wave abnormality has replaced inverted T waves in Lateral leads QT has lengthened Confirmed by Dariel Hobbs ([id number]) on 08/23/2021 10:28:58 AM Referred By: REFERRED SELF Confirmed By:Dariel Hobbs
[2021-08-23] MEDS ORDERED: EPOETIN ALFA 10,000 UNITS/ML VIAL SQ ONE (10:30)
[2021-08-23] MEDS ORDERED: NITROGLYCERIN SL 0.4 MG/TAB TAB ONE (10:48)
--- NOTE | 2021-08-23 11:38 | Nephrology Progress Note ---
Date of Service August 23, 2021 Assessment & Plan (1) Chronic kidney disease, stage 4 (severe): Plan: Filtration relatively stable with a creatinine of 2.7 mg/dL. Electrolytes are acceptable. Good urine output. Volume status relatively euvolemic and BP appropriate. Carlos A has refused dialysis. He remains on oral NaHCO3 38890 BID. Medications are appropriately dosed for kidney function. If considering Ranexa, risks/benefits are not entirely clear given kidney dysfunction and if considered I would approach as a strictly palliative measure acknowledging potential adverse effects. Low potassium diet. Monitor metabolic profile daily. (2) Acute coronary syndrome: Plan: Prognosis is guarded. Will continue conversations regarding goals of care. Due to cardiac disease and multiple other medical comorbidities as well as frailty, Carlos A is a very poor candidate for dialysis. He understands this. While he remains a full code, his chance of any recovery from a cardiac event is very poo r. (3) Hyperparathyroidism: Plan: Continue calcitriol as Rx. (4) Anemia: Plan: s/p recent PRBC transfusion. H/H stable. Epogen 09131 units ordered today. Admission and Anticipated Discharge Date Admission Date: August 21, 2021 Subjective Carlos A was seen and evaluated in the ICU this morning. Plan of care reviewed with Dr. Rowan. Carlos A continues to experience intermittent twinges of chest discomfort. He is feeling very emotional and took a phone call from his during our conversation. Carlos A confirmed that his goals of to return home and spend time with his and 2 sons. He remains a full code but is starting to re-evaluate this decision. However, changing his code status feels is very difficult for him. Carlos A did confirm that he would refuse dialysis. Appetite is good. Denies melena or hematochezia. No palpitations. He is breathing comfortably. Review of Systems Constitutional: + fatigue and + weight loss; no anorexia Eyes: no problem reported Ear, Nose, Mouth, Throat: no problem reported Respiratory: no problem reported Cardiovascular: + chest pain; no orthopnea, no palpitations and no edema Gastrointestinal: no problem reported Musculoskeletal: no problem reported Integumentary: no problem reported Neurologic: no problem reported Psychiatric: + depression; no confusion Endocrine: no problem reported Hematologic / Lymphatic: no problem reported Physical Exam Constitutional: well developed, + thin and + frail appearing; no acute distress Eyes: no scleral abnormality and no corneal abnormality ENMT: Mouth: no oral mucosal abnormality and oral mucous membranes not dry Neck: normal visual inspection and trachea midline Respiratory: normal respiratory effort Auscultation: + rales (few basilar) Cardiovascular: Rate/Rhythm: regular rate Heart Sounds: normal S1, normal S2 and + murmur Extremities: no edema Musculoskeletal: Extremities: + muscle atrophy; no cyanosis and no clubbing Skin: + turgor decreased and + ecchymosis Neurologic: Motor/Sensory: no tremor and no asterixis Psychiatric: Orientation: alert and oriented x 3 Results & Data ([facility]) Vital Signs (Past 12 Hours) Vital Signs Temp Pulse Pulse Resp BP BP Pulse Ox 08/23/21 10:48 80 110/60 08/23/21 08:22 36.6 C 08/23/21 08:00 76 14 114/64 93 08/23/21 07:00 78 13 106/66 94 08/23/21 06:00 74 17 96 08/23/21 05:00 69 24 108/56 L 94 08/23/21 04:00 37.0 C 81 16 123/67 95 08/23/21 03:00 70 12 99/56 L 93 08/23/21 02:00 70 12 96/57 L 98 08/23/21 01:00 69 12 103/59 L 98 08/23/21 00:00 36.8 C 67 12 96/57 L 95 Laboratory Results Laboratory Results - last 24 hr 08/22/21 08/22/21 08/22/21 11:31 11:44 14:57 WBC RBC Hgb Hct MCV MCH MCHC RDW Std Deviation RDW Coeff of Sony Plt Count MPV Immature Gran % (Auto) Neut % (Auto) Lymph % (Auto) Cache % (Auto) Eos % (Auto) Baso % (Auto) Neut # (Auto) Lymph # (Auto) Cache # (Auto) Eos # (Auto) Baso # (Auto) Immature Gran # (Auto) Tear Drop Cells APTT > 139.0 H* PTT Ratio > 5.3 Sodium Potassium Chloride Carbon Dioxide Anion Gap BUN Creatinine Est Cr Clr Drug Dosing Est GFR ( Amer) Est GFR (Non-Af Amer) BUN/Creatinine Ratio Glucose POC Glucose 121 H Calcium Magnesium Total Bilirubin Direct Bilirubin AST ALT Alkaline Phosphatase Troponin I 80.100 H* Total Protein Albumin 08/22/21 08/22/21 08/22/21 14:57 15:16 20:11 WBC RBC Hgb Hct MCV MCH MCHC RDW Std Deviation RDW Coeff of Sony Plt Count MPV Immature Gran % (Auto) Neut % (Auto) Lymph % (Auto) Cache % (Auto) Eos % (Auto) Baso % (Auto) Neut # (Auto) Lymph # (Auto) Cache # (Auto) Eos # (Auto) Baso # (Auto) Immature Gran # (Auto) Tear Drop Cells APTT 76.9 H* PTT Ratio 2.9 Sodium Potassium Chloride Carbon Dioxide Anion Gap BUN Creatinine Est Cr Clr Drug Dosing Est GFR ( Amer) Est GFR (Non-Af Amer) BUN/Creatinine Ratio Glucose POC Glucose 85 92 Calcium Magnesium Total Bilirubin Direct Bilirubin AST ALT Alkaline Phosphatase Troponin I Total Protein Albumin 08/22/21 08/23/21 08/23/21 22:36 01:01 02:14 WBC RBC Hgb Hct MCV MCH MCHC RDW Std Deviation RDW Coeff of [employer] Plt Count MPV Immature Gran % (Auto) Neut % (Auto) Lymph % (Auto) Cache % (Auto) Eos % (Auto) Baso % (Auto) Neut # (Auto) Lymph # (Auto) Cache # (Auto) Eos # (Auto) Baso # (Auto) Immature Gran # (Auto) Tear Drop Cells APTT > 139.0 H* > 139.0 H* PTT Ratio > 5.3 > 5.3 Sodium Potassium Chloride Carbon Dioxide Anion Gap BUN Creatinine Est Cr Clr Drug Dosing Est GFR ( Amer) Est GFR (Non-Af Amer) BUN/Creatinine Ratio Glucose POC Glucose 98 Calcium Magnesium Total Bilirubin Direct Bilirubin AST ALT Alkaline Phosphatase Troponin I Total Protein Albumin 08/23/21 08/23/21 08/23/21 02:47 02:47 02:47 WBC 8.73 RBC 2.69 L Hgb 8.4 L Hct 24.8 L MCV 92.2 MCH 31.2 MCHC 33.9 RDW Std Deviation 52.0 H RDW Coeff of Sony 15.3 H Plt Count 56 L MPV 10.1 Immature Gran % (Auto) 0.3 Neut % (Auto) 88.2 Lymph % (Auto) 5.4 Cache % (Auto) 6.0 Eos % (Auto) 0.1 Baso % (Auto) 0.0 Neut # (Auto) 7.70 H Lymph # (Auto) 0.47 L Cache # (Auto) 0.52 Eos # (Auto) 0.01 Baso # (Auto) 0.00 Immature Gran # (Auto) 0.03 H Tear Drop Cells 1+ APTT 97.6 H* PTT Ratio 3.7 Sodium 138 Potassium 4.6 Chloride 106 Carbon Dioxide 23 Anion Gap 9.0 BUN 105 H Creatinine 2.71 H Est Cr Clr Drug Dosing 23.8 Est GFR ( Amer) 26.0 Est GFR (Non-Af Amer) 22.4 BUN/Creatinine Ratio 38.7 H Glucose 90 POC Glucose Calcium 8.1 L Magnesium 1.9 Total Bilirubin 2.3 H Direct Bilirubin 0.4 H AST 197 H ALT 53 Alkaline Phosphatase 46 Troponin I Total Protein 4.6 L Albumin 2.3 L 08/23/21 08/23/21 08/23/21 07:27 09:29 10:59 WBC RBC Hgb Hct MCV MCH MCHC RDW Std Deviation RDW Coeff of [employer] Plt Count MPV Immature Gran % (Auto) Neut % (Auto) Lymph % (Auto) Cache % (Auto) Eos % (Auto) Baso % (Auto) Neut # (Auto) Lymph # (Auto) Cache # (Auto) Eos # (Auto) Baso # (Auto) Immature Gran # (Auto) Tear Drop Cells APTT > 139.0 H* 105.3 H* PTT Ratio > 5.3 4.0 Sodium Potassium Chloride Carbon Dioxide Anion Gap BUN Creatinine Est Cr Clr Drug Dosing Est GFR ( Amer) Est GFR (Non-Af Amer) BUN/Creatinine Ratio Glucose POC Glucose 105 H Calcium Magnesium Total Bilirubin Direct Bilirubin AST ALT Alkaline Phosphatase Troponin I Total Protein Albumin 08/23/21 11:05 WBC RBC Hgb Hct MCV MCH MCHC RDW Std Deviation RDW Coeff of [employer] Plt Count MPV Immature Gran % (Auto) Neut % (Auto) Lymph % (Auto) Cache % (Auto) Eos % (Auto) Baso % (Auto) Neut # (Auto) Lymph # (Auto) Cache # (Auto) Eos # (Auto) Baso # (Auto) Immature Gran # (Auto) Tear Drop Cells APTT PTT Ratio Sodium Potassium Chloride Carbon Dioxide Anion Gap BUN Creatinine Est Cr Clr Drug Dosing Est GFR ( Amer) Est GFR (Non-Af Amer) BUN/Creatinine Ratio Glucose POC Glucose 229 H Calcium Magnesium Total Bilirubin Direct Bilirubin AST ALT Alkaline Phosphatase Troponin I Total Protein Albumin PG Care Time/CCT Total # of Minutes Spent Total Time Spent with Patient: Total time spent is greater than 50% in coordination of care (as documented) at patient's floor/unit and/or counseling patient: Coding Level of Care Code 22931 Subseq Hosp Care Lvl 3 Diagnoses Chronic kidney disease, stage 4 (severe) N18.4 Acute coronary syndrome I24.9 Hyperparathyroidism E21.3 Anemia D64.9 Anemia type: unspecified type (1) Anemia Anemia type: unspecified type Qualified Code(s): D64.9 - Anemia, unspecified
[2021-08-23 11:43] LABS: Partial Thromboplastin Time 105.3 Seconds (21.0-31.0)
--- NOTE | 2021-08-23 12:51 | Cardiology Progress Note ---
Date of Service August 23, 2021 Assessment & Plan (1) NSTEMI (non-ST elevated myocardial infarction): Plan: 2. Complex calcified multivessel CAD, post prior PCI to diagonal 3. Type 2 diabetes 4. Cirrhosis/autoimmune hepatitis on chronic prednisone, esophageal varices on propanolol 5. Stage IV CKD 6. Stable mild anemia/thrombocytopenia Reviewed repeat echo. LV function preserved. LAD distribution wall motion abnormality more pronounced. Remaining segments function unchanged. Suspect mid LAD acute culprit for current NSTEMI. Agree with decision to continue medical management for his NSTEMI and complex CAD. -- Continue heparin for 48hrs. -- Continue DAPT with ASA/Clopidogrel -- Continue max dose Imdur 180mg BID -- Resume beta-trae. Try metoprolol 25mg BID and titrate up as BP/HR alllows. -- If tolerate beta-trae, resume amlodipine. Admission and Anticipated Discharge Date Admission Date: August 21, 2021 Subjective Did well overnight. Brief episodes of chest pain this morning when became emotional discussing situation. Relieved with SLNTG. Confirmed wishes to forgo high risk PCI and prefers medical management with goal of returning home to his family. Review of Systems Review of Systems: All systems reviewed & are unremarkable except as noted in HPI & below Physical Exam Physical Exam: General:Comfortable HEENT: Sclerae anicteric, Mask in place Lungs: Clear to auscultation bilaterally, no crackles or wheezes Cardiac: Regular rate and rhythm, 2 out of 6 systolic ejection murmur right upper sternal border Vascular: 2+ radial, DP pulses. Abdomen: Soft, nontender Extremities: Well perfused, 1+ lower extremity edema with chronic venous stasis changes Neuro: Nonfocal Skin: Diffuse ecchymosis Psych: Alert orient x3 Results & Data ([facility]) Vital Signs (Past 12 Hours) Vital Signs Temp Pulse Pulse Resp BP BP Pulse Ox 08/23/21 11:39 98.2 F 88 18 108/63 97 08/23/21 10:48 80 110/60 08/23/21 08:22 97.9 F 08/23/21 08:00 76 14 114/64 93 08/23/21 07:00 78 13 106/66 94 08/23/21 06:00 74 17 96 08/23/21 05:00 69 24 108/56 L 94 12/24/21 04:00 98.6 F 81 16 123/67 95 08/23/21 03:00 70 12 99/56 L 93 08/23/21 02:00 70 12 96/57 L 98 08/23/21 01:00 69 12 103/59 L 98 PG Care Time/CCT Total # of Minutes Spent Total Time Spent with Patient: Total time spent is greater than 50% in coordination of care (as documented) at patient's floor/unit and/or counseling patient: Coding Level of Care Code 77295 Subseq Hosp Care Lvl 3 Diagnoses NSTEMI (non-ST elevated myocardial infarction) I21.4
[2021-08-23 13:03] LABS: Partial Thromboplastin Ratio 2.3
[2021-08-23 13:04] LABS: Partial Thromboplastin Time 61.2 Seconds (21.0-31.0)
--- NOTE | 2021-08-23 13:18 | Hospitalist Progress Note ---
Date of Service August 23, 2021 Assessment & Plan (1) Acute coronary syndrome: Plan: 71yo Male here for chest pain shortness of breath 2/2 to NSTEMI. PMH autoimmune hepatitis with portal HTN and esophageal varices, chronic anemia/thrombocytopenia, severe multivessel CAD, CKD4, DM2, HFpEF. ()NSTEMI, Hx CAD: History of severe multivessel disease. Cardiac cath 05/2021: Calcified 80% left main extending into the ostium of LAD/circumflex, 60% mid LAD, severe diffuse distal LAD up to 95%, 60% proximal circumflex, 55% proximal RCA, 70% calcified mid RCA with acute thrombus. Echo 05/2021: LVEF 55-60%, apical akinesis, mild MR. Troponin initially 0.7 -> 80.4 downtrending; heparin gtt started by ICU team, aPPT elevated to 139 heparin held Total of aspirin 324mg received while still in ER. Continue daily aspirin, Plavix, statin. Amlodipine and beta trae held due to hypotension. will restart propanolol tomorrow Started nitrodrip, stopped 08/21 Cardiology consulted, recommend heparin 48hr, home propanolol, despite liver disease consider Ranexa. Continue ASA/plavix, statin. Continue max dose Imdur 180 BID Echo: EF 50-55%, severe concentric LVH, large apical akenisis Resume beta-trae. Try metoprolol 25mg BID and titrate up as BP/HR alllows. If tolerate beta-trae, resume amlodipine. 08/23 patient experienced chest pain after emotional distress, EKG showed ST depression in leads V3, V6, chest pain resolve with SL nitro ()CKD stage IV, hyperkalemia, chronic anemia: New baseline creatinine ~3.0. Creatinine on admission of 3.11. Has been and continues to be firm about not wanting to pursue dialysis should he have worsening of his renal function. Overall is a poor candidate for dialysis due to his multiple medical comorbidities, frailty and poor functional status. Would not be good candidate for peritoneal dialysis due to portal HTN and Hx ascites. Would not be a good candidate for AV fistula due to history of vascular disease, as well as chronic skin changes from daily prednisone therapy. Potassium of 5.2 on admission today. No peaked T waves. Small bolus NSS given. Continue sodium bicarbonate BID. Repeat BMP in AM. Follows with Dr. Dwyer. Nephrology consulted given complex situation with CKD IV and NSTEMI, recommend conservative management, patient declines further intervention for CAD or dialysis recommends if considering Ranexa, use as strictly palliative measures ()Anemia, thrombocytopenia: Chronic, with baseline Hgb ~8-9, plts ~90. On admission with Hgb 8.1. Received 1u PRBCs in ICU given NSTEMI. Last Hbg 8.4 Continue daily iron supplement. ()DM2, hyperglycemia: On presentation with BSG 354. Received 5u regular insulin. Continue SSI with ICU hyperglycemia protocol. ()Autoimmune hepatitis, portal HTN, esophageal varices: History of. On furosemide 80mg AM, 40mg PM. LFTs stable. Continue home prednisone daily. ()Swallowing Difficulties Patient experiencing nausea vomitting cough not improved with zofran, protonix. Describes difficulty swallowing chicken at home and self induced vomiting to clear from esophagus. Discussed possible etiology, esophageal stricture v. cardiac complication, patient understands endoscopy is best option to evaluate for esophageal stricture but may not tolerate sedation well. swallowing difficulties improved 08/23 without intervention Code Status: FULL CODE FEN: Heart Healthy DM2 diet DVT ppx: Heparin gtt Dispo: ICU (2) CKD (chronic kidney disease): (3) Uncontrolled type 2 diabetes mellitus: (4) Dyslipidemia: (5) Portal hypertension: (6) Anemia: (7) Esophageal varices: (8) Autoimmune hepatitis: Admission and Anticipated Discharge Date Admission Date: August 21, 2021 Supervising Physician Co-Signing Physician Notes Patient seen and examined, chart reviewed, case discussed with Dr. Schumacher and I agree with the assessment and plan as above except as otherwise noted Patient seen at bedside. Patient with an episode of chest pain recurrence this morning. Pain 5/10, EKG obtained with borderline ST changes ~1mm in V3/V6 otherwise unchanged, pain resolved with sublingual nitro. Patient continues on heparin GTT without signs of bleeding. Remains a poor interventional candidate as previously noted. Seen by cardiology today, no interval change on repeat echo, per cards continue medical management and resume metoprolol if tolerated. Patient does as revisited by both primary team and nephrology today, while patient acknowledges he does not want dialysis or interventions that are likely to severely compromised his quality of life he is reluctant and does not feel ready to change his CODE STATUS at this time but will continue to think about it. Has been weaned from nitro drip, downgraded to PCU monitoring from ICU ACS: Continue heparin for 48 hours, dual antiplatelet therapy, Imdur 180 twice daily, metoprolol resumed and uptitrate as tolerated blood pressure. Extremely poor interventional candidate, no plans for coronary intervention at this time. CKD: Does not desire dialysis, medical management of renal disease and ACS as noted. Nephrology consulted, appreciate recommendations. Chronic anemia: Hemoglobin threshold 8.0 rather than 9.0, received 1 unit of blood. Currently stable Subjective 71yo Male seen at bedside, cooperative comfortable. He states his nausea/vomitting/cough has improved from yesterday. Patient states he feels 'at the edge of having chest pain' when he moves around in bed to reach behind him or to grab the urinal. Patient expressed distress when recounting his current medical condition and limited options, expressed understanding that his condition would continue to slowly decline, after which he began tearing. At that time patient began describing some chest pressure that was relieved with nitroglycerin. Review of Systems Review of Systems: Positive chest pain Negative fever chills Negative headache dizziness Negative palpitations SOB Negative nausea vomitting diarrhea constipation Negative numbness tingling rash Physical Exam Constitutional: average body habitus, + frail appearing and cooperative Respiratory: normal respiratory effort, lungs clear to auscultation Cardiovascular: RRR, no murmur, no edema Heart Sounds: normal S1 and normal S2 Gastrointestinal (Abdomen): normal bowel sounds, soft, nontender, no hepatosplenomegaly Skin: no rashes, warm and dry Psychiatric: Orientation: alert and oriented x 3 Mood: + depressed mood and + anxious mood Results & Data Results & Data ([facility]) Vital Signs (Past 12 Hours) Vital Signs Temp Pulse Pulse Resp BP BP Pulse Ox 08/23/21 11:39 36.8 C 88 18 108/63 97 08/23/21 10:48 80 110/60 08/23/21 08:22 36.6 C 08/23/21 08:00 76 14 114/64 93 08/23/21 07:00 78 13 106/66 94 08/23/21 06:00 74 17 96 08/23/21 05:00 69 24 108/56 L 94 08/23/21 04:00 37.0 C 81 16 123/67 95 08/23/21 03:00 70 12 99/56 L 93 08/23/21 02:00 70 12 96/57 L 98 Laboratory Results 08/23/21 08/23/21 08/23/21 Range/Units 15:51 12:31 11:05 WBC (4.8-10.8) K/uL RBC (4.7-6.1) M/uL Hgb (14.0-18.0) g/dL Hct (42-52) % MCV (80-100) fL MCH (25-34) pg MCHC (32-36) g/dL RDW Std Deviation (36.4-46.3) fL RDW Coeff of Sony (11.5-14.5) % Plt Count (130-400) K/uL MPV (7.4-10.4) fL Immature Gran % (Auto) % Neut % (Auto) % Lymph % (Auto) % Berks % (Auto) % Eos % (Auto) % Baso % (Auto) % Neut # (Auto) (1.4-6.5) K/uL Lymph # (Auto) (1.2-3.4) K/uL Berks # (Auto) (0.11-0.59) K/uL Eos # (Auto) (0-0.5) K/uL Baso # (Auto) (0-0.2) K/uL Immature Gran # (Auto) (0.00-0.02) K/uL Tear Drop Cells APTT 61.2 H* (21.0-31.0) Seconds PTT Ratio 2.3 Sodium (136-145) mmol/L Potassium (3.5-5.1) mmol/L Chloride (98-107) mmol/L Carbon Dioxide (21-32) mmol/L Anion Gap (3-11) BUN (7-18) mg/dl Creatinine (0.6-1.4) mg/dl Est Cr Clr Drug Dosing ml/min Est GFR ( Amer) ml/min Est GFR (Non-Af Amer) ml/min BUN/Creatinine Ratio (10-20) Glucose (70-99) mg/dl POC Glucose 179 H 229 H (70-99) mg/dl Calcium (8.5-10.1) mg/dl Magnesium (1.8-2.4) mg/dl Total Bilirubin (0.2-1) mg/dl Direct Bilirubin (0-0.2) mg/dl AST (15-37) U/L ALT (12-78) Alkaline Phosphatase (45-117) U/L Total Protein (6.4-8.2) gm/dl Albumin (3.4-5.0) gm/dl 08/23/21 08/23/21 08/23/21 Range/Units 10:59 09:29 07:27 WBC (4.8-10.8) K/uL RBC (4.7-6.1) M/uL Hgb (14.0-18.0) g/dL Hct (42-52) % MCV (80-100) fL MCH (25-34) pg MCHC (32-36) g/dL RDW Std Deviation (36.4-46.3) fL RDW Coeff of Sony (11.5-14.5) % Plt Count (130-400) K/uL MPV (7.4-10.4) fL Immature Gran % (Auto) % Neut % (Auto) % Lymph % (Auto) % [place] % (Auto) % Eos % (Auto) % Baso % (Auto) % Neut # (Auto) (1.4-6.5) K/uL Lymph # (Auto) (1.2-3.4) K/uL Berks # (Auto) (0.11-0.59) K/uL Eos # (Auto) (0-0.5) K/uL Baso # (Auto) (0-0.2) K/uL Immature Gran # (Auto) (0.00-0.02) K/uL Tear Drop Cells APTT 105.3 H* > 139.0 H* (21.0-31.0) Seconds PTT Ratio 4.0 > 5.3 Sodium (136-145) mmol/L Potassium (3.5-5.1) mmol/L Chloride (98-107) mmol/L Carbon Dioxide (21-32) mmol/L Anion Gap (3-11) BUN (7-18) mg/dl Creatinine (0.6-1.4) mg/dl Est Cr Clr Drug Dosing ml/min Est GFR ( Amer) ml/min Est GFR (Non-Af Amer) ml/min BUN/Creatinine Ratio (10-20) Glucose (70-99) mg/dl POC Glucose 105 H (70-99) mg/dl Calcium (8.5-10.1) mg/dl Magnesium (1.8-2.4) mg/dl Total Bilirubin (0.2-1) mg/dl Direct Bilirubin (0-0.2) mg/dl AST (15-37) U/L ALT (12-78) Alkaline Phosphatase (45-117) U/L Total Protein (6.4-8.2) gm/dl Albumin (3.4-5.0) gm/dl 08/23/21 08/23/21 08/23/21 Range/Units 02:47 02:47 02:47 WBC 8.73 (4.8-10.8) K/uL RBC 2.69 L (4.7-6.1) M/uL Hgb 8.4 L (14.0-18.0) g/dL Hct 24.8 L (42-52) % MCV 92.2 (80-100) fL MCH 31.2 (25-34) pg MCHC 33.9 (32-36) g/dL RDW Std Deviation 52.0 H (36.4-46.3) fL RDW Coeff of Sony 15.3 H (11.5-14.5) % Plt Count 56 L (130-400) K/uL MPV 10.1 (7.4-10.4) fL Immature Gran % (Auto) 0.3 % Neut % (Auto) 88.2 % Lymph % (Auto) 5.4 % Berks % (Auto) 6.0 % Eos % (Auto) 0.1 % Baso % (Auto) 0.0 % Neut # (Auto) 7.70 H (1.4-6.5) K/uL Lymph # (Auto) 0.47 L (1.2-3.4) K/uL Berks # (Auto) 0.52 (0.11-0.59) K/uL Eos # (Auto) 0.01 (0-0.5) K/uL Baso # (Auto) 0.00 (0-0.2) K/uL Immature Gran # (Auto) 0.03 H (0.00-0.02) K/uL Tear Drop Cells 1+ APTT 97.6 H* (21.0-31.0) Seconds PTT Ratio 3.7 Sodium 138 (136-145) mmol/L Potassium 4.6 (3.5-5.1) mmol/L Chloride 106 (98-107) mmol/L Carbon Dioxide 23 (21-32) mmol/L Anion Gap 9.0 (3-11) BUN 105 H (7-18) mg/dl Creatinine 2.71 H (0.6-1.4) mg/dl Est Cr Clr Drug Dosing 23.8 ml/min Est GFR ( Amer) 26.0 ml/min Est GFR (Non-Af Amer) 22.4 ml/min BUN/Creatinine Ratio 38.7 H (10-20) Glucose 90 (70-99) mg/dl POC Glucose (70-99) mg/dl Calcium 8.1 L (8.5-10.1) mg/dl Magnesium 1.9 (1.8-2.4) mg/dl Total Bilirubin 2.3 H (0.2-1) mg/dl Direct Bilirubin 0.4 H (0-0.2) mg/dl AST 197 H (15-37) U/L ALT 53 (12-78) Alkaline Phosphatase 46 (45-117) U/L Total Protein 4.6 L (6.4-8.2) gm/dl Albumin 2.3 L (3.4-5.0) gm/dl 08/23/21 08/23/21 08/22/21 Range/Units 02:14 01:01 22:36 WBC (4.8-10.8) K/uL RBC (4.7-6.1) M/uL Hgb (14.0-18.0) g/dL Hct (42-52) % MCV (80-100) fL MCH (25-34) pg MCHC (32-36) g/dL RDW Std Deviation (36.4-46.3) fL RDW Coeff of Sony (11.5-14.5) % Plt Count (130-400) K/uL MPV (7.4-10.4) fL Immature Gran % (Auto) % Neut % (Auto) % Lymph % (Auto) % [place]ks % (Auto) % Eos % (Auto) % Baso % (Auto) % Neut # (Auto) (1.4-6.5) K/uL Lymph # (Auto) (1.2-3.4) K/uL Berks # (Auto) (0.11-0.59) K/uL Eos # (Auto) (0-0.5) K/uL Baso # (Auto) (0-0.2) K/uL Immature Gran # (Auto) (0.00-0.02) K/uL Tear Drop Cells APTT > 139.0 H* > 139.0 H* (21.0-31.0) Seconds PTT Ratio > 5.3 > 5.3 Sodium (136-145) mmol/L Potassium (3.5-5.1) mmol/L Chloride (98-107) mmol/L Carbon Dioxide (21-32) mmol/L Anion Gap (3-11) BUN (7-18) mg/dl Creatinine (0.6-1.4) mg/dl Est Cr Clr Drug Dosing ml/min Est GFR ( Amer) ml/min Est GFR (Non-Af Amer) ml/min BUN/Creatinine Ratio (10-20) Glucose (70-99) mg/dl POC Glucose 98 (70-99) mg/dl Calcium (8.5-10.1) mg/dl Magnesium (1.8-2.4) mg/dl Total Bilirubin (0.2-1) mg/dl Direct Bilirubin (0-0.2) mg/dl AST (15-37) U/L ALT (12-78) Alkaline Phosphatase (45-117) U/L Total Protein (6.4-8.2) gm/dl Albumin (3.4-5.0) gm/dl 08/22/21 Range/Units 20:11 WBC (4.8-10.8) K/uL RBC (4.7-6.1) M/uL Hgb (14.0-18.0) g/dL Hct (42-52) % MCV (80-100) fL MCH (25-34) pg MCHC (32-36) g/dL RDW Std Deviation (36.4-46.3) fL RDW Coeff of Sony (11.5-14.5) % Plt Count (130-400) K/uL MPV (7.4-10.4) fL Immature Gran % (Auto) % Neut % (Auto) % Lymph % (Auto) % [place] % (Auto) % Eos % (Auto) % Baso % (Auto) % Neut # (Auto) (1.4-6.5) K/uL Lymph # (Auto) (1.2-3.4) K/uL Berks # (Auto) (0.11-0.59) K/uL Eos # (Auto) (0-0.5) K/uL Baso # (Auto) (0-0.2) K/uL Immature Gran # (Auto) (0.00-0.02) K/uL Tear Drop Cells APTT (21.0-31.0) Seconds PTT Ratio Sodium (136-145) mmol/L Potassium (3.5-5.1) mmol/L Chloride (98-107) mmol/L Carbon Dioxide (21-32) mmol/L Anion Gap (3-11) BUN (7-18) mg/dl Creatinine (0.6-1.4) mg/dl Est Cr Clr Drug Dosing ml/min Est GFR ( Amer) ml/min Est GFR (Non-Af Amer) ml/min BUN/Creatinine Ratio (10-20) Glucose (70-99) mg/dl POC Glucose 92 (70-99) mg/dl Calcium (8.5-10.1) mg/dl Magnesium (1.8-2.4) mg/dl Total Bilirubin (0.2-1) mg/dl Direct Bilirubin (0-0.2) mg/dl AST (15-37) U/L ALT (12-78) Alkaline Phosphatase (45-117) U/L Total Protein (6.4-8.2) gm/dl Albumin (3.4-5.0) gm/dl Diagnostic Findings Chest X-Ray 08/21/21 19:57 XR chest 1V portable HISTORY: 71 years-old Male Chest Pain acute atypical chest pain COMPARISON: Chest radiograph 05/02/2021 TECHNIQUE: Portable AP view of the chest FINDINGS: Cardiac silhouette is enlarged. Emphysema. Pulmonary vascular congestion with interstitial coarsening. No pneumothorax or large pleural effusion. Coronary arterial stent suggested. The bones appear grossly intact. IMPRESSION: 1. Cardiomegaly with pulmonary vascular congestion. 2. Emphysema with unchanged interstitial coarsening. ACT 112: Negative or not required by law. The above report was generated using voice recognition software. It may contain grammatical, syntax or spelling errors. Electronically signed by: Joseluis Kang M.D. 08/21/2021 8:25 PM Medications Administered Current Inpatient Medications Acetaminophen (Acetaminophen 325 Mg Tab) 650 mg PO Q4H PRN PRN Reason: Pain or Fever Stop: 09/21/21 00:08 Aspirin ([facility]spirin 81 Mg Ectab) [facility] Stop: 09/21/21 08:59 Last Admin: 08/23/21 08:02 Dose: 81 mg Documented by: Atorvastatin Calcium (Atorvastatin 40 Mg Tab) 40 mg PO QAM [facility] Stop: 09/21/21 08:59 Last Admin: 08/23/21 08:02 Dose: 40 mg Documented by: Calcitriol (Calcitriol 0.25 Mcg Capsule) 0.25 mcg PO MoFr@0900 [facility] Stop: 09/22/21 08:59 Last Admin: 08/23/21 08:02 Dose: 0.25 mcg Documented by: Clopidogrel Bisulfate (Clopidogrel Bisulfate 75 Mg Tab) [facility] Stop: 09/21/21 08:59 Last Admin: 08/23/21 08:03 Dose: 75 mg Documented by: Ferrous Sulfate (Ferrous Sulfate 325 Mg Tab) 325 mg PO DAILY [facility] Stop: 09/21/21 08:59 Last Admin: 08/23/21 08:03 Dose: 325 mg Documented by: Heparin Sodium/Dextrose (Heparin Sodium/Dextrose) 25,000 units in 500 mls @ 4 mls/hr IV .Q24H [facility]; Protocol Stop: 09/20/21 23:44 Last Titration: 08/23/21 13:05 Dose: 200 units/hr, 4 mls/hr Documented by: Insulin Aspart (Insulin Aspart Per Unit) 0 units SC ACHS [facility]; Protocol Stop: 09/21/21 07:29 Last Admin: 08/23/21 17:28 Dose: 4 units Documented by: Insulin Human NPH (Insulin Human Nph) 0 units SC QDD [facility]; Protocol Stop: 09/22/21 16:29 Last Admin: 08/23/21 17:29 Dose: 10 units Documented by: Isosorbide Mononitrate (Isosorbide Berks Extended Rel 60 Mg Tabcr) 180 mg PO BID [facility] Stop: 09/21/21 09:29 Last Admin: 08/23/21 08:03 Dose: 180 mg Documented by: Miscellaneous Information (Pharmacy Glycemic Mgmt Consult) 1 ea N/A UD PRN PRN Reason: Consult Stop: 09/20/21 22:45 Morphine Sulfate (Morphine Sulfate 2 Mg/Ml Carp) 2 mg IV Q30M PRN PRN Reason: Chest Pain Stop: 09/05/21 00:08 Nitroglycerin (Nitroglycerin Sl 0.4 Mg/Tab Tab) 0.4 mg SL PRN PRN PRN Reason: chest pain Stop: 09/22/21 11:00 Ondansetron HCl (Ondansetron Inj 2 Mg/Ml 2 Ml Vial) 4 mg IV Q6H PRN PRN Reason: Nausea And Vomiting Stop: 09/21/21 00:20 Last Admin: 08/22/21 07:40 Dose: 4 mg Documented by: Pantoprazole Sodium (Pantoprazole 40 Mg Tab) 40 mg PO DAILY [facility] Stop: 09/21/21 08:59 Last Admin: 08/23/21 08:03 Dose: 40 mg Documented by: Polyethylene Glycol (Polyethylene (Miralax) 17 Gm Pack) 17 gm PO DAILY PRN PRN Reason: Constipation Stop: 09/21/21 00:08 Prednisone (Prednisone 10 Mg Tablet) 10 mg PO QAM [facility] Stop: 09/21/21 08:59 Last Admin: 08/23/21 08:03 Dose: 10 mg Documented by: Sodium Bicarbonate (Sodium Bicarbonate 650 Mg Tab) 1,300 mg PO BID [facility] Stop: 09/21/21 08:59 Last Admin: 08/23/21 08:03 Dose: 1,300 mg Documented by: Resident Activity Tracking Resident Involvement: Resident Care Provided Care Provided: Adult Hospital Medicine (1) CKD (chronic kidney disease) Chronic kidney disease stage: unspecified stage Qualified Code(s): N18.9 - Chronic kidney disease, unspecified
--- NOTE | 2021-08-23 17:25 | Billing Data ---
Date of Service August 23, 2021 Coding Level of Care Code 58754 Subseq Hosp Care Lvl 3
[2021-08-23] MEDS: INSULIN HUMAN NPH SC SCH (17:29)
[2021-08-23 19:43] LABS: Partial Thromboplastin Ratio 1.7
[2021-08-23 20:14] LABS: Partial Thromboplastin Time 45.6 Seconds (21.0-31.0)
[2021-08-24 02:16] LABS: Hematocrit (blood only) 22.3 % (42-52); Hemoglobin 7.4 g/dL (14.0-18.0); Mean Corpuscular Hemoglobin 31.4 pg (25-34); Mean Corpuscular Hgb Conc 33.2 g/dL (32-36); Mean Corpuscular Volume 94.5 fL (80-100); RDW Coefficient of Variation 15.4 % (11.5-14.5); RDW Standard Deviation 52.5 fL (36.4-46.3); Red Blood Count 2.36 M/uL (4.7-6.1); White Blood Count 5.79 K/uL (4.8-10.8)
[2021-08-24 02:34] LABS: Albumin Level 2.1 gm/dl (3.4-5.0); BUN Creatinine Ratio 36.2 (10-20); Bilirubin Direct 0.3 mg/dl (0-0.2); Calcium 7.7 mg/dl (8.5-10.1); Creatinine Clr Calc Pharmacy 25.6 ml/min; Est GFR (African American) 27.7 ml/min; Est GFR (Non-African American) 23.9 ml/min; Mean Platelet Volume 10.1 fL (7.4-10.4); Platelet Count 57 K/uL (130-400); Potassium 4.2 mmol/L (3.5-5.1)
[2021-08-24 02:35] LABS: Eosinophils # (auto) 0.03 K/uL (0-0.5); Eosinophils % (auto) 0.5 %; Immature Granulocytes # (auto) 0.02 K/uL (0.00-0.02); Immature Granulocytes % (auto) 0.3 %; Lymphocytes # (auto) 0.45 K/uL (1.2-3.4); Lymphocytes % (auto) 7.8 %; Monocytes % (auto) 8.6 %; Neutrophils # (auto) 4.79 K/uL (1.4-6.5); Neutrophils % (auto) 82.8 %; RBC Morphology Unremarkable
[2021-08-24 02:37] LABS: Bilirubin,Total 2.2 mg/dl (0.2-1); Total Protein 4.6 gm/dl (6.4-8.2)
[2021-08-24 02:38] LABS: Partial Thromboplastin Ratio 1.9
[2021-08-24 02:45] LABS: Partial Thromboplastin Time 49.4 Seconds (21.0-31.0)
[2021-08-24] MEDS: NITROGLYCERIN SL 0.4 MG/TAB TAB SL PRN ×3 (03:55→09:27)
[2021-08-24] MEDS: HEPARIN SODIUM/DEXTROSE 25,000 UNITS/500 ML BAG IV SCH (05:47)
--- NOTE | 2021-08-24 06:05 | Billing Data ---
Date of Service August 24, 2021 Total critical care time was 45 minutes Coding Level of Care Code Critical Care 1st 30-74 mins
--- NOTE | 2021-08-24 07:23 | Hospitalist Progress Note ---
Date of Service August 24, 2021 Assessment & Plan (1) Acute coronary syndrome: Plan: 71yo Male here for chest pain shortness of breath 2/2 to NSTEMI. PMH autoimmune hepatitis with portal HTN and esophageal varices, chronic anemia/thrombocytopenia, severe multivessel CAD, CKD4, DM2, HFpEF. ()Acute Respiratory failure with Hypoxia secondary to fluid overload, pulmonary edema his CHF and CKD most likely contributory continue BIPAP O2 sat 90-92% ABG pH normal PCO2 29 Lactate 3.8 CXR: Moderate to severe pulmonary edema, increased from prior exam. Bilateral lower lobe predominant airspace opacities which may represent atelectasis, aspiration, and/or pneumonia. ()NSTEMI, Hx CAD: History of severe multivessel disease. Cardiac cath 05/2021: Calcified 80% left main extending into the ostium of LAD/circumflex, 60% mid LAD, severe diffuse distal LAD up to 95%, 60% proximal circumflex, 55% proximal RCA, 70% calcified mid RCA with acute thrombus. Echo 05/2021: LVEF 55-60%, apical akinesis, mild MR. Troponin initially 0.7 -> 80.4 downtrending; heparin gtt started by ICU team, aPPT elevated to 139 heparin held Total of aspirin 324mg received while still in ER. Continue daily aspirin, Plavix, statin. Amlodipine and beta trae held due to hypotension. Started nitrodrip, stopped 08/21 Cardiology consulted, recommend heparin 48hr, home propanolol, despite liver disease consider Ranexa. Continue ASA/plavix, statin. Continue max dose Imdur 180 BID Echo: EF 50-55%, severe concentric LVH, large apical akenisis Resume beta-trae. Try metoprolol 25mg BID and titrate up as BP/HR alllows. *as patient is not stabilized, beta blockers have not been restarted If tolerate beta-trae, resume amlodipine. 08/23 patient experienced chest pain after emotional distress, EKG showed ST depression in leads V3, V6, chest pain resolve with SL nitro. Patient downgraded to PCU 08/24 patient in respiratory distress CXR showed mod-sev pulmonary edema, started on BIPAP, stat labs ordered, upgraded to ICU elevated lactate, ammonia heparin drip ongoing for now as limited options for intervention, some concern very dark stool possible GI bleed, continue to monitor for now given 80mg IV lasix, good urine output ()CKD stage IV, hyperkalemia, chronic anemia: New baseline creatinine ~3.0. Creatinine on admission of 3.11. Has been and continues to be firm about not wanting to pursue dialysis should he have worsening of his renal function. Overall is a poor candidate for dialysis due to his multiple medical comorbidities, frailty and poor functional status. Would not be good candidate for peritoneal dialysis due to portal HTN and Hx ascites. Would not be a good candidate for AV fistula due to history of vascular disease, as well as chronic skin changes from daily prednisone therapy. Potassium of 5.2 on admission today. No peaked T waves. Small bolus NSS given. Continue sodium bicarbonate BID. Repeat BMP in AM. Follows with Dr. Dwyer. Nephrology consulted given complex situation with CKD IV and NSTEMI, recommend conservative management, patient declines further intervention for CAD or dialysis recommends if considering Ranexa, use as strictly palliative measures Further discussion with family regarding futility for CPR and intubation, family expressed understanding ()Anemia, thrombocytopenia: Chronic, with baseline Hgb ~8-9, plts ~90. On admission with Hgb 8.1. Received 1u PRBCs in ICU given NSTEMI. Last Hbg 8.8 Continue daily iron supplement. ()DM2, hyperglycemia: On presentation with BSG 354. Received 5u regular insulin. Continue SSI with ICU hyperglycemia protocol. ()Autoimmune hepatitis, portal HTN, esophageal varices: History of. On furosemide 80mg AM, 40mg PM. LFTs stable. Continue home prednisone daily. ()Swallowing Difficulties Patient experiencing nausea vomitting cough not improved with zofran, protonix. Describes difficulty swallowing chicken at home and self induced vomiting to clear from esophagus. Discussed possible etiology, esophageal stricture v. cardiac complication, patient understands endoscopy is best option to evaluate for esophageal stricture but may not tolerate sedation well. swallowing difficulties improved 08/23 without intervention Code Status: FULL CODE FEN: Heart Healthy DM2 diet DVT ppx: Heparin gtt Dispo: ICU (2) CKD (chronic kidney disease): (3) Uncontrolled type 2 diabetes mellitus: (4) Dyslipidemia: (5) Portal hypertension: (6) Anemia: (7) Esophageal varices: (8) Autoimmune hepatitis: Admission and Anticipated Discharge Date Admission Date: August 21, 2021 Supervising Physician Co-Signing Physician Notes Patient seen and examined, chart reviewed, case discussed with Dr. Schumacher and I agree with the assessment and plan as above except as otherwise noted Patient is having acute respiratory failure (hypoxic). Patient placed on BIPAP, and not improving on 08/05. Will increase to 14/7, increase FIO2. Discussed with Neurological Surgery Teacher. will transfer to ICU and remain on BIPAP. Patient wants to remain on Full Code. ACS: Continue heparin for 48 hours, dual antiplatelet therapy, Imdur 180 twice daily, metoprolol resumed and uptitrate as tolerated blood pressure. Extremely poor interventional candidate, no plans for coronary intervention at this time. CKD: Does not desire dialysis, medical management of renal disease and ACS as noted. Nephrology consulted, appreciate recommendations. Chronic anemia: Hemoglobin threshold 8.0 rather than 9.0, received 1 unit of blood. Currently stable Subjective 71yo Male seen at bedside with complaints of chest pain, SOB, pulse ox 75% continuing to drop. Per nurse, he had complained of chest pain earlier in day, took 2 sublingual nitro did not improve pain, later developed SOB, nurse heard crackles in lungs. Patient was in respiratory distress on 15L oxymask, wondering if he was going to . Patient was started on BIPAP, chest xray positive for pulmonary edema, EKG demonstrated more prominent T wave depression, stat labs ordered. ICU contacted, patient upgraded to ICU with concerns of needing intubation. Later in day patient O2 100% on BIPAP, states his chest pain and SOB have resolved, resting comfortably, sleepy. Review of Systems Review of Systems: Positive chest pain, SOB Negative fever chills Negative headache dizziness Negative palpitations Negative nausea vomitting diarrhea constipation Negative numbness tingling rash Physical Exam Constitutional: average body habitus, + frail appearing and cooperative Eyes: PERRL, conjunctivae normal, anicteric sclerae Respiratory: + respiratory distress Auscultation: + crackles Cardiovascular: RRR, no murmur, no edema Heart Sounds: normal S1 and normal S2 Gastrointestinal (Abdomen): normal bowel sounds, soft, nontender, no hepatosplenomegaly Skin: no rashes, warm and dry Psychiatric: Orientation: alert and oriented x 3 Mood: + depressed mood and + anxious mood Results & Data Results & Data ([facility]) Vital Signs (Past 12 Hours) Vital Signs Temp Pulse Pulse Resp BP BP Pulse Ox 08/24/21 07:05 36.6 C 86 17 104/65 92 08/24/21 03:50 92 H 111/71 08/24/21 03:31 36.7 C 80 12 110/75 95 08/24/21 00:00 84 08/23/21 23:46 36.6 C 82 18 108/64 93 08/23/21 21:09 106/76 08/23/21 19:54 37.2 C 81 18 103/60 97 Laboratory Results 08/24/21 08/24/21 08/24/21 Range/Units 16:11 11:13 10:44 WBC (4.8-10.8) K/uL RBC (4.7-6.1) M/uL Hgb (14.0-18.0) g/dL Hct (42-52) % MCV (80-100) fL MCH (25-34) pg MCHC (32-36) g/dL RDW Std Deviation (36.4-46.3) fL RDW Coeff of Sony (11.5-14.5) % Plt Count (130-400) K/uL MPV (7.4-10.4) fL Immature Gran % (Auto) % Neut % (Auto) % Lymph % (Auto) % [place] % (Auto) % Eos % (Auto) % Baso % (Auto) % Neut # (Auto) (1.4-6.5) K/uL Lymph # (Auto) (1.2-3.4) K/uL [place] # (Auto) (0.11-0.59) K/uL Eos # (Auto) (0-0.5) K/uL Baso # (Auto) (0-0.2) K/uL Immature Gran # (Auto) (0.00-0.02) K/uL Absolute Nucleated RBC (0-0) K/uL Nucleated RBC % (auto) % RBC Morphology Polychromasia Ovalocytes PT (9.0-12.0) Seconds INR (0.9-1.1) APTT (21.0-31.0) Seconds PTT Ratio ABG pH (7.35-7.45) ABG pCO2 (35-46) mmHg ABG pO2 (80-95) mmHg ABG HCO3 (19-24) mmol/L ABG O2 Saturation (90-95) % ABG Base Excess (-9-1.8) mEq/L Tacos Test (Pos) Barometric Pressure mm/Hg Oxygen Given Sodium (136-145) mmol/L Potassium (3.5-5.1) mmol/L Chloride (98-107) mmol/L Carbon Dioxide (21-32) mmol/L Anion Gap (3-11) BUN (7-18) mg/dl Creatinine (0.6-1.4) mg/dl Est Cr Clr Drug Dosing ml/min Est GFR ( Amer) ml/min Est GFR (Non-Af Amer) ml/min BUN/Creatinine Ratio (10-20) Glucose (70-99) mg/dl POC Glucose 82 145 H (70-99) mg/dl Lactate (0.4-2.0) mmol/L Calcium (8.5-10.1) mg/dl Magnesium (1.8-2.4) mg/dl Total Bilirubin (0.2-1) mg/dl Direct Bilirubin (0-0.2) mg/dl AST (15-37) U/L ALT (12-78) Alkaline Phosphatase (45-117) U/L Ammonia 148.0 H (11-32) umol/L Troponin I (0-0.045) ng/ml Total Protein (6.4-8.2) gm/dl Albumin (3.4-5.0) gm/dl Globulin (2.5-4.0) gm/dl Albumin/Globulin Ratio (0.9-2) Procalcitonin (0-0.5) ng/ml 08/24/21 08/24/21 08/24/21 Range/Units 10:39 10:39 10:39 WBC 8.07 (4.8-10.8) K/uL RBC 2.86 L (4.7-6.1) M/uL Hgb 8.8 L (14.0-18.0) g/dL Hct 27.2 L (42-52) % MCV 95.1 (80-100) fL MCH 30.8 (25-34) pg MCHC 32.4 (32-36) g/dL RDW Std Deviation 53.8 H (36.4-46.3) fL RDW Coeff of Sony 15.5 H (11.5-14.5) % Plt Count 100 L D (130-400) K/uL MPV 10.4 (7.4-10.4) fL Immature Gran % (Auto) 0.2 % Neut % (Auto) 84.0 % Lymph % (Auto) 6.6 % [place] % (Auto) 8.1 % Eos % (Auto) 1.0 % Baso % (Auto) 0.1 % Neut # (Auto) 6.78 H (1.4-6.5) K/uL Lymph # (Auto) 0.53 L (1.2-3.4) K/uL [place] # (Auto) 0.65 H (0.11-0.59) K/uL Eos # (Auto) 0.08 (0-0.5) K/uL Baso # (Auto) 0.01 (0-0.2) K/uL Immature Gran # (Auto) 0.02 (0.00-0.02) K/uL Absolute Nucleated RBC 0.12 H (0-0) K/uL Nucleated RBC % (auto) 1.5 % RBC Morphology Polychromasia 1+ Ovalocytes 1+ PT (9.0-12.0) Seconds INR (0.9-1.1) APTT (21.0-31.0) Seconds PTT Ratio ABG pH 7.45 (7.35-7.45) ABG pCO2 29 L (35-46) mmHg ABG pO2 62 L (80-95) mmHg ABG HCO3 20 (19-24) mmol/L ABG O2 Saturation 90.6 (90-95) % ABG Base Excess -3.5 (-9-1.8) mEq/L Tacos Test Pos (Pos) Barometric Pressure 720.2 mm/Hg Oxygen Given 15 LITERS O2 Sodium (136-145) mmol/L Potassium (3.5-5.1) mmol/L Chloride (98-107) mmol/L Carbon Dioxide (21-32) mmol/L Anion Gap (3-11) BUN (7-18) mg/dl Creatinine (0.6-1.4) mg/dl Est Cr Clr Drug Dosing ml/min Est GFR ( Amer) ml/min Est GFR (Non-Af Amer) ml/min BUN/Creatinine Ratio (10-20) Glucose (70-99) mg/dl POC Glucose (70-99) mg/dl Lactate (0.4-2.0) mmol/L Calcium (8.5-10.1) mg/dl Magnesium (1.8-2.4) mg/dl Total Bilirubin (0.2-1) mg/dl Direct Bilirubin (0-0.2) mg/dl AST (15-37) U/L ALT (12-78) Alkaline Phosphatase (45-117) U/L Ammonia (11-32) umol/L Troponin I (0-0.045) ng/ml Total Protein (6.4-8.2) gm/dl Albumin (3.4-5.0) gm/dl Globulin (2.5-4.0) gm/dl Albumin/Globulin Ratio (0.9-2) Procalcitonin 1.11 H (0-0.5) ng/ml 08/24/21 08/24/21 08/24/21 Range/Units 10:39 10:39 10:39 WBC (4.8-10.8) K/uL RBC (4.7-6.1) M/uL Hgb (14.0-18.0) g/dL Hct (42-52) % MCV (80-100) fL MCH (25-34) pg MCHC (32-36) g/dL RDW Std Deviation (36.4-46.3) fL RDW Coeff of Sony (11.5-14.5) % Plt Count (130-400) K/uL MPV (7.4-10.4) fL Immature Gran % (Auto) % Neut % (Auto) % Lymph % (Auto) % [place] % (Auto) % Eos % (Auto) % Baso % (Auto) % Neut # (Auto) (1.4-6.5) K/uL Lymph # (Auto) (1.2-3.4) K/uL [place] # (Auto) (0.11-0.59) K/uL Eos # (Auto) (0-0.5) K/uL Baso # (Auto) (0-0.2) K/uL Immature Gran # (Auto) (0.00-0.02) K/uL Absolute Nucleated RBC (0-0) K/uL Nucleated RBC % (auto) % RBC Morphology Polychromasia Ovalocytes PT 13.8 H (9.0-12.0) Seconds INR 1.4 H (0.9-1.1) APTT 31.8 H (21.0-31.0) Seconds PTT Ratio 1.2 ABG pH (7.35-7.45) ABG pCO2 (35-46) mmHg ABG pO2 (80-95) mmHg ABG HCO3 (19-24) mmol/L ABG O2 Saturation (90-95) % ABG Base Excess (-9-1.8) mEq/L Tacos Test (Pos) Barometric Pressure mm/Hg Oxygen Given Sodium 135 L (136-145) mmol/L Potassium 4.4 (3.5-5.1) mmol/L Chloride 106 (98-107) mmol/L Carbon Dioxide 19 L (21-32) mmol/L Anion Gap 10.0 (3-11) BUN 88 H (7-18) mg/dl Creatinine 2.67 H (0.6-1.4) mg/dl Est Cr Clr Drug Dosing 24.6 ml/min Est GFR ( Amer) 26.5 ml/min Est GFR (Non-Af Amer) 22.8 ml/min BUN/Creatinine Ratio 32.8 H (10-20) Glucose 156 H (70-99) mg/dl POC Glucose (70-99) mg/dl Lactate 3.8 H* (0.4-2.0) mmol/L Calcium 8.0 L (8.5-10.1) mg/dl Magnesium (1.8-2.4) mg/dl Total Bilirubin 3.1 H (0.2-1) mg/dl Direct Bilirubin (0-0.2) mg/dl AST 100 H (15-37) U/L ALT 41 (12-78) Alkaline Phosphatase 51 (45-117) U/L Ammonia (11-32) umol/L Troponin I 18.000 H* (0-0.045) ng/ml Total Protein 4.9 L (6.4-8.2) gm/dl Albumin 2.1 L (3.4-5.0) gm/dl Globulin 2.8 (2.5-4.0) gm/dl Albumin/Globulin Ratio 0.8 L (0.9-2) Procalcitonin (0-0.5) ng/ml 12/25/21 12/25/21 12/25/21 Range/Units 07:45 02:03 02:03 WBC (4.8-10.8) K/uL RBC (4.7-6.1) M/uL Hgb (14.0-18.0) g/dL Hct (42-52) % MCV (80-100) fL MCH (25-34) pg MCHC (32-36) g/dL RDW Std Deviation (36.4-46.3) fL RDW Coeff of Sony (11.5-14.5) % Plt Count (130-400) K/uL MPV (7.4-10.4) fL Immature Gran % (Auto) % Neut % (Auto) % Lymph % (Auto) % [place] % (Auto) % Eos % (Auto) % Baso % (Auto) % Neut # (Auto) (1.4-6.5) K/uL Lymph # (Auto) (1.2-3.4) K/uL [place] # (Auto) (0.11-0.59) K/uL Eos # (Auto) (0-0.5) K/uL Baso # (Auto) (0-0.2) K/uL Immature Gran # (Auto) (0.00-0.02) K/uL Absolute Nucleated RBC (0-0) K/uL Nucleated RBC % (auto) % RBC Morphology Polychromasia Ovalocytes PT (9.0-12.0) Seconds INR (0.9-1.1) APTT 49.4 H* (21.0-31.0) Seconds PTT Ratio 1.9 ABG pH (7.35-7.45) ABG pCO2 (35-46) mmHg ABG pO2 (80-95) mmHg ABG HCO3 (19-24) mmol/L ABG O2 Saturation (90-95) % ABG Base Excess (-9-1.8) mEq/L Tacos Test (Pos) Barometric Pressure mm/Hg Oxygen Given Sodium 137 (136-145) mmol/L Potassium 4.2 (3.5-5.1) mmol/L Chloride 108 H (98-107) mmol/L Carbon Dioxide 23 (21-32) mmol/L Anion Gap 6.0 (3-11) BUN 93 H (7-18) mg/dl Creatinine 2.57 H (0.6-1.4) mg/dl Est Cr Clr Drug Dosing 25.6 ml/min Est GFR ( Amer) 27.7 ml/min Est GFR (Non-Af Amer) 23.9 ml/min BUN/Creatinine Ratio 36.2 H (10-20) Glucose 87 (70-99) mg/dl POC Glucose 88 (70-99) mg/dl Lactate (0.4-2.0) mmol/L Calcium 7.7 L (8.5-10.1) mg/dl Magnesium 2.0 (1.8-2.4) mg/dl Total Bilirubin 2.2 H (0.2-1) mg/dl Direct Bilirubin 0.3 H (0-0.2) mg/dl AST 100 H (15-37) U/L ALT 41 (12-78) Alkaline Phosphatase 41 L (45-117) U/L Ammonia (11-32) umol/L Troponin I (0-0.045) ng/ml Total Protein 4.6 L (6.4-8.2) gm/dl Albumin 2.1 L (3.4-5.0) gm/dl Globulin (2.5-4.0) gm/dl Albumin/Globulin Ratio (0.9-2) Procalcitonin (0-0.5) ng/ml 08/24/21 08/23/21 08/23/21 Range/Units 02:03 20:33 19:07 WBC 5.79 (4.8-10.8) K/uL RBC 2.36 L (4.7-6.1) M/uL Hgb 7.4 L (14.0-18.0) g/dL Hct 22.3 L (42-52) % MCV 94.5 (80-100) fL MCH 31.4 (25-34) pg MCHC 33.2 (32-36) g/dL RDW Std Deviation 52.5 H (36.4-46.3) fL RDW Coeff of Sony 15.4 H (11.5-14.5) % Plt Count 57 L (130-400) K/uL MPV 10.1 (7.4-10.4) fL Immature Gran % (Auto) 0.3 % Neut % (Auto) 82.8 % Lymph % (Auto) 7.8 % [place] % (Auto) 8.6 % Eos % (Auto) 0.5 % Baso % (Auto) 0.0 % Neut # (Auto) 4.79 (1.4-6.5) K/uL Lymph # (Auto) 0.45 L (1.2-3.4) K/uL [place] # (Auto) 0.50 (0.11-0.59) K/uL Eos # (Auto) 0.03 (0-0.5) K/uL Baso # (Auto) 0.00 (0-0.2) K/uL Immature Gran # (Auto) 0.02 (0.00-0.02) K/uL Absolute Nucleated RBC (0-0) K/uL Nucleated RBC % (auto) % RBC Morphology Unremarkable Polychromasia Ovalocytes PT (9.0-12.0) Seconds INR (0.9-1.1) APTT 45.6 H* (21.0-31.0) Seconds PTT Ratio 1.7 ABG pH (7.35-7.45) ABG pCO2 (35-46) mmHg ABG pO2 (80-95) mmHg ABG HCO3 (19-24) mmol/L ABG O2 Saturation (90-95) % ABG Base Excess (-9-1.8) mEq/L Tacos Test (Pos) Barometric Pressure mm/Hg Oxygen Given Sodium (136-145) mmol/L Potassium (3.5-5.1) mmol/L Chloride (98-107) mmol/L Carbon Dioxide (21-32) mmol/L Anion Gap (3-11) BUN (7-18) mg/dl Creatinine (0.6-1.4) mg/dl Est Cr Clr Drug Dosing ml/min Est GFR ( Amer) ml/min Est GFR (Non-Af Amer) ml/min BUN/Creatinine Ratio (10-20) Glucose (70-99) mg/dl POC Glucose 141 H (70-99) mg/dl Lactate (0.4-2.0) mmol/L Calcium (8.5-10.1) mg/dl Magnesium (1.8-2.4) mg/dl Total Bilirubin (0.2-1) mg/dl Direct Bilirubin (0-0.2) mg/dl AST (15-37) U/L ALT (12-78) Alkaline Phosphatase (45-117) U/L Ammonia (11-32) umol/L Troponin I (0-0.045) ng/ml Total Protein (6.4-8.2) gm/dl Albumin (3.4-5.0) gm/dl Globulin (2.5-4.0) gm/dl Albumin/Globulin Ratio (0.9-2) Procalcitonin (0-0.5) ng/ml Diagnostic Findings Chest X-Ray 08/24/21 09:57 XR chest 1V portable CLINICAL HISTORY: chest pain TECHNIQUE: Single frontal radiograph of the chest was obtained. Comparison: Comparison is made to chest one view 08/21/2021 FINDINGS: No lines and tubes are seen. The cardiomediastinal silhouette is normal. There is prominence and cephalization of the vasculature with Partha B lines seen. Perihilar airspace opacities are suggestive of alveolar edema. Left greater than right lower lung predominant airspace opacities are seen. No evidence of pleural effusion or pneumothorax. IMPRESSION: 1. Moderate to severe pulmonary edema, increased from prior exam. 2. Bilateral lower lobe predominant airspace opacities which may represent atelectasis, aspiration, and/or pneumonia. ACT 112: Negative or not required by law. Electronically signed by: Long Pat M.D. 08/24/2021 10:53 AM Medications Administered Current Inpatient Medications Acetaminophen (Acetaminophen 325 Mg Tab) 650 mg PO Q4H PRN PRN Reason: Pain or Fever Stop: 09/21/21 00:08 Aspirin (Aspirin 81 Mg Ectab) 81 mg PO [facility] Stop: 09/21/21 08:59 Last Admin: 08/24/21 08:27 Dose: 81 mg Documented by: Atorvastatin Calcium ([facility]vastatin 40 Mg Tab) [facility] [place] Stop: 09/21/21 08:59 Last Admin: 08/24/21 08:28 Dose: 40 mg Documented by: Calcitriol (Calcitriol 0.25 Mcg Capsule) 0.25 mcg PO MoFr@0900 [facility] Stop: 09/22/21 08:59 Last Admin: 08/23/21 08:02 Dose: 0.25 mcg Documented by: Clopidogrel Bisulfate (Clopidogrel Bisulfate 75 Mg Tab) [facility] [place] Stop: 09/21/21 08:59 Last Admin: 08/24/21 08:28 Dose: 75 mg Documented by: Ferrous Sulfate (Ferrous Sulfate 325 Mg Tab) 325 mg PO DAILY [facility] Stop: 09/21/21 08:59 Last Admin: 08/24/21 08:28 Dose: 325 mg Documented by: Heparin Sodium/Dextrose (Heparin Sodium/Dextrose) 25,000 units in 500 mls @ 8 mls/hr IV .Q24H [facility]; Protocol Stop: 09/20/21 23:44 Last Titration: 08/24/21 11:21 Dose: 400 units/hr, 8 mls/hr Documented by: Insulin Aspart (Insulin Aspart Per Unit) 0 units SC ACHS [facility]; Protocol Stop: 09/21/21 07:29 Last Admin: 08/24/21 16:20 Dose: Not Given Documented by: Insulin Human NPH (Insulin Human Nph) 0 units SC QDD [facility]; Protocol Stop: 09/22/21 16:29 Last Admin: 08/24/21 16:20 Dose: Not Given Documented by: Insulin Human NPH (Insulin Human Nph) 15 units SC QAM [facility]; Protocol Stop: 09/23/21 08:59 Last Admin: 08/24/21 08:22 Dose: 15 units Documented by: Isosorbide Mononitrate (Isosorbide [place] Extended Rel 60 Mg Tabcr) 180 mg PO BID [facility] Stop: 09/21/21 09:29 Last Admin: 08/24/21 08:27 Dose: 180 mg Documented by: Miscellaneous Information (Pharmacy Glycemic Mgmt Consult) 1 ea N/A UD PRN PRN Reason: Consult Stop: 09/20/21 22:45 Morphine Sulfate (Morphine Sulfate 2 Mg/Ml Carp) 2 mg IV Q30M PRN PRN Reason: Chest Pain Stop: 09/05/21 00:08 Last Admin: 08/24/21 09:54 Dose: 2 mg Documented by: Nitroglycerin (Nitroglycerin Sl 0.4 Mg/Tab Tab) 0.4 mg SL PRN PRN PRN Reason: chest pain Stop: 09/22/21 11:00 Last Admin: 08/24/21 09:27 Dose: 0.4 mg Documented by: Ondansetron HCl (Ondansetron Inj 2 Mg/Ml 2 Ml Vial) 4 mg IV Q6H PRN PRN Reason: Nausea And Vomiting Stop: 09/21/21 00:20 Last Admin: 08/22/21 07:40 Dose: 4 mg Documented by: Pantoprazole Sodium (Pantoprazole 40 Mg Tab) 40 mg PO DAILY [facility] Stop: 09/21/21 08:59 Last Admin: 08/24/21 08:29 Dose: 40 mg Documented by: Polyethylene Glycol (Polyethylene (Miralax) 17 Gm Pack) 17 gm PO DAILY PRN PRN Reason: Constipation Stop: 09/21/21 00:08 Prednisone (Prednisone 10 Mg Tablet) 10 mg PO QAM [facility] Stop: 09/21/21 08:59 Last Admin: 08/24/21 08:29 Dose: 10 mg Documented by: Sodium Bicarbonate (Sodium Bicarbonate 650 Mg Tab) 1,300 mg PO BID [facility] Stop: 09/21/21 08:59 Last Admin: 08/24/21 08:29 Dose: 1,300 mg Documented by: Resident Activity Tracking Resident Involvement: Resident Care Provided Care Provided: Adult Hospital Medicine (1) CKD (chronic kidney disease) Chronic kidney disease stage: unspecified stage Qualified Code(s): N18.9 - Chronic kidney disease, unspecified
[2021-08-24] MEDS: INSULIN ASPART PER UNIT SC SCH ×4 (08:21→21:39)
[2021-08-24] MEDS: ISOSORBIDE MONO EXTENDED REL 60 MG TABCR PO SCH ×2 (08:27→21:39)
[2021-08-24] MEDS: ASPIRIN 81 MG ECTAB PO SCH (08:27)
[2021-08-24] MEDS: ATORVASTATIN 40 MG TAB PO SCH (08:28)
[2021-08-24] MEDS: FERROUS SULFATE 325 MG TAB PO SCH (08:28)
[2021-08-24] MEDS: CLOPIDOGREL BISULFATE 75 MG TAB PO SCH (08:28)
[2021-08-24] MEDS: SODIUM BICARBONATE 650 MG TAB PO SCH ×2 (08:29→21:39)
[2021-08-24] MEDS: predniSONE 10 MG TABLET PO SCH (08:29)
[2021-08-24] MEDS: PANTOprazole 40 MG TAB PO SCH (08:29)
[2021-08-24] MEDS ORDERED: INSULIN HUMAN NPH SC SCH (09:00)
[2021-08-24] MEDS ORDERED: FUROSEMIDE 40 MG/4 ML VIAL IV ONE ×2 (09:43→09:48)
[2021-08-24] MEDS: MoRPHine SULFATE 2 MG/ML CARP IV PRN ×2 (09:54→20:36)
--- NOTE | 2021-08-24 10:26 | Electrocardiogram Report ---
Test Reason : Blood Pressure : / mmHG Vent. Rate : 079 BPM Atrial Rate : 079 BPM P-R Int : 202 ms QRS Dur : 102 ms QT Int : 360 ms P-R-T Axes : 036 004 164 degrees QTc Int : 412 ms Normal sinus rhythm Abnormal ECG When compared with ECG of 23-AUG-2021 03:52, ST now depressed in Anterolateral leads Inverted T waves have replaced nonspecific T wave abnormality in Lateral leads QT has shortened Confirmed by Dariel Hobbs ([id number]) on 08/24/2021 10:26:01 AM Referred By: REFERRED SELF Confirmed By:Dariel Hobbs
[2021-08-24] MEDS ORDERED: FUROSEMIDE 40 MG/4 ML VIAL IV STA (10:37)
--- NOTE | 2021-08-24 10:45 | Electrocardiogram Report ---
Test Reason : Blood Pressure : / mmHG Vent. Rate : 097 BPM Atrial Rate : 097 BPM P-R Int : 176 ms QRS Dur : 106 ms QT Int : 346 ms P-R-T Axes : 050 031 233 degrees QTc Int : 439 ms Normal sinus rhythm Abnormal ECG When compared with ECG of 23-AUG-2021 10:45, (unconfirmed) ST no longer depressed in Anterior leads T wave inversion more evident in Inferior leads T wave inversion more evident in Lateral leads Confirmed by Dariel Hobbs ([id number]) on 08/24/2021 10:45:02 AM Referred By: REFERRED SELF Confirmed By:Dariel Hobbs
[2021-08-24 10:52] LABS: Nucleated RBC # (auto) 0.12 K/uL (0-0); Nucleated RBC % (auto) 1.5 %
--- NOTE | 2021-08-24 10:54 | XRay Report ---
XR chest 1V portable CLINICAL HISTORY: chest pain TECHNIQUE: Single frontal radiograph of the chest was obtained. Comparison: Comparison is made to chest one view 08/21/2021 FINDINGS: No lines and tubes are seen. The cardiomediastinal silhouette is normal. There is prominence and ceph alization of the vasculature with Partha B lines seen. Perihilar airspace opacities are suggestive of alveolar edema. Left greater than right lower lung predominant airspace opacities are seen. No evide nce of pleural effusion or pneumothorax. IMPRESSION: 1. Moderate to severe pulmonary edema, increased from prior exam. 2. Bilateral lower lobe predominant airspace opacities which may represent atelectasis, aspiration, and/or pneumonia. ACT 112: Negative or not required by law. Electronically signed by: Long Pat M.D. 08/24/2021 10:53 AM
[2021-08-24 10:57] LABS: Base Excess ABG -3.5 mEq/L (-9-1.8); HCO3 ABG 20 mmol/L (19-24); Oxygen Saturation ABG 90.6 % (90-95); PCO2 ABG 29 mmHg (35-46); PO2 ABG 62 mmHg (80-95); pH ABG 7.45 (7.35-7.45)
[2021-08-24 10:58] LABS: Allen Test Pos (Pos)
[2021-08-24 11:02] LABS: INR 1.4 (0.9-1.1); Partial Thromboplastin Ratio 1.2; Partial Thromboplastin Time 31.8 Seconds (21.0-31.0); Prothrombin Time 13.8 Seconds (9.0-12.0)
[2021-08-24 11:09] LABS: Hematocrit (blood only) 27.2 % (42-52); Hemoglobin 8.8 g/dL (14.0-18.0); Mean Corpuscular Hemoglobin 30.8 pg (25-34); Mean Corpuscular Hgb Conc 32.4 g/dL (32-36); Mean Corpuscular Volume 95.1 fL (80-100); Mean Platelet Volume 10.4 fL (7.4-10.4); Platelet Count 100 K/uL (130-400); RDW Coefficient of Variation 15.5 % (11.5-14.5); RDW Standard Deviation 53.8 fL (36.4-46.3); Red Blood Count 2.86 M/uL (4.7-6.1); White Blood Count 8.07 K/uL (4.8-10.8)
[2021-08-24 11:11] LABS: Basophils # (auto) 0.01 K/uL (0-0.2); Basophils % (auto) 0.1 %; Eosinophils # (auto) 0.08 K/uL (0-0.5); Immature Granulocytes # (auto) 0.02 K/uL (0.00-0.02); Immature Granulocytes % (auto) 0.2 %; Lymphocytes # (auto) 0.53 K/uL (1.2-3.4); Lymphocytes % (auto) 6.6 %; Monocytes # (auto) 0.65 K/uL (0.11-0.59); Monocytes % (auto) 8.1 %; Neutrophils # (auto) 6.78 K/uL (1.4-6.5); Ovalocytes 1+; Polychromasia 1+
[2021-08-24 11:12] LABS: Albumin Level 2.1 gm/dl (3.4-5.0); BUN Creatinine Ratio 32.8 (10-20); Creatinine Clr Calc Pharmacy 24.6 ml/min; Est GFR (African American) 26.5 ml/min; Est GFR (Non-African American) 22.8 ml/min; Potassium 4.4 mmol/L (3.5-5.1)
[2021-08-24 11:18] LABS: Albumin Globulin Ratio 0.8 (0.9-2); Bilirubin,Total 3.1 mg/dl (0.2-1); Globulin 2.8 gm/dl (2.5-4.0); Total Protein 4.9 gm/dl (6.4-8.2)
[2021-08-24] MEDS ORDERED: HEPARIN SOD (PORCINE) 1000 UNIT/ML IV ONE (11:23)
[2021-08-24] MEDS ORDERED: HEPARIN IV BOLUS 3,000 UNITS in SYRINGE 0 ML IV ONE (11:30)
--- NOTE | 2021-08-24 14:27 | Nephrology Progress Note ---
Date of Service August 24, 2021 Assessment & Plan (1) Chronic kidney disease, stage 4 (severe): Plan: Filtration relatively stable with a creatinine of 2.7 mg/dL. Electrolytes are acceptable. Good urine output. Volume status relatively euvolemic. Noted lactic acidosis. Carlos A has refused dialysis. In his condition and given his advanced cardiac and liver disease, he would not tolerate dialysis and HD would not provide therapeutic benefit. He remains on oral NaHCO3 56167 BID. Medications are appropriately dosed for kidney function. (2) Acute coronary syndrome: Plan: Prognosis is guarded. Continued conversations regarding goals of care. Due to cardiac disease and multiple other medical comorbidities as well as frailty, Carlos A is a very poor candidate for dialysis. He understands this. He remains on a heparin gtt, now >48 hours. Defer to cardiology regarding stopping. (3) Hyperparathyroidism: Plan: Continue calcitriol as Rx. (4) Anemia: Plan: s/p recent PRBC transfusion. H/H stable. Epogen 21279 units ordered yesterday but not given due to nursing expressed concerns. I would consider giving the medication today, if patient agreeable. Admission and Anticipated Discharge Date Admission Date: August 21, 2021 Subjective Transferred back to the ICU this AM for BIPAP following another episode of chest pain with associated acute respiratory distress this morning. CXR demonstrating notable pulmonary congestion. IV furosemide 40 mg x 2 doses provided. Carlos A was seen and evaluated independently initially. I discussed the plan of care with Dr. Thibodeaux. I met with the patient and his at the bedside after my initial conversation. RN reports patient incontinent of dark black stool. Review of Systems Review of Systems: All systems reviewed & are unremarkable except as noted in HPI & below Physical Exam Constitutional: well developed, + thin and + frail appearing; no acute distress Eyes: no scleral abnormality and no corneal abnormality ENMT: Mouth: no oral mucosal abnormality and oral mucous membranes not dry Neck: normal visual inspection and trachea midline Respiratory: normal respiratory effort Auscultation: + rales (few basilar) Cardiovascular: Rate/Rhythm: regular rate Heart Sounds: normal S1, normal S2 and + murmur Extremities: no edema Musculoskeletal: Extremities: + muscle atrophy; no cyanosis and no clubbing Skin: + turgor decreased and + ecchymosis Neurologic: Motor/Sensory: no tremor and no asterixis Psychiatric: Orientation: alert and oriented x 3 Results & Data ([facility]) Vital Signs (Past 12 Hours) Vital Signs Temp Pulse Pulse Resp BP BP Pulse Ox 08/24/21 12:52 37.1 C 08/24/21 12:30 104 H 13 106/62 100 08/24/21 11:58 112 H 08/24/21 11:32 103 H 22 102/68 88 L 08/24/21 11:11 84 26 H 98/68 L 85 L 08/24/21 10:24 98 H 22 88 L 08/24/21 09:00 101 H 24 107/75 78 L 08/24/21 07:05 36.6 C 86 17 104/65 92 08/24/21 03:50 92 H 111/71 08/24/21 03:31 36.7 C 80 12 110/75 95 Laboratory Results Laboratory Results - last 24 hr 08/23/21 08/23/21 08/23/21 15:51 19:07 20:33 WBC RBC Hgb Hct MCV MCH MCHC RDW Std Deviation RDW Coeff of Sony Plt Count MPV Immature Gran % (Auto) Neut % (Auto) Lymph % (Auto) [place] % (Auto) Eos % (Auto) Baso % (Auto) Neut # (Auto) Lymph # (Auto) [place] # (Auto) Eos # (Auto) Baso # (Auto) Immature Gran # (Auto) Absolute Nucleated RBC Nucleated RBC % (auto) RBC Morphology Polychromasia Ovalocytes PT INR APTT 45.6 H* PTT Ratio 1.7 ABG pH ABG pCO2 ABG pO2 ABG HCO3 ABG O2 Saturation ABG Base Excess [place] Test Barometric Pressure Oxygen Given Sodium Potassium Chloride Carbon Dioxide Anion Gap BUN Creatinine Est Cr Clr Drug Dosing Est GFR ( Amer) Est GFR (Non-Af Amer) BUN/Creatinine Ratio Glucose POC Glucose 179 H 141 H Lactate Calcium Magnesium Total Bilirubin Direct Bilirubin AST ALT Alkaline Phosphatase Ammonia Troponin I Total Protein Albumin Globulin Albumin/Globulin Ratio Procalcitonin 08/24/21 08/24/21 08/24/21 02:03 02:03 02:03 WBC 5.79 RBC 2.36 L Hgb 7.4 L Hct 22.3 L MCV 94.5 MCH 31.4 MCHC 33.2 RDW Std Deviation 52.5 H RDW Coeff of Sony 15.4 H Plt Count 57 L MPV 10.1 Immature Gran % (Auto) 0.3 Neut % (Auto) 82.8 Lymph % (Auto) 7.8 [place] % (Auto) 8.6 Eos % (Auto) 0.5 Baso % (Auto) 0.0 Neut # (Auto) 4.79 Lymph # (Auto) 0.45 L [place] # (Auto) 0.50 Eos # (Auto) 0.03 Baso # (Auto) 0.00 Immature Gran # (Auto) 0.02 Absolute Nucleated RBC Nucleated RBC % (auto) RBC Morphology Unremarkable Polychromasia Ovalocytes PT INR APTT 49.4 H* PTT Ratio 1.9 ABG pH ABG pCO2 ABG pO2 ABG HCO3 ABG O2 Saturation ABG Base Excess [place] Test Barometric Pressure Oxygen Given Sodium 137 Potassium 4.2 Chloride 108 H Carbon Dioxide 23 Anion Gap 6.0 BUN 93 H Creatinine 2.57 H Est Cr Clr Drug Dosing 25.6 Est GFR ( Amer) 27.7 Est GFR (Non-Af Amer) 23.9 BUN/Creatinine Ratio 36.2 H Glucose 87 POC Glucose Lactate Calcium 7.7 L Magnesium 2.0 Total Bilirubin 2.2 H Direct Bilirubin 0.3 H AST 100 H ALT 41 Alkaline Phosphatase 41 L Ammonia Troponin I Total Protein 4.6 L Albumin 2.1 L Globulin Albumin/Globulin Ratio Procalcitonin 08/24/21 08/24/21 08/24/21 07:45 10:39 10:39 WBC RBC Hgb Hct MCV MCH MCHC RDW Std Deviation RDW Coeff of Sony Plt Count MPV Immature Gran % (Auto) Neut % (Auto) Lymph % (Auto) [place] % (Auto) Eos % (Auto) Baso % (Auto) Neut # (Auto) Lymph # (Auto) [place] # (Auto) Eos # (Auto) Baso # (Auto) Immature Gran # (Auto) Absolute Nucleated RBC Nucleated RBC % (auto) RBC Morphology Polychromasia Ovalocytes PT 13.8 H INR 1.4 H APTT 31.8 H PTT Ratio 1.2 ABG pH ABG pCO2 ABG pO2 ABG HCO3 ABG O2 Saturation ABG Base Excess [place] Test Barometric Pressure Oxygen Given Sodium Potassium Chloride Carbon Dioxide Anion Gap BUN Creatinine Est Cr Clr Drug Dosing Est GFR ( Amer) Est GFR (Non-Af Amer) BUN/Creatinine Ratio Glucose POC Glucose 88 Lactate 3.8 H* Calcium Magnesium Total Bilirubin Direct Bilirubin AST ALT Alkaline Phosphatase Ammonia Troponin I Total Protein Albumin Globulin Albumin/Globulin Ratio Procalcitonin 08/24/21 08/24/21 08/24/21 10:39 10:39 10:39 WBC 8.07 RBC 2.86 L Hgb 8.8 L Hct 27.2 L MCV 95.1 MCH 30.8 MCHC 32.4 RDW Std Deviation 53.8 H RDW Coeff of Sony 15.5 H Plt Count 100 L D MPV 10.4 Immature Gran % (Auto) 0.2 Neut % (Auto) 84.0 Lymph % (Auto) 6.6 [place] % (Auto) 8.1 Eos % (Auto) 1.0 Baso % (Auto) 0.1 Neut # (Auto) 6.78 H Lymph # (Auto) 0.53 L [place] # (Auto) 0.65 H Eos # (Auto) 0.08 Baso # (Auto) 0.01 Immature Gran # (Auto) 0.02 Absolute Nucleated RBC 0.12 H Nucleated RBC % (auto) 1.5 RBC Morphology Polychromasia 1+ Ovalocytes 1+ PT INR APTT PTT Ratio ABG pH 7.45 ABG pCO2 29 L ABG pO2 62 L ABG HCO3 20 ABG O2 Saturation 90.6 ABG Base Excess -3.5 [place] Test Pos Barometric Pressure 720.2 Oxygen Given 15 LITERS O2 Sodium 135 L Potassium 4.4 Chloride 106 Carbon Dioxide 19 L Anion Gap 10.0 BUN 88 H Creatinine 2.67 H Est Cr Clr Drug Dosing 24.6 Est GFR ( Amer) 26.5 Est GFR (Non-Af Amer) 22.8 BUN/Creatinine Ratio 32.8 H Glucose 156 H POC Glucose Lactate Calcium 8.0 L Magnesium Total Bilirubin 3.1 H Direct Bilirubin AST 100 H ALT 41 Alkaline Phosphatase 51 Ammonia Troponin I 18.000 H* Total Protein 4.9 L Albumin 2.1 L Globulin 2.8 Albumin/Globulin Ratio 0.8 L Procalcitonin 08/24/21 08/24/21 08/24/21 10:39 10:44 11:13 WBC RBC Hgb Hct MCV MCH MCHC RDW Std Deviation RDW Coeff of Sony Plt Count MPV Immature Gran % (Auto) Neut % (Auto) Lymph % (Auto) [place] % (Auto) Eos % (Auto) Baso % (Auto) Neut # (Auto) Lymph # (Auto) [place] # (Auto) Eos # (Auto) Baso # (Auto) Immature Gran # (Auto) Absolute Nucleated RBC Nucleated RBC % (auto) RBC Morphology Polychromasia Ovalocytes PT INR APTT PTT Ratio ABG pH ABG pCO2 ABG pO2 ABG HCO3 ABG O2 Saturation ABG Base Excess [place] Test Barometric Pressure Oxygen Given Sodium Potassium Chloride Carbon Dioxide Anion Gap BUN Creatinine Est Cr Clr Drug Dosing Est GFR ( Amer) Est GFR (Non-Af Amer) BUN/Creatinine Ratio Glucose POC Glucose 145 H Lactate Calcium Magnesium Total Bilirubin Direct Bilirubin AST ALT Alkaline Phosphatase Ammonia 148.0 H Troponin I Total Protein Albumin Globulin Albumin/Globulin Ratio Procalcitonin 1.11 H PG Care Time/CCT Total # of Minutes Spent Total Time Spent with Patient: Total time spent is greater than 50% in coordination of care (as documented) at patient's floor/unit and/or counseling patient: Coding Level of Care Code 35302 Subseq Hosp Care Lvl 3 Diagnoses Chronic kidney disease, stage 4 (severe) N18.4 Acute coronary syndrome I24.9 Hyperparathyroidism E21.3 Anemia D64.9 Anemia type: unspecified type (1) Anemia Anemia type: unspecified type Qualified Code(s): D64.9 - Anemia, unspecified
--- NOTE | 2021-08-24 15:49 | Critical Care Progress Note ---
Date of Service August 24, 2021 Assessment & Plan (1) Acute coronary syndrome: (2) Chronic kidney disease, stage 4 (severe): (3) Fluid overload: (4) Acute respiratory failure with hypoxia: Plan: --Acute hypoxic respiratory failure Secondary to fluid overload, pulmonary edema Patient has CHF as well as CKD which are most likely underlying etiology Patient also has been having NSTEMI, he is not a good candidate to have any intervention done Continue with BiPAP Keep O2 saturation between 90-92% --NSTEMI Patient is on beta-trae, statin, Plavix Patient is also on high-dose isosorbide mononitrate for the pain --CKD stage IV Patient does not want dialysis Continue with bicarb Continue with diuretics Nephrology on board --HFpEF Continue with diuretics as tolerated --History of autoimmune hepatitis On chronic 10 mg prednisone Continue with same --Diabetes type 2 ICU hypoglycemia protocol --Prophylaxis VTE: Heparin GI: Protonix Lines: Peripheral Diet: N.p.o. Plan: Continue with BiPAP to maintain oxygen saturation If there is no improvement in urine output I might consider starting the patient on dopamine. Patient has good ejection fraction as per the latest echo which was done 12/18/2020. Arrhythmia from dopamine will be high risk in patient who has underlying severe coronary artery disease. Patient does have elevated ammonia. We will give him lactulose if GI will take him off the BiPAP I did spend time with patient's son to discuss the patient's declining condition. I do think doing anything aggressive which includes intubation/CPR and dialysis would not be appropriate. Patient unfortunately with multiple comorbidities and irreversible cardiac coronary disease. All questions inquiries of the family were answered in depth I have personally spent 57 minutes of critical care time in the direct management of this patient. This is a life/limb threatening event. This includes time spent evaluating patient, direct bedside care, chart review, placing orders, interpretation of diagnostic studies, discussion with consultants, patient, and family members, as well as other required patient management activities. This time is exclusive of all separately billable procedures, and teaching time and separate from and in addition to any other critical care service time. Please note the above document was generated using voice recognition software. It may contain grammatical, syntax or spelling errors. Admission and Anticipated Discharge Date Admission Date: August 21, 2021 Subjective Patient is known to critical care service as he was admitted to the ICU for NSTEMI nitro drip He was ultimately downgraded on 08/23/2021. Today on the floor patient was complaining again of chest tightness, he was given nitroglycerin sublingual following which he started to get shortness of breath Patient got total of 80 mg of Lasix and was put on BiPAP and sent to ICU for further care EKG done today does show ST depression in 2 3 aVF which goes with inferior lateral ischemia At the time of examination patient family which his as well as son were in the room He was saturating 100% on BiPAP He was not in any respiratory distress. He stated he is feeling better compared to before. Denies any chest pain. No headache, no nausea or vomiting He was lethargic. Review of Systems Review of Systems: All systems reviewed & are unremarkable except as noted in Subjective Physical Exam Physical Exam: Constitutional: No acute distress HEENT: EOMI, PERRLA Respiratory system: Decreased air entry bilaterally, no wheeze, no rhonchi, positive crackles bilateral lower lobes CVS: S1-S2 positive, no murmurs or gallops, accentuated P2 Abdomen: Soft, nontender, nondistended, positive bowel sounds x4 Extremities: +2 pulses bilaterally radialis/ dorsalis pedis, no cyanosis, +2 pitting edema bilateral lower extremity Neuro: Awake alert oriented x3, lethargic Psych: Normal mood and affect G/U: Positive Sales Skin: no rashes, warm and dry Lymphatic: no cervical or axillary lymphadenopathy Results & Data Results & Data ([facility]) Vital Signs (Past 12 Hours) Vital Signs Temp Pulse Pulse Resp BP BP Pulse Ox 08/24/21 12:52 37.1 C 08/24/21 12:30 104 H 13 106/62 100 08/24/21 11:58 112 H 08/24/21 11:32 103 H 22 102/68 88 L 08/24/21 11:11 84 26 H 98/68 L 85 L 08/24/21 10:24 98 H 22 88 L 08/24/21 09:00 101 H 24 107/75 78 L 08/24/21 07:05 36.6 C 86 17 104/65 92 08/24/21 03:50 92 H 111/71 08/24/21 10:39 08/24/21 10:39 Coding Level of Care Code Critical Care 1st 30-74 mins Diagnoses Acute coronary syndrome I24.9 Chronic kidney disease, stage 4 (severe) N18.4 Fluid overload E87.70 Acute respiratory failure with hypoxia J96.01 Time Spent (min) 57
[2021-08-24] MEDS: INSULIN HUMAN NPH SC SCH (16:20)
[2021-08-24] MEDS ORDERED: BUMETANIDE 2 MG in SYRINGE 0 ML IV ONE (17:30)
[2021-08-24 18:51] LABS: Partial Thromboplastin Ratio 4.3
[2021-08-24 18:57] LABS: Partial Thromboplastin Time 112.7 Seconds (21.0-31.0)
[2021-08-24] MEDS ORDERED: CARBOHYDRATES FOR HYPOGLYCEMIA PO PRN (21:39)
[2021-08-24] MEDS ORDERED: GLUCOSE 40% GEL 15 GM TUBE PO PRN (21:39)
[2021-08-24] MEDS ORDERED: GLUCAGON FOR INJ 1 MG VIAL SQ PRN (21:39)
[2021-08-24] MEDS ORDERED: DEXTROSE 50% 50 ML SYRINGE IV PRN (21:39)
[2021-08-24] MEDS ORDERED: GLUCOSE 10 TABS/TUBE PO PRN (21:39)
[2021-08-25] MEDS: ONDANSETRON INJ 2 MG/ML 2 ML VIAL IV PRN ×3 (00:50→21:23)
[2021-08-25 02:14] LABS: Hematocrit (blood only) 28.3 % (42-52); Hemoglobin 9.2 g/dL (14.0-18.0); Mean Corpuscular Hgb Conc 32.5 g/dL (32-36); Mean Corpuscular Volume 95.3 fL (80-100); Nucleated RBC # (auto) 0.04 K/uL (0-0); Nucleated RBC % (auto) 0.6 %; RDW Coefficient of Variation 15.5 % (11.5-14.5); RDW Standard Deviation 53.2 fL (36.4-46.3); Red Blood Count 2.97 M/uL (4.7-6.1); White Blood Count 6.72 K/uL (4.8-10.8)
[2021-08-25 02:33] LABS: BUN Creatinine Ratio 31.3 (10-20); Calcium 7.8 mg/dl (8.5-10.1); Creatinine Clr Calc Pharmacy 21.8 ml/min; Est GFR (African American) 22.8 ml/min; Est GFR (Non-African American) 19.7 ml/min; Phosphorus 3.3 mg/dl (2.5-4.9); Potassium 4.7 mmol/L (3.5-5.1)
[2021-08-25 02:35] LABS: Partial Thromboplastin Ratio 1.9
[2021-08-25 02:44] LABS: Partial Thromboplastin Time 50.3 Seconds (21.0-31.0)
[2021-08-25 02:47] LABS: Immature Granulocytes # (auto) 0.01 K/uL (0.00-0.02); Immature Granulocytes % (auto) 0.1 %; Lymphocytes # (auto) 0.56 K/uL (1.2-3.4); Lymphocytes % (auto) 8.3 %; Mean Platelet Volume 10.1 fL (7.4-10.4); Monocytes # (auto) 0.23 K/uL (0.11-0.59); Monocytes % (auto) 3.4 %; Neutrophils # (auto) 5.92 K/uL (1.4-6.5); Neutrophils % (auto) 88.2 %; Platelet Count 70 K/uL (130-400); Platelet Estimate Decreased (Normal); Polychromasia 1+; Tear Drop Cells 1+
[2021-08-25] MEDS: MoRPHine SULFATE 2 MG/ML CARP IV PRN ×2 (06:08→08:05)
[2021-08-25] MEDS: HEPARIN SODIUM/DEXTROSE 25,000 UNITS/500 ML BAG IV SCH (06:56)
--- NOTE | 2021-08-25 07:04 | Hospitalist Progress Note ---
Date of Service August 25, 2021 Assessment & Plan (1) Acute coronary syndrome: Plan: 71yo Male here for chest pain shortness of breath 2/2 to NSTEMI. PMH autoimmune hepatitis with portal HTN and esophageal varices, chronic anemia/thrombocytopenia, severe multivessel CAD, CKD4, DM2, HFpEF. ()Comfort Measure Only 08/25 Patient now DNR/DNI, wants comfort measure only, on dilaudid q1h for pain control. Continuing Sodium bicarb, isosorbide mononitrate, prednisone, continuing PRN zofran, dc'd all other medication and orders. Family understands patient wishes, agree with comfort measures, hesitant regarding home hospice unsure if patient is stable enough to be moved. Will discuss hospice options further tomorrow. ()Acute Respiratory failure with Hypoxia secondary to fluid overload, pulmonary edema his CHF and CKD most likely contributory continue BIPAP O2 sat 90-92% ABG pH normal PCO2 29 Lactate 3.8 CXR: Moderate to severe pulmonary edema, increased from prior exam. Bilateral lower lobe predominant airspace opacities which may represent atelectasis, aspiration, and/or pneumonia. 08/25 BIPAP dc'd, patient satting 96% on NC ()NSTEMI, Hx CAD: History of severe multivessel disease. Cardiac cath 05/2021: Calcified 80% left main extending into the ostium of LAD/circumflex, 60% mid LAD, severe diffuse distal LAD up to 95%, 60% proximal circumflex, 55% proximal RCA, 70% calcified mid RCA with acute thrombus. Echo 05/2021: LVEF 55-60%, apical akinesis, mild MR. Troponin initially 0.7 -> 80.4 downtrending; heparin gtt started by ICU team, aPPT elevated to 139 heparin held Total of aspirin 324mg received while still in ER. Continue daily aspirin, Plavix, statin. Amlodipine and beta trae held due to hypotension. Started nitrodrip, stopped 08/21 Cardiology consulted, recommend heparin 48hr, home propanolol, despite liver disease consider Ranexa. Continue ASA/plavix, statin. Continue max dose Imdur 180 BID Echo: EF 50-55%, severe concentric LVH, large apical akenisis Resume beta-trae. Try metoprolol 25mg BID and titrate up as BP/HR alllows. *as patient is not stabilized, beta blockers have not been restarted If tolerate beta-trae, resume amlodipine. 08/23 patient experienced chest pain after emotional distress, EKG showed ST depression in leads V3, V6, chest pain resolve with SL nitro. Patient downgraded to PCU 08/24 patient in respiratory distress CXR showed mod-sev pulmonary edema, started on BIPAP, stat labs ordered, upgraded to ICU elevated lactate, ammonia heparin drip ongoing for now as limited options for intervention, some concern very dark stool possible GI bleed, continue to monitor for now given 80mg IV lasix, initially good urine output later limited given worsening kidney failure 08/25 dc'd all cardiac medications except isosorbide mononitrate ()CKD stage IV, hyperkalemia, chronic anemia: New baseline creatinine ~3.0. Creatinine on admission of 3.11. Has been and continues to be firm about not wanting to pursue dialysis should he have worsening of his renal function. Overall is a poor candidate for dialysis due to his multiple medical comorbidities, frailty and poor functional status. Would not be good candidate for peritoneal dialysis due to portal HTN and Hx ascites. Would not be a good candidate for AV fistula due to history of vascular disease, as well as chronic skin changes from daily prednisone therapy. Potassium of 5.2 on admission today. No peaked T waves. Small bolus NSS given. Continue sodium bicarbonate BID. Repeat BMP in AM. Follows with Dr. Dwyer. Nephrology consulted given complex situation with CKD IV and NSTEMI, recommend conservative management, patient declines further intervention for CAD or dialysis recommends if considering Ranexa, use as strictly palliative measures Further discussion with family regarding futility for CPR and intubation, family expressed understanding 08/25 continuing prednisone, sodium bicarb, all other renal meds dc'd ()Anemia, thrombocytopenia: Chronic, with baseline Hgb ~8-9, plts ~90. On admission with Hgb 8.1. Received 1u PRBCs in ICU given NSTEMI. Last Hbg 8.8 recieved iron supplement, 08/25 dc'd ()DM2, hyperglycemia: On presentation with BSG 354. Received 5u regular insulin. Continue SSI with ICU hyperglycemia protocol. 08/25 dc'd glycemic protocol and insulin ()Autoimmune hepatitis, portal HTN, esophageal varices: History of. On furosemide 80mg AM, 40mg PM. LFTs stable. Continue home prednisone daily. ()Swallowing Difficulties Patient experiencing nausea vomitting cough not improved with zofran, protonix. Describes difficulty swallowing chicken at home and self induced vomiting to clear from esophagus. Discussed possible etiology, esophageal stricture v. cardiac complication, patient understands endoscopy is best option to evaluate for esophageal stricture but may not tolerate sedation well. swallowing difficulties improved 08/23 without intervention Code Status: DNR/DNI, CREDIT REVIEW ANALYST FEN: Heart Healthy DM2 diet DVT ppx: none Dispo: med/surg (2) CKD (chronic kidney disease): (3) Uncontrolled type 2 diabetes mellitus: (4) Dyslipidemia: (5) Portal hypertension: (6) Anemia: (7) Esophageal varices: (8) Autoimmune hepatitis: Admission and Anticipated Discharge Date Admission Date: August 21, 2021 Supervising Physician Co-Signing Physician Notes Patient seen and examined, chart reviewed, case discussed with Dr. Schumacher and I agree with the assessment and plan as above except as otherwise noted Patient transferred to ICU on 08/24 due to acute respiratory failure (hypoxic). Was placed on BIPAP. Patient improved with diuresis, Family and patient had discussion with gas engine operator compressors, transitioned to CREDIT REVIEW ANALYST and patient will be a DNR/DNI. Family is agreeable. D/W family caseworker, will see how patient does overnight. Currently patient is comfortable. ACS: Continue heparin for 48 hours, dual antiplatelet therapy, Imdur 180 twice daily, metoprolol resumed and uptitrate as tolerated blood pressure. Extremely poor interventional candidate, no plans for coronary intervention at this time. CKD: Does not desire dialysis, medical management of renal disease and ACS as noted. Nephrology consulted, appreciate recommendations. Chronic anemia: Hemoglobin threshold 8.0 rather than 9.0, received 1 unit of blood. Currently stable Subjective 71yo Male seen at bedside, BIPAP removed replaced with nasal canula. He is lethargic, states it is the end for him, states he is in pain. Complains of nausea, unable to tolerate PO medication. Denies SOB. present in room, updated on recent events. Per nurse, patient has agreed to DNR/DNI, just wants something for the pain at this point. Later confirmed with family patient's status DNR/DNI, comfort measures. Will discuss further hospice measures tomorrow. Review of Systems Review of Systems: see HPI Physical Exam Constitutional: average body habitus, + frail appearing, + in distress and + lethargic Eyes: PERRL, conjunctivae normal, anicteric sclerae Respiratory: Auscultation: + crackles Cardiovascular: RRR, no murmur, no edema Heart Sounds: normal S1 and normal S2 Gastrointestinal (Abdomen): normal bowel sounds, soft, nontender, no hepatosplenomegaly Skin: no rashes, warm and dry Psychiatric: Mood: + anxious mood Results & Data Results & Data ([facility]) Vital Signs (Past 12 Hours) Vital Signs Temp Pulse Resp BP Pulse Ox 08/25/21 05:00 93 H 11 L 112/77 100 08/25/21 04:10 36.7 C 08/25/21 04:00 97 H 9 L 123/78 99 08/25/21 03:00 92 H 11 L 118/68 98 08/25/21 02:00 92 H 13 113/76 98 08/25/21 01:00 93 H 12 121/68 98 08/25/21 00:05 36.8 C 08/25/21 00:00 95 H 14 115/79 97 08/24/21 23:00 96 H 12 122/71 96 08/24/21 22:15 95 H 20 98 08/24/21 22:00 92 H 14 112/68 99 08/24/21 21:00 91 H 13 107/69 98 08/24/21 20:00 98 H 15 118/72 98 08/24/21 19:45 96 H 18 96 Laboratory Results 08/25/21 08/25/21 08/25/21 Range/Units 11:55 07:52 02:06 WBC (4.8-10.8) K/uL RBC (4.7-6.1) M/uL Hgb (14.0-18.0) g/dL Hct (42-52) % MCV (80-100) fL MCH (25-34) pg MCHC (32-36) g/dL RDW Std Deviation (36.4-46.3) fL RDW Coeff of Sony (11.5-14.5) % Plt Count (130-400) K/uL MPV (7.4-10.4) fL Immature Gran % (Auto) % Neut % (Auto) % Lymph % (Auto) % [place] % (Auto) % Eos % (Auto) % Baso % (Auto) % Neut # (Auto) (1.4-6.5) K/uL Lymph # (Auto) (1.2-3.4) K/uL [place] # (Auto) (0.11-0.59) K/uL Eos # (Auto) (0-0.5) K/uL Baso # (Auto) (0-0.2) K/uL Immature Gran # (Auto) (0.00-0.02) K/uL Absolute Nucleated RBC (0-0) K/uL Nucleated RBC % (auto) % Platelet Estimate (Normal) Polychromasia Tear Drop Cells APTT (21.0-31.0) Seconds PTT Ratio Sodium (136-145) mmol/L Potassium (3.5-5.1) mmol/L Chloride (98-107) mmol/L Carbon Dioxide (21-32) mmol/L Anion Gap (3-11) BUN (7-18) mg/dl Creatinine (0.6-1.4) mg/dl Est Cr Clr Drug Dosing ml/min Est GFR ( Amer) ml/min Est GFR (Non-Af Amer) ml/min BUN/Creatinine Ratio (10-20) Glucose (70-99) mg/dl POC Glucose 80 74 (70-99) mg/dl Lactate 1.6 (0.4-2.0) mmol/L Calcium (8.5-10.1) mg/dl Phosphorus (2.5-4.9) mg/dl Magnesium (1.8-2.4) mg/dl Procalcitonin (0-0.5) ng/ml Crossmatch 08/25/21 08/25/21 08/25/21 Range/Units 02:00 02:00 02:00 WBC 6.72 (4.8-10.8) K/uL RBC 2.97 L (4.7-6.1) M/uL Hgb 9.2 L (14.0-18.0) g/dL Hct 28.3 L (42-52) % MCV 95.3 (80-100) fL MCH 31.0 (25-34) pg MCHC 32.5 (32-36) g/dL RDW Std Deviation 53.2 H (36.4-46.3) fL RDW Coeff of Sony 15.5 H (11.5-14.5) % Plt Count 70 L (130-400) K/uL MPV 10.1 (7.4-10.4) fL Immature Gran % (Auto) 0.1 % Neut % (Auto) 88.2 % Lymph % (Auto) 8.3 % [place] % (Auto) 3.4 % Eos % (Auto) 0.0 % Baso % (Auto) 0.0 % Neut # (Auto) 5.92 (1.4-6.5) K/uL Lymph # (Auto) 0.56 L (1.2-3.4) K/uL [place] # (Auto) 0.23 (0.11-0.59) K/uL Eos # (Auto) 0.00 (0-0.5) K/uL Baso # (Auto) 0.00 (0-0.2) K/uL Immature Gran # (Auto) 0.01 (0.00-0.02) K/uL Absolute Nucleated RBC 0.04 H (0-0) K/uL Nucleated RBC % (auto) 0.6 % Platelet Estimate Decreased L (Normal) Polychromasia 1+ Tear Drop Cells 1+ APTT (21.0-31.0) Seconds PTT Ratio Sodium 136 (136-145) mmol/L Potassium 4.7 (3.5-5.1) mmol/L Chloride 106 (98-107) mmol/L Carbon Dioxide 23 (21-32) mmol/L Anion Gap 7.0 (3-11) BUN 95 H (7-18) mg/dl Creatinine 3.02 H D (0.6-1.4) mg/dl Est Cr Clr Drug Dosing 21.8 ml/min Est GFR ( Amer) 22.8 ml/min Est GFR (Non-Af Amer) 19.7 ml/min BUN/Creatinine Ratio 31.3 H (10-20) Glucose 84 (70-99) mg/dl POC Glucose (70-99) mg/dl Lactate (0.4-2.0) mmol/L Calcium 7.8 L (8.5-10.1) mg/dl Phosphorus 3.3 (2.5-4.9) mg/dl Magnesium 2.0 (1.8-2.4) mg/dl Procalcitonin 13.51 H (0-0.5) ng/ml Crossmatch 08/25/21 08/24/21 08/24/21 Range/Units 02:00 21:58 21:37 WBC (4.8-10.8) K/uL RBC (4.7-6.1) M/uL Hgb (14.0-18.0) g/dL Hct (42-52) % MCV (80-100) fL MCH (25-34) pg MCHC (32-36) g/dL RDW Std Deviation (36.4-46.3) fL RDW Coeff of Sony (11.5-14.5) % Plt Count (130-400) K/uL MPV (7.4-10.4) fL Immature Gran % (Auto) % Neut % (Auto) % Lymph % (Auto) % [place] % (Auto) % Eos % (Auto) % Baso % (Auto) % Neut # (Auto) (1.4-6.5) K/uL Lymph # (Auto) (1.2-3.4) K/uL [place] # (Auto) (0.11-0.59) K/uL Eos # (Auto) (0-0.5) K/uL Baso # (Auto) (0-0.2) K/uL Immature Gran # (Auto) (0.00-0.02) K/uL Absolute Nucleated RBC (0-0) K/uL Nucleated RBC % (auto) % Platelet Estimate (Normal) Polychromasia Tear Drop Cells APTT 50.3 H* (21.0-31.0) Seconds PTT Ratio 1.9 Sodium (136-145) mmol/L Potassium (3.5-5.1) mmol/L Chloride (98-107) mmol/L Carbon Dioxide (21-32) mmol/L Anion Gap (3-11) BUN (7-18) mg/dl Creatinine (0.6-1.4) mg/dl Est Cr Clr Drug Dosing ml/min Est GFR ( Amer) ml/min Est GFR (Non-Af Amer) ml/min BUN/Creatinine Ratio (10-20) Glucose (70-99) mg/dl POC Glucose 173 H 68 L* (70-99) mg/dl Lactate (0.4-2.0) mmol/L Calcium (8.5-10.1) mg/dl Phosphorus (2.5-4.9) mg/dl Magnesium (1.8-2.4) mg/dl Procalcitonin (0-0.5) ng/ml Crossmatch 08/24/21 08/22/21 Range/Units 18:21 00:35 WBC (4.8-10.8) K/uL RBC (4.7-6.1) M/uL Hgb (14.0-18.0) g/dL Hct (42-52) % MCV (80-100) fL MCH (25-34) pg MCHC (32-36) g/dL RDW Std Deviation (36.4-46.3) fL RDW Coeff of Sony (11.5-14.5) % Plt Count (130-400) K/uL MPV (7.4-10.4) fL Immature Gran % (Auto) % Neut % (Auto) % Lymph % (Auto) % [place] % (Auto) % Eos % (Auto) % Baso % (Auto) % Neut # (Auto) (1.4-6.5) K/uL Lymph # (Auto) (1.2-3.4) K/uL [place] # (Auto) (0.11-0.59) K/uL Eos # (Auto) (0-0.5) K/uL Baso # (Auto) (0-0.2) K/uL Immature Gran # (Auto) (0.00-0.02) K/uL Absolute Nucleated RBC (0-0) K/uL Nucleated RBC % (auto) % Platelet Estimate (Normal) Polychromasia Tear Drop Cells APTT 112.7 H* (21.0-31.0) Seconds PTT Ratio 4.3 Sodium (136-145) mmol/L Potassium (3.5-5.1) mmol/L Chloride (98-107) mmol/L Carbon Dioxide (21-32) mmol/L Anion Gap (3-11) BUN (7-18) mg/dl Creatinine (0.6-1.4) mg/dl Est Cr Clr Drug Dosing ml/min Est GFR ( Amer) ml/min Est GFR (Non-Af Amer) ml/min BUN/Creatinine Ratio (10-20) Glucose (70-99) mg/dl POC Glucose (70-99) mg/dl Lactate (0.4-2.0) mmol/L Calcium (8.5-10.1) mg/dl Phosphorus (2.5-4.9) mg/dl Magnesium (1.8-2.4) mg/dl Procalcitonin (0-0.5) ng/ml Crossmatch See Detail Medications Administered Current Inpatient Medications Hydromorphone HCl (Hydromorphone Inj 0.5 Mg/0.5 Ml Syr) 0.5 mg IV Q1H PRN PRN Reason: Pain Stop: 09/08/21 10:07 Last Admin: 08/25/21 15:41 Dose: 0.5 mg Documented by: Isosorbide Mononitrate (Isosorbide [place] Extended Rel 60 Mg Tabcr) 180 mg PO BID [facility] Stop: 09/21/21 09:29 Last Admin: 08/25/21 08:17 Dose: Not Given Documented by: Ondansetron HCl (Ondansetron Inj 2 Mg/Ml 2 Ml Vial) 4 mg IV Q6H PRN PRN Reason: Nausea And Vomiting Stop: 09/21/21 00:20 Last Admin: 08/25/21 08:05 Dose: 4 mg Documented by: Prednisone (Prednisone 10 Mg Tablet) 10 mg PO QAM [facility] Stop: 09/21/21 08:59 Last Admin: 08/25/21 08:17 Dose: Not Given Documented by: Sodium Bicarbonate (Sodium Bicarbonate 650 Mg Tab) 1,300 mg PO BID [facility] Stop: 09/21/21 08:59 Last Admin: 08/25/21 08:17 Dose: Not Given Documented by: Resident Activity Tracking Resident Involvement: Resident Care Provided Care Provided: Adult Hospital Medicine (1) CKD (chronic kidney disease) Chronic kidney disease stage: unspecified stage Qualified Code(s): N18.9 - Chronic kidney disease, unspecified
[2021-08-25] MEDS: INSULIN ASPART PER UNIT SC SCH ×3 (08:04→17:07)
[2021-08-25] MEDS: ASPIRIN 81 MG ECTAB PO SCH (08:14)
[2021-08-25] MEDS: CLOPIDOGREL BISULFATE 75 MG TAB PO SCH (08:15)
[2021-08-25] MEDS: ATORVASTATIN 40 MG TAB PO SCH (08:15)
[2021-08-25] MEDS: FERROUS SULFATE 325 MG TAB PO SCH (08:15)
[2021-08-25] MEDS: ISOSORBIDE MONO EXTENDED REL 60 MG TABCR PO SCH ×2 (08:17→21:25)
[2021-08-25] MEDS: predniSONE 10 MG TABLET PO SCH (08:17)
[2021-08-25] MEDS: SODIUM BICARBONATE 650 MG TAB PO SCH ×2 (08:17→21:25)
[2021-08-25] MEDS: PANTOprazole 40 MG TAB PO SCH (08:17)
--- NOTE | 2021-08-25 08:33 | XRay Report ---
XR chest 1V portable CLINICAL HISTORY: Follow-up pulmonary edema and left lower lobe alveolar opacity. COMPARISON STUDY: No previous studies for comparison. TECHNIQUE: 1 view of the chest FINDINGS: Single frontal view of the chest demonstrates the cardiomediastinal silhouette to be within normal li mits. Compared to the previous examination, there has been interval resolution of previously identifi ed diffuse interstitial edema. However, there is persistent alveolar opacity at the left lung base ch aracteristic of left lower lobe atelectasis/collapse versus pneumonia. There is also evidence for lef t pleural effusion. There is no acute osseous pathology. IMPRESSION: Interval resolution of diffuse interstitial edema with persistent left lower lobe alveola r opacity characteristic of left lower lobe atelectasis/collapse versus pneumonia. This also small le ft pleural effusion. ACT 112: Negative or not required by law. Electronically signed by: Pravin Suarez M.D. 08/25/2021 8:32 AM
[2021-08-25] MEDS ORDERED: INSULIN HUMAN NPH SC SCH (09:00)
--- NOTE | 2021-08-25 10:14 | Billing Data ---
Date of Service August 24, 2021 Coding Level of Care Code 61007 Subseq Hosp Care Lvl 3 Time Spent (min) 35 Comment 35 minutes of Critical care time.
--- NOTE | 2021-08-25 10:24 | Critical Care Progress Note ---
Date of Service August 25, 2021 Assessment & Plan (1) Acute coronary syndrome: (2) Chronic kidney disease, stage 4 (severe): (3) Fluid overload: (4) Acute respiratory failure with hypoxia: Plan: --Acute hypoxic respiratory failure Secondary to fluid overload, pulmonary edema Patient has CHF as well as CKD which are most likely underlying etiology Patient also has been having NSTEMI, he is not in epic amlodipine and Maalox good candidate to have any intervention done Continue with BiPAP Keep O2 saturation between 90-92% --NSTEMI Patient is on beta-trae, statin, Plavix Patient is also on high-dose isosorbide mononitrate for the pain --CKD stage IV Patient does not want dialysis Continue with bicarb Continue with diuretics Nephrology on board --HFpEF Continue with diuretics as tolerated --History of autoimmune hepatitis On chronic 10 mg prednisone Continue with same --Diabetes type 2 ICU hypoglycemia protocol --Prophylaxis VTE: Heparin GI: Protonix Lines: Peripheral Diet: Cardiorenal Plan: In/out: -43, urine output 45 mL Plan we will change the patient's morphine to Dilaudid 0.5 mg every hour for pain I will change Protonix to IV as patient is not taking any p.o. medications right now If he still complaining of nausea and epigastric pain that I will give him Maalox Patient is not making enough urine. His creatinine is also going up. We will consider getting another 2 mg of Bumex. I spoke with the patient regarding goals of care. He stated that he would not want any intubation or CPR. He just wants to have his pain taken care of. I will change the CODE STATUS in the chart. I will get hospice evaluation I have personally spent 35 minutes of critical care time in the direct management of this patient. This is a life/limb threatening event. This includes time spent evaluating patient, direct bedside care, chart review, placing orders, interpretation of diagnostic studies, discussion with consultants, patient, and family members, as well as other required patient management activities. This time is exclusive of all separately billable procedures, and teaching time and separate from and in addition to any other critical care service time. Please note the above document was generated using voice recognition software. It may contain grammatical, syntax or spelling errors. Admission and Anticipated Discharge Date Admission Date: August 21, 2021 Subjective Patient seen and examined at bedside. Was complaining of epigastric pain and nausea. Denies any headache. Did have a little bit of tea He has been getting morphine which apparently for the patient has been causing nausea. Chest pain is better controlled. At time of examination he was on 3 L nasal cannula saturating 99% I went down on nasal cannula to 1 L Review of Systems Review of Systems: All systems reviewed & are unremarkable except as noted in Subjective Physical Exam Physical Exam: Constitutional: No acute distress HEENT: EOMI, PERRLA Respiratory system: Decreased air entry bilaterally, no wheeze, no rhonchi, posi tive crackles bilateral lower lobes CVS: S1-S2 positive, no murmurs or gallops, accentuated P2 Abdomen: Soft, nondistended, positive bowel sounds x4, epigastric tenderness, no rebound Extremities: +2 pulses bilaterally radialis/ dorsalis pedis, no cyanosis, +2 pitting edema bilateral lower extremity Neuro: Awake alert oriented x3 Psych: Normal mood and affect G/U: Positive Sales Skin: no rashes, warm and dry Lymphatic: no cervical or axillary lymphadenopathy Results & Data Results & Data ([facility]) Vital Signs (Past 12 Hours) Vital Signs Temp Pulse Resp BP BP Pulse Ox 08/25/21 08:00 36.7 C 93 H 11 L 117/69 99 08/25/21 07:30 99 H 14 99 08/25/21 07:00 93 H 16 98 08/25/21 05:00 93 H 11 L 112/77 100 08/25/21 04:10 36.7 C 08/25/21 04:00 97 H 9 L 123/78 99 08/25/21 03:00 92 H 11 L 118/68 98 08/25/21 02:00 92 H 13 113/76 98 08/25/21 01:00 93 H 12 121/68 98 08/25/21 00:05 36.8 C 08/25/21 00:00 95 H 14 115/79 97 08/24/21 23:00 96 H 12 122/71 96 Laboratory Results 08/25/21 02:00 08/25/21 02:00 Coding Level of Care Code Critical Care 1st 30-74 mins Diagnoses Acute coronary syndrome I24.9 Chronic kidney disease, stage 4 (severe) N18.4 Fluid overload E87.70 Acute respiratory failure with hypoxia J96.01 Time Spent (min) 35
[2021-08-25] MEDS: HYDROmorphone INJ 0.5 MG/0.5 ML SYR IV PRN ×3 (10:32→21:23)
[2021-08-25] MEDS ORDERED: PANTOprazole 40 MG in SYRINGE 0 ML IV SCH (11:00)
--- NOTE | 2021-08-25 13:56 | Nephrology Progress Note ---
Date of Service August 25, 2021 Assessment & Plan (1) Chronic kidney disease, stage 4 (severe): Plan: Filtration relatively stable. Electrolytes are acceptable. Volume status reasonable. Diuretics PRN to encourage urine output. He remains on oral NaHCO3 55451 BID. Medications are appropriately dosed for kidney function. Life expectancy is limited. Goals of care transitioning to more palliative measures. Focus now on possibilities for transition home and role of hospice care. (2) Acute coronary syndrome: Plan: Carlos A is a very poor candidate for dialysis. He understands this and has refused therapy. He remains on a heparin gtt, now >48 hours. Defer to cardiology regarding stopping. (3) Hyperparathyroidism: Plan: Remains on calcitriol.. (4) Anemia: Plan: s/p recent PRBC transfusion. H/H stable. Admission and Anticipated Discharge Date Admission Date: August 21, 2021 Subjective No acute events overnight. Carlos A was seen and evaluated with his , Ginna, at the bedside. He was very weak. Experiencing some nausea. Denied any chest pain. Review of Systems Review of Systems: All systems reviewed & are unremarkable except as noted in HPI & below Physical Exam Constitutional: + thin and + frail appearing; no acute distress Eyes: no scleral abnormality and no corneal abnormality ENMT: Mouth: no oral mucosal abnormality and oral mucous membranes not dry Neck: normal visual inspection and trachea midline Respiratory: normal respiratory effort Auscultation: + rales (few basilar) Cardiovascular: Rate/Rhythm: regular rate Heart Sounds: normal S1, normal S2 and + murmur Extremities: no edema Musculoskeletal: Extremities: + muscle atrophy; no cyanosis and no clubbing Skin: + turgor decreased and + ecchymosis Neurologic: Motor/Sensory: no tremor and no asterixis Psychiatric: Orientation: alert and oriented x 3 Results & Data ([facility]) Vital Signs (Past 12 Hours) Vital Signs Temp Pulse Resp BP BP Pulse Ox 08/25/21 13:26 111/65 08/25/21 13:00 37.0 C 92 H 9 L 96 08/25/21 12:00 91 H 11 L 108/65 96 08/25/21 11:00 91 H 10 L 112/66 97 08/25/21 10:00 92 H 10 L 113/70 97 08/25/21 09:00 92 H 11 L 120/69 99 08/25/21 08:00 36.7 C 97 H 11 L 117/69 99 08/25/21 07:30 99 H 14 99 08/25/21 07:00 93 H 16 98 08/25/21 05:00 93 H 11 L 112/77 100 08/25/21 04:10 36.7 C 08/25/21 04:00 97 H 9 L 123/78 99 08/25/21 03:00 92 H 11 L 118/68 98 08/25/21 02:00 92 H 13 113/76 98 Laboratory Results Laboratory Results - last 24 hr 08/22/21 08/24/21 08/24/21 00:35 16:11 18:21 WBC RBC Hgb Hct MCV MCH MCHC RDW Std Deviation RDW Coeff of Sony Plt Count MPV Immature Gran % (Auto) Neut % (Auto) Lymph % (Auto) Pitkin % (Auto) Eos % (Auto) Baso % (Auto) Neut # (Auto) Lymph # (Auto) Pitkin # (Auto) Eos # (Auto) Baso # (Auto) Immature Gran # (Auto) Absolute Nucleated RBC Nucleated RBC % (auto) Platelet Estimate Polychromasia Tear Drop Cells APTT 112.7 H* PTT Ratio 4.3 Sodium Potassium Chloride Carbon Dioxide Anion Gap BUN Creatinine Est Cr Clr Drug Dosing Est GFR ( Amer) Est GFR (Non-Af Amer) BUN/Creatinine Ratio Glucose POC Glucose 82 Lactate Calcium Phosphorus Magnesium Procalcitonin Crossmatch See Detail 08/24/21 08/24/21 08/25/21 21:37 21:58 02:00 WBC RBC Hgb Hct MCV MCH MCHC RDW Std Deviation RDW Coeff of Sony Plt Count MPV Immature Gran % (Auto) Neut % (Auto) Lymph % (Auto) Pitkin % (Auto) Eos % (Auto) Baso % (Auto) Neut # (Auto) Lymph # (Auto) Pitkin # (Auto) Eos # (Auto) Baso # (Auto) Immature Gran # (Auto) Absolute Nucleated RBC Nucleated RBC % (auto) Platelet Estimate Polychromasia Tear Drop Cells APTT 50.3 H* PTT Ratio 1.9 Sodium Potassium Chloride Carbon Dioxide Anion Gap BUN Creatinine Est Cr Clr Drug Dosing Est GFR ( Amer) Est GFR (Non-Af Amer) BUN/Creatinine Ratio Glucose POC Glucose 68 L* 173 H Lactate Calcium Phosphorus Magnesium Procalcitonin Crossmatch 08/25/21 08/25/21 08/25/21 02:00 02:00 02:00 WBC 6.72 RBC 2.97 L Hgb 9.2 L Hct 28.3 L MCV 95.3 MCH 31.0 MCHC 32.5 RDW Std Deviation 53.2 H RDW Coeff of Sony 15.5 H Plt Count 70 L MPV 10.1 Immature Gran % (Auto) 0.1 Neut % (Auto) 88.2 Lymph % (Auto) 8.3 Pitkin % (Auto) 3.4 Eos % (Auto) 0.0 Baso % (Auto) 0.0 Neut # (Auto) 5.92 Lymph # (Auto) 0.56 L Pitkin # (Auto) 0.23 Eos # (Auto) 0.00 Baso # (Auto) 0.00 Immature Gran # (Auto) 0.01 Absolute Nucleated RBC 0.04 H Nucleated RBC % (auto) 0.6 Platelet Estimate Decreased L Polychromasia 1+ Tear Drop Cells 1+ APTT PTT Ratio Sodium 136 Potassium 4.7 Chloride 106 Carbon Dioxide 23 Anion Gap 7.0 BUN 95 H Creatinine 3.02 H D Est Cr Clr Drug Dosing 21.8 Est GFR ( Amer) 22.8 Est GFR (Non-Af Amer) 19.7 BUN/Creatinine Ratio 31.3 H Glucose 84 POC Glucose Lactate Calcium 7.8 L Phosphorus 3.3 Magnesium 2.0 Procalcitonin 13.51 H Crossmatch 08/25/21 08/25/21 08/25/21 02:06 07:52 11:55 WBC RBC Hgb Hct MCV MCH MCHC RDW Std Deviation RDW Coeff of Sony Plt Count MPV Immature Gran % (Auto) Neut % (Auto) Lymph % (Auto) Pitkin % (Auto) Eos % (Auto) Baso % (Auto) Neut # (Auto) Lymph # (Auto) Pitkin # (Auto) Eos # (Auto) Baso # (Auto) Immature Gran # (Auto) Absolute Nucleated RBC Nucleated RBC % (auto) Platelet Estimate Polychromasia Tear Drop Cells APTT PTT Ratio Sodium Potassium Chloride Carbon Dioxide Anion Gap BUN Creatinine Est Cr Clr Drug Dosing Est GFR ( Amer) Est GFR (Non-Af Amer) BUN/Creatinine Ratio Glucose POC Glucose 74 80 Lactate 1.6 Calcium Phosphorus Magnesium Procalcitonin Crossmatch PG Care Time/CCT Total # of Minutes Spent Total Time Spent with Patient: Total time spent is greater than 50% in coordination of care (as documented) at patient's floor/unit and/or counseling patient: Coding Level of Care Code 38909 Subseq Hosp Care Lvl 3 Diagnoses Chronic kidney disease, stage 4 (severe) N18.4 Acute coronary syndrome I24.9 Hyperparathyroidism E21.3 Anemia D64.9 Anemia type: unspecified type (1) Anemia Anemia type: unspecified type Qualified Code(s): D64.9 - Anemia, unspecified
--- NOTE | 2021-08-25 14:02 | Pharmacy Report ---
Pharmacy Glycemic Short Note 2 - Date of Service August 25, 2021 - Glycemic Short BSG Results (Last 24 hours): 08/24/21 08/24/21 08/24/21 16:11 21:37 21:58 Glucose POC Glucose 82 68 L* 173 H 08/25/21 08/25/21 08/25/21 02:00 07:52 11:55 Glucose 84 POC Glucose 74 80 OUTPATIENT ANTIDIABETIC REGIMEN: * On prednisone 10 mg daily at home * NPH * Prescribed: 28 units / 17 units with breakfast/dinner, respectively. * Takin units / 18 units with breakfast/dinner, respectively * Novolog * Prescribed: 18 units / 26 units with breakfast/dinner, respectively. * Takin units / 14 units with breakfast/dinner, respectively * Patient reports that if he takes the higher doses (prescribed), he has low BSG's (per med history documentation) * HbA1c 5.7% on 08/20/21 ASSESSMENT: 08/25 * Pt had been receiving 15-25 units of basal per day + ~ 14 units of bolus per day. However, Pt c/o nausea this morning. Refused prednisone and refused meal tray. Will hold NPH this morning (this is his outpatient basal) and reassess. Will not administer until BSG >160 mg/dl as all BSGs have been below 100 for the past 18 hrs. 08/22 * 71 yo M with T2DM admitted to ICU on 08/21 for NSTEMI, CKD. Home prednisone 10 mg daily has been continued. Ordered T2DM diet and is on two medications mixed in D5W (nitroglycerin and heparin). Patient remains ICU status. * Carlos A reduced his outpatient insulin regimen due to reportedly low BSG's and has an inpatient A1c of 5.7% (reflective of possible low BSG's as an outpatient consistent with patient report) * BSG's significantly elevated on admission (?stress response and/or reduced home dose of Novolog with dinner?) but trended down significantly overnight without much insulin administered as an inpatient * Will continue NPH BID to help with eventual transition back to outpatient regimen, but will weight more heavily in AM both 2nd prednisone in AM and to avoid overnight drops * Will initiate Novolog ACHS between weight-based moderate and severe stress estimate. Higher goal range 2nd ICU status and also reported outpatient hypoglycemia PLAN FOR INPATIENT GLYCEMIC CONTROL: * Basal insulin * HOLD NPH this morning. NPH 0-3 units this evening with dinner if BSG > 160 * Bolus insulin * NovoLog per scale ACHS or Q6hrs while NPO * Goal Range: Low 120 mg/dL - High 160 mg/dL * Correction Factor: 30 mg/dL/unit * Nutritional / Prandial insulin per carb ratio of 1 unit per 9 grams CHO consumed PLAN FOR DISCHARGE: * tbd
[2021-08-25] MEDS: INSULIN HUMAN NPH SC SCH (17:07)
--- NOTE | 2021-08-25 22:17 | Billing Data ---
Date of Service August 25, 2021 Coding Level of Care Code 57123 Subseq Hosp Care Lvl 3
[2021-08-26] MEDS: ATROPINE SULFATE 1% OP SOLN 5 ML BTL SL PRN (06:26)
[2021-08-26] MEDS: ISOSORBIDE MONO EXTENDED REL 60 MG TABCR PO SCH (08:46)
[2021-08-26] MEDS: SODIUM BICARBONATE 650 MG TAB PO SCH (08:46)
[2021-08-26] MEDS: predniSONE 10 MG TABLET PO SCH (08:46)
--- NOTE | 2021-08-26 10:11 | Nephrology Progress Note ---
Date of Service August 26, 2021 Assessment & Plan (1) Chronic kidney disease, stage 4 (severe): (2) Acute coronary syndrome: (3) Anemia: Plan: Transitioned to [employer]. Resting comfortably in bed at this time. Life expectancy limited. No complaints at the time of my assessment. Nephrology will sign-off. Please call with questions or concerns. Admission and Anticipated Discharge Date Admission Date: August 21, 2021 Eddie Strauss was resting comfortably in bed this AM. He opened his eyes to voice. He denied pain. Review of Systems Review of Systems: Unobtainable due to cognitive status (limited) Physical Exam Constitutional: + thin, + altered mental status and + frail appearing; no acute distress Eyes: no scleral abnormality and no corneal abnormality ENMT: Mouth: + dry oral mucous membranes; no oral mucosal abnormality Neck: normal visual inspection and trachea midline Respiratory: normal respiratory effort Cardiovascular: Rate/Rhythm: regular rate Heart Sounds: normal S1, normal S2 and + murmur Musculoskeletal: Extremities: + muscle atrophy; no cyanosis and no clubbing Skin: + turgor decreased and + ecchymosis Results & Data ([facility]) Vital Signs (Past 12 Hours) Laboratory Results - last 24 hr 08/25/21 11:55 POC Glucose 80 PG Care Time/CCT Total # of Minutes Spent Total Time Spent with Patient: Total time spent is greater than 50% in coordination of care (as documented) at patient's floor/unit and/or counseling patient: Coding Level of Care Code 82371 Subseq Hosp Care Lvl 2 Diagnoses Chronic kidney disease, stage 4 (severe) N18.4 Acute coronary syndrome I24.9 Anemia D64.9 Anemia type: unspecified type (1) Anemia Anemia type: unspecified type Qualified Code(s): D64.9 - Anemia, unspecified
[2021-08-26] MEDS: HYDROmorphone INJ 0.5 MG/0.5 ML SYR IV PRN ×3 (11:37→21:04)
[2021-08-26] MEDS ORDERED: LORazepam 0.5 MG/1 ML VIAL IV PRN (13:41)
[2021-08-26] MEDS ORDERED: LORazepam 2 MG/4 ML VIAL IV PRN (13:41)
--- NOTE | 2021-08-26 15:36 | Hospitalist Progress Note ---
Date of Service August 26, 2021 Assessment & Plan (1) Acute coronary syndrome: Plan: 71yo Male here for chest pain shortness of breath 2/2 to NSTEMI. PMH autoimmune hepatitis with portal HTN and esophageal varices, chronic anemia/thrombocytopenia, severe multivessel CAD, CKD4, DM2, HFpEF. ()Comfort Measure Only 08/25 Patient now DNR/DNI, wants comfort measure only, on dilaudid q1h for pain control. Continuing Sodium bicarb, isosorbide mononitrate, prednisone, continuing PRN zofran, dc'd all other medication and orders. Family understands patient wishes, agree with comfort measures, hesitant regarding home hospice unsure if patient is stable enough to be moved. 08/26 Patient more lethargic, opens eyes to name, responds in grunts. Patient's family agree to inpatient hospice, will keep in hospital for now due to difficulty with placement during this time period, CM sending referrals to [facility] regarding beds. Will reassess patient condition tomorrow. All PO medication dc'd. Discussed with family that articifial nutrition and IVF will not be pursued at this time, due to possible prolonging patient suffering and putting patient at risk of drowning given his comorbidities ()Acute Respiratory failure with Hypoxia secondary to fluid overload, pulmonary edema his CHF and CKD most likely contributory continue BIPAP O2 sat 90-92% ABG pH normal PCO2 29 Lactate 3.8 CXR: Moderate to severe pulmonary edema, increased from prior exam. Bilateral lower lobe predominant airspace opacities which may represent atelectasis, aspiration, and/or pneumonia. 08/25 BIPAP dc'd, patient satting 96% on NC ()NSTEMI, Hx CAD: History of severe multivessel disease. Cardiac cath 05/2021: Calcified 80% left main extending into the ostium of LAD/circumflex, 60% mid LAD, severe diffuse distal LAD up to 95%, 60% proximal circumflex, 55% proximal RCA, 70% calcified mid RCA with acute thrombus. Echo 05/2021: LVEF 55-60%, apical akinesis, mild MR. Troponin initially 0.7 -> 80.4 downtrending; heparin gtt started by ICU team, aPPT elevated to 139 heparin held Total of aspirin 324mg received while still in ER. Continue daily aspirin, Plavix, statin. Amlodipine and beta trae held due to hypotension. Started nitrodrip, stopped 08/21 Cardiology consulted, recommend heparin 48hr, home propanolol, despite liver disease consider Ranexa. Continue ASA/plavix, statin. Continue max dose Imdur 180 BID Echo: EF 50-55%, severe concentric LVH, large apical akenisis Resume beta-trae. Try metoprolol 25mg BID and titrate up as BP/HR alllows. *as patient is not stabilized, beta blockers have not been restarted If tolerate beta-trae, resume amlodipine. 08/23 patient experienced chest pain after emotional distress, EKG showed ST depression in leads V3, V6, chest pain resolve with SL nitro. Patient downgraded to PCU 08/24 patient in respiratory distress CXR showed mod-sev pulmonary edema, started on BIPAP, stat labs ordered, upgraded to ICU elevated lactate, ammonia heparin drip ongoing for now as limited options for intervention, some c oncern very dark stool possible GI bleed, continue to monitor for now given 80mg IV lasix, initially good urine output later limited given worsening kidney failure 08/25 dc'd all cardiac medications except isosorbide mononitrate 08/26 dc'd all po meds ()CKD stage IV, hyperkalemia, chronic anemia: New baseline creatinine ~3.0. Creatinine on admission of 3.11. Has been and continues to be firm about not wanting to pursue dialysis should he have worsening of his renal function. Overall is a poor candidate for dialysis due to his multiple medical comorbidities, frailty and poor functional status. Would not be good candidate for peritoneal dialysis due to portal HTN and Hx ascites. Would not be a good candidate for AV fistula due to history of vascular disease, as well as chronic skin changes from daily prednisone therapy. Potassium of 5.2 on admission today. No peaked T waves. Small bolus NSS given. Continue sodium bicarbonate BID. Repeat BMP in AM. Follows with Dr. Dwyer. Nephrology consulted given complex situation with CKD IV and NSTEMI, recommend conservative management, patient declines further intervention for CAD or dialysis recommends if considering Ranexa, use as strictly palliative measures Further discussion with family regarding futility for CPR and intubation, family expressed understanding 08/25 continuing prednisone, sodium bicarb, all other renal meds dc'd 08/26 all po medication discontinued. Per family patient has not made urine in 2 days. ()Anemia, thrombocytopenia: Chronic, with baseline Hgb ~8-9, plts ~90. On admission with Hgb 8.1. Received 1u PRBCs in ICU given NSTEMI. Last Hbg 8.8 recieved iron supplement, 08/25 dc'd ()DM2, hyperglycemia: On presentation with BSG 354. Received 5u regular insulin. Continue SSI with ICU hyperglycemia protocol. 08/25 dc'd glycemic protocol and insulin ()Autoimmune hepatitis, portal HTN, esophageal varices: History of. On furosemide 80mg AM, 40mg PM. LFTs stable. Continue home prednisone daily. ()Swallowing Difficulties Patient experiencing nausea vomitting cough not improved with zofran, protonix. Describes difficulty swallowing chicken at home and self induced vomiting to clear from esophagus. Discussed possible etiology, esophageal stricture v. cardiac complication, patient understands endoscopy is best option to evaluate for esophageal stricture but may not tolerate sedation well. swallowing difficulties improved 08/23 without intervention Code Status: DNR/DNI, [employer] FEN: Heart Healthy DM2 diet DVT ppx: none Dispo: med/surg (2) CKD (chronic kidney disease): (3) Uncontrolled type 2 diabetes mellitus: (4) Dyslipidemia: (5) Portal hypertension: (6) Anemia: (7) Esophageal varices: (8) Autoimmune hepatitis: Plan: I also saw the patient the resident physician and confirmed santillan portions of the history and physical examination. Agree with the impression and plan as noted in the resident documentation. Upon our visit early afternoon, and son at bedside. Extensive conversation regarding patient's current condition and prognosis; comfort measures. Family has good understanding of his condition. He does not sound like home hospice would be feasible if we get to that point -would more likely be a candidate for facility placement with hospice services. However, given the patient's current condition, may not reach the point to where we need placement. We will see what happens over the next 24 hours or so; if stabilizes, may need to look at facilities. Otherwise, expect that he may pass before placement is possible. Admission and Anticipated Discharge Date Admission Date: August 21, 2021 Subjective 71yo Male seen at bedside, resting comfortably. He responds to name, looked toward the window when told there was snow outside, said it was too bright. Patient denies any pain. Patient fell asleep without answering further questions. Patient's at bedside, states he has not made urine in 2 days. Had lengthy discussion with family regarding patient prognosis and timeline. Discussed with Dr. Chavez placement options for hospice, family more comfortable staying at this hospital for inpatient hospice, agree that this is more appropriate given patient's declining condition. Review of Systems Review of Systems: Unobtainable due to reduced consciousness Physical Exam Constitutional: average body habitus, + frail appearing and + lethargic Respiratory: Breathing regular rate room air unassisted Skin: no rashes, warm and dry Resident Activity Tracking Resident Involvement: Resident Care Provided Care Provided: Adult Hospital Medicine (1) CKD (chronic kidney disease) Chronic kidney disease stage: unspecified stage Qualified Code(s): N18.9 - Chronic kidney disease, unspecified
[2021-08-27] MEDS: HYDROmorphone INJ 0.5 MG/0.5 ML SYR IV PRN ×4 (03:57→18:01)
--- NOTE | 2021-08-27 10:27 | Hospitalist Progress Note ---
Date of Service August 27, 2021 Assessment & Plan (1) Acute coronary syndrome: Plan: 71yo Male here for chest pain shortness of breath 2/2 to NSTEMI. PMH autoimmune hepatitis with portal HTN and esophageal varices, chronic anemia/thrombocytopenia, severe multivessel CAD, CKD4, DM2, HFpEF. ()Comfort Measure Only 08/25 Patient now DNR/DNI, wants comfort measure only, on dilaudid q1h for pain control. Continuing Sodium bicarb, isosorbide mononitrate, prednisone, continuing PRN zofran, dc'd all other medication and orders. Family understands patient wishes, agree with comfort measures, hesitant regarding home hospice unsure if patient is stable enough to be moved. 08/26 Patient more lethargic, opens eyes to name, responds in grunts. Patient's family agree to inpatient hospice, will keep in hospital for now due to difficulty with placement during this time period, CM sending referrals to [facility] regarding beds. Will reassess patient condition tomorrow. All PO medication dc'd. Discussed with family that articifial nutrition and IVF will not be pursued at this time, due to possible prolonging patient suffering and putting patient at risk of drowning given his comorbidities 08/27 Patient anuric day 3. IV dilaudid atropine PRN. Reduced conscious, opens eyes occasionally, no intelligible communication ()Acute Respiratory failure with Hypoxia secondary to fluid overload, pulmonary edema his CHF and CKD most likely contributory continue BIPAP O2 sat 90-92% ABG pH normal PCO2 29 Lactate 3.8 CXR: Moderate to severe pulmonary edema, increased from prior exam. Bilateral lower lobe predominant airspace opacities which may represent atelectasis, aspiration, and/or pneumonia. 08/25 BIPAP dc'd, patient satting 96% on NC ()NSTEMI, Hx CAD: History of severe multivessel disease. Cardiac cath 05/2021: Calcified 80% left main extending into the ostium of LAD/circumflex, 60% mid LAD, severe diffuse distal LAD up to 95%, 60% proximal circumflex, 55% proximal RCA, 70% calcified mid RCA with acute thrombus. Echo 05/2021: LVEF 55-60%, apical akinesis, mild MR. Troponin initially 0.7 -> 80.4 downtrending; heparin gtt started by ICU team, aPPT elevated to 139 heparin held Total of aspirin 324mg received while still in ER. Continue daily aspirin, Plavix, statin. Amlodipine and beta trae held due to hypotension. Started nitrodrip, stopped 08/21 Cardiology consulted, recommend heparin 48hr, home propanolol, despite liver disease consider Ranexa. Continue ASA/plavix, statin. Continue max dose Imdur 180 BID Echo: EF 50-55%, severe concentric LVH, large apical akenisis Resume beta-trae. Try metoprolol 25mg BID and titrate up as BP/HR alllows. *as patient is not stabilized, beta blockers have not been restarted If tolerate beta-trae, resume amlodipine. 08/23 patient experienced chest pain after emotional distress, EKG showed ST depression in leads V3, V6, chest pain resolve with SL nitro. Patient downgraded to PCU 08/24 patient in respiratory distress CXR showed mod-sev pulmonary edema, started on BIPAP, stat labs ordered, upgraded to ICU elevated lactate, ammonia heparin drip ongoing for now as limited options for intervention, some concern very dark stool possible GI bleed, continue to monitor for now given 80mg IV lasix, initially good urine output later limited given worsening kidney failure 08/25 dc'd all cardiac medications except isosorbide mononitrate 08/26 dc'd all po meds ()CKD stage IV, hyperkalemia, chronic anemia: New baseline creatinine ~3.0. Creatinine on admission of 3.11. Has been and continues to be firm about not wanting to pursue dialysis should he have worsening of his renal function. Overall is a poor candidate for dialysis due to his multiple medical comorbidities, frailty and poor functional status. Would not be good candidate for peritoneal dialysis due to portal HTN and Hx ascites. Would not be a good candidate for AV fistula due to history of vascular disease, as well as chronic skin changes from daily prednisone therapy. Potassium of 5.2 on admission today. No peaked T waves. Small bolus NSS given. Continue sodium bicarbonate BID. Repeat BMP in AM. Follows with Dr. Dwyer. Nephrology consulted given complex situation with CKD IV and NSTEMI, recommend conservative management, patient declines further intervention for CAD or dialysis recommends if considering Ranexa, use as strictly palliative measures Further discussion with family regarding futility for CPR and intubation, family expressed understanding 08/25 continuing prednisone, sodium bicarb, all other renal meds dc'd 08/26 all po medication discontinued. Per family patient has not made urine in 2 days. ()Anemia, thrombocytopenia: Chronic, with baseline Hgb ~8-9, plts ~90. On admission with Hgb 8.1. Received 1u PRBCs in ICU given NSTEMI. Last Hbg 8.8 recieved iron supplement, 08/25 dc'd ()DM2, hyperglycemia: On presentation with BSG 354. Received 5u regular insulin. Continue SSI with ICU hyperglycemia protocol. 08/25 dc'd glycemic protocol and insulin ()Autoimmune hepatitis, portal HTN, esophageal varices: History of. On furosemide 80mg AM, 40mg PM. LFTs stable. Continue home prednisone daily. ()Swallowing Difficulties Patient experiencing nausea vomitting cough not improved with zofran, protonix. Describes difficulty swallowing chicken at home and self induced vomiting to clear from esophagus. Discussed possible etiology, esophageal stricture v. cardiac complication, patient understands endoscopy is best option to evaluate for esophageal stricture but may not tolerate sedation well. swallowing difficulties improved 08/23 without intervention Code Status: DNR/DNI, STRUCTURAL ENGINEER FEN: Heart Healthy DM2 diet DVT ppx: none Dispo: med/surg (2) CKD (chronic kidney disease): (3) Uncontrolled type 2 diabetes mellitus: (4) Dyslipidemia: (5) Portal hypertension: (6) Anemia: (7) Esophageal varices: (8) Autoimmune hepatitis: Plan: I also saw the patient the resident physician and confirmed santillan portions of the history and physical examination. Agree with the impression and plan as noted in the resident documentation. Upon our visit early afternoon, and son at bedside. Extensive conversation regarding patient's current condition and prognosis; comfort measures. Family has good understanding of his condition. He does not sound like home hospice would be feasible if we get to that point -would more likely be a candidate for facility placement with hospice services. However, given the patient's current condition, may not reach the point to where we need placement. We will see what happens over the next 24 hours or so; if stabilizes, may need to look at facilities. Otherwise, expect that he may pass before placement is possible. Admission and Anticipated Discharge Date Admission Date: August 21, 2021 Supervising Physician Co-Signing Physician Notes I saw the patient individually and discussed the case and plan of care with the resident physician. I agree with the impression and plan as noted in the resident documentation. At the time of my visit, for family members/friends bedside with patient. Patient seems to be predominantly unresponsive, although family states that he will intermittently attempt to speak. He did not sense that he was in significant discomfort. He remains anuric, and has been so for the last 24 to 36 hours Continue comfort care Could consider placement options (with hospice) tomorrow, though I suspect the patient will pass in the hospital. Subjective 71yo Male seen at bedside, resting comfortably. Eyes open occasionally. Per he has been getting pain medication as needed, occasional moans and word-like noises. Per nursing he has produced no urine day 3. Family present and aware of condition, understand they can ask the nurse for pain medication for patient as needed. Review of Systems Review of Systems: Unobtainable due to reduced consciousness Physical Exam Constitutional: average body habitus, + frail appearing and + lethargic Respiratory: normal respiratory effort, lungs clear to auscultation Cardiovascular: RRR, no murmur, no edema Skin: no rashes, warm and dry Resident Activity Tracking Resident Involvement: Resident Care Provided Care Provided: Adult Hospital Medicine (1) CKD (chronic kidney disease) Chronic kidney disease stage: unspecified stage Qualified Code(s): N18.9 - Chronic kidney disease, unspecified
[2021-08-27] MEDS: ATROPINE SULFATE 1% OP SOLN 5 ML BTL SL PRN ×2 (16:42→18:01)
--- NOTE | 2021-08-27 18:32 | Death Pronouncement Note ---
Date of Service August 27, 2021 Pronouncement Note Admission Date Admission Date: August 21, 2021 Date and Time of Date of : 08/27/21 Time of : 18:37 Contributing Factors (1) Acute coronary syndrome: (2) CKD (chronic kidney disease): (3) Uncontrolled type 2 diabetes mellitus: (4) Dyslipidemia: (5) Portal hypertension: (6) Anemia: (7) Esophageal varices: (8) Autoimmune hepatitis: Hospital Course Hospital Course: see discharge summary Additional Data Confirmation of : no pulse, no respirations, no heart sounds, pupils fixed and dilated and other (no reaction to sternal rub) Family: contacted Attending/PCP notified?: Yes Attending physician: Stephen Chavez, DO Was code activated?: No Autopsy requested?: No customs examiner notified?: No Organ bank notified?: No Advance directives: No Resident Activity Tracking Resident Involvement: Resident Care Provided Care Provided: Adult Hospital Medicine
--- NOTE | 2021-08-27 18:45 | Discharge Summary ---
Date of Service August 27, 2021 Admission HPI Per Admitting Provider 71 yo M Hx DM2 on insulin therapy, severe multivessel CAD, autoimmune hepatitis with portal HTN and esophageal varices, chronic anemia/thrombocytopenia, CKD stage IV, HLD presented to the ER via EMS for complaints of chest pain that started while sitting watching television around 5pm this evening. No associated symptoms, recent illness, fevers or chills, GI symptoms. Generally is fairly home-bound due to angina with activity. Today went to the doctor's office but no other activities today. In the ER patient was noted to have elevated troponin 0.7 with new EKG changes (ST depressions in leads). Due to ongoing pain despite nitro SL patient was placed on nitro gtt with significant improvement in his pain. Hospitalist service was consulted for admission and patient was transferred to the ICU. On my interview patient reports 3/10 sternal chest pain. He does not have other complaints. Of note, patient had NSTEMI in 05/2021 and had repeat cardiac catheterization which showed severe, heavily calcified left main disease and three-vessel disease. Patient was evaluated at [facility] and felt not to be a surgical candidate due to his comorbidities. He has been evaluated by Palliative Care in the past and is fairly adamant about not wanting dialysis, but still desires to be a full code. Admission Exam Per Admitting Provider Constitutional: WD/WN, vitals as above Eyes: PERRL, conjunctivae normal, anicteric sclerae ENMT: external ear and nose normal, oropharynx normal Neck: normal visual inspection Respiratory: normal respiratory effort, lungs clear to auscultation Cardiovascular: RRR, no murmur, no edema Gastrointestinal (Abdomen): normal bowel sounds, soft, nontender, no hepatosplenomegaly Musculoskeletal: no cyanosis or clubbing, extremities motor strength 5/5 Skin: no rashes, warm and dry Neurologic: AAOx3, normal speech. PERRLA, EOMI, no nystagmus. Normal visual acuity bilaterally. Bilateral UE, LE, and face without sensory or motor deficits. DTRs normal. II- XII intact bilaterally. No pronator drift. No tremor. No ataxia. Psychiatric: A+Ox3, euthymic affect Principal Diagnosis Discharge Exam Constitutional average body habitus (Yellowing skin) No reaction to sternal rub Eyes eyes nonreactive nonaccomadating Respiratory no respirations Cardiovascular No heart beat, no pulse Discharge Data Allergies Allergy/AdvReac Type Severity Reaction Status Date / Time No Known Allergies Allergy Verified 08/21/21 21:42 Consultations 08/21/21 21:31 ED Decision to Admit Stat 08/21/21 22:46 Consult Panel Saw Operator Routine 08/21/21 23:28 Consult Nephrology Routine 08/22/21 00:09 Consult Cardiology Routine Hospital Course (1) Acute coronary syndrome: 71yo Male here for chest pain shortness of breath 2/2 to NSTEMI. PMH autoimmune hepatitis with portal HTN and esophageal varices, chronic anemia/thrombocytopenia, severe multivessel CAD, CKD4, DM2, HFpEF. ()Comfort Measure Only 08/25 Patient now DNR/DNI, wants comfort measure only, on dilaudid q1h for pain control. Continuing Sodium bicarb, isosorbide mononitrate, prednisone, continuing PRN zofran, dc'd all other medication and orders. Family understands patient wishes, agree with comfort measures, hesitant regarding home hospice unsure if patient is stable enough to be moved. 08/26 Patient more lethargic, opens eyes to name, responds in grunts. Patient's family agree to inpatient hospice, will keep in hospital for now due to difficulty with placement during this time period, CM sending referrals to [facility] regarding [facility]. Will reassess patient condition tomorrow. All PO medication dc'd. Discussed with family that articifial nutrition and IVF will not be pursued at this time, due to possible prolonging patient suffering and putting patient at risk of drowning given his comorbidities 08/27 Patient anuric day 3. IV dilaudid atropine PRN. Reduced conscious, opens eyes occasionally, no intelligible communication ()Acute Respiratory failure with Hypoxia secondary to fluid overload, pulmonary edema his CHF and CKD most likely contributory placed on BIPAP O2 sat 90-92% ABG pH normal PCO2 29 Lactate 3.8 CXR: Moderate to severe pulmonary edema, increased from prior exam. Bilateral lower lobe predominant airspace opacities which may represent atelectasis, aspiration, and/or pneumonia. 08/25 BIPAP dc'd, patient satting 96% on NC ()NSTEMI, Hx CAD: History of severe multivessel disease. Cardiac cath 05/2021: Calcified 80% left main extending into the ostium of LAD/circumflex, 60% mid LAD, severe diffuse distal LAD up to 95%, 60% proximal circumflex, 55% proximal RCA, 70% calcified mid RCA with acute thrombus. Echo 05/2021: LVEF 55-60%, apical akinesis, mild MR. Troponin initially 0.7 -> 80.4 downtrending; heparin gtt started by ICU team, aPPT elevated to 139 heparin held Total of aspirin 324mg received while still in ER. Continue daily aspirin, Plavix, statin. Amlodipine and beta trae held due to hypotension. Started nitrodrip, stopped 08/21 Cardiology consulted, recommend heparin 48hr, home propanolol, despite liver disease consider Ranexa. Continue ASA/plavix, statin. Continue max dose Imdur 180 BID Echo: EF 50-55%, severe concentric LVH, large apical akenisis Resume beta-trae. Try metoprolol 25mg BID and titrate up as BP/HR alllows. *as patient is not stabilized, beta blockers have not been restarted If tolerate beta-trae, resume amlodipine. 08/23 patient experienced chest pain after emotional distress, EKG showed ST depression in leads V3, V6, chest pain resolve with SL nitro. Patient downgraded to PCU 08/24 patient in respiratory distress CXR showed mod-sev pulmonary edema, started on BIPAP, stat labs ordered, upgraded to ICU elevated lactate, ammonia heparin drip ongoing for now as limited options for intervention, some concern very dark stool possible GI bleed, continue to monitor for now given 80mg IV lasix, initially good urine output later limited given worsening kidney failure 08/25 dc'd all cardiac medications except isosorbide mononitrate 08/26 dc'd all po meds ()CKD stage IV, hyperkalemia, chronic anemia: New baseline creatinine ~3.0. Creatinine on admission of 3.11. Has been and continues to be firm about not wanting to pursue dialysis should he have worsening of his renal function. Overall is a poor candidate for dialysis due to his multiple medical comorbidities, frailty and poor functional status. Would not be good candidate for peritoneal dialysis due to portal HTN and Hx ascites. Would not be a good candidate for AV fistula due to history of vascular disease, as well as chronic skin changes from daily prednisone therapy. Potassium of 5.2 on admission today. No peaked T waves. Small bolus NSS given. Continue sodium bicarbonate BID. Follows with Dr. Dwyer. Nephrology consulted given complex situation with CKD IV and NSTEMI, recommend conservative management, patient declines further intervention for CAD or dialysis recommends if considering Ranexa, use as strictly palliative measures Further discussion with family regarding futility for CPR and intubation, family expressed understanding 08/25 continuing prednisone, sodium bicarb, all other renal meds dc'd 08/26 all po medication discontinued. Per family patient has not made urine in 2 days. ()Anemia, thrombocytopenia: Chronic, with baseline Hgb ~8-9, plts ~90. On admission with Hgb 8.1. Received 1u PRBCs in ICU given NSTEMI. Last Hbg 8.8 received iron supplement, 08/25 dc'd ()DM2, hyperglycemia: On presentation with BSG 354. On insulin, glycemic protocol 08/25 dc'd glycemic protocol and insulin ()Autoimmune hepatitis, portal HTN, esophageal varices: History of. On furosemide 80mg AM, 40mg PM. LFTs stable. Continue home prednisone daily. dc'd 08/26 ()Swallowing Difficulties Patient experiencing nausea vomitting cough not improved with zofran, protonix. Describes difficulty swallowing chicken at home and self induced vomiting to clear from esophagus. Discussed possible etiology, esophageal stricture v. cardiac complication, patient understands endoscopy is best option to evaluate for esophageal stricture but may not tolerate sedation well. swallowing difficulties improved 08/23 without intervention (2) CKD (chronic kidney disease): (3) Uncontrolled type 2 diabetes mellitus: (4) Dyslipidemia: (5) Portal hypertension: (6) Anemia: (7) Esophageal varices: (8) Autoimmune hepatitis: Total Time Total Time Spent Total Time Spent (In Minutes): see attending attestation Discharge Plan Discharge Items Patient Disposition: Discharge Diagnosis: Addtl Attending Provider Instructions: see discharge summary Other Date/Time: 08/27/21 18:37 Supervising Physician Co-Signing Physician Notes Please see my attestation in the progress note of the same date. Patient passed late same date while in comfort care. Resident Activity Tracking Resident Involvement: Resident Care Provided Care Provided: Adult [facility]
== END 2021-08-27 21:49 | disposition expired ==
LOC: ED 19:53 → SUATTDRO 22:46 → 1E 22:46 → 2S 08-23 18:20 → 1E 08-24 11:35 → 3E 08-25 17:57